=== PATIENT | female | born 1950 | race Two or more races ===

== ENCOUNTER → 2020-09-17 10:15 | Outpatient (BNVA) | payer MEDICARE, SELFPAY | PROVIDERS: PCP Internal Medicine; Referring Provider Internal Medicine; Visit Provider Advanced Practice Midwife | DX: Z76.89 Persons encountering health services in other specified circumstances (principal) ==

== ENCOUNTER → 2020-09-25 08:41 | Outpatient (BNVA) | payer MEDICARE, SELFPAY | PROVIDERS: PCP Internal Medicine; Referring Provider Internal Medicine; Visit Provider Physician Assistant | DX: R19.5 Other fecal abnormalities (principal); R63.4 Abnormal weight loss; R10.13 Epigastric pain; Z79.899 Other long term (current) drug therapy; Z79.82 Long term (current) use of aspirin | CPT/HCPCS: Q3014 ==

== ENCOUNTER 2020-10-30 11:09 | Day surgery (SDC) | payer MEDICARE, SELFPAY ==
[2020-10-22 14:26] VITALS: BMI 23.3
--- NOTE | 2020-10-29 09:41 | HO.ANESPROP2 ---
Documented by User: Sarah Preciado 10/29/20 09:47 HPI - Anesthesia Eval Consult details Narrative: 69yo F for Upper Endoscopy and Colonoscopy PMFSH Past Medical History Medical History Epigastric pain Gastritis History of high cholesterol History of Meniere's disease Family History Family History Father Pancreatic cancer Mother Heart disease Surgical History Surgical History History of esophagogastroduodenoscopy (EGD) Hx of colonoscopy Hx of tubal ligation Social History Social History Household Members: Children Alcohol intake: current Alcohol intake frequency: holidays/special occasions only Smoking Status: Never smoker Advance Directives: No Advance Directives Information Provided: No Advance Directives on File: No Meds Allergies Allergy/AdvReac Type Severity Reaction Status Date / Time No Known Allergies Allergy Verified 09/17/20 10:23 Home Medications Medication Instructions Recorded Confirmed Type multivitamin,jx-azjn-vtndokfs 1 tab PO DAILY 09/17/20 10/22/20 History rosuvastatin 10 mg tablet 10 mg PO DAILY 09/17/20 10/22/20 History scopolamine base 1 mg over 3 days 1 patch TRANSDERMAL Q3D PRN 09/17/20 10/22/20 History transdermal patch ascorbic acid (vitamin C) [Vitamin 1,000 mg PO DAILY 10/22/20 10/22/20 History C] cholecalciferol (vitamin D3) 25 mcg PO DAILY 10/22/20 10/22/20 History [Vitamin D3] lisinopril 10 mg PO DAILY 10/22/20 10/22/20 History Exam Exam Date and Time: October 29, 2020 0941 Height,Weight and Vital Signs: Height 5 ft 4 in Weight 61.689 kg Assessment and Plan Assessment Anesthesia Assessment: Chart Reviewed Documented by User: Roseanne Salas 10/30/20 11:18 [facility] Past Medical History Medical History Epigastric pain Gastritis History of high cholesterol History of Meniere's disease Family History Family History Father Pancreatic cancer Mother Heart disease Surgical History Surgical History History of esophagogastroduodenoscopy (EGD) Hx of colonoscopy Hx of tubal ligation Social History Social History Household Members: Children Alcohol intake: current Alcohol intake frequency: holidays/special occasions only Smoking Status: Never smoker Advance Directives: No Advance Directives Information Provided: No Advance Directives on File: No Meds Allergies Allergy/AdvReac Type Severity Reaction Status Date / Time No Known Allergies Allergy Verified 09/17/20 10:23 Home Medications Medication Instructions Recorded Confirmed Type multivitamin,yz-blsf-zobmcmsf 1 tab PO DAILY 09/17/20 10/22/20 History rosuvastatin 10 mg tablet 10 mg PO DAILY 09/17/20 10/22/20 History scopolamine base 1 mg over 3 days 1 patch TRANSDERMAL Q3D PRN 09/17/20 10/22/20 History transdermal patch ascorbic acid (vitamin C) [Vitamin 1,000 mg PO DAILY 10/22/20 10/22/20 History C] cholecalciferol (vitamin D3) 25 mcg PO DAILY 10/22/20 10/22/20 History [Vitamin D3] lisinopril 10 mg PO DAILY 10/22/20 10/22/20 History Exam Airway Mallampati Class: II TM Dist: >3cm Heart: RRR Lungs: CTA
[2020-10-30 11:16] VITALS: BP 139/70; PULSE 90; RESP 18; TEMP 36.6; O2SAT 98
[2020-10-30] MEDS: Sodium Phosphate,Mono-Dibasic 133 ML ENEMA PR ×2 (11:20→11:45)
[2020-10-30] MEDS: Lactated Ringers 1,000 ML 100 ML IVCONT (11:29)
--- NOTE | 2020-10-30 11:47 | PC.NURSE ---
brown liquid with form brown
--- NOTE | 2020-10-30 11:50 | MHC.SHP ---
Pre-Procedural Eval Section B Chief Complaint: epigastric pain,screening Relevant Social History: None Present Medications: see Short Stay Collaborative assessment Medical History: Significant History (Epigastric pain Gastritis History of high cholesterol History of Meniere's disease) History of Previous Operations: Relevant previous surgery/procedure and date(s) (tubal ligation) Allergies: Allergies Allergy/AdvReac Type Severity Reaction Status Date / Time No Known Allergies Allergy Verified 09/17/20 10:23 Review of Systems Sugical H&P ROS: Negative: Constitution, Cardiovascular, Respiratory, Neurological, Psychiatric, Hem-Onc, Allergic/Immunologic, Gastrointestinal, Genitourinary, Musculoskeletal, Integumentary, Endocrine and Eyes/Ears/Nose/Throat Exam Surgical H&P Exam: Normal: HEENT, Normal: Heart, Normal: Lungs, Normal: Extremities, Normal: Abdomen, Normal: Skin and Normal: Neurological Plan I have reviewed the history and physical and performed a pertinent physical examination on my patient. No changes have occurred unless specified. colonoscopy postponed due to not being clear, will proceed with EGD and reschedule colonoscopy
--- NOTE | 2020-10-30 12:07 | PM.OP ---
Brief Operative Note Date of Service: 10/30/20 Pre-op diagnosis: epigastric pain Post-op diagnosis: same Procedure: Procedure Description: EGD FLEXIBLE TRANSORAL UPPER GASTROINTESTINAL ENDOSCOPY UPPER ENDOSCOPY Consent: Indications for the procedure and potential complications of bleeding, perforation, reaction to medications and missed diagnosis were discussed with the patient and informed consent was obtained. Instrument: Olympus GIF H 190 J mid size upper endoscope Monitoring: Vital signs and clinical assessment, continuous EKG monitoring, Pulse oximetry, Carbon Dioxide monitoring and blood pressure monitoring were done throughout the procedure. Procedure: The patient was placed in the left lateral decubitis position and pre-procedure medications were administered and a bite block was placed. The endoscope was inserted into the mouth and advanced under direct vision to the third part of duodenum. A careful inspection was made as the upper endoscope was withdrawn including a retroflexed examination of the proximal stomach; Findings and interventions are described below. Findings: Larynx:normal Esophagus: GE junction at 37 cm, diaphragm hiatus at 37 cm, mild esophagitis at GEJ, bx taken, more on cardia side Stomach: Patchy gastric erythema with scarring and atrophy consistent with atrophic gastritis. Biopsies were obtained. Grade 2 flap valve on retroflexed examination of the cardia. Duodenum: Normal bulb and descending duodenum, bx taken Intervention: Biopsies as noted above Impression/Findings: atrophic gastritis PLAN: await bx if pos for h pylori then treat reschedule colonoscopy, didn't mix whole jar of 238 g of miralax with 64 oz of gatorade as supposed to Surgeon: Chayo Parnell MD Anesthesia: MAC Estimated blood loss (mL): 0 Condition: stable Disposition: PACU
[2020-10-30 12:20] VITALS: BP 113/57; PULSE 67; RESP 16; TEMP 36; O2SAT 99
[2020-10-30 12:35] VITALS: BP 138/61; PULSE 59; RESP 13; TEMP 36; O2SAT 100
--- NOTE | 2020-10-30 13:31 | HO.POSTANES ---
Post Anesthesia Evaluation Post Anesthesia Evaluation Vital Signs: Vital Signs Temp Pulse Resp BP Pulse Ox 10/30/20 12:35 96.8 F 59 13 138/61 100 10/30/20 12:20 96.8 F 67 16 113/57 L 99 10/30/20 11:16 97.8 F 90 18 139/70 98 Anesthesia: General (tiva) Mental Status: Awake Pain Control: Satisfactory Nausea/Vomiting: None Hydration: Adequate Anesthesia-Related Issues: No Anes. Related Issues
--- NOTE | 2020-10-30 13:58 | PC.NURSE ---
RN MATERNAL CHILD USED FOR DISCHARGE INSTRUCTIONS
--- NOTE | 2020-11-14 11:14 | W.PM.OPN ---
Operative Note Operative Note Date of Service: 11/14/20 Narrative: Date of Service: 10/30/20 Pre-op diagnosis: epigastric pain Post-op diagnosis: same Procedure: Procedure Description: EGD FLEXIBLE TRANSORAL UPPER GASTROINTESTINAL ENDOSCOPY UPPER ENDOSCOPY Consent: Indications for the procedure and potential complications of bleeding, perforation, reaction to medications and missed diagnosis were discussed with the patient and informed consent was obtained. Instrument: Olympus GIF H 190 J mid size upper endoscope Monitoring: Vital signs and clinical assessment, continuous EKG monitoring, Pulse oximetry, Carbon Dioxide monitoring and blood pressure monitoring were done throughout the procedure. Procedure: The patient was placed in the left lateral decubitis position and pre-procedure medications were administered and a bite block was placed. The endoscope was inserted into the mouth and advanced under direct vision to the third part of duodenum. A careful inspection was made as the upper endoscope was withdrawn including a retroflexed examination of the proximal stomach; Findings and interventions are described below. Findings: Larynx:normal Esophagus: GE junction at 37 cm, diaphragm hiatus at 37 cm, mild esophagitis at GEJ, bx taken, more on cardia side Stomach: Patchy gastric erythema with scarring and atrophy consistent with atrophic gastritis. Biopsies were obtained. Grade 2 flap valve on retroflexed examination of the cardia. Duodenum: Normal bulb and descending duodenum, bx taken Intervention: Biopsies as noted above Impression/Findings: atrophic gastritis PLAN: await bx if pos for h pylori then treat reschedule colonoscopy, didn't mix whole jar of 238 g of miralax with 64 oz of gatorade as supposed to
== END 2020-10-30 13:45 | disposition home or self-care (01) ==
PROVIDERS: Visit Provider Internal Medicine Gastroenterology
PROC: (CPT 43239; principal; 2020-10-30 12:50)
DX: K29.40 Chronic atrophic gastritis without bleeding (principal); K20.90 Esophagitis, unspecified without bleeding; R63.4 Abnormal weight loss; K44.9 Diaphragmatic hernia without obstruction or gangrene; Z80.0 Family history of malignant neoplasm of digestive organs; Z79.899 Other long term (current) drug therapy; Z79.82 Long term (current) use of aspirin
CPT/HCPCS: 43239; 88305; 88342

== ENCOUNTER → 2020-11-06 12:03 | Outpatient (BNVA) | payer MEDICARE, SELFPAY | PROVIDERS: PCP Internal Medicine; Visit Provider Physician Assistant | DX: K59.09 Other constipation (principal); Z12.11 Encounter for screening for malignant neoplasm of colon | CPT/HCPCS: Q3014 ==

== ENCOUNTER 2020-12-12 07:31 | Day surgery (SDC) | payer MEDICARE, SELFPAY ==
[2020-12-09 12:06] VITALS: BMI 23.3
--- NOTE | 2020-12-11 09:32 | HO.ANESPROP2 ---
Documented by User: Sarah Preciado 12/11/20 09:33 HPI - Anesthesia Eval Consult details Narrative: 70yo F for Colonoscopy PMFSH Active Problems Active Problems: All Active Problems (Updated 11/06/20 @ 12:50 by Mendy Groves PA-C) Well woman exam with routine gynecological exam (Acute) Change in stool (Acute) Poor historian (Acute) Encounter for screening colonoscopy (Acute) Chronic constipation (Acute) Epigastric pain (Acute) Past Medical History Medical History Chronic constipation Epigastric pain Gastritis History of high cholesterol History of Meniere's disease HTN (hypertension) Family History Family History Father Pancreatic cancer Mother Heart disease Surgical History Surgical History History of esophagogastroduodenoscopy (EGD) Hx of colonoscopy Hx of tubal ligation Social History Social History Household Members: Children Alcohol intake: current Alcohol intake frequency: holidays/special occasions only Smoking Status: Never smoker Use of substances other than those prescribed or required for medical reasons: No Advance Directives: No Advance Directives Information Provided: No Recently lost weight without trying: No Meds Allergies Allergy/AdvReac Type Severity Reaction Status Date / Time No Known Allergies Allergy Verified 09/17/20 10:23 Home Medications Medication Instructions Recorded Confirmed Last Taken Type multivitamin,rw-talj-idxdguai 1 tab PO DAILY 09/17/20 12/09/20 Unknown History rosuvastatin 10 mg tablet 10 mg PO DAILY 09/17/20 12/09/20 Unknown History scopolamine base 1 mg over 3 days 1 patch TRANSDERMAL Q3D PRN 09/17/20 12/09/20 Unknown History transdermal patch ascorbic acid (vitamin C) [Vitamin 1,000 mg PO DAILY 10/22/20 12/09/20 Unknown History C] cholecalciferol (vitamin D3) 25 mcg PO DAILY 10/22/20 12/09/20 Unknown History [Vitamin D3] lisinopril 10 mg PO DAILY 10/22/20 12/09/20 Unknown History Exam Exam Date and Time: December 11, 2020 0932 Height,Weight and Vital Signs: Height 5 ft 4 in Weight 61.689 kg Assessment and Plan Assessment Anesthesia Assessment: Chart Reviewed Documented by User: Brunilda Pinto 12/12/20 08:52 [facility] Past Medical History Medical History Chronic constipation Epigastric pain Gastritis History of high cholesterol History of Meniere's disease HTN (hypertension) Family History Family History Father Pancreatic cancer Mother Heart disease Surgical History Surgical History History of esophagogastroduodenoscopy (EGD) Hx of colonoscopy Hx of tubal ligation Social History Social History Household Members: Children Alcohol intake: current Alcohol intake frequency: holidays/special occasions only Smoking Status: Never smoker Use of substances other than those prescribed or required for medical reasons: No Advance Directives: No Advance Directives Information Provided: No Recently lost weight without trying: No Meds Allergies Allergy/AdvReac Type Severity Reaction Status Date / Time No Known Allergies Allergy Verified 09/17/20 10:23 Home Medications Medication Instructions Recorded Confirmed Last Taken Type multivitamin,ob-izef-rneqstuy 1 tab PO DAILY 09/17/20 12/09/20 Unknown History rosuvastatin 10 mg tablet 10 mg PO DAILY 09/17/20 12/09/20 Unknown History scopolamine base 1 mg over 3 days 1 patch TRANSDERMAL Q3D PRN 09/17/20 12/09/20 Unknown History transdermal patch ascorbic acid (vitamin C) [Vitamin 1,000 mg PO DAILY 10/22/20 12/09/20 Unknown History C] cholecalciferol (vitamin D3) 25 mcg PO DAILY 10/22/20 12/09/20 Unknown History [Vitamin D3] lisinopril 10 mg PO DAILY 10/22/20 12/09/20 Unknown History Exam Airway Mallampati Class: II TM Dist: >3cm Neck ROM: Full Loose/Missing/Broken Teeth: No Heart: RRR Lungs: CTA Assessment and Plan Assessment Anesthesia Assessment: Anesthesia Plan Discussed and Chart Reviewed Final Anesthetic Review NPO: Yes ASA Class: II Final Preanesthetic Review: Meds/Allgs Chart Reviewed, Consent Obtained/Reviewed and Anes Risks/Benef Reviewed Patient Risk: Low Procedure Risk: Low Anesthetic Plan Anesthetic Plan: MAC: Disposition: Standard PACU
--- NOTE | 2020-12-11 16:41 | W.PM.OPN ---
Operative Note Operative Note Date of Service: 12/12/20 Narrative: Attending Dr: Neeta Flynn MD cc: ~ OPERATIVE Note: Date of Service: 12/12/20 Pre-op diagnosis: Colon cancer screening Post-op diagnosis: other (Negative exam) Procedure: Colonoscopy Implants: none Surgeon: Neeta Flynn MD(Completion Supervisor) Anesthesia: MAC (MD Millie) Estimated blood loss (mL): 0 Pathology: none sent Condition: stable Disposition: PACU FINDINGS: DK-Normal tone Scope introduced without difficulty. Easy advancement through sigmoid to descending colon--in region of the Splenic flexure there were some non specific changes seen in mucosa--? prep induced. Scope continued to be advanced into the cecum: Appendicial orifice seen, ileo cecal valve seen. PREP: Good. No polyps were identified. ARV was clear. PLAN: Repeat Asymptomatic screening in a non high risk patient is 10yr. Dictated By:Neeta Flynnigned By:<Electronically signed by Neeta Flynn MD>12/15/20 1527 DD/ [id number]
[2020-12-12 08:09] VITALS: BP 137/77; PULSE 72; RESP 16; TEMP 36.2; O2SAT 100
--- NOTE | 2020-12-12 08:23 | MHC.SHP ---
Pre-Procedural Eval Section B Chief Complaint: constipation Details of Present Illness: Colon cancer screeening Relevant Family History (Specify if Yes): No Relevant Social History: None Present Medications: see Short Stay Collaborative assessment Medical History: Significant History (Meniere's, Constipation) History of Previous Operations: No relevant previous surgery Allergies: Allergies Allergy/AdvReac Type Severity Reaction Status Date / Time No Known Allergies Allergy Verified 09/17/20 10:23 Review of Systems Sugical H&P ROS: Negative: Constitution, Cardiovascular, Respiratory, Neurological, Gastrointestinal and Musculoskeletal Exam Surgical H&P Exam: Normal: HEENT, Normal: Heart, Normal: Lungs, Normal: Extremities, Normal: Abdomen and Normal: Skin Plan Diagnosis/Plan: Unchanged I have reviewed the history and physical and performed a pertinent physical examination on my patient. No changes have occurred unless specified.yes
--- NOTE | 2020-12-12 08:37 | PC.NURSE ---
patient wnet to the bathroom prior to an enem,a and her output was clear in the toilet. no enema needed. sitting back in bed. denies eating food yesterday.
[2020-12-12] MEDS: Lactated Ringers 1,000 ML 100 ML IVCONT (08:50)
[2020-12-12 09:45] VITALS: BP 108/57; PULSE 57; RESP 18; TEMP 36.1; O2SAT 100
--- NOTE | 2020-12-12 09:48 | PM.OP ---
Brief Operative Note Date of Service: 12/12/20 Pre-op diagnosis: Colon cancer screening Post-op diagnosis: other (Negative exam) Procedure: Colonoscopy Implants: none Surgeon: Neeta Flynn MD Anesthesia: MAC (MD Millie) Estimated blood loss (mL): 0 Pathology: none sent Condition: stable Disposition: PACU
[2020-12-12 10:00] VITALS: BP 115/64; PULSE 55; RESP 18; O2SAT 100
[2020-12-12 10:15] VITALS: BP 109/64; PULSE 61; RESP 18; TEMP 36.6; O2SAT 100
--- NOTE | 2020-12-12 11:05 | HO.POSTANES ---
Post Anesthesia Evaluation Post Anesthesia Evaluation Vital Signs: Vital Signs Temp Pulse Resp BP Pulse Ox 12/12/20 10:15 97.8 F 61 18 109/64 100 12/12/20 10:00 55 18 115/64 100 12/12/20 09:45 96.9 F 57 18 108/57 L 100 12/12/20 08:09 97.1 F 72 16 137/77 100 Anesthesia: Monitored Mental Status: Awake Pain Control: Satisfactory Nausea/Vomiting: None Hydration: Adequate Anesthesia-Related Issues: No Anes. Related Issues
--- NOTE | 2020-12-15 15:28 | W.PM.OPN ---
Operative Note Operative Note Date of Service: 12/12/20
== END 2020-12-12 11:48 | disposition home or self-care (01) ==
PROVIDERS: Visit Provider Internal Medicine Gastroenterology
PROC: 0DJD8ZZ Inspection of Lower Intestinal Tract, Via Natural or Artificial Opening Endoscopic (ICD-10-PCS; CPT 45378; principal; 2020-12-12 08:40)
DX: Z12.11 Encounter for screening for malignant neoplasm of colon (principal); K59.09 Other constipation
CPT/HCPCS: G0121

== ENCOUNTER 2021-06-19 11:12 | Outpatient (REF) | payer MEDICARE, OTHER, SELFPAY ==
--- NOTE | ~2021-06-19 | XR_ITS ---
EXAMINATION: XR HAND, LEFT CLINICAL INFORMATION: Pain COMPARISON: None TECHNIQUE: PA, lateral, and oblique views of the left hand. FINDINGS: There are severe erosive changes about the fifth distal phalangeal joint. Gullwing deformity favors erosive osteoarthritis. Remainder of the joints appear relatively spared within the hand but the carpal bones appear to be diffusely abnormal. Element of chronic scapholunate advanced collapse is present. XR/XR hand LT min 3V IMPRESSION: Erosive osteoarthritis fifth distal frontal joint suspected as above. Chronic changes left carpus as above.
== END 2021-06-19 11:13 | disposition home or self-care (01) ==
LOC: HO.LAB 11:12
PROVIDERS: Absent Provider Registered Nurse; PCP Registered Nurse; Visit Provider Physician Assistant
DX: M79.642 Pain in left hand (principal)
CPT/HCPCS: 73130

== ENCOUNTER → 2022-02-12 13:50 | Outpatient (BNVA) | payer MEDICARE, MEDICAID, SELFPAY | PROVIDERS: PCP Registered Nurse; Referring Provider Registered Nurse; Visit Provider Physician Assistant | DX: K59.09 Other constipation (principal); Z78.9 Other specified health status | CPT/HCPCS: Q3014 ==

== ENCOUNTER → 2022-04-15 12:58 | Outpatient (BNVA) | payer MEDICARE, MEDICAID, SELFPAY | PROVIDERS: PCP Family Medicine; Visit Provider Physician Assistant | DX: R13.10 Dysphagia, unspecified (principal); K21.9 Gastro-esophageal reflux disease without esophagitis; F40.298 Other specified phobia; Z79.899 Other long term (current) drug therapy | CPT/HCPCS: 99212 ==

== ENCOUNTER 2022-05-28 09:16 | Outpatient (REF) | payer MEDICARE, MEDICAID, SELFPAY ==
--- NOTE | ~2022-05-28 | FL_ITS ---
EXAMINATION: FL BARIUM SWALLOW CLINICAL INFORMATION: Dysphagia. COMPARISON: None TECHNIQUE: Barium swallow examination is performed using fluoroscopic evaluation in addition to multiple fluoroscopic spot views. The patient is imaged both upright and prone and using both thick and thin sulfate along with effervescent granules. FLUOROSCOPY TIME: 1.8 minutes. DAP: 6.554 Gy-cm2 FLUOROSCOPIC IMAGES: 70 FINDINGS: Following oral administration of thick barium coated turkey as solid food there is normal propagation of bolus from the oral cavity into the esophagus with slow transit of barium in the mid and the distal esophagus into the stomach. No obstructive, constrictive lesion seen. The GE junction is widely patent. On placing patient prone lying and oral administration of thin barium there is good distention of esophagus without intraluminal filling defect or narrowing. FL/FL barium swallow IMPRESSION: Delayed transit of liquids and solid food through the mid and the distal esophagus likely secondary to diminished peristalsis. Early changes of presbyesophagus. No intraluminal filling defect or constrictive narrowing. The GE junction is widely patent. No laryngeal penetration or aspiration.
--- NOTE | ~2022-05-28 | US_ITS ---
EXAMINATION: US ABDOMEN COMPLETE CLINICAL INFORMATION: Other specified phobia, cancer phobia. Family history of pancreatic cancer. COMPARISON: None TECHNIQUE: Real-time imaging of the abdominal viscera. FINDINGS: PANCREAS: Normal. ABDOMINAL AORTA: The proximal, mid, and distal segments are normal in caliber. INFERIOR VENA CAVA: Visualized portions are normal. LIVER: Normal. The liver is normal in size. The liver contour is normal. Parenchymal echogenicity is normal. No focal hepatic lesion. There is no intrahepatic biliary duct dilatation seen. GALLBLADDER: Normal. The gallbladder is physiologically distended without evidence of stones, sludge, polyps, wall thickening or pericholecystic fluid. COMMON BILE DUCT: Normal in caliber measuring 0.2 cm in diameter. RIGHT KIDNEY: Normal. No hydronephrosis. No renal calculi or focal parenchymal lesions. The kidney measures 9.4 cm in maximum dimension. LEFT KIDNEY: Normal. No hydronephrosis. No renal calculi or focal parenchymal lesions. The kidney measures 9.2 cm in maximum dimension. SPLEEN: Normal. The spleen measures 8.9 cm in maximum dimension. FREE FLUID: None. US/US abdomen complete IMPRESSION: Normal abdominal ultrasound.
== END 2022-05-28 09:17 | disposition home or self-care (01) ==
LOC: HO.US 09:16
PROVIDERS: Visit Provider Physician Assistant
DX: R13.10 Dysphagia, unspecified (principal); K21.9 Gastro-esophageal reflux disease without esophagitis; F40.298 Other specified phobia; Z80.0 Family history of malignant neoplasm of digestive organs
CPT/HCPCS: 74220; 76700

== ENCOUNTER → 2022-06-11 11:55 | Outpatient (BNVA) | payer MEDICARE, MEDICAID, SELFPAY | PROVIDERS: PCP Family Medicine; Referring Provider Family Medicine; Visit Provider Physician Assistant | DX: K21.9 Gastro-esophageal reflux disease without esophagitis (principal); K59.09 Other constipation; I10 Essential (primary) hypertension | CPT/HCPCS: 99212 ==

== ENCOUNTER 2022-11-09 07:48 | Day surgery (SDC) | payer MEDICARE, OTHER, SELFPAY ==
[2022-11-05 11:47] VITALS: BMI 24.9
--- NOTE | 2022-11-06 08:11 | MHC.SHP ---
Pre-Procedural Eval Section A Date of Service: 11/06/22 The patient is an INPATIENT: No Changes since office visit: No Cold of Flu in the past 2 weeks, No New Medical Problems, No Changes in Medication and No Patient answered all questions The History & Physical has been completed within 30 days and I have reviewed it.: Yes Section B Chief Complaint: Age-related nuclear cataract, right eye Allergies: Allergies Allergy/AdvReac Type Severity Reaction Status Date / Time No Known Allergies Allergy Verified 11/05/22 11:47 Plan Diagnosis/Plan: Unchanged I have reviewed the history and physical and performed a pertinent physical examination on my patient. No changes have occurred unless specified. Time Spent With Patient Time: Total time managing care of this patient today ____ minutes.
[2022-11-09 08:03] VITALS: BP 132/67; PULSE 62; RESP 20; TEMP 36.1; O2SAT 98
[2022-11-09] MEDS: Tetracaine HCl/PF 0.5% Oph Sol 4 ML DROPS 1 DROP EYE-RIGHT (08:19)
[2022-11-09] MEDS: Tropicamide 1 % Ophth Sol 3 ML BTL 1 DROP EYE-RIGHT ×3 (08:19→08:22)
[2022-11-09] MEDS: Cyclopentolate 1 % Ophth Sol 2 ML DRPBTL 1 DROP EYE-RIGHT ×3 (08:19→08:21)
[2022-11-09] MEDS: Phenylephrine HCL 2.5% Oph SoL 2 ML BOTTLE 1 DROP EYE-RIGHT ×3 (08:20→08:22)
[2022-11-09] MEDS: Ketorolac Tromethamine 0.5% Op 5 ML DROPS 1 DROP EYE-RIGHT ×3 (08:20→08:22)
--- NOTE | 2022-11-09 08:43 | HO.ANESPROP2 ---
Documented by User: Chavo Burns MD 11/09/22 08:47 HPI - Anesthesia Eval Consult details Narrative: Right eye cataract extraction + IOL PMFSH Past Medical History Medical History Chronic constipation Epigastric pain Gastritis History of high cholesterol History of Meniere's disease HTN (hypertension) Family History Family History Father Pancreatic cancer Mother Heart disease Family history of problems with anesthesia: No Surgical History Surgical History History of esophagogastroduodenoscopy (EGD) Hx of colonoscopy Hx of tubal ligation History of Problems with Anesthesia: No Social History Social History Household Members: Children Household Members Other:: daughter Are you a primary care consultant to a significant other at home: No Do you presently have visiting nurse or other home services: No Alcohol intake: current Alcohol intake frequency: does not drink Patient Tobacco Use Status: Never used Tobacco Use of substances other than those prescribed or required for medical reasons: No Have you been hit, kicked, punched, or otherwise hurt by someone within the past year? If so, by whom?: No Are you DNR?: No Advance Directives: No Advance Directives Information Provided: Yes Advance Directives on File: No Recently lost weight without trying: No Meds Allergies Allergy/AdvReac Type Severity Reaction Status Date / Time No Known Allergies Allergy Verified 11/05/22 11:47 Home Medications Medication Instructions Recorded Confirmed Last Taken Type multivitamin,mf-woov-hutaktwc 1 tab PO DAILY 09/17/20 11/05/22 Unknown History (Complete Multivitamin tablet) ascorbic acid (vitamin C) 1,000 mg 1,000 mg PO DAILY 10/22/20 11/05/22 Unknown History tablet (Vitamin C) cholecalciferol (vitamin D3) 25 25 mcg PO DAILY 02/12/22 11/05/22 Unknown History mcg (1,000 unit) tablet lorazepam 1 mg tablet 1 mg PO DAILY PRN 02/12/22 06/11/22 Unknown History melatonin ER 3 mg-pyridoxine HCl 1 tab PO BEDTIME insomnia 04/15/22 06/11/22 Unknown History 10 mg tablet,immed-extended release pravastatin 20 mg tablet 20 mg PO BEDTIME 04/15/22 11/05/22 Unknown History terbinafine HCl 250 mg tablet 250 mg PO DAILY 04/15/22 06/11/22 Unknown History lisinopril 10 mg tablet 1 tab PO DAILY 11/05/22 11/05/22 Unknown History scopolamine base 1 mg over 3 days 1 patch topical Q3D PRN Nausea 11/05/22 11/05/22 Unknown History transdermal patch (Transderm-Scop) Exam Airway Mallampati Class: II TM Dist: >3cm Neck ROM: Full Loose/Missing/Broken Teeth: No (many crowns globally) Heart: [id number] Lungs: cta b/l Assessment and Plan Assessment Anesthesia Assessment: Anesthesia Plan Discussed and Chart Reviewed Final Anesthetic Review Family History of Problems with Anesthesia: No History of Problems with Anesthesia: No NPO: Yes ASA Class: III Final Preanesthetic Review: No Changes in Pt Med Stat, Meds/Allgs Chart Reviewed, Consent Obtained/Reviewed and Anes Risks/Benef Reviewed Patient Risk: Intermediate Procedure Risk: Low Assessment/Block/Sedation in SS: Assess/Block/Sedation-SS Anesthetic Plan Anesthetic Plan: MAC: and Agree w/ Assess. and Plan Disposition: Standard PACU Documented by User: Saloni Tang MD [facility] Active Problems Active Problems: All Active Problems (Updated 06/11/22 @ 12:21 by Mendy Groves PA-C) HTN (hypertension) (Acute) Cancer phobia (Acute) Acid reflux (Acute) Dysphagia (Acute) Well woman exam with routine gynecological exam (Acute) Change in stool (Acute) Poor historian (Acute) Encounter for screening colonoscopy (Acute) Chronic constipation (Acute) Epigastric pain (Acute) Past Medical History Medical History Chronic constipation Epigastric pain Gastritis History of high cholesterol History of Meniere's disease HTN (hypertension) Family History Family History Father Pancreatic cancer Mother Heart disease Surgical History Surgical History History of esophagogastroduodenoscopy (EGD) Hx of colonoscopy Hx of tubal ligation Social History Social History Household Members: Children Household Members Other:: daughter Are you a primary care consultant to a significant other at home: No Do you presently have visiting nurse or other home services: No Alcohol intake: current Alcohol intake frequency: does not drink Patient Tobacco Use Status: Never used Tobacco Use of substances other than those prescribed or required for medical reasons: No Have you been hit, kicked, punched, or otherwise hurt by someone within the past year? If so, by whom?: No Are you DNR?: No Advance Directives: No Advance Directives Information Provided: Yes Advance Directives on File: No Recently lost weight without trying: No Meds Allergies Allergy/AdvReac Type Severity Reaction Status Date / Time No Known Allergies Allergy Verified 11/05/22 11:47 Active Medications: Current Medications Povidone Iodine (Povidone Iodine 5 % Ophth Soln 30 Ml Bottle) 1 appl EYE-RIGHT PREOP PRN PRN Reason: Pre-Op Surgical Implant Prophy Home Medications Medication Instructions Recorded Confirmed Last Taken Type multivitamin,vv-sycm-qmaleerv 1 tab PO DAILY 09/17/20 11/05/22 Unknown History (Complete Multivitamin tablet) ascorbic acid (vitamin C) 1,000 mg 1,000 mg PO DAILY 10/22/20 11/05/22 Unknown History tablet (Vitamin C) cholecalciferol (vitamin D3) 25 25 mcg PO DAILY 02/12/22 11/05/22 Unknown History mcg (1,000 unit) tablet lorazepam 1 mg tablet 1 mg PO DAILY PRN 02/12/22 06/11/22 Unknown History melatonin ER 3 mg-pyridoxine HCl 1 tab PO BEDTIME insomnia 04/15/22 06/11/22 Unknown History 10 mg tablet,immed-extended release pravastatin 20 mg tablet 20 mg PO BEDTIME 04/15/22 11/05/22 Unknown History terbinafine HCl 250 mg tablet 250 mg PO DAILY 04/15/22 06/11/22 Unknown History lisinopril 10 mg tablet 1 tab PO DAILY 11/05/22 11/05/22 Unknown History scopolamine base 1 mg over 3 days 1 patch topical Q3D PRN Nausea 11/05/22 11/05/22 Unknown History transdermal patch (Transderm-Scop) Exam Exam Date and Time: November 09, 2022 0843 Height,Weight and Vital Signs: Height 5 ft 4 in Weight 65.771 kg Last Vital Signs Temp 97 F 11/09/22 08:03 Pulse 62 11/09/22 08:03 Resp 20 11/09/22 08:03 BP 132/67 11/09/22 08:03 Pulse Ox 98 11/09/22 08:03 O2 Del Method 11/09/22 08:03
[2022-11-09] MEDS: Lactated Ringers 500 ML 50 ML IVCONT (09:00)
--- NOTE | 2022-11-09 09:10 | HO.PNOPHT ---
Ophthalmology Procedure Procedure Date of Service: 11/09/22 Ophthalmology Viscoelastic: Healraza Duet Dual Pack Pro Ophthalmology Lenses: TECNIS [id number] (21.5) Procedure Notes: PREOPERATIVE DIAGNOSIS: Decreased visual acuity right eye secondary to cataract POSTOPERATIVE DIAGNOSIS: Same PROCEDURE: Right cataract extraction with intraocular lens insertion SURGEON: Lobito Jonas M.D. ANESTHESIA: Topical/MAC ESTIMATED BLOOD LOSS: None COMPLICATIONS: None After obtaining informed consent, the patient was brought to the operating room suite and placed in the supine position. After adequate sedation per anesthesia, topical drops of Tetracaine were given to the right eye. The eye was then prepped and draped in the usual sterile fashion. The operating room microscope was then positioned over the operative eye and a lid speculum placed. A paracentesis was created. Viscoelastic was then instilled into the anterior chamber. A three plane incision was then created temporally, utilizing a 2.85 mm keratome. Capsulotomy forceps were then utilized to create a circular tear capsulotomy. Hydrodissection and hydrodelineation were carried out until adequate mobilization of the nucleus occurred. Phacoemulsification was then utilized to remove the dense central nucleus followed by removal of the cortical material utilizing the automated aspiration irrigation unit. Viscoelastic was instilled into the posterior capsular bag followed by placement of a posterior chamber intraocular lens without difficulty. The residual Viscoelastic was then removed utilizing the automated IA machine. The wound was checked and found to be watertight. The patient tolerated the procedure well and the lid speculum was removed. Intracameral injection of Vigamox 0.1 mL followed by a subtenon injection of Kenalog-40 0.2 mL were administered. The patient will be seen in the a.m.
[2022-11-09 09:32] VITALS: BP 190/78; PULSE 75; RESP 14; TEMP 36.8; O2SAT 100
[2022-11-09 09:37] VITALS: BP 184/85; PULSE 59; RESP 16; TEMP 36.8; O2SAT 100
== END 2022-11-09 09:48 | disposition home or self-care (01) ==
PROVIDERS: PCP Family Medicine; Visit Provider Ophthalmology
PROC: (CPT 66985; principal; 2022-11-09 09:30)
DX: H25.11 Age-related nuclear cataract, right eye (principal); H52.4 Presbyopia; I10 Essential (primary) hypertension; E78.00 Pure hypercholesterolemia, unspecified; H81.09 Meniere's disease, unspecified ear; Z79.899 Other long term (current) drug therapy
CPT/HCPCS: 66984; J3301; V2632

== ENCOUNTER 2022-11-24 12:53 | Emergency (ER) | payer MEDICARE, OTHER, SELFPAY ==
--- NOTE | ~2022-11-24 | US_ITS ---
EXAMINATION: US VENOUS ULTRASOUND WITH DOPPLER LOWER EXTREMITY, LEFT CLINICAL INFORMATION: Left lower extremity pain COMPARISON: None TECHNIQUE: Ultrasound of the deep veins is performed from the hip to the calf with compression sonography and color and pulse Doppler assessment. Spectral analysis with color-flow imaging is performed. FINDINGS: There is normal venous compression and respiratory variation and augmented flow. The visualized common femoral vein, superficial femoral vein, profunda femoral vein, popliteal vein, and the trifurcation region shows no evidence of deep venous thrombosis. There is no significant popliteal fossa cyst. If the patient's symptoms persist, followup ultrasound in 5 days 7 days might be of value to exclude proximal propagation from a non-visualized calf vein. US/US venous duplex LE LT IMPRESSION: No DVT demonstrated in the left lower extremity.
--- NOTE | ~2022-11-24 | CT_ITS ---
EXAMINATION: CT HEAD WITHOUT CONTRAST CLINICAL INFORMATION: Difficulty walking. Weakness. COMPARISON: None. TECHNIQUE: Contiguous axial imaging was performed from the skull base to vertex without intravenous contrast. This CT examination was performed using dose optimization techniques as appropriate, variously including the following: * Automated exposure control * Adjustment of mA and/or kV according to patient size (this includes techniques or standardized protocols for targeted exams where dose is matched to indication/reason for exam; i.e. extremities or head) Use of iterative reconstruction technique DLP: 612 mGy-cm. FINDINGS: There is no evidence of acute intracranial hemorrhage or territorial infarction. No abnormal mass effect or midline shift is seen. Diallo to white matter differentiation is well preserved. No extra-axial fluid collections are identified. No hydrocephalus. No significant volume loss. Patchy periventricular and deep white matter hypoattenuation is consistent with mild small vessel ischemic changes. The osseous structures and soft tissues are normal. The mastoid air cells and visualized portions of the paranasal sinuses are well aerated. CT/CT head/brain wo IV con IMPRESSION: No acute intracranial pathology.
--- NOTE | ~2022-11-24 | XR_ITS ---
EXAMINATION: XR CHEST CLINICAL INFORMATION: Cough. COMPARISON: 01/01/2016 chest radiograph. TECHNIQUE: 2 views of the chest were obtained. FINDINGS: No significant abnormality is noted involving the heart, lungs, mediastinum, bony thorax or soft tissues. XR/XR chest 2V IMPRESSION: No acute cardiopulmonary process.
[2022-11-24 12:55] VITALS: BP 116/62; PULSE 106; RESP 20; TEMP 36.4; O2SAT 96; BMI 24.7
--- NOTE | 2022-11-24 12:58 | ED_ITS ---
HPI - General Adult General Chief complaint: General Medical <GIOVANNI Brothers - Last Filed: 11/24/22 13:07> Stated complaint: Cough <GIOVANNI Brothers - Last Filed: 11/24/22 13:07> Time Seen by Provider: 11/24/22 14:00 <GIOVANNI Brothers - Last Filed: 11/24/22 13:07> Source: patient <Vasu Garcia MD - Last Filed: 11/24/22 17:27> Mode of arrival: ambulatory <Vasu Garcia MD - Last Filed: 11/24/22 17:27> Limitations: language barrier (Tajik speaking only, interpreter translator used) <Vasu Garcia MD - Last Filed: 11/24/22 17:27> History of Present Illness HPI narrative: 71-year-old female presents emergency department for evaluation of 3 days of left lower extremity pain. She states the pain is been intermittent. She describes the pain as a grinding pain which is been ?horrible? patient blair greater than 10/10 when it is present. The pain is not worse with walking more with movement of her leg or back. She states that the pain goes from her foot all the way to her buttocks. She states that when she gets the pain she does feel weak. At the time evaluate of evaluation she has no pain. She denied lower back pain when I question her but she did tell provider in triage that she has acute on chronic back pain that radiates down her leg. She also told the triage provider that she feels unbalanced and unsafe. She states that over the past 3 days she has had at site sore throat and a cough. She has had a decreased appetite is not been eating and drinking. She denied shortness of breath or dyspnea on exertion. She denied nausea vomiting diarrhea . She has not had any pain or swelling in her lower extremities. She has not gone on any long trips. <Vasu Garcia MD - Last Filed: 11/24/22 17:27> Related Data Home medications: Home Medications Medication Instructions Recorded Confirmed multivitamin,[id number] 1 tab PO DAILY 09/17/20 11/05/22 (Complete Multivitamin tablet) ascorbic acid (vitamin C) 1,000 mg 1,000 mg PO DAILY 10/22/20 11/05/22 tablet (Vitamin C) cholecalciferol (vitamin D3) 25 25 mcg PO DAILY 02/12/22 11/05/22 mcg (1,000 unit) tablet lorazepam 1 mg tablet 1 mg PO DAILY PRN 02/12/22 06/11/22 melatonin ER 3 mg-pyridoxine HCl 1 tab PO BEDTIME insomnia 04/15/22 06/11/22 10 mg tablet,immed-extended release pravastatin 20 mg tablet 20 mg PO BEDTIME 04/15/22 11/05/22 terbinafine HCl 250 mg tablet 250 mg PO DAILY 04/15/22 06/11/22 lisinopril 10 mg tablet 1 tab PO DAILY 11/05/22 11/05/22 scopolamine base 1 mg over 3 days 1 patch topical Q3D PRN Nausea 11/05/22 11/05/22 transdermal patch (Transderm-Scop) Previous Rx's Medication Instructions Recorded docusate sodium 100 mg capsule 200 mg PO BEDTIME #60 caps 04/15/22 (Colace) methylcellulose (laxative) 500 mg 500 mg PO TID #90 tabs 04/15/22 tablet (Citrucel) polyethylene glycol 3350 17 17 g PO DAILY #510 grams 04/15/22 gram/dose oral powder (Miralax) simethicone 125 mg chewable tablet 125 mg PO TID-QID PRN abdominal 04/15/22 (Gas Relief (simethicone)) distention #90 tabs nirmatrelvir 300 mg (150 mg See Rx Instructions PO .COMPLEX 11/24/22 x2)-ritonavir 100 mg tablet,dose #30 ea pack(EUA) (Paxlovid) <GIOVANNI Brothers - Last Filed: 11/24/22 13:07> Allergies/adverse reactions: Allergies Allergy/AdvReac Type Severity Reaction Status Date / Time No Known Allergies Allergy Verified 11/05/22 11:47 <GIOVANNI Brothers - Last Filed: 11/24/22 13:07> Review of Systems Review of Systems: Yes all other systems are reviewed and are negative <Vasu Garcia MD - Last Filed: 11/24/22 17:27> [facility] Past Medical History [facility] Narrative: Social history: She denies tobacco, alcohol and drug use. <Vasu Garcia MD - Last Filed: 11/24/22 17:27> Medical History: Medical History Chronic constipation Epigastric pain Gastritis History of high cholesterol History of Meniere's disease HTN (hypertension) <GIOVANNI Brothers - Last Filed: 11/24/22 13:07> Surgical History: Surgical History History of esophagogastroduodenoscopy (EGD) Hx of colonoscopy Hx of tubal ligation <GIOVANNI Brothers - Last Filed: 11/24/22 13:07> Family History Family History: Family History Father Pancreatic cancer Mother Heart disease <GIVOANNI Brothers - Last Filed: 11/24/22 13:07> Social History Social History: Social History Household Members: Children Household Members Other:: daughter Are you a primary lead care manager to a significant other at home: No Do you presently have visiting nurse or other home services: No Alcohol intake: current Alcohol intake frequency: does not drink Patient Tobacco Use Status: Never used Tobacco Advance Directives: No Advance Directives Information Provided: Yes <GIOVANNI Brothers - Last Filed: 11/24/22 13:07> Physical Exam ED Vital Signs: Vital Signs - 24 hr 11/24/22 12:55 Temperature 97.5 F Pulse Rate 106 H Respiratory Rate 20 Blood Pressure 116/62 Pulse Oximetry 96 Oxygen Delivery Method Room Air BMI result Body Mass Index 24.7 <GIOVANNI Brothers - Last Filed: 11/24/22 13:07> Vital Signs - 24 hr 11/24/22 12:55 Temperature 97.5 F Pulse Rate 106 H Respiratory Rate 20 Blood Pressure 116/62 Pulse Oximetry 96 Oxygen Delivery Method Room Air BMI result Body Mass Index 24.7 <Vasu Garcia MD - Last Filed: 11/24/22 17:27> Const General: cooperative and no acute distress <MD Kiana Norton Last Filed: 11/24/22 17:27> Orientation/consciousness: oriented to person and oriented to place <MD Kiana Norton Last Filed: 11/24/22 17:27> Limitations: no limitations <MD Kiana Norton Last Filed: 11/24/22 17:27> HENMT Head: Yes normal to inspection, Yes normocephalic and Yes atraumatic <MD Kiana Norton Last Filed: 11/24/22 17:27> Ears: external ears normal <MD Kiana Norton Last Filed: 11/24/22 17:27> General nose exam: Normal external nose present <MD Kiana Norton Last Filed: 11/24/22 17:27> Face and sinus: Yes normal facial exam <MD Kiana Norton Last Filed: 11/24/22 17:27> Mouth: Normal oral and palatal mucosa present <MD Kiana Norton Last Filed: 11/24/22 17:27> Throat: Yes posterior oropharynx normal <MD Kiana Norton Last Filed: 11/24/22 17:27> Eyes General: appearance normal, both eyes and all related structures <MD Kiana Norton Last Filed: 11/24/22 17:27> Pupils: Equal, round and reactive pupils present <MD Kiana Norton Last Filed: 11/24/22 17:27> Neck Neck: Yes normal visual inspection, Yes no lymphadenopathy, Yes trachea midline and Yes supple <MD Kiana Norton Last Filed: 11/24/22 17:27> Chest Chest palpation & inspection: normal inspection of the chest and normal palpation of entire chest wall <MD Kiana Norton Last Filed: 11/24/22 17:27> Resp Effort & Inspection: normal respiratory effort and able to speak in complete sentences <MD Kiana Norton Last Filed: 11/24/22 17:27> Auscultation: clear to auscultation bilaterally <MD Kiana Norton Last Filed: 11/24/22 17:27> Cardio Rate: regular rate <Vasu Garcia MD - Last Filed: 11/24/22 17:27> Rhythm: regular rhythm <Vasu Garcia MD - Last Filed: 11/24/22 17:27> Heart sounds: S1 normal heart sound present, S2 normal heart sound present and no murmurs <Vasu Garcia MD - Last Filed: 11/24/22 17:27> GI Inspection: Yes normal to inspection <Vasu Garcia MD - Last Filed: 11/24/22 17:27> Palpation (GI): Soft to palpation, nontender and no guarding <Vasu Garcia MD - Last Filed: 11/24/22 17:27> Auscultation: normal bowel sounds <Vasu Garcia MD - Last Filed: 11/24/22 17:27> General: Yes no CVA tenderness <Vasu Garcia MD - Last Filed: 11/24/22 17:27> Back/Spine/Pelvis Other: Negative straight leg raises bilaterally, no tenderness palpation over her lumbar sacral paraspinal muscles or vertebrae <Vasu Garcia MD - Last Filed: 11/24/22 17:27> Back: no CVA tenderness <Vasu Garcia MD - Last Filed: 11/24/22 17:27> Skin General skin exam: no rashes or lesions noted <Vasu Garcia MD - Last Filed: 11/24/22 17:27> Neuro General: oriented to person and oriented to place <Vasu Garcia MD - Last Filed: 11/24/22 17:27> Cranial nerves: Yes CN's II-XII intact bilaterally and Yes Equal, round and reactive pupils present <Vasu Garcia MD - Last Filed: 11/24/22 17:27> Cognition (Neuro): normal cognition <Vasu Garcia MD - Last Filed: 11/24/22 17:27> Motor exam (neuro): 5/5 motor strength present throughout <Vasu Garcia MD - Last Filed: 11/24/22 17:27> Extrem Other: The skin of the patient's lower extremity appear to be normal with no erythema or lesions, there is no asymmetry between the patient's left and right legs, she has no tenderness palpation of her muscles of the thighs or calves she has negative Homans sign bilaterally <Vasu Garcia MD - Last Filed: 11/24/22 17:27> Psych Appearance: grossly normal <Vasu Garcia MD - Last Filed: 11/24/22 17:27> Speech and movement: Normal speech and movement present <Vasu Garcia MD - Last Filed: 11/24/22 17:27> Affect: normal affect <Vasu Garcia MD - Last Filed: 11/24/22 17:27> Attitude: cooperative <Vasu Garcia MD - Last Filed: 11/24/22 17:27> Course Course Course Narrative: E - 71 yo Tajik speaking female with history of Meniere's disease, HTN, GERD, HLD, cataracts, constipation who presents to the ER for evaluation of multiple complaints She states she has acute on chronic left low back pain that radiates down the leg for the last 3 days along with feeling unbalanced and unsafe when she walks that started earlier this morning. Endorses generalized weakness. Denies dizziness, CP and SOB. Walking with a very slight limp but has a steady gait. Reports fever for the last 3 days and cough, has been in bed the last few days with decreased PO intake. Neurologically intact in triage. Steady gait. VSS. Will get labs, EKG, CXR, viral swabs, and CT head. Stable to go back to waiting room until treatment room available. <GIOVANNI Brothers - Last Filed: 11/24/22 13:07> Medical Decision Making Medical Decision Making MDM Narrative: 71-year-old female who presents emergency department for evaluation of intermittent pain in her left leg, the pain travels from her buttocks down to her foot, she states that she has occasional weakness of the leg when she has the pain. At the time of evaluation she is having no pain. She has had sore throat cough over the past 3 days with a decreased appetite. The following tests were ordered at [facility] at triage: CT scan of the brain without IV contrast, chest x-ray two view, CBC, BMP, liver panel, troponin, PT/INR, TSH with reflex T4, urinalysis. I added ultrasound venous duplex of the left lower extremity to rule out DVT. 1525: Patient's laboratory, chest x-ray interpretation by me as follows: CBC normal, BMP normal, LFTs normal. High sensitive troponin I detectable at 9.9 but not elevated-she is having no chest pain so I do not think that she has a 3 hour troponin. Patient's influenza, RSV were negative. The patient's COVID-19 was positive. TSH was normal. Chest x-ray on my interpretation is no acute disease. 1718: CT scan of the brain was unremarkable. The patient is Doppler ultrasound was negative. Patient's COVID-19 test did come back positive in this most likely explains her symptoms. The patient would be a good candidate for Paxlovid. She will need to stop her pravastatin a can continue her lisinopril. I did discuss these findings with the patient the patient was discharged home <Vasu Garcia MD - Last Filed: 11/24/22 17:27> Differential Diagnosis Differential diagnosis includes but is not limited to sciatica, disc disease with nerve impingement, DVT, viral syndrome, influenza, RSV, COVID-19 <Vasu Garcia MD - Last Filed: 11/24/22 17:27> Lab Data [facility] Lab Attestation statement: I reviewed the patient's lab results. <Vasu Garcia MD - Last Filed: 11/24/22 17:27> Please see the [facility] for my discussion <Vasu Garcia MD - Last Filed: 11/24/22 17:27> Result Diagrams: 11/24/22 14:09 11/24/22 14:09 <GIOVANNI Brothers - Last Filed: 11/24/22 13:07> Labs: Lab Results 11/24/22 11/24/22 11/24/22 Range/Units 14:09 14:09 14:09 WBC 6.9 (4.8-10.8) X10*3/uL RBC 4.45 (4.20-5.50) X10*6/uL Hgb 12.4 (12.0-16.0) g/dl Hct 38.7 (37.0-47.0) % MCV 87.0 (80.0-98.0) fL MCH 27.9 (27.0-33.0) pg MCHC 32.0 (31.0-35.0) g/dl RDW 12.2 (11.0-16.0) % Plt Count 226 (160-400) X10*3/uL MPV 10.4 (9.4-12.3) fL Immature Gran % (Auto) 0.3 (0.0-0.4) % Neut % (Auto) 75.6 H (45-73) % Lymph % (Auto) 12.7 L (20-40) % Pope % (Auto) 10.7 (2-11) % Eos % (Auto) 0.1 (0-4) % Baso % (Auto) 0.6 (0-2) % Lymph # (Auto) 0.9 L (1.2-4.9) X10*3/uL Pope # (Auto) 0.7 (0.1-1.2) X10*3/uL Eos # (Auto) 0.0 (0.0-0.4) X10*3/uL Baso # (Auto) 0.0 (0.0-0.2) X10*3/uL Abs Immat Gran (auto) 0.02 (0.00-0.03) X10*3/uL Absolute Neuts (auto) 5.2 (2.0-8.3) x10*3/uL Absolute Nucleated RBC 0.000 (0.0-0.012) X10*3/uL Nucleated RBC % (auto) 0.0 (0.0-0.2) /100WBC PT 12.8 (10.0-13.1) SEC INR 1.1 (0.9-1.1) Sodium 142 (135-145) mmol/L Potassium 4.5 (3.3-5.1) mmol/L Chloride 105 (96-108) mmol/L Carbon Dioxide 28 (22-29) mmol/L Anion Gap 14 (12-20) BUN 10 (9-16) mg/dL Creatinine 0.88 (0.5-1.4) mg/dL Estim Creat Clear Calc 49.1 Estimated GFR > 60 Random Glucose 100 (60-115) mg/dL Calcium 9.3 (8.4-10.2) mg/dL Magnesium 2.1 (1.6-2.6) mg/dL Total Bilirubin 0.3 (0.0-1.0) mg/dL Direct Bilirubin < 0.2 (0.0-0.5) mg/dL AST 16 (5-31) U/L ALT 8 (0-31) U/L Alkaline Phosphatase 71 (39-117) U/L Troponin I High Sens (<3.5-17.0) ng/L Total Protein 6.8 (6.5-8.0) g/dL Albumin 4.3 (3.5-5.0) g/dL TSH 0.83 (0.32-4.0) uIU/mL Urine Color Urine Appearance Urine pH (5.0-9.0) Ur Specific Parrish (1.005-1.025) Urine Protein (Neg-Trace) mg/dL Urine Glucose (UA) (Negative) mg/dL Urine Ketones (Negative) mg/dL Urine Blood (Negative) Urine Nitrite (Negative) Ur Leukocyte Esterase (Negative) Influenza Type A (PCR) (Negative) Influenza Type B (PCR) (Negative) RSV RNA Qual (PCR) (Negative) SARS-CoV-2 RNA (RT-PCR) (Negative) 11/24/22 11/24/22 11/24/22 Range/Units 14:09 14:09 14:44 WBC (4.8-10.8) X10*3/uL RBC (4.20-5.50) X10*6/uL Hgb (12.0-16.0) g/dl Hct (37.0-47.0) % MCV (80.0-98.0) fL MCH (27.0-33.0) pg MCHC (31.0-35.0) g/dl RDW (11.0-16.0) % Plt Count (160-400) X10*3/uL MPV (9.4-12.3) fL Immature Gran % (Auto) (0.0-0.4) % Neut % (Auto) (45-73) % Lymph % (Auto) (20-40) % Pope % (Auto) (2-11) % Eos % (Auto) (0-4) % Baso % (Auto) (0-2) % Lymph # (Auto) (1.2-4.9) X10*3/uL Pope # (Auto) (0.1-1.2) X10*3/uL Eos # (Auto) (0.0-0.4) X10*3/uL Baso # (Auto) (0.0-0.2) X10*3/uL Abs Immat Gran (auto) (0.00-0.03) X10*3/uL Absolute Neuts (auto) (2.0-8.3) x10*3/uL Absolute Nucleated RBC (0.0-0.012) X10*3/uL Nucleated RBC % (auto) (0.0-0.2) /100WBC PT (10.0-13.1) SEC INR (0.9-1.1) Sodium (135-145) mmol/L Potassium (3.3-5.1) mmol/L Chloride (96-108) mmol/L Carbon Dioxide (22-29) mmol/L Anion Gap (12-20) BUN (9-16) mg/dL Creatinine (0.5-1.4) mg/dL Estim Creat Clear Calc Estimated GFR Random Glucose (60-115) mg/dL Calcium (8.4-10.2) mg/dL Magnesium (1.6-2.6) mg/dL Total Bilirubin (0.0-1.0) mg/dL Direct Bilirubin (0.0-0.5) mg/dL AST (5-31) U/L ALT (0-31) U/L Alkaline Phosphatase (39-117) U/L Troponin I High Sens 9.9 (<3.5-17.0) ng/L Total Protein (6.5-8.0) g/dL Albumin (3.5-5.0) g/dL TSH (0.32-4.0) uIU/mL Urine Color Yellow Urine Appearance Clear Urine pH 6.5 (5.0-9.0) Ur Specific Parrish 1.015 (1.005-1.025) Urine Protein Trace (Neg-Trace) mg/dL Urine Glucose (UA) Negative (Negative) mg/dL Urine Ketones Negative (Negative) mg/dL Urine Blood Negative (Negative) Urine Nitrite Negative (Negative) Ur Leukocyte Esterase Negative (Negative) Influenza Type A (PCR) NEGATIVE (Negative) Influenza Type B (PCR) NEGATIVE (Negative) RSV RNA Qual (PCR) NEGATIVE (Negative) SARS-CoV-2 RNA (RT-PCR) POSITIVE A (Negative) <GIOVANNI Brothers - Last Filed: 11/24/22 13:07> Lab Results 11/24/22 11/24/22 11/24/22 Range/Units 14:09 14:09 14:09 WBC 6.9 (4.8-10.8) X10*3/uL RBC 4.45 (4.20-5.50) X10*6/uL Hgb 12.4 (12.0-16.0) g/dl Hct 38.7 (37.0-47.0) % MCV 87.0 (80.0-98.0) fL MCH 27.9 (27.0-33.0) pg MCHC 32.0 (31.0-35.0) g/dl RDW 12.2 (11.0-16.0) % Plt Count 226 (160-400) X10*3/uL MPV 10.4 (9.4-12.3) fL Immature Gran % (Auto) 0.3 (0.0-0.4) % Neut % (Auto) 75.6 H (45-73) % Lymph % (Auto) 12.7 L (20-40) % Pope % (Auto) 10.7 (2-11) % Eos % (Auto) 0.1 (0-4) % Baso % (Auto) 0.6 (0-2) % Lymph # (Auto) 0.9 L (1.2-4.9) X10*3/uL Pope # (Auto) 0.7 (0.1-1.2) X10*3/uL Eos # (Auto) 0.0 (0.0-0.4) X10*3/uL Baso # (Auto) 0.0 (0.0-0.2) X10*3/uL Abs Immat Gran (auto) 0.02 (0.00-0.03) X10*3/uL Absolute Neuts (auto) 5.2 (2.0-8.3) x10*3/uL Absolute Nucleated RBC 0.000 (0.0-0.012) X10*3/uL Nucleated RBC % (auto) 0.0 (0.0-0.2) /100WBC PT 12.8 (10.0-13.1) SEC INR 1.1 (0.9-1.1) Sodium 142 (135-145) mmol/L Potassium 4.5 (3.3-5.1) mmol/L Chloride 105 (96-108) mmol/L Carbon Dioxide 28 (22-29) mmol/L Anion Gap 14 (12-20) BUN 10 (9-16) mg/dL Creatinine 0.88 (0.5-1.4) mg/dL Estim Creat Clear Calc 49.1 Estimated GFR > 60 Random Glucose 100 (60-115) mg/dL Calcium 9.3 (8.4-10.2) mg/dL Magnesium 2.1 (1.6-2.6) mg/dL Total Bilirubin 0.3 (0.0-1.0) mg/dL Direct Bilirubin < 0.2 (0.0-0.5) mg/dL AST 16 (5-31) U/L ALT 8 (0-31) U/L Alkaline Phosphatase 71 (39-117) U/L Troponin I High Sens (<3.5-17.0) ng/L Total Protein 6.8 (6.5-8.0) g/dL Albumin 4.3 (3.5-5.0) g/dL TSH 0.83 (0.32-4.0) uIU/mL Urine Color Urine Appearance Urine pH (5.0-9.0) Ur Specific Parrish (1.005-1.025) Urine Protein (Neg-Trace) mg/dL Urine Glucose (UA) (Negative) mg/dL Urine Ketones (Negative) mg/dL Urine Blood (Negative) Urine Nitrite (Negative) Ur Leukocyte Esterase (Negative) Influenza Type A (PCR) (Negative) Influenza Type B (PCR) (Negative) RSV RNA Qual (PCR) (Negative) SARS-CoV-2 RNA (RT-PCR) (Negative) 11/24/22 11/24/22 11/24/22 Range/Units 14:09 14:09 14:44 WBC (4.8-10.8) X10*3/uL RBC (4.20-5.50) X10*6/uL Hgb (12.0-16.0) g/dl Hct (37.0-47.0) % MCV (80.0-98.0) fL MCH (27.0-33.0) pg MCHC (31.0-35.0) g/dl RDW (11.0-16.0) % Plt Count (160-400) X10*3/uL MPV (9.4-12.3) fL Immature Gran % (Auto) (0.0-0.4) % Neut % (Auto) (45-73) % Lymph % (Auto) (20-40) % Pope % (Auto) (2-11) % Eos % (Auto) (0-4) % Baso % (Auto) (0-2) % Lymph # (Auto) (1.2-4.9) X10*3/uL Pope # (Auto) (0.1-1.2) X10*3/uL Eos # (Auto) (0.0-0.4) X10*3/uL Baso # (Auto) (0.0-0.2) X10*3/uL Abs Immat Gran (auto) (0.00-0.03) X10*3/uL Absolute Neuts (auto) (2.0-8.3) x10*3/uL Absolute Nucleated RBC (0.0-0.012) X10*3/uL Nucleated RBC % (auto) (0.0-0.2) /100WBC PT (10.0-13.1) SEC INR (0.9-1.1) Sodium (135-145) mmol/L Potassium (3.3-5.1) mmol/L Chloride (96-108) mmol/L Carbon Dioxide (22-29) mmol/L Anion Gap (12-20) BUN (9-16) mg/dL Creatinine (0.5-1.4) mg/dL Estim Creat Clear Calc Estimated GFR Random Glucose (60-115) mg/dL Calcium (8.4-10.2) mg/dL Magnesium (1.6-2.6) mg/dL Total Bilirubin (0.0-1.0) mg/dL Direct Bilirubin (0.0-0.5) mg/dL AST (5-31) U/L ALT (0-31) U/L Alkaline Phosphatase (39-117) U/L Troponin I High Sens 9.9 (<3.5-17.0) ng/L Total Protein (6.5-8.0) g/dL Albumin (3.5-5.0) g/dL TSH (0.32-4.0) uIU/mL Urine Color Yellow Urine Appearance Clear Urine pH 6.5 (5.0-9.0) Ur Specific Parrish 1.015 (1.005-1.025) Urine Protein Trace (Neg-Trace) mg/dL Urine Glucose (UA) Negative (Negative) mg/dL Urine Ketones Negative (Negative) mg/dL Urine Blood Negative (Negative) Urine Nitrite Negative (Negative) Ur Leukocyte Esterase Negative (Negative) Influenza Type A (PCR) NEGATIVE (Negative) Influenza Type B (PCR) NEGATIVE (Negative) RSV RNA Qual (PCR) NEGATIVE (Negative) SARS-CoV-2 RNA (RT-PCR) POSITIVE A (Negative) <Vasu Garcia MD - Last Filed: 11/24/22 17:27> Independent Interpretation I performed an independent interpretation of an: Plain X-Ray <Vasu Garcia MD - Last Filed: 11/24/22 17:27> Interpretation: Chest x-ray two view was interpreted by me as follows, no pneumonia, no pneumothorax, no acute disease <Vasu Garcia MD - Last Filed: 11/24/22 17:27> Radiology Impression Discussion of test interpretation with radiology: I have reviewed the radiologist's reading. <Vasu Garcia MD - Last Filed: 11/24/22 17:27> Radiologist Impression: XR chest 2V IMPRESSION: No acute cardiopulmonary process. Dictated By: Neville Bernal MD Signed By: US venous duplex LE LT IMPRESSION: No DVT demonstrated in the left lower extremity. Dictated By:Ruiz Abel MDSigned By:<Electronically signed by Ruiz Abel MD in [place]>11/24/[address] head/brain wo IV con IMPRESSION: No acute intracranial pathology. Dictated By:Ruiz Abel MDSigned By:<Electronically signed by Ruiz Abel MD in [place]>11/24/22 1549 <Vasu Garcia MD - Last Filed: 11/24/22 17:27> Discharge Plan Discharge Clinical Impression: Acute pain of left lower extremity, COVID-19 virus infection <GIOVANNI Brothers - Last Filed: 11/24/22 13:07> Patient Disposition: Home, Self-Care <GIOVANNI Brothers - Last Filed: 11/24/22 13:07> Instructions: COVID-19 (Coronavirus Disease 2019) (ED) <GIOVANNI Brothers - Last Filed: 11/24/22 13:07> Additional Instructions: The CT scan of your brain was normal. Your chest x-ray was unremarkable, there was no evidence for pneumonia which is reassuring. The duplex ultrasound of your left leg revealed no blood clots, this is reassuring as well. Your blood work was unremarkable. Your influenza and RSV tests were negative. Your COVID-19 test was positive. Your symptoms are most likely caused by the COVID-19 virus. I am starting you on Paxlovid. This is a medication that helps fight off the COVID virus. You need to stop your high cholesterol medication pravastatin while your taking Paxlovid. You can continue your lisinopril. Take ibuprofen 200 mg pills, 2 pills every 6 hours as needed for pain or fever. Take Tylenol (acetaminophen) 500 mg pills, 2 pills every 6 hours as needed for pain. You will need to isolate for at least 5-7 days and you need to be symptomatic for 24 hours before you can be around other people. Follow-up with your doctor in 2 days. Please return to the emergency department if your symptoms get worse or if you develop any symptoms that are concerning to you. <GIOVANNI Brothers - Last Filed: 11/24/22 13:07> Prescriptions: New Paxlovid (EUA) 300 mg (150 mg x 2)-100 mg tablets,dose pack See Rx Instructions .ROUTE .COMPLEX Qty: 30 0RF Rx Instructions: take TWO 150 mg tablets of nirmatrelvir with ONE 100 mg tablet of ritonavir twice daily for 5 days No Action ascorbic acid (vitamin C) [Vitamin C] 1,000 mg Tablet 1,000 mg PO DAILY lisinopril 10 mg tablet 1 tab PO DAILY scopolamine base [Transderm-Scop] 1 mg over 3 days patch 3 day 1 patch topical Q3D PRN (Reason: Nausea) Complete Multivitamin Tablet 1 tab PO DAILY cholecalciferol (vitamin D3) 25 mcg (1,000 unit) tablet 25 mcg PO DAILY lorazepam 1 mg tablet 1 mg PO DAILY PRN pravastatin 20 mg tablet 20 mg PO BEDTIME melatonin-pyridoxine HCl (B6) 3-10 mg tablet, IR and ER, biphasic 1 tab PO BEDTIME terbinafine HCl 250 mg tablet 250 mg PO DAILY simethicone [Gas Relief (simethicone)] 125 mg tablet,chewable 125 mg PO TID-QID PRN (Reason: abdominal distention) Qty: 90 2RF polyethylene glycol 3350 [Miralax] 17 gram/dose powder 17 g PO DAILY Qty: 510 2RF Citrucel 500 mg tablet 500 mg PO TID Qty: 90 5RF docusate sodium [Colace] 100 mg capsule 200 mg PO BEDTIME Qty: 60 5RF <GIOVANNI Brothers - Last Filed: 11/24/22 13:07> Print Language: Tajik <GIOVANNI Brothers - Last Filed: 11/24/22 13:07>
--- NOTE | 2022-11-24 13:04 | ECG_ITS ---
Test Reason : COSMEE Blood Pressure : / mmHG Vent. Rate : 086 BPM Atrial Rate : 086 BPM P-R Int : 190 ms QRS Dur : 080 ms QT Int : 338 ms P-R-T Axes : 063 011 042 degrees QTc Int : 404 ms Normal sinus rhythm Normal EKG When compared with ECG of 31-MAR-2013 08:29, No significant change was found Referred By: Jodie Richardson Electronically Signed By:DAVID HINKLE
[2022-11-24 14:21] LABS: MANUAL DIFF FLAG NO
[2022-11-24 14:24] LABS: Basophils Percent Auto 0.6 % (0-2); Eosinophils Percent Auto 0.1 % (0-4); Hematocrit 38.7 % (37.0-47.0); Hemoglobin 12.4 g/dl (12.0-16.0); Imm Gran Abs Auto 0.02 X10*3/uL (0.00-0.03); Imm Gran Pct Auto 0.3 % (0.0-0.4); Lymphocytes Absolute Auto 0.9 X10*3/uL (1.2-4.9); Lymphocytes Percent Auto 12.7 % (20-40); Mean Corpuscular Hemoglobin 27.9 pg (27.0-33.0); Mean Platelet Volume 10.4 fL (9.4-12.3); Monocytes Absolute Auto 0.7 X10*3/uL (0.1-1.2); Monocytes Percent Auto 10.7 % (2-11); Neutrophils Absolute Auto 5.2 x10*3/uL (2.0-8.3); Neutrophils Percent Auto 75.6 % (45-73); Platelet Count 226 X10*3/uL (160-400); Red Blood Count 4.45 X10*6/uL (4.20-5.50); Red Cell Distribution Width 12.2 % (11.0-16.0); White Blood Count 6.9 X10*3/uL (4.8-10.8)
[2022-11-24 14:47] LABS: Alanine Aminotransferase 8 U/L (0-31); Albumin Level 4.3 g/dL (3.5-5.0); Alkaline Phosphatase 71 U/L (39-117); Anion Gap 14 (12-20); Aspartate Amino Transferase 16 U/L (5-31); Bilirubin Direct < 0.2 mg/dL (0.0-0.5); Bilirubin Total 0.3 mg/dL (0.0-1.0); Blood Urea Nitrogen 10 mg/dL (9-16); Calcium 9.3 mg/dL (8.4-10.2); Carbon Dioxide 28 mmol/L (22-29); Chloride 105 mmol/L (96-108); Creatinine Clr Calc Pharmacy 49.1; Estimated Glomerular Filt Rate > 60; Glucose Random 100 mg/dL (60-115); Magnesium 2.1 mg/dL (1.6-2.6); Potassium 4.5 mmol/L (3.3-5.1); Sodium 142 mmol/L (135-145); Total Protein 6.8 g/dL (6.5-8.0); Troponin-I High Sensitivity 9.9 ng/L (<3.5-17.0)
[2022-11-24 14:57] LABS: INTERNATIONAL NORM RATIO 1.1 (0.9-1.1); Prothrombin Time 12.8 SEC (10.0-13.1)
[2022-11-24 15:00] LABS: Appearance Urine Clear; Color Urine Yellow; Glucose Urine UA Negative (Negative); Leukocyte Esterase Urine Negative (Negative); Nitrite Urine Negative (Negative); PH 6.5 (5.0-9.0); Specific Gravity - Urine 1.015 (1.005-1.025); Urine Blood Negative (Negative); Urine Ketones Negative (Negative); Urine Protein Trace mg/dL (Neg-Trace)
[2022-11-24 15:01] LABS: TSH reflex Free T4 0.83 uIU/mL (0.32-4.0)
[2022-11-24 15:06] LABS: Influenza A PCR NEGATIVE (Negative); Influenza B PCR NEGATIVE (Negative); Resp Syncy Virus RNA Qual PCR NEGATIVE (Negative); SARS COV2 PCR INHOUSE POSITIVE (Negative)
--- NOTE | 2022-11-24 16:18 | PC.NURSE ---
Ultrasound at bedside . patient aware of plan of care .
--- NOTE | 2022-11-24 17:52 | PC.NURSE ---
Patient was discharged by provider with use of educational psychology professor . patient left without discharge instructions .
== END 2022-11-24 17:54 | disposition home or self-care (01) ==
PROVIDERS: Physician Assistant; Emergency Provider Emergency Medicine Emergency Medical Services; PCP Family Medicine
DX: U07.1 COVID-19 (principal); R60.0 Localized edema; R05.9 Cough, unspecified; M79.662 Pain in left lower leg; R51.9 Headache, unspecified; Z79.899 Other long term (current) drug therapy
CPT/HCPCS: 0241U; 70450; 71046; 80048; 80076; 81003; 83735; 84443; 84484; 85025; 85610; 93005; 93971; 99284

== ENCOUNTER 2023-01-18 06:40 | Day surgery (SDC) | payer MEDICARE, MEDICAID, SELFPAY ==
[2022-11-05 11:50] VITALS: BMI 24.9
--- NOTE | 2022-11-20 10:02 | MHC.SHP ---
Pre-Procedural Eval Section A Date of Service: 11/20/22 The patient is an INPATIENT: No Changes since office visit: No Cold of Flu in the past 2 weeks, No New Medical Problems, No Changes in Medication and No Patient answered all questions The History & Physical has been completed within 30 days and I have reviewed it.: Yes Section B Chief Complaint: Age-related nuclear cataract, left eye Allergies: Allergies Allergy/AdvReac Type Severity Reaction Status Date / Time No Known Allergies Allergy Verified 11/05/22 11:47 Plan Diagnosis/Plan: Unchanged I have reviewed the history and physical and performed a pertinent physical examination on my patient. No changes have occurred unless specified. Time Spent With Patient Time: Total time managing care of this patient today ____ minutes.
--- NOTE | 2023-01-15 08:13 | MHC.SHP ---
Pre-Procedural Eval Section A Date of Service: 01/15/23 The patient is an INPATIENT: No Changes since office visit: No Cold of Flu in the past 2 weeks, No New Medical Problems, No Changes in Medication and No Patient answered all questions The History & Physical has been completed within 30 days and I have reviewed it.: Yes Section B Chief Complaint: Age-related nuclear cataract, left eye Allergies: Allergies Allergy/AdvReac Type Severity Reaction Status Date / Time No Known Allergies Allergy Verified 11/05/22 11:47 Plan Diagnosis/Plan: Unchanged I have reviewed the history and physical and performed a pertinent physical examination on my patient. No changes have occurred unless specified. Time Spent With Patient Time: Total time managing care of this patient today ____ minutes.
--- NOTE | 2023-01-15 09:37 | HO.ANESPROP2 ---
Documented by User: Sarah Preciado NP 01/15/23 09:39 HPI - Anesthesia Eval Consult details Narrative: 72yo F for Left Cataract Extraction IOL Insertion PCP cleared Right eye 11/2022 with MAC: No meds listed on anesthesia record PMFSH Active Problems Active Problems: All Active Problems (Updated 12/11/22 @ 09:37 by Ani Hernandez, ALINA) Well woman exam with routine gynecological exam (Acute) Change in stool (Acute) Poor historian (Acute) Encounter for screening colonoscopy (Acute) Dysphagia (Acute) Acid reflux (Acute) Cancer phobia (Acute) COVID-19 virus infection (Acute) HTN (hypertension) (Acute) Chronic constipation (Acute) Epigastric pain (Acute) Past Medical History Medical History Cataract Chronic constipation Epigastric pain Gastritis History of high cholesterol History of Meniere's disease HTN (hypertension) Family History Family History Father Pancreatic cancer Mother Heart disease Family history of problems with anesthesia: No Surgical History Surgical History History of esophagogastroduodenoscopy (EGD) Hx of colonoscopy Hx of right cataract extraction Hx of tubal ligation History of Problems with Anesthesia: No Social History Social History Household Members: Children Household Members Other:: daughter Are you a primary manager medicare marketing to a significant other at home: No Do you presently have visiting nurse or other home services: No Alcohol intake: current Alcohol intake frequency: does not drink Patient Tobacco Use Status: Never used Tobacco Have you been hit, kicked, punched, or otherwise hurt by someone within the past year? If so, by whom?: No Che[employer] Healthcare Practices: Buddhism Are you DNR?: No Advance Directives: No Advance Directives Information Provided: Yes Advance Directives on File: No Recently lost weight without trying: No Nutrition Risks: No Nutritional Risk Meds Allergies Allergy/AdvReac Type Severity Reaction Status Date / Time No Known Allergies Allergy Verified 01/18/23 06:58 Active Medications: Current Medications Lactated Ringer's (Lr) 500 mls @ 20 mls/hr IVCONT .Q24H FREDDIE Home Medications Medication Instructions Recorded Confirmed Last Taken Type multivitamin,cd-oxks-rlpsngvv 1 tab PO DAILY 09/17/20 11/05/22 Unknown History (Complete Multivitamin tablet) ascorbic acid (vitamin C) 1,000 mg 1,000 mg PO DAILY 10/22/20 11/05/22 Unknown History tablet (Vitamin C) cholecalciferol (vitamin D3) 25 25 mcg PO DAILY 02/12/22 11/05/22 Unknown History mcg (1,000 unit) tablet lorazepam 1 mg tablet 1 mg PO DAILY PRN 02/12/22 06/11/22 Unknown History pravastatin 20 mg tablet 20 mg PO BEDTIME 04/15/22 11/05/22 Unknown History lisinopril 10 mg tablet 1 tab PO DAILY 11/05/22 11/05/22 Unknown History scopolamine base 1 mg over 3 days 1 patch topical Q3D PRN Nausea 11/05/22 11/05/22 Unknown History transdermal patch (Transderm-Scop) Exam Exam Date and Time: January 15, 2023 0937 Height,Weight and Vital Signs: Height 5 ft 4 in Weight 65.771 kg Assessment and Plan Assessment Anesthesia Assessment: Chart Reviewed Final Anesthetic Review Family History of Problems with Anesthesia: No History of Problems with Anesthesia: No Documented by User: Nick Joseph MD 01/18/23 14:15 [facility] Past Medical History Medical History Cataract Chronic constipation Epigastric pain Gastritis History of high cholesterol History of Meniere's disease HTN (hypertension) Family History Family History Father Pancreatic cancer Mother Heart disease Surgical History Surgical History History of esophagogastroduodenoscopy (EGD) Hx of colonoscopy Hx of right cataract extraction Hx of tubal ligation Social History Social History Household Members: Children Household Members Other:: daughter Are you a primary manager medicare marketing to a significant other at home: No Do you presently have visiting nurse or other home services: No Alcohol intake: current Alcohol intake frequency: does not drink Patient Tobacco Use Status: Never used Tobacco Have you been hit, kicked, punched, or otherwise hurt by someone within the past year? If so, by whom?: No [employer] Healthcare Practices: Buddhism Are you DNR?: No Advance Directives: No Advance Directives Information Provided: Yes Advance Directives on File: No Recently lost weight without trying: No Nutrition Risks: No Nutritional Risk Meds Allergies Allergy/AdvReac Type Severity Reaction Status Date / Time No Known Allergies Allergy Verified 01/18/23 06:58 Home Medications Medication Instructions Recorded Confirmed Last Taken Type multivitamin,vz-nyso-zzjfzmck 1 tab PO DAILY 09/17/20 11/05/22 Unknown History (Complete Multivitamin tablet) ascorbic acid (vitamin C) 1,000 mg 1,000 mg PO DAILY 10/22/20 11/05/22 Unknown History tablet (Vitamin C) cholecalciferol (vitamin D3) 25 25 mcg PO DAILY 02/12/22 11/05/22 Unknown History mcg (1,000 unit) tablet lorazepam 1 mg tablet 1 mg PO DAILY PRN 02/12/22 06/11/22 Unknown History pravastatin 20 mg tablet 20 mg PO BEDTIME 04/15/22 11/05/22 Unknown History lisinopril 10 mg tablet 1 tab PO DAILY 11/05/22 11/05/22 Unknown History scopolamine base 1 mg over 3 days 1 patch topical Q3D PRN Nausea 11/05/22 11/05/22 Unknown History transdermal patch (Transderm-Scop) Exam Airway Mallampati Class: IV TM Dist: >3cm Neck ROM: Full Loose/Missing/Broken Teeth: Yes (Poor dentition overall ) Heart: S1,S2 Lungs: b/l breath sounds Assessment and Plan Assessment Anesthesia Assessment: Anesthesia Plan Discussed Final Anesthetic Review NPO: Yes ASA Class: III Final Preanesthetic Review: Meds/Allgs Chart Reviewed, Consent Obtained/Reviewed and Anes Risks/Benef Reviewed Patient Risk: Intermediate Procedure Risk: Intermediate Anesthetic Plan Anesthetic Plan: MAC: Disposition: Standard PACU
[2023-01-18 07:00] VITALS: BP 129/62; PULSE 68; RESP 16; TEMP 36.3; O2SAT 99
[2023-01-18] MEDS: Tetracaine HCl/PF 0.5% Oph Sol 4 ML DROPS 1 DROP EYE-LEFT (07:09)
[2023-01-18] MEDS: Cyclopentolate 1 % Ophth Sol 2 ML DRPBTL 1 DROP EYE-LEFT ×3 (07:12→07:23)
[2023-01-18] MEDS: Tropicamide 1 % Ophth Sol 3 ML BTL 1 DROP EYE-LEFT ×3 (07:13→07:24)
[2023-01-18] MEDS: Ketorolac Tromethamine 0.5% Op 5 ML DROPS 1 DROP EYE-LEFT ×3 (07:15→07:25)
[2023-01-18] MEDS: Phenylephrine HCL 2.5% Oph SoL 2 ML BOTTLE 1 DROP EYE-LEFT ×3 (07:17→07:27)
[2023-01-18] MEDS: Lactated Ringers 500 ML 20 ML IVCONT (07:21)
--- NOTE | 2023-01-18 07:57 | HO.PNOPHT ---
Ophthalmology Procedure Procedure Date of Service: 01/18/23 Ophthalmology Viscoelastic: Healon Duet Dual Pack Pro Ophthalmology Lenses: TECNIS [id number] (21.5) Procedure Notes: PREOPERATIVE DIAGNOSIS: Decreased visual acuity left eye secondary to cataract POSTOPERATIVE DIAGNOSIS: Same PROCEDURE: Left cataract extraction with intraocular lens insertion SURGEON: Lobito Jonas M.D. ANESTHESIA: Topical/MAC ESTIMATED BLOOD LOSS: None COMPLICATIONS: None After obtaining informed consent, the patient was brought to the operation room suite and placed in the supine position. After adequate sedation per anesthesia, topical drops of Tetracaine were given to the left eye. The eye was then prepped and draped in the usual sterile fashion. The operating room microscope was then positioned over the operative eye and a lid speculum placed. A paracentesis was created. Viscoelastic was then instilled into the anterior chamber. A three plane incision was then created temporally, utilizing a 2.85 mm keratome. Capsulotomy forceps were then utilized to create a circular tear capsulotomy. Hydrodissection and hydrodelineation were carried out until adequate mobilization of the nucleus occurred. Phacoemulsification was then utilized to remove the dense central nucleus followed by removal of the cortical material utilizing the automated aspiration irrigation unit. Viscoat elastic was instilled into the posterior capsular bag followed by placement of a posterior chamber intraocular lens without difficulty. The residual Viscoat elastic was then removed utilizing the automated IA machine. The wound was check and found to be watertight. The patient tolerated the procedure well and the lid speculum was removed. Intracameral injection of Vigamox 0.1 mL followed by a subtenon injection of Kenalog-40 0.2 mL were administered. The patient will be seen in the a.m.
[2023-01-18 08:32] VITALS: BP 145/78; PULSE 71; RESP 18; TEMP 36.6; O2SAT 100
== END 2023-01-18 08:38 | disposition home or self-care (01) ==
PROVIDERS: PCP Family Medicine; Visit Provider Ophthalmology
PROC: (CPT 66985; principal; 2023-01-18 08:00)
DX: H25.12 Age-related nuclear cataract, left eye (principal); H52.4 Presbyopia; H35.00 Unspecified background retinopathy; H18.413 Arcus senilis, bilateral; H81.09 Meniere's disease, unspecified ear; I10 Essential (primary) hypertension; R73.03 Prediabetes; E78.00 Pure hypercholesterolemia, unspecified; Z79.899 Other long term (current) drug therapy
CPT/HCPCS: 66984; J2250; J3010; J3301; V2632

== ENCOUNTER 2023-08-17 10:10 | Outpatient (REF) | payer MEDICARE, MEDICAID, SELFPAY ==
[2023-08-17 11:56] LABS: Estimated Average Glucose 120 mg/dL; Hemoglobin A1c % 5.8 % (<6.0)
[2023-08-17 12:18] LABS: Alanine Aminotransferase 14 U/L (0-31); Albumin Level 4.5 g/dL (3.5-5.0); Alkaline Phosphatase 80 U/L (39-117); Anion Gap 12 (12-20); Aspartate Amino Transferase 21 U/L (5-31); Bilirubin Total 0.4 mg/dL (0.0-1.0); Blood Urea Nitrogen 7 mg/dL (9-16); Calcium 9.5 mg/dL (8.4-10.2); Carbon Dioxide 28 mmol/L (22-29); Chloride 110 mmol/L (96-108); Estimated Glomerular Filt Rate > 60; Glucose Random 92 mg/dL (60-115); Potassium 4.9 mmol/L (3.3-5.1); Sodium 145 mmol/L (135-145); Total Protein 7.5 g/dL (6.5-8.0)
[2023-08-17 12:22] LABS: Cholesterol 258 mg/dL (<200); HDL Cholesterol 59 mg/dL (>40); LDL Cholesterol Calculated 178 mg/dL (<100); Triglycerides 106 mg/dL (<150)
[2023-08-17 13:09] LABS: Reflex LDLD? No
== END 2023-08-17 10:11 | disposition home or self-care (01) ==
LOC: HO.HHCL 10:10
PROVIDERS: Visit Provider Family Medicine
DX: E78.00 Pure hypercholesterolemia, unspecified (principal); I10 Essential (primary) hypertension; R73.03 Prediabetes
CPT/HCPCS: 36415; 80053; 80061; 83036

== ENCOUNTER → 2023-12-09 14:00 | Outpatient (BNV) | payer MEDICARE, SELFPAY | PROVIDERS: PCP Family Medicine; Visit Provider Radiology Diagnostic Radiology | DX: Z12.31 Encounter for screening mammogram for malignant neoplasm of breast (principal) | CPT/HCPCS: 77063; 77067 ==

== ENCOUNTER 2023-12-09 14:03 | Outpatient (REF) | payer MEDICARE, SELFPAY ==
--- NOTE | ~2023-12-09 | MM_ITS ---
EXAMINATION: BONE DENSITOMETRY CLINICAL INDICATION: Postmenopausal. COMPARISON: This is the patient's baseline examination. TECHNIQUE: Using a Tagent DXA System (software version: 13.1) manufactured by [employer], dual-energy x-ray absorptiometry was performed of the lumbar spine and left hip. The images are of good technical quality. Summary results are attached. FINDINGS: AP SPINE L1-L4: BMD 1.047 g/cm2, Z-score 0.7, T-score -1.1, osteopenia. LEFT FEMUR, NECK: BMD 1.079 g/cm2, Z-score 2.2, T-score 0.3, normal. LEFT FEMUR, TOTAL: BMD 1.126 g/cm2, Z-score 2.7, T-score 0.9, normal. IDENTIFIED RISK FACTORS: Menopause. HISTORY OF FRACTURE: None listed. MEDICATIONS: Vitamin D. MM/XR DEXA axial skeleton IMPRESSION: 1. DIAGNOSIS: Osteopenia based on the lowest T-score value of -1.1 in the lumbar spine applying World Health Organization criteria. 2. 10-YEAR FRACTURE RISK PREDICTION, FRAX: Major osteoporotic fracture (clinical spine, forearm, hip or shoulder) 3.9%. Hip fracture 0.3%. 3. Treatment Recommendations: NOF guidelines recommend consideration for treatment in postmenopausal women and men age 50 and older presenting with the following: -A hip or vertebral (clinical or morphometric) fracture. -T-score less than or equal to -2.5 at the femoral neck or spine after appropriate evaluation to exclude secondary causes. -Low bone mass at the hip or spine and a 10-year fracture probability by FRAX of greater than or equal to 3% for hip fracture or greater than or equal to 20% for major osteoporotic fracture based on the [place] adapted WHO algorithm. 4. Other Recommendations: All treatment decisions require clinical judgment and consideration of individual patient factors, including patient preferences, comorbidities, previous drug use, risk factors not captured in the FRAX model (e.g. frailty, falls, vitamin D deficiency, increased bone turnover, interval significant decline in bone density) and possible under or overestimation of fracture risk by FRAX. Additional medical evaluation for secondary cause of low bone mineral density may be appropriate. FUTURE SCAN RECOMMENDATION: People with diagnosed cases of osteoporosis or at high risk for fracture should have regular bone mineral density tests. For patients eligible for Medicare, routine testing is allowed once every 2 years. The testing frequency can be increased to one year for patients who have rapidly progressing disease, those who are receiving or discontinuing medical therapy to restore bone mass, or have additional risk factors.
--- NOTE | ~2023-12-09 | MM_ITS ---
EXAMINATION: MM SCREENING DIGITAL BREAST TOMOSYNTHESIS, BILATERAL CLINICAL INFORMATION: Screening. Asymptomatic. COMPARISON: Mammography: This study is compared with prior exams dating back to 2015. TECHNIQUE: Digital breast tomosynthesis is performed in both the craniocaudal and mediolateral oblique views along with computer-aided detection (CAD). Synthesized 2D images are generated from the tomosynthesis. FINDINGS: The breasts are heterogeneously dense, which may obscure small masses (ACR BI-RADS breast composition Category c). There are no significant masses, abnormal calcifications, or other abnormalities. MM/MM tomosynthesis screening BI IMPRESSION: No mammographic evidence of malignancy. ASSESSMENT: BI-RADS BI-RADS 1 - Negative RECOMMENDATION: Routine annual mammography screening. 1 year F/U This examination should not preclude the clinical evaluation of a suspicious palpable abnormality. This patient's information was entered into a reminder system with a target due date for their next mammogram.
== END 2023-12-09 14:04 | disposition home or self-care (01) ==
LOC: HO.MAMMO 14:03
PROVIDERS: PCP Family Medicine; Visit Provider Family Medicine
DX: Z12.31 Encounter for screening mammogram for malignant neoplasm of breast (principal); Z13.820 Encounter for screening for osteoporosis; Z78.0 Asymptomatic menopausal state
CPT/HCPCS: 77063; 77067; 77080

== ENCOUNTER 2024-01-28 10:23 | Outpatient (AMB) | payer MEDICARE, SELFPAY ==
--- NOTE | 2024-01-28 10:31 | MHC.OFFVIS ---
Intake Vital Signs 01/28/24 10:33 Height 5 ft 4 in Weight 143 lb 4.807 oz BMI 24.6 BP 130/70 Blood Pressure Location Lt brachial Position Sitting Pulse 70 Intake Visit Reasons: [employer]/Dr. Welsh/Chest pain Intake Note: NPV w/ EKG Sports Photographer Required: No Accompanied by: Self / Same As Patient Allergies No Known Allergies Allergy (Verified 01/28/24 10:32) Medication List - Last Reconciled 01/28/24 by Sanju Nettles MD ascorbic acid (vitamin C) (Vitamin C) 1,000 mg PO DAILY cholecalciferol (vitamin D3) 25 mcg PO DAILY lisinopril 10 mg PO DAILY lorazepam 1 mg PO DAILY PRN multivitamin,cf-efty-rvebshvn (Complete Multivitamin tablet) 1 tab PO DAILY polyethylene glycol 3350 (Miralax) 17 grams PO DAILY pravastatin 20 mg PO BEDTIME scopolamine base (Transderm-Scop) 1 patch topical Q3D PRN HPI HPI Comments History of Present Illness Details Thank you for referring [facility] in cardiology consultation today for precordial chest discomfort. She has a 73-year-old woman with longstanding history of hypertension and mild hyperlipidemia. She says for some time she has been getting symptoms of precordial chest discomfort which she describes a burning chest discomfort when she does exertional activity such as walking and or dancing. This then stops her from doing her activity and the symptoms resolved within few minutes and then she can go on doing her activity. However she says that the symptoms are not always consistent. They come for 2-3 weeks and then this subsided and then they can come back again after few months. This makes it somewhat atypical. Patient does not clearly understand why that is a pattern which is inconsistent. She also had inconsistent with taking her lisinopril. She says she takes it sometimes and does not take it sometimes. Not sure if these symptoms are associated with her with elevated blood pressures. She is notice that more recently a blood pressure been more elevated. She is referred here for further evaluation. She denies any other complains of shortness of breath, orthopnea, PND, leg edema, palpitations. She is very functional and remains active and currently still works. [facility] Medical History Cataract HTN (hypertension) Chronic constipation Gastritis Epigastric pain History of high cholesterol History of Meniere's disease Surgical History Hx of right cataract extraction History of esophagogastroduodenoscopy (EGD) Hx of colonoscopy Hx of tubal ligation Family History Father Pancreatic cancer Mother Heart disease Social History Household Members: Children Household Members Other:: daughter Are you a primary body care manager to a significant other at home: No Do you presently have visiting nurse or other home services: No Alcohol intake: current Alcohol intake frequency: does not drink Patient Tobacco Use Status: Never used Tobacco Review of Systems Const Denies chills, Denies daytime sleepiness, Denies fatigue, Denies fever(s), Denies frequent falls, Denies night sweats, Denies snoring, Denies weakness, Denies weight gain and Denies weight loss Eyes Denies loss of vision ENT Denies dizziness and Denies hearing loss Card Denies chest pain, Denies chest pain with activity, Denies syncope, Denies rapid heart rate, Denies edema, Denies claudication, Denies leg edema, Denies lightheadedness, Denies palpitations, Denies dyspnea, Denies dyspnea on exertion and Denies orthopnea Resp Denies cough, Denies excessive phlegm production, Denies dyspnea, Denies dyspnea on exertion, Denies snoring and Denies wheezing GI Denies abdominal pain, Denies hematochezia, Denies change in bowel habits, Denies change in stool character, Denies heartburn, Denies nausea and Denies vomiting Denies hematuria, Denies urinary frequency and Denies dysuria Musc Denies arthralgias, Denies muscle weakness, Denies numbness and Denies tingling Skin/Breast Denies nail changes and Denies rash Neuro Denies Abnormal speech present, Denies dizziness, Denies syncope, Denies frequent falls, Denies loss of vision, Denies memory loss, Denies numbness, Denies tingling and Denies weakness Psych Denies depression and Denies memory loss Endo Denies fatigue and Denies palpitations Aller/Immun Denies wheezing Physical Exam Vital Signs: Last Vital Signs Pulse 70 01/28/24 10:33 BP 130/70 01/28/24 10:33 BMI result Body Mass Index 24.6 Const General: cooperative, comfortable, no acute distress, well developed, alert, awake and well groomed Nutritional Appearance: average body habitus and well nourished Orientation/consciousness: patient oriented x3 Limitations: no limitations HEENT Head: Yes normocephalic and Yes atraumatic Neck Neck: Yes trachea midline, Yes supple and Yes no JVD Resp Effort & Inspection: normal respiratory effort Auscultation: clear to auscultation bilaterally Cardio Jugular venous distension: no JVD Palpation: normal PMI Rate: regular rate Rhythm: regular rhythm Heart sounds: S1 normal heart sound present, S2 normal heart sound present, no click, no gallops, no murmurs and no rubs GI Auscultation: normal bowel sounds Skin General skin exam: no rashes or lesions noted Neuro General: patient oriented x3 and no focal motor deficits Speech: No Abnormal speech present Extrem General: Yes no clubbing, cyanosis or edema Assessment & Plan Assessment & Plan (1) Exertional chest pain: Code(s): R07.9 - Chest pain, unspecified Plan: Exertional chest pain in this elderly woman with history of hypertension hyperlipidemia. This is concerning for myocardial ischemia although she has atypical features as this pain is not consistently present at all times. It happens in his sporadic pattern, happening for few weeks and then subsided and then can not happen for many months. This is somewhat perplexing. However given her multiple risk factors I have suggested to undergo treadmill stress test to evaluate for myocardial ischemia. This will be scheduled in near future. Will also suggest an echocardiogram to evaluate for LV systolic and diastolic function and evaluate for hypertensive heart disease that may explain some exertional chest pain. I have advised her to consistently take her lisinopril therapy for management of blood pressure and not take it erratically as this could lead to confusion in her management of blood pressure. She understands and agrees. Further treatment based on the finding of the test results. Follow up in the clinic after above-mentioned test. Thank you for allowing me to partake in the care Orders: Orders CA echo transthoracic complete Today R07.9 - Chest pain, unspecified CA stress test Today R07.9 - Chest pain, unspecified Coding Level of Care Code New Pt Level 4 (94365) Diagnoses Exertional chest pain R07.9
[2024-01-28 10:33] VITALS: BP 130/70; PULSE 70; BMI 24.6
== END 2024-01-28 10:54 | disposition home or self-care (01) ==
PROVIDERS: PCP Family Medicine; Visit Provider Internal Medicine Cardiovascular Disease
DX: R07.9 Chest pain, unspecified (principal)
CPT/HCPCS: 99204

== ENCOUNTER → 2024-01-28 10:23 | Outpatient (BNVA) | payer MEDICARE, SELFPAY | PROVIDERS: PCP Family Medicine; Visit Provider Internal Medicine Cardiovascular Disease | DX: R07.9 Chest pain, unspecified (principal); I10 Essential (primary) hypertension; E78.5 Hyperlipidemia, unspecified | CPT/HCPCS: 99202 ==

== ENCOUNTER 2024-02-24 10:00 | Outpatient (REF) | payer MEDICARE, SELFPAY ==
[2024-02-24 11:57] LABS: Alanine Aminotransferase 14 U/L (0-31); Albumin Level 4.3 g/dL (3.5-5.0); Alkaline Phosphatase 70 U/L (39-117); Anion Gap 10 (12-20); Aspartate Amino Transferase 18 U/L (5-31); Bilirubin Total 0.4 mg/dL (0.0-1.0); Blood Urea Nitrogen 11 mg/dL (9-16); Calcium 9.8 mg/dL (8.4-10.2); Carbon Dioxide 31 mmol/L (22-29); Chloride 109 mmol/L (96-108); Cholesterol 184 mg/dL (<200); Estimated Glomerular Filt Rate > 60; Glucose Random 135 mg/dL (60-115); HDL Cholesterol 57 mg/dL (>40); LDL Cholesterol Calculated 111 mg/dL (<100); Potassium 4.7 mmol/L (3.3-5.1); Sodium 145 mmol/L (135-145); Total Protein 7.3 g/dL (6.5-8.0); Triglycerides 84 mg/dL (<150)
[2024-02-24 12:54] LABS: Reflex LDLD? No
[2024-02-27 08:44] LABS: TS Negative Control Passed; TS Panel A 0; TS Panel B 0; TS Positive Control Passed; TSpotTB Negative (Negative)
== END 2024-02-24 10:01 | disposition home or self-care (01) ==
LOC: HO.HHCL 10:00
PROVIDERS: Visit Provider Family Medicine
DX: E78.00 Pure hypercholesterolemia, unspecified (principal); Z11.1 Encounter for screening for respiratory tuberculosis
CPT/HCPCS: 36415; 80053; 80061; 86481

== ENCOUNTER → 2024-04-04 08:59 | Outpatient (REF) | payer MEDICARE, SELFPAY ==
--- NOTE | 2024-04-04 09:02 | CA_ITS ---
Transthoracic Echocardiogram Patient (Last, First, Middle): Apple Recio, Gender: Female Date of : 1950 Age: 73 Procedure Date: 04/04/2024 Procedure Type: Transthoracic Echocardiogram Location: OP Height: 162.56 cm Weight: 63.5 kg BSA: 1.68 m2 Heart Rate: 59 bpm BP: 128 / 70 mmHg Want Ad Supervisor: TO Referring MD: Sanju Nettles MD Enterprise Application Administrator: Sanju Nettles MD Symptoms: R07.9 - Chest pain, unspecified Study Quality: Adequate ECG Rhythm: Bradycardia Conclusions: - 1. Normal LV systolic function with LVEF of 60-65% with normal filling pattern with moderate asymmetric septal hypertrophy without obstructive physiology 2. Normal cardiac valvular Doppler 3. Normal RV systolic pressure 4. Upper limits of normal ascending aortic size 5. No pericardial effusion Findings Left Ventricle Normal left ventricular size, thickness, and systolic function. The visually estimated ejection fraction is between 60-65%. There is no evidence of regional wall motion abnormalities. There is no dynamic left ventricular outflow tract obstruction. Spectral Doppler is indicative of a normal filling pattern. There is moderate septal asymmetric hypertrophy. Peak GLS is -17.9%, borderline normal. Right Ventricle Normal right ventricular cavity size and systolic function. Atria Both atria are normal in size. There is lipomatous hypertrophy of the interatrial septum. There is no evidence of interatrial shunt. Aortic Valve The aortic valve structure and function is likely normal. There is no aortic valve stenosis. There is no aortic valve regurgitation. Mitral Valve Normal mitral valve structure and function. There is trace mitral valve regurgitation. There is no mitral valve stenosis. Pulmonic Valve The pulmonic valve is likely normal. There is trace pulmonic valve regurgitation. Tricuspid Valve Normal tricuspid valve structure. There is trace tricuspid valve regurgitation. The right ventricular systolic pressure is normal. The right ventricular systolic pressure is 20 mmHg. Normal right atrial pressure. There is no evidence of pulmonary hypertension. Great Vessels All visible segments of the aorta are normal in size. The pulmonary artery was not well visualized. There is no dilatation of the ascending aorta measuring 3.50 cm. Venous The inferior vena cava is normal in size and collapses greater than 50% with inspiration. Pericardium/Pleural There is no evidence of pericardial effusion. Prior Study Comparison No prior study available for comparison. Measurements 2D Linear Measurements RVIDd: 3.69 IVSd: 1.72 0.6-0.9/0.6-1.0 cm LVIDd: 3.63 3.9-5.3/4.2-5.9 cm LVIDd Index: 2.16 2.4-3.2/2.2-3.1 cm/m2 LVIDs: 2.25 2.0-3.6 cm LVPWd: 1.09 0.7-1.1 cm LA Diam: 3.30 2.7-3.8/3.0-4.0 cm LAIDs Index: 1.96 1.5-2.3 cm/m2 LV Mass: 228.03 67-162/88-224 g LV Mass Index: 135.73 43-95/49-115 g/m2 LVOT Diam: 2.10 3.0+(-)1.3 cm 2D Volumes LV EDV: 67.40 56-104/67-155 ml LV ESV: 25.30 19-49/22-58 ml LA ESV A/L: 28.30 22-52/18-58 ML/M2 RA ESV A/L: 19.20 19-21 ML/M2 2D Systolic Function EF Teich: 69.00 >55% EF 4C: 65.40 >55% EF 2C: 61.90 >55% EF BiP: 62.50 >55% Mitral Valve MV Pk E: 0.58 MV PK A: 0.42 MV Decel Time: 227.00 E/A: 1.40 E'Lateral: 5.44 E'Medial: 3.92 E/E' Med: 14.70 E/E' Lat: 10.60 PHT: 66.00 MVA PHT: 3.33 Decel [place]: 2.55 Aortic Valve AoV Pk [place]: 1.09 AoV Mn [place]: 0.71 AoV VTI: 0.26 AoV Pk Grad: 5.00 Aov Mn Grad: 2.00 JODY Cont.VTI: 2.85 LVOT LVOT Pk [place]: 0.84 LVOT Mn [place]: 0.53 LVOT VTI: 0.21 LVOT Pk Grad: 3.00 LVOT Mn Grad: 1.00 LVOT Diam: 2.10 LVOT Area: 3.46 Diastolic Function MV Pk E: 0.58 MV Pk A: 0.42 E/A: 1.40 E'Medial: 3.92 E/E' Med: 14.70 E' Laterial: 5.44 E/E' Lat: 10.60 Right Ventricle TAPSE (mm): 23.50 TVS' [place]: 9.90 Tricuspid Valve TR Pk [place]: 1.90 TR Pk Grad: 14.00 RA Press: 3.00 RVSP: 20.00 Great Vessels Aorta Sinus of Valsalva: 3.68 2.0-3.5 cm Ao Asc: 3.50 2.1-3.4 cm Ao Arch: 2.90 Updated in Other Vendor System with Status of Final Sanju Nettles MD electronically signed on 04/05/2024 3:25:34 PM with status of Final
--- NOTE | 2024-04-04 09:02 | CA_ITS ---
Acquisition Time: 2024-04-04 10:10:12 Total Exercise Time: 00:06:22 Test Indications: CP Medications: SEE H Protocol: ART Max HR: 126 BPM 86% of Pred: 145 BPM Max BP: 140/078 mmHG Max Work Load: 6.6 METS Exercise stress test exercise 6 min 22 sec of Art protocol ( increased manually due to safety) achieving 86%, with mild SOB, 9/10 left arm to left chest tingling, with normotensive response to exercise, without arrhythmias, with downsloping in leads 2, 3, aVF, V5-V6 - suggestive of ischemia. Chest and arm discomfort resolved with rest.Test reviewed with Dr. Nettles Referred By: Sanju Nettles Overread By: Paula Leiva
== END ==
LOC: HO.CARD 08:59
PROVIDERS: PCP Family Medicine; Visit Provider Internal Medicine Cardiovascular Disease
DX: R07.9 Chest pain, unspecified (principal)
CPT/HCPCS: 93017; 93306; 93356

== ENCOUNTER → 2024-04-04 09:02 | Outpatient (BNV) | payer MEDICARE, SELFPAY | PROVIDERS: PCP Family Medicine; Visit Provider Nurse Practitioner | DX: I42.2 Other hypertrophic cardiomyopathy (principal); R07.9 Chest pain, unspecified | CPT/HCPCS: 93016; 93018; 93320; 93325; 93350; 93356 ==

== ENCOUNTER 2024-04-11 11:15 | Outpatient (AMB) | payer MEDICARE, SELFPAY ==
[2024-04-11 13:09] VITALS: BP 120/74; PULSE 70; BMI 24.6
--- NOTE | 2024-04-11 13:09 | A.OFFVIS_ITS ---
Vital Signs 04/11/24 13:09 Height 5 ft 4 in Weight 143 lb 4.807 oz BMI 24.6 BP 120/74 Blood Pressure Location Lt brachial Position Sitting Pulse 70 Intake Visit Reasons: f/up Intake Note: Follow-up after stress and echo feeling good has chest pain on and off did have some on the day of stress test Import Export Manager Required: Yes Import Export Manager Name: Serina birmingham Allergies No Known Allergies Allergy (Verified 01/28/24 10:32) Medication List - Last Reconciled 04/11/24 by Sanju Nettles MD ascorbic acid (vitamin C) (Vitamin C) 1,000 mg PO DAILY cholecalciferol (vitamin D3) 25 mcg PO DAILY lisinopril 10 mg PO DAILY lorazepam 1 mg PO DAILY PRN multivitamin,[id number] (Complete Multivitamin tablet) 1 tab PO DAILY polyethylene glycol 3350 (Miralax) 17 grams PO DAILY pravastatin 20 mg PO BEDTIME scopolamine base (Transderm-Scop) 1 patch topical Q3D PRN HPI Comments Details: Apple Comes for follow-up. She underwent a regular treadmill stress test recently which was abnormal suggestive of ischemia at moderate workload with the associated symptoms. Should echocardiogram shows normal LV systolic function with moderate asymmetric septal hypertrophy without obstructive physiology. She comes for follow-up. He is taking all her medications. History was obtained in in the presence of staff interpreter. She continues to have intermittent episodes of exertional chest pressure especially when she is rushing or doing over exertional activity. She has had with day-to-day life and her work she does not get any significant chest pain syndrome. She is taking all her medications. [facility] Medical History Cataract HTN (hypertension) Chronic constipation Gastritis Epigastric pain History of high cholesterol History of Meniere's disease Surgical History Hx of right cataract extraction History of esophagogastroduodenoscopy (EGD) Hx of colonoscopy Hx of tubal ligation Family History Father Pancreatic cancer Mother Heart disease Social History Household Members: Children Household Members Other:: daughter Are you a primary medicare sales executive to a significant other at home: No Do you presently have visiting nurse or other home services: No Alcohol intake: current Alcohol intake frequency: does not drink Patient Tobacco Use Status: Never used Tobacco Review of Systems Const Denies chills, Denies fatigue, Denies fever(s), Denies frequent falls, Denies weakness, Denies weight gain and Denies weight loss ENT Denies dizziness Card Denies chest pain, Denies leg edema, Denies lightheadedness, Denies palpitations, Denies dyspnea, Denies dyspnea on exertion, Denies orthopnea and Denies other (loss of consciousness) Resp Denies cough, Denies dyspnea and Denies dyspnea on exertion GI Denies hematochezia and Denies change in stool character Musc Denies abnormal gait, Denies muscle weakness, Denies numbness, Denies radiating pain into limb and Denies tingling Neuro Denies Abnormal speech present, Denies abnormal gait, Denies dizziness, Denies frequent falls, Denies numbness, Denies tingling and Denies weakness Endo Denies fatigue and Denies palpitations Physical Exam Vital Signs: Last Vital Signs Pulse 70 04/11/24 13:09 BP 120/74 04/11/24 13:09 BMI result Body Mass Index 24.6 Const General: cooperative, comfortable, no acute distress, well developed, alert, awake and well groomed Nutritional Appearance: average body habitus and well nourished Orientation/consciousness: patient oriented x3 Limitations: no limitations Neck Neck: Yes trachea midline, Yes supple and Yes no JVD Resp Effort & Inspection: normal respiratory effort Auscultation: clear to auscultation bilaterally Cardio Jugular venous distension: no JVD Palpation: normal PMI Rate: regular rate Rhythm: regular rhythm Heart sounds: S1 normal heart sound present, S2 normal heart sound present, no click, no gallops, no murmurs and no rubs GI Auscultation: normal bowel sounds Skin General skin exam: no rashes or lesions noted Neuro General: patient oriented x3 and no focal motor deficits Speech: No Abnormal speech present Extrem General: Yes no clubbing, cyanosis or edema Assessment & Plan Assessment & Plan (1) Exertional chest pain: Code(s): R07.9 - Chest pain, unspecified Category: Medical Plan: Exertional chest pressure this elderly woman suggestive of angina especially in heavy stressful situation reproduced on the treadmill along with a positive EKG highly suggestive of underlying obstructive CAD. Recommend cardiac catheterization to evaluate for coronary anatomy. We discussed the procedure in details including risk, benefits, alternatives 2nd opinion. She understands and agrees. Possible outcomes were discussed with her. She also understands them. Meanwhile will start on low-dose aspirin therapy along with Toprol to reduce myocardial ischemic demand. Will schedule for cardiac catheterization near future. Further treatment based on the findings. Follow up in the clinic after cardiac catheterization. Thank you for allowing me to partake in the care Medications: New aspirin (Ecotrin Low Strength) 81 mg PO DAILY 30 tabs 5RF metoprolol succinate ER (Toprol XL) 25 mg PO DAILY 30 tabs 1RF Coding Level of Care Code Est Pt Level 4 (30915) Diagnoses Exertional chest pain R07.9
== END 2024-04-11 14:02 | disposition home or self-care (01) ==
PROVIDERS: PCP Family Medicine; Visit Provider Internal Medicine Cardiovascular Disease
DX: R07.9 Chest pain, unspecified (principal)
CPT/HCPCS: 99214

== ENCOUNTER 2024-04-11 11:15 | Outpatient (REF) | payer MEDICARE, SELFPAY | END 2024-04-11 11:16 | disposition home or self-care (01) | LOC: HO.LAB 11:15 | PROVIDERS: PCP Family Medicine; Visit Provider Internal Medicine Cardiovascular Disease | DX: R07.9 Chest pain, unspecified (principal) | CPT/HCPCS: 99212 ==

== ENCOUNTER 2024-04-26 15:06 | Outpatient (REF) | payer MEDICARE, SELFPAY ==
[2024-04-26 15:51] LABS: Anion Gap 12 (12-20); Blood Urea Nitrogen 12 mg/dL (9-16); Calcium 9.8 mg/dL (8.4-10.2); Carbon Dioxide 28 mmol/L (22-29); Chloride 112 mmol/L (96-108); Estimated Glomerular Filt Rate > 60; Glucose Random 97 mg/dL (60-115); Potassium 4.5 mmol/L (3.3-5.1); Sodium 147 mmol/L (135-145)
== END 2024-04-26 15:07 | disposition home or self-care (01) ==
LOC: HO.LAB 15:06
PROVIDERS: PCP Family Medicine; Visit Provider Internal Medicine Cardiovascular Disease
DX: I10 Essential (primary) hypertension (principal); R07.9 Chest pain, unspecified
CPT/HCPCS: 36415; 80048

== ENCOUNTER 2024-05-15 14:42 | Outpatient (REF) | payer MEDICARE, SELFPAY ==
[2024-05-15 16:15] LABS: MANUAL DIFF FLAG NO
[2024-05-15 16:32] LABS: Basophils Absolute Auto 0.1 X10*3/uL (0.0-0.2); Basophils Percent Auto 1.2 % (0-2); Eosinophils Absolute Auto 0.2 X10*3/uL (0.0-0.4); Eosinophils Percent Auto 3.5 % (0-4); Hematocrit 39.8 % (37.0-47.0); Hemoglobin 12.6 g/dl (12.0-16.0); Imm Gran Abs Auto 0.01 X10*3/uL (0.00-0.03); Imm Gran Pct Auto 0.2 % (0.0-0.4); Lymphocytes Absolute Auto 1.5 X10*3/uL (1.2-4.9); Lymphocytes Percent Auto 30.8 % (20-40); Mean Corpuscular HGB Conc 31.7 g/dl (31.0-35.0); Mean Corpuscular Hemoglobin 28.1 pg (27.0-33.0); Mean Corpuscular Volume 88.8 fL (80.0-98.0); Mean Platelet Volume 10.7 fL (9.4-12.3); Monocytes Absolute Auto 0.4 X10*3/uL (0.1-1.2); Monocytes Percent Auto 8.3 % (2-11); Neutrophils Absolute Auto 2.7 x10*3/uL (2.0-8.3); Platelet Count 235 X10*3/uL (160-400); Red Blood Count 4.48 X10*6/uL (4.20-5.50); Red Cell Distribution Width 12.4 % (11.0-16.0); White Blood Count 4.8 X10*3/uL (4.8-10.8)
[2024-05-15 16:36] LABS: INTERNATIONAL NORM RATIO 0.9 (0.9-1.1); Prothrombin Time 11.5 SEC (11.1-13.3)
[2024-05-15 17:20] LABS: Anion Gap 12 (12-20); Blood Urea Nitrogen 14 mg/dL (9-16); Calcium 10.4 mg/dL (8.4-10.2); Carbon Dioxide 30 mmol/L (22-29); Chloride 108 mmol/L (96-108); Estimated Glomerular Filt Rate > 60; Glucose Random 106 mg/dL (60-115); Potassium 4.8 mmol/L (3.3-5.1); Sodium 145 mmol/L (135-145)
== END 2024-05-15 14:43 | disposition home or self-care (01) ==
LOC: HO.LAB 14:42
PROVIDERS: PCP Family Medicine; Visit Provider Nurse Practitioner Family
DX: R07.9 Chest pain, unspecified (principal); I10 Essential (primary) hypertension; E78.5 Hyperlipidemia, unspecified; R94.39 Abnormal result of other cardiovascular function study
CPT/HCPCS: 36415; 80048; 85025; 85610; 99212

== ENCOUNTER 2024-05-15 14:42 | Outpatient (AMB) | payer MEDICARE, SELFPAY ==
--- NOTE | 2024-05-15 15:01 | A.OFFVIS_ITS ---
Vital Signs 05/15/24 15:02 Height 5 ft 4 in Weight 146 lb 6.191 oz BMI 25.1 BP 100/52 L Blood Pressure Location Lt brachial Position Sitting Pulse 66 Pulse Source Pulse Oximeter Intake Visit Reasons: Discuss cardiac cath Electric Motor Analyst Required: Yes Electric Motor Analyst Language: Latvian Allergies No Known Allergies Allergy (Verified 05/15/24 15:05) Medication List - Last Reconciled 05/15/24 by Nayeli Chatterjee NP-C ascorbic acid (vitamin C) (Vitamin C) 1,000 mg PO DAILY aspirin (Ecotrin Low Strength) 81 mg PO DAILY cholecalciferol (vitamin D3) 25 mcg PO DAILY lisinopril 10 mg PO DAILY lorazepam 1 mg PO DAILY PRN metoprolol succinate ER (Toprol XL) 25 mg PO DAILY multivitamin,[id number] (Complete Multivitamin tablet) 1 tab PO DAILY polyethylene glycol 3350 (Miralax) 17 grams PO DAILY pravastatin 20 mg PO BEDTIME scopolamine base (Transderm-Scop) 1 patch topical Q3D PRN HPI HPI Discuss cardiac cath: Details: Los is a 73-year-old female past medical history of hypertension, hyperlipidemia who was recently evaluated for exertional chest pressure. She underwent an exercise stress test which was abnormal. She was scheduled for cardiac catheterization but wants to discuss the procedure further before having it performed. Today she reports that she had some discomfort in her mid chest which goes up to her left shoulder and down her left upper arm. She tells me this symptom can happen randomly and is not new for her . She did have some chest pressure in the recent past but states she has not had any in the last few weeks. No shortness of breath, lightheadedness, presyncope, syncope, falls, PND, orthopnea or edema. Taking meds as directed. Certified turkey roll maker used.. PFSH Medical History Cataract HTN (hypertension) Chronic constipation Gastritis Epigastric pain History of high cholesterol History of Meniere's disease Surgical History Hx of right cataract extraction History of esophagogastroduodenoscopy (EGD) Hx of colonoscopy Hx of tubal ligation Family History Father Pancreatic cancer Mother Heart disease Social History Household Members: Children Household Members Other:: daughter Are you a primary primary health care nurse to a significant other at home: No Do you presently have visiting nurse or other home services: No Alcohol intake: current Alcohol intake frequency: does not drink Patient Tobacco Use Status: Never used Tobacco Review of Systems Const All systems reviewed & are unremarkable except as noted in HPI and below ENT Denies dizziness Card Reports chest pain (she states random occurrence), Denies chest pain at rest, Denies chest pain with activity, Denies rapid heart rate, Denies pedal edema, Denies edema, Denies leg edema, Denies lightheadedness, Denies palpitations, Denies dyspnea, Denies dyspnea on exertion and Denies orthopnea Resp Denies cough, Denies dyspnea and Denies dyspnea on exertion GI Denies hematochezia and Denies change in stool character Musc Denies abnormal gait, Denies limited range of motion, Denies muscle cramps, Denies muscle weakness, Denies numbness, Denies radiating pain into limb, Denies stiffness and Denies tingling Neuro Denies abnormal gait, Denies dizziness, Denies numbness and Denies tingling Endo Denies palpitations Physical Exam Vital Signs: Last Vital Signs Pulse 66 05/15/24 15:02 BP 100/52 L 05/15/24 15:02 BMI result Body Mass Index 25.1 Const General: cooperative, healthy appearing, comfortable and no acute distress Orientation/consciousness: patient oriented x3 Neck Neck: Yes normal visual inspection and Yes no JVD Resp Effort & Inspection: normal respiratory effort Auscultation: clear to auscultation bilaterally, no crackles, no rales, no rhonchi and no wheezes Cardio Jugular venous distension: no JVD Rate: regular rate Rhythm: regular rhythm Heart sounds: S1 normal heart sound present, S2 normal heart sound present, no murmurs and no rubs Neuro General: patient oriented x3 Extrem General: Yes normal to inspection, No no pedal edema and No calf tenderness Psych Appearance: grossly normal Mental Status: mental status grossly normal Speech and movement: Normal speech and movement present Assessment & Plan Assessment & Plan (1) Exertional chest pain: Code(s): R07.9 - Chest pain, unspecified Category: Medical Plan: On last visit reported exertional chest discomfort. Cardiac risk factors of age, hypertension. exercise stress test done on 04/04/2024 with exercise 6 minutes 22 seconds with report of 9/10 left arm and left chest 'tingling', with EKG changes suggestive of ischemia. Symptoms and EKG changes resolved in recovery. An echocardiogram was done 04/04/2024 showing EF 60-65%, moderate asymmetric septal hypertrophy, normal valves, normal RV systolic pressure. On last visit she was set up for cardiac catheterization. Today she wants to discuss the procedure further. Spent time with the turkey roll maker going over the steps of cardiac catheterization in detail. Risks of the procedure including bleeding, infection, JAMI, MD, stroke discussed. Informed that if a stent is placed she will stay overnight. All questions answered. At this time she is agreeable to proceed. Will enter preprocedure lab orders into the system and yesika ray has been informed to obtain. She is scheduled for her cardiac catheterization later this month. Will have her continue aspirin, metoprolol, pravastatin. Signs and symptoms of angina reviewed. Light physical activity as tolerated. Emergency care if needed for symptoms. Cardiology follow-up will be 2 weeks post procedure. (2) Abnormal stress ECG with treadmill: Code(s): R94.39 - Abnormal result of other cardiovascular function study Category: Medical Plan: As above. Patient states that she has not had exertional chest pressure in a few weeks. She will get periodic discomfort from her mid chest and into her left upper arm. (3) HTN (hypertension): Code(s): I10 - Essential (primary) hypertension Category: Medical Plan: Well controlled at present. No med changes made. Plan Time spent on chart review, documentation, interview and assessment Orders: Orders Basic Metabolic Panel Today R07.9 - Chest pain, unspecified Prothrombin Time INR Today R07.9 - Chest pain, unspecified Complete Blood Count Auto Diff Today R07.9 - Chest pain, unspecified Coding Level of Care Code Est Pt Level 3 (90060) Diagnoses Exertional chest pain R07.9 Abnormal stress ECG with treadmill R94.39 HTN (hypertension) I10 Time Spent (min) 24
[2024-05-15 15:02] VITALS: BP 100/52; PULSE 66; BMI 25.1
== END 2024-05-15 15:51 | disposition home or self-care (01) ==
PROVIDERS: PCP Family Medicine; Visit Provider Nurse Practitioner Family
DX: R07.9 Chest pain, unspecified (principal); R94.39 Abnormal result of other cardiovascular function study; I10 Essential (primary) hypertension
CPT/HCPCS: 99213

== ENCOUNTER → 2024-05-25 23:59 | Outpatient (BNV) | payer MEDICARE, SELFPAY | PROVIDERS: PCP Family Medicine; Visit Provider Internal Medicine Cardiovascular Disease | DX: I20.89 Other forms of angina pectoris (principal) | CPT/HCPCS: 93458; 93571; 99152 ==

== ENCOUNTER 2024-06-01 11:28 | Outpatient (REF) | payer MEDICARE, SELFPAY ==
[2024-06-01 13:33] LABS: Anion Gap 10 (12-20); Blood Urea Nitrogen 9 mg/dL (9-16); Calcium 9.4 mg/dL (8.4-10.2); Carbon Dioxide 29 mmol/L (22-29); Chloride 110 mmol/L (96-108); Estimated Glomerular Filt Rate > 60; Glucose Random 123 mg/dL (60-115); Potassium 4.5 mmol/L (3.3-5.1); Sodium 144 mmol/L (135-145)
[2024-06-01 13:44] LABS: Parathyroid Hormone Intact 58.7 pg/mL (8.7-77.1)
[2024-06-01 13:51] LABS: Vitamin D 25-OH Total 60.6 ng/mL (>30)
== END 2024-06-01 11:29 | disposition home or self-care (01) ==
LOC: HO.HHCL 11:28
PROVIDERS: Visit Provider Family Medicine
DX: E83.52 Hypercalcemia (principal)
CPT/HCPCS: 36415; 80048; 82306; 83970

== ENCOUNTER 2024-06-08 12:57 | Outpatient (AMB) | payer MEDICARE, SELFPAY ==
--- NOTE | 2024-06-08 12:59 | A.OFFVIS_ITS ---
Vital Signs 06/08/24 13:00 Height 5 ft 4 in Weight 145 lb 8.081 oz BMI 25.0 BP 120/62 Blood Pressure Location Lt brachial Position Sitting Pulse 68 Pulse Source Pulse Oximeter Intake Visit Reasons: s/p cath 05/25/24 DC pt Customer Operations Specialist Required: Yes Customer Operations Specialist Name: [id number] Allergies No Known Allergies Allergy (Verified 05/15/24 15:05) HPI Comments Details: 73-year-old female presents today for a follow-up after cardiac catherization. She reports she is doing very well. She reports she has no chest pains or shortness of breath. She denies any pain at the access site, fever, chills, or tenderness. States her blood pressures at home have been in the 120s. She reports she has been compliant with her medications. [facility] Medical History (Updated 06/08/24 @ 13:19 by Paula Leiva NP) Nonobstructive atherosclerosis of coronary artery Cataract HTN (hypertension) Chronic constipation Gastritis Epigastric pain History of high cholesterol History of Meniere's disease Surgical History (Updated 06/08/24 @ 13:02 by Paula Leiva NP) S/P cardiac catheterization Hx of right cataract extraction History of esophagogastroduodenoscopy (EGD) Hx of colonoscopy Hx of tubal ligation Family History Father Pancreatic cancer Mother Heart disease Social History Household Members: Children Household Members Other:: daughter Are you a primary care assistant to a significant other at home: No Do you presently have visiting nurse or other home services: No Alcohol intake: current Alcohol intake frequency: does not drink Patient Tobacco Use Status: Never used Tobacco Review of Systems Const Denies weakness ENT Denies dizziness Card Denies chest pain, Denies chest pain with activity, Denies syncope, Denies rapid heart rate, Denies pedal edema, Denies edema, Denies leg edema, Denies lightheadedness, Denies palpitations, Denies dyspnea, Denies dyspnea on exertion and Denies orthopnea Resp Denies cough, Denies dyspnea and Denies dyspnea on exertion GI Denies hematochezia and Denies change in stool character Musc Denies abnormal gait, Denies muscle cramps, Denies muscle weakness, Denies numbness, Denies radiating pain into limb and Denies tingling Neuro Denies abnormal gait, Denies dizziness, Denies syncope, Denies numbness, Denies tingling and Denies weakness Endo Denies palpitations Physical Exam Vital Signs: Last Vital Signs Pulse 68 06/08/24 13:00 BP 120/62 06/08/24 13:00 BMI result Body Mass Index 25.0 Assessment & Plan Assessment & Plan (1) S/P cardiac catheterization: Comment: with Dr. Irwin 05/25/2024 Cardiac Arteries and Lesion Findings LMCA: Lesion in LMCA: Distal subsection.30% stenosis . LAD: Lesion in Mid LAD: Proximal subsection.50% stenosis . iFR +---+ + !iFR!Stage ! +---+ + !0.9!Diagnostic! +---+ + LCx: Normal. RCA: Ostial RPL branch 80% stenosis-small territory. Lesion in Mid RCA: Mid subsection.65% stenosis 16 mm length. Interventional Recommendations Aggressive secondary risk factor modification according to ATP III guidelines. Titration of antihypertensive therapy. Elevated blood pressure is the likely cause for chest discomfort. [facility] Diagnostic Recommendations: Medical therapy and/or counseling. Code(s): Z98.890 - Other specified postprocedural states Category: Surgical (2) Nonobstructive atherosclerosis of coronary artery: Code(s): I25.10 - Atherosclerotic heart disease of [place] coronary artery without angina pectoris Category: Medical (3) HTN (hypertension): Code(s): I10 - Essential (primary) hypertension Category: Medical Plan Nonobstructive CAD per cardiac catherizations. On 02/24/24 LDL was 111. Will resend for lipid panel. Currently on rosuvastatin, metoprolol, lisinopril, and aspirin. Stressed the importance of compliance medication and heart healthy diet. Monitor blood pressures at home. Bring log to next visit. Orders: Orders Lipid Panel 06/08/24 I25.10 - Atherosclerotic heart disease of [place] coronary artery without angina pectoris Basic Metabolic Panel 06/08/24 I25.10 - Atherosclerotic heart disease of [place] coronary artery without angina pectoris Coding Level of Care Code Est Pt Level 4 (91176) Diagnoses S/P cardiac catheterization Z98.890 Nonobstructive atherosclerosis of coronary artery I25.10 HTN (hypertension) I10
[2024-06-08 13:00] VITALS: BP 120/62; PULSE 68; BMI 25.0
== END 2024-06-08 13:34 | disposition home or self-care (01) ==
PROVIDERS: PCP Family Medicine; Referring Provider Family Medicine; Visit Provider Nurse Practitioner
DX: Z98.890 Other specified postprocedural states (principal); I25.10 Atherosclerotic heart disease of native coronary artery without angina pectoris; I10 Essential (primary) hypertension
CPT/HCPCS: 99214

== ENCOUNTER → 2024-06-08 12:57 | Outpatient (BNVA) | payer MEDICARE, SELFPAY | PROVIDERS: PCP Family Medicine; Visit Provider Nurse Practitioner | DX: I25.10 Atherosclerotic heart disease of native coronary artery without angina pectoris (principal); I10 Essential (primary) hypertension; Z98.890 Other specified postprocedural states | CPT/HCPCS: 99212 ==

== ENCOUNTER 2024-07-27 11:57 | Outpatient (REF) | payer MEDICARE, SELFPAY ==
[2024-07-27 14:53] LABS: Anion Gap 10 (12-20); Blood Urea Nitrogen 11 mg/dL (9-16); Calcium 9.9 mg/dL (8.4-10.2); Carbon Dioxide 31 mmol/L (22-29); Chloride 110 mmol/L (96-108); Cholesterol 189 mg/dL (<200); Estimated Glomerular Filt Rate > 60; Glucose Random 88 mg/dL (60-115); HDL Cholesterol 57 mg/dL (>40); LDL Cholesterol Calculated 113 mg/dL (<100); Potassium 4.6 mmol/L (3.3-5.1); Sodium 146 mmol/L (135-145); Triglycerides 96 mg/dL (<150)
== END 2024-07-27 11:58 | disposition home or self-care (01) ==
LOC: HO.LAB 11:57
PROVIDERS: PCP Family Medicine; Visit Provider Nurse Practitioner
DX: I25.10 Atherosclerotic heart disease of native coronary artery without angina pectoris (principal)
CPT/HCPCS: 36415; 80048; 80061

== ENCOUNTER 2024-08-24 14:06 | Outpatient (REF) | payer MEDICARE, SELFPAY ==
--- NOTE | ~2024-08-24 | US_ITS ---
EXAMINATION: Noninvasive assessment of the bilateral lower extremities with ARTERIAL DUPLEX CLINICAL INFORMATION: Peripheral vascular disease TECHNIQUE: Duplex Doppler techniques with waveform analysis and measurement of velocities in the bilateral common femoral, profunda femoris, superficial femoral, popliteal and tibial arteries were performed. The study was performed only at rest. COMPARISON: None FINDINGS: DIRECT DUPLEX DOPPLER FINDINGS: RIGHT LEG: Common femoral artery: 153 cm/s, phasicity: Triphasic Profunda femoris artery: 82 cm/s, phasicity: Biphasic Superficial femoral artery (proximal): 85 cm/s, phasicity: Triphasic Superficial femoral artery (mid): 141 cm/s, phasicity: Triphasic Superficial femoral artery (distal): 196 cm/s, phasicity: Biphasic Popliteal artery: 134 cm/s, phasicity: Biphasic Posterior tibial artery: 89 cm/s, phasicity: Biphasic Peroneal artery: 64 cm/s, phasicity: Biphasic Anterior tibial artery: 54 cm/s, phasicity: Monophasic Dorsalis pedis artery: 35 cm/s, phasicity:Biphasic LEFT LEG: Common femoral artery: 144 cm/s, phasicity: Triphasic Profunda femoris artery: 87 cm/s, phasicity: Biphasic Superficial femoral artery (proximal): 127 cm/s, phasicity: Triphasic Superficial femoral artery (mid): 89 cm/s, phasicity: Triphasic Superficial femoral artery (distal): 166 cm/s, phasicity: Triphasic Popliteal artery: 107 cm/s, phasicity: Triphasic Posterior tibial artery: 126 cm/s, phasicity: Triphasic Peroneal artery: 36 cm/s, phasicity: Biphasic Anterior tibial artery: 140 cm/s, phasicity: Triphasic Dorsalis pedis artery: 80 cm/s, phasicity: Biphasic US/US arterial duplex LE BI IMPRESSION: Right le: Mild stenosis of the right common femoral artery, mid and distal superficial femoral artery, and popliteal artery per velocity criteria. Dampened velocities and waveforms of the below the knee arteries of the right lower extremity. Left leg: Mild stenosis of the left common femoral artery, distal superficial femoral artery, and anterior tibial artery per velocity criteria. Electronically signed by: Aidee Overton MD 09/01/2024 02:46 PM EDT
== END 2024-08-24 14:07 | disposition home or self-care (01) ==
LOC: HO.US 14:06
PROVIDERS: PCP Family Medicine; Visit Provider Family Medicine
DX: I73.9 Peripheral vascular disease, unspecified (principal)
CPT/HCPCS: 93925

== ENCOUNTER 2024-10-05 13:57 | Outpatient (AMB) | payer MEDICARE, SELFPAY ==
[2024-10-05 14:00] VITALS: BP 132/52; PULSE 63; BMI 25.8
--- NOTE | 2024-10-05 14:00 | A.OFFVIS_ITS ---
Vital Signs 10/05/24 14:00 Height 5 ft 4 in Weight 150 lb 5.684 oz BMI 25.8 BP 132/52 L Blood Pressure Location Lt brachial Position Sitting Pulse 63 Pulse Source Pulse Oximeter Intake Visit Reasons: 4m follow up Bioinformatics Associate Required: Yes Bioinformatics Associate Services: Bioinformatics Associate Present Allergies No Known Allergies Allergy (Verified 10/05/24 14:03) Medication List - Last Reconciled 10/05/24 by Nayeli Chatterjee NP-[facility] ascorbic acid (vitamin C) (Vitamin C) 1,000 mg PO DAILY cholecalciferol (vitamin D3) 25 mcg PO DAILY lisinopril 10 mg PO DAILY lorazepam 1 mg PO DAILY PRN metoprolol succinate ER (Toprol XL) 25 mg PO DAILY polyethylene glycol 3350 (Miralax) 17 grams PO DAILY rosuvastatin 20 mg PO BEDTIME 90 days scopolamine base (Transderm-Scop) 1 patch topical Q3D PRN HPI HPI 4m follow up: Details: Apple is a 73 yo female with PMH of HTN, HLD, moderate CAD who presents for follow up. Today she reports that she has been doing well overall. Her prior chest discomfort has improved and is only mild compared to what she felt in the past. She previously described discomfort in her mid chest which goes up to her left shoulder and down her left upper arm. She tells me this symptom can happen randomly and has been a long-term symptom for her. No shortness of breath, lightheadedness, presyncope, syncope, falls, PND, orthopnea or edema. Taking meds as directed. 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 [facility] Medical History Nonobstructive atherosclerosis of coronary artery Cataract HTN (hypertension) Chronic constipation Gastritis Epigastric pain History of high cholesterol History of Meniere's disease Surgical History S/P cardiac catheterization Hx of right cataract extraction History of esophagogastroduodenoscopy (EGD) Hx of colonoscopy Hx of tubal ligation Family History Father Pancreatic cancer Mother Heart disease Social History Household Members: Children Household Members Other:: daughter Are you a primary urgent care technician to a significant other at home: No Do you presently have visiting nurse or other home services: No Alcohol intake: current Alcohol intake frequency: does not drink Patient Tobacco Use Status: Never used Tobacco Review of Systems Const All systems reviewed & are unremarkable except as noted in HPI and below ENT Denies dizziness Card Details: periodic mild left shoulder and left upper chest discomfort without pattern Denies chest pain at rest, Denies chest pain with activity, Denies rapid heart rate, Denies pedal edema, Denies edema, Denies leg edema, Denies lightheadedness, Denies palpitations, Denies dyspnea, Denies dyspnea on exertion and Denies orthopnea Resp Denies cough, Denies dyspnea and Denies dyspnea on exertion GI Denies hematochezia and Denies change in stool character Musc Denies abnormal gait, Denies limited range of motion, Denies muscle cramps, Denies muscle weakness, Denies numbness, Denies radiating pain into limb, Denies stiffness and Denies tingling Neuro Denies abnormal gait, Denies dizziness, Denies numbness and Denies tingling Endo Denies palpitations Physical Exam Vital Signs: Last Vital Signs Pulse 63 10/05/24 14:00 BP 132/52 L 10/05/24 14:00 BMI result Body Mass Index 25.8 Const General: cooperative, healthy appearing, comfortable and no acute distress Orientation/consciousness: patient oriented x3 Neck Neck: Yes normal visual inspection Resp Effort & Inspection: normal respiratory effort Auscultation: clear to auscultation bilaterally, no crackles, no rales, no rhon chi and no wheezes Cardio Jugular venous distension: no JVD Rate: regular rate Rhythm: regular rhythm Heart sounds: S1 normal heart sound present, S2 normal heart sound present, no murmurs and no rubs Neuro General: patient oriented x3 Extrem General: Yes normal to inspection Psych Appearance: grossly normal Mental Status: mental status grossly normal Speech and movement: Normal speech and movement present Assessment & Plan Assessment & Plan (1) Nonobstructive atherosclerosis of coronary artery: Code(s): I25.10 - Atherosclerotic heart disease of [place] coronary artery without angina pectoris Category: Medical Plan: Reports of chest discomfort with some typical and atypical features. She did undergo cardiac evaluation and ultimately had cardiac catheterization showing moderate coronary artery disease, including mid LAD 50% stenosis, mid RCA 65% stenosis and left main 30% stenosis. There was an ostial RPL at 80% stenosis, small-vessel. At the time of the catheterization it was thought that hypertension may be the cause of her discomfort. At this point she says her symptoms are much improved overall. She only has mild random discomfort in the chest and left upper arm. She has no symptoms that are clearly brought on by physical activity. She walks frequently and says she tolerates it well. Reviewed the diagnosis of coronary artery disease and signs and symptoms of angina with her. Instructed to notify this office if she has any increasing symptoms. Will have her continue metoprolol XL at 25 mg daily. Resting heart rate 63 today. Will add low-dose amlodipine as a 2nd antianginal. Will continue aspirin indefinitely. Continue rosuvastatin 20 mg daily. Fasting lipid profile is due, patient reminded of this. Emergency care if needed for symptoms. Cardiology follow-up 6 months, sooner if needed. (2) S/P cardiac catheterization: Comment: with Dr. Irwin 05/25/2024 Cardiac Arteries and Lesion Findings LMCA: Lesion in LMCA: Distal subsection.30% stenosis . LAD: Lesion in Mid LAD: Proximal subsection.50% stenosis . iFR +---+ + !iFR!Stage ! +---+ + !0.9!Diagnostic! +---+ + LCx: Normal. RCA: Ostial RPL branch 80% stenosis-small territory. Lesion in Mid RCA: Mid subsection.65% stenosis 16 mm length. Interventional Recommendations Aggressive secondary risk factor modification according to ATP III guidelines. Titration of antihypertensive therapy. Elevated blood pressure is the likely cause for chest discomfort. ACC Diagnostic Recommendations: Medical therapy and/or counseling. Code(s): Z98.890 - Other specified postprocedural states Category: Surgical Plan: As above (3) HTN (hypertension): Code(s): I10 - Essential (primary) hypertension Category: Medical Plan: Blood pressure today 132/52. Continue metoprolol and lisinopril. Will be adding low-dose amlodipine as 2nd antianginal. (4) HLD (hyperlipidemia): Code(s): E78.5 - Hyperlipidemia, unspecified Category: Medical Plan: [place] LDL goal less than 70. Labs done 07/27/2024 showed LDL 113. Her rosuvastatin was increased to 20 mg at that time. Repeat labs are pending Plan Time spent on chart review, documentation, interview and assessment Medications: New amlodipine new:To help with BP control and chest discomfort 2.5 mg PO DAILY 30 tabs 5RF Coding Level of Care Code Est Pt Level 4 (59938) Complex EM visit Add On G2211 Diagnoses Nonobstructive atherosclerosis of coronary artery I25.10 S/P cardiac catheterization Z98.890 HTN (hypertension) I10 HLD (hyperlipidemia) E78.5 Time Spent (min) 32
--- OUTSIDE RECORDS SUMMARY | 2024-10-11 02:59 | XMS_ITS ---
Author Name [facility] Organization Unknown History of Medication Use Medication Directions Dispensed Refills Start Date End Date Stat FOLIC ACID ORAL Take 400 mcg by mouth daily. 06/23/2022 active multivitamin capsule Take 1 capsule by mouth daily. 06/23/2022 active polyethylene glycol (GLYCOLAX) 17 gram packet Take 17 g by mouth daily. 06/23/2022 active ascorbic acid, vitamin C, (VITAMIN C) 500 mg tablet Take 500 mg by mouth daily. 06/23/2022 active cholecalciferol, vitamin D3, 25 mcg (1,000 unit) tablet TAKE 1 TABLET BY MOUTH DAILY 06/23/2022 aborted LORazepam (ATIVAN) 0.5 mg tablet Take 0.5 mg by mouth every 6 (six) hours as needed for anxiety. 06/23/2022 active pravastatin (PRAVACHOL) 10 mg tablet TAKE 1 TABLET BY MOUTH EVERY DAY 06/23/2022 active Transderm-Scop 1 mg over 3 days patch 3 day APPLY 1 PATCH TOPICALLY EVERY (THIRD) DAY 06/23/2022 active Problems Problem Status Onset Date Problem Type Date of Resoluti on Source Plantar fasciitis active 2019-04-18 ProblemAct [facility] Melena active 2020-08-08 ProblemAct [facility] GERD (gastroesophageal reflux disease) active 2018-11-22 ProblemAct [facility] Meniere's disease active 2018-11-22 ProblemAct [facility] Pain, ankle active 2019-01-31 ProblemAct [facility] Pulmonary nodule active 2020-08-08 ProblemAct [facility] Weight loss, non-intentional active 2020-08-08 ProblemAct [facility] Globus sensation active 2020-08-08 ProblemAct [facility] Chronic midline back pain active 2019-11-22 ProblemAct [facility] 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
== END 2024-10-05 14:37 | disposition home or self-care (01) ==
PROVIDERS: PCP Family Medicine; Visit Provider Nurse Practitioner Family
DX: I25.10 Atherosclerotic heart disease of native coronary artery without angina pectoris (principal); Z98.890 Other specified postprocedural states; I10 Essential (primary) hypertension; E78.5 Hyperlipidemia, unspecified
CPT/HCPCS: 99214; G2211

== ENCOUNTER → 2024-10-05 13:57 | Outpatient (BNVA) | payer MEDICARE, SELFPAY | PROVIDERS: PCP Family Medicine; Visit Provider Nurse Practitioner Family | DX: I25.10 Atherosclerotic heart disease of native coronary artery without angina pectoris (principal); I10 Essential (primary) hypertension; E78.5 Hyperlipidemia, unspecified; Z98.890 Other specified postprocedural states | CPT/HCPCS: 99212 ==

== ENCOUNTER 2025-01-15 12:07 | Outpatient (REF) | payer MEDICARE, SELFPAY ==
[2025-01-15 13:42] LABS: Estimated Average Glucose 123 mg/dL; Hemoglobin A1c % 5.9 % (<6.0); Total Hemoglobin (HGBA1C) 3199.1147 umol/L
[2025-01-15 13:54] LABS: Cholesterol 166 mg/dL (<200); HDL Cholesterol 58 mg/dL (>40); LDL Cholesterol Calculated 95 mg/dL (<100); Triglycerides 66 mg/dL (<150)
[2025-01-15 14:11] LABS: Alanine Aminotransferase 23 U/L (0-31); Albumin Level 4.1 g/dL (3.5-5.0); Alkaline Phosphatase 72 U/L (39-117); Anion Gap 9 (12-20); Aspartate Amino Transferase 23 U/L (5-31); Bilirubin Total 0.4 mg/dL (0.0-1.0); Blood Urea Nitrogen 13 mg/dL (9-16); Calcium 9.1 mg/dL (8.4-10.2); Carbon Dioxide 28 mmol/L (22-29); Chloride 112 mmol/L (96-108); Cholesterol 168 mg/dL (<200); Estimated Glomerular Filt Rate > 60; Glucose Random 90 mg/dL (60-115); HDL Cholesterol 59 mg/dL (>40); LDL Cholesterol Calculated 96 mg/dL (<100); Potassium 4.5 mmol/L (3.3-5.1); Sodium 144 mmol/L (135-145); Total Protein 7.1 g/dL (6.5-8.0); Triglycerides 68 mg/dL (<150)
--- OUTSIDE RECORDS SUMMARY | 2025-01-15 14:19 | XMS_ITS | Encounter Summary ---
Author Organization [employer] Address [address] [place] [address] [address] [place] [address] Care Team Providers Care Zipper Slide Attacher Name Role Phone Mayela Welsh MD Primary Care Provider [phone] Encounter Details Date Type Department Care Team (Late Contact Info) Description 07/14/2023 Orders Only [facility] MEDICINE [address] [place] [phone] Mayela Welsh MD [address] [place] [address] [phone] Essential hypertension (Primary Dx); Prediabetes; Hypercholesterolemia Social History Tobacco Use Types Packs/Day Years Used Date Smoking Tobacco: Never Passive Smoke Exposure: Never Smokeless Tobacco: Never Comments Unknown Sex and Gender Information Value Date Recorded Sex Assigned at Female 08/31/2022 10:15 AM EDT Legal Sex Female 10:15 AM EDT Gender Identity Female 08/31/2022 10:15 AM EDT Sexual Orientation Choose not to disclose 2021 10:15 AM EDT documented as of this encounter Plan of Treatment Upcoming Encounters Date Type Department Care Team (Late st Contact Info) Description 02/26/2025 3:45 PM EDT Office Visit [facility]INE [address] [place] [address] [phone] Mayela Welsh MD [address] [place] [address] [phone] documented as of this encounter Procedures Procedure Name Priority Date/Time Associated Diagnosis Comments LIPID PANEL WITH REFLEX TO DIRECT LDL Routine 08/17/2023 10:12 AM EDT Hypercholesterolemia HEMOGLOBIN A1C Routine 08/17/2023 10:12 AM EDT Prediabetes COMPREHENSIVE METABOLIC PANEL Routine 08/17/2023 10:12 AM EDT Essential hypertension documented in this encounter Results * Hemoglobin A1c (08/17/2023 10:12 AM EDT) Hemoglobin A1c 5.8 <6.0 % [facility] Comment:Hemoglobin A1C Refer ence Range Adults: 4.8 - 6.0 % Non diabetic: < 6.0 % Goal: < 7.0 %Additional Action Suggested: > 8.0 %Note: Hemoglobin A1c results are invalid for patients with abnormal amounts of HbF. Blood transfusions may impact the HbA1c concentration in the patient sample. Estimated Average Glucose 120 mg/dL [facility] Comment:eAG = Estimated ave rage glucose which is %A1C expressed asaverage glucose, using the formula of the M8O-[id number] Glucose study (ADAG), Diabetes Care, Vol.31,#8,Jun. 2007 Blood Venous blood specimen / Unknown 08/17/2023 10:12 AM EDT 08/17/2023 11:22 AM EDT us Mayela Welsh MD LAB BLOOD ORDERABLES Final Resul t [facility] [address] [place] [phone] * (ABNORMAL) Lipid Panel with Reflex to Direct LDL (08/17/2023 10:12 AM EDT) Triglycerides 106 <150 mg/dL [facility] Comment:Desirable Triglyceri de: less than 150 mg/dLBorderline High Triglyceride 150-199 mg/dLHigh Triglyceride: 200-499 mg/dLVery High Triglyceride: greater than or equal to 5OO mg/dL Cholesterol 258(H) <200 mg/dL [facility] Comment:Desirable Cholestero l: less than 200 mg/dLBorderline High Cholesterol: 200-239 mg/dLHigh Cholesterol: greater than 239 mg/dL LDL Cholesterol Calculated 178(H) <100 mg/dL [facility] Comment:Desirable LDL: less than 100 mg/dLNear Optimal/Above Optimal LDL: 110- 129 mg/dLBorderline High LDL: 130-159 mg/dLHigh LDL: 160-189 mg/dLVery High LDL: greater than or equal to 190 mg/dL HDL Cholesterol 59 >40 mg/dL [facility] Comment:Desirable HDL: great er than 40 mg/dL Note: This HDL assay may give artificially low results in patients with liver disease. Blood 08/17/2023 10:1 2 AM EDT 08/17/2023 11:22 AM EDT us Mayela Welsh MD LAB BLOOD ORDERABLES Final Resul t [facility] [address] [place] [phone] * (ABNORMAL) Comprehensive Metabolic Panel (08/17/2023 10:12 AM EDT) Sodium 145 135 - 145 mmol/L [facility] Potassium 4.9 3.3 - 5.1 mmol/L [facility] Chloride 110(H) 96 - 108 mmol/L [facility] Carbon Dioxide 28 22 - 29 mmol/L [facility] Anion Gap 12 12 - 20 [facility] Urea Nitrogen (BUN) 7(L) 9 - 16 mg/dL [facility] Creatinine, Serum 0.75 0.5 - 1.4 mg/dL [facility] Estimated Glomerular Filt Rate >60 [facility] Comment:NOTE: For -Am erican individuals, multiply the result by 1.210.Chronic Kidney Disease: Estimated GFR < 60 mL/min/1.19m9Zkkrpu Kidney Disease: Estimated GFR < 15 mL/min/1.73m2 Glucose 92 60 - 115 mg/dL [facility] Calcium 9.5 8.4 - 10.2 mg/dL [facility] Bilirubin, Total 0.4 0.0 - 1.0 mg/dL [facility] Aspartate Amino Transferase 21 5 - 31 U/L [facility] Alanine Aminotransferase 14 0 - 31 U/L [facility] Total Protein 7.5 6.5 - 8.0 g/dL [facility] Albumin Level 4.5 3.5 - 5.0 g/dL [facility] Alkaline Phosphatase 80 39 - 117 U/L [facility] Blood Venous blood specimen / Unknown 08/17/2023 10:12 AM EDT 08/17/2023 11:22 AM EDT us Mayela Welsh MD LAB BLOOD ORDERABLES Final Resul t [facility] [address] [place] [phone] [phone] documented in this encounter Visit Diagnoses Diagnosis Essential hypertension- Primary Unspecified essential hypertension Prediabetes Other abnormal glucose Hypercholesterolemia Pure hypercholesterolemia documented in this encounter Additional Health Concerns Assessment Noted Time PHQ-9 Depression Total Score: 2 12/29/19 23 1:08 PM EST documented as of this encounter Care Teams Zipper Slide Attacher Relationship Specialty Start Date End Date Mayela Welsh MD [address] [place] [address] PCP - General Family Medicine 06/26/21 documented as of this encounter
--- OUTSIDE RECORDS SUMMARY | 2025-01-15 14:20 | XMS_ITS | Encounter Summary ---
Author Organization [employer] Address [address] [facility] [address] [place] [address] Care Team Providers Care Cage Cashier Name Role Phone Mayela Welsh MD Primary Care Provider [phone] Reason for Visit * Reason Onset Date Comments medication clarification 03/31/2024 Encounter Details Date Type Department Care Team ([facility] st Contact Info) Description 03/31/2024 Telephone [facility] [address] [place], [place] [phone] Dk Andre DDS [address] [place], [place] [phone] medication clarification Social History Tobacco Use Types Packs/Day Years Used Date Smoking Tobacco: Never Passive Smoke Exposure: Never Smokeless Tobacco: Never Depression Answer Date Recorded Patient Health Questionnaire-9 Score 3 07/29/2023 Housing Stability Answer Date Recorded What is your housing situation today? I have randi lim 08/16/[address] you li ve. Do you have problems with any of the following? None of the above 08/16/2023 Food Insecurity Answer Date Recorded Within the past 12 months, y ou worried that your food would run out before you got money to buy more: Never True 08/16/2023 Within the past 12 months,th e food you bought just didn't last and you didn't have enough money to get more: Never True Transportation Answer Date Recorded In the past 12 months, has l ack of transportation kept you from medical appts, meetings, work or from getting things needed for daily living? No 08/16/2023 Utilities Answer Date Recorded In the past 12 months, has t he electric, gas, oil or water company threatened to shut off services in your home? No 08/16/2023 Depression Answer Date Recorded Patient Health Questionnaire-2 Score 3 07/29/2023 Comments Unknown Sex and Gender Information Value Date Recorded Sex Assigned at Female 08/31/2022 10:15 AM EDT Legal Sex Female 10:15 AM EDT Gender Identity Female 08/31/2022 10:15 AM EDT Sexual Orientation Choose not to disclose 2021 10:15 AM EDT documented as of this encounter Miscellaneous Notes * Telephone Encounter - Theresa Ma - 03/31/2024 10:19 AM EDT Maame from [facility] in [place] called to clarify medication use. How many times a day the patientshould be using. They stated that they called 2 days ago and waiting for response. No message sent on PAR end. Unsure who they spoke to DR documented in this encounter Plan of Treatment Upcoming Encounters Date Type Department Care Team (Late st Contact Info) Description 02/26/2025 3:45 PM EDT Office Visit [facility] [address] [place] [address] Mayela Welsh MD [address] [place] [address] documented as of this encounter Visit Diagnoses Not on filedocumented in this encounter Additional Health Concerns Assessment Noted Time PHQ-9 Depression Total Score: 3 07/29/20 23 12:33 PM EDT documented as of this encounter Care Teams Cage Cashier Relationship Specialty Start Date End Date Mayela Welsh MD [address] [place] [address] PCP - General Family Medicine 06/26/21 documented as of this encounter
--- OUTSIDE RECORDS SUMMARY | 2025-01-15 14:20 | XMS_ITS | Encounter Summary ---
Author Organization [employer] Address [address] [facility] [address] [place] [address] Care Team Providers Care Facilities Engineer Name Role Phone Mayela Welsh MD Primary Care Provider [phone] Reason for Visit * Reason Onset Date Comments chartprep 01/09/2025 Encounter Details Date Type Department Care Team (Late st Contact Info) Description 01/09/[address] [facility] [address] [place] [address] Heri Salgado MA chartprep Social History Tobacco Use Types Packs/Day Years Used Date Smoking Tobacco: Never Passive Smoke Exposure: Never Smokeless Tobacco: Never Depression Answer Date Recorded Patient Health Questionnaire-9 Score 8 11/14/2024 Patient Health Questionnaire-9 Score 8 11/14/2024 Last PHQ-9: Questionnaire Data Not on file 0 11/14/2024 Housing Stability Answer Date Recorded What is your housing situation today? I have randi lim 11/14/[address] you li ve. Do you have problems with any of the following? None of the above 11/14/2024 Food Insecurity Answer Date Recorded Within the past 12 months, y ou worried that your food would run out before you got money to buy more: Never True 11/14/2024 Within the past 12 months,th e food you bought just didn't last and you didn't have enough money to get more: Never True Transportation Answer Date Recorded In the past 12 months, has l ack of transportation kept you from medical appts, meetings, work or from getting things needed for daily living? No 11/14/2024 Utilities Answer Date Recorded In the past 12 months, has t he electric, gas, oil or water company threatened to shut off services in your home? No 11/14/2024 Depression Answer Date Recorded Patient Health Questionnaire-2 Score 2 11/14/2024 Internet Access Answer Date Recorded Internet Access Q1 Yes 11/14/2024 Internet Access Q2 Not on file 11/14/2024 Comments Unknown Sex and Gender Information Value Date Recorded Sex Assigned at Female 08/31/2022 10:15 AM EDT Legal Sex Female 10:15 AM EDT Gender Identity Female 08/31/2022 10:15 AM EDT Sexual Orientation Choose not to disclose 2021 10:15 AM EDT documented as of this encounter Miscellaneous Notes * Telephone Encounter - Heri Salgado MA - 01/09/2025 4:00 PM EDT Chart Prep Labs: not done Images: not done XR knee Vaccines due: yes RSV Referrals: complete cardiology appt was 08/24/24 @ [facility] [place] Screenings: NA Overdue care gaps: Oral Health, [id number] documented in this encounter Plan of Treatment Upcoming Encounters Date Type Department Care Team (Late st Contact Info) Description 02/26/2025 3:45 PM EDT Office Visit [facility] [address] [place] [address] Mayela Welsh MD [address] [place] [address] documented as of this encounter Visit Diagnoses Not on filedocumented in this encounter Additional Health Concerns Assessment Noted Time PHQ-9 Depression Total Score: 8 11/14/19 25 4:22 PM EST documented as of this encounter Care Teams Facilities Engineer Relationship Specialty Start Date End Date Mayela Welsh MD [address] [place] [address] PCP - General Family Medicine 06/26/21 documented as of this encounter
--- OUTSIDE RECORDS SUMMARY | 2025-01-15 14:20 | XMS_ITS | Clinical Summary ---
Author Organization [employer] Address [address] [facility] [address] [place] [address] Care Team Providers Care Admissions Dean Name Role Phone Mayela Welsh MD Primary Care Provider [phone] Allergies No known active allergies Medications * This document contains information received from the source organization and may not represent a complete record from that organization. docusate sodium (Colace) 100 MG capsule TAKE 2 CAPSULES BY MOUTH DAILY AT BEDTIME 2 Active simethicone (Mylicon) 125 MG chewable tablet CHEW 1 TABLET BY MOUTH THREE TO FOUR TIMES DAILY NEEDED 2 Active fluticasone (Flonase Allergy Relief) 50 MCG/ACT nasal sprayIndications :Runny nose Administer 1 spray into each nostril in the morning. Shake gently. Before first use, prime pump. After use, clean tip and replace cap. 16 g 12 3 Active Transderm-Scop 1 MG/3DAYS patch 72 hour APPLY 1 PATCH DETRAS CORBIN OIDO 4 HOURS BEFORE DE NECESARIO. CHANGE EVERY 3 DAYS NEEDED 10 patch 11 4 Active cholecalciferol (Vitamin D3) 25 MCG (1000 UT) tablet TAKE 1 TABLET BY MOUTH EVERY MORNING 90 tablet 1 4 Active LORazepam (Ativan) 1 MG tabletIndication s:Meniere's disease, unspecified laterality Take 1 tablet (1 mg) by mouth if needed each day for anxiety. 20 tablet 1 4 Active Blood Pressure Monitoring (Blood Pressure Kit) kitIndications:E ssential hypertension Check blood pressure every morning and as needed. Dx hypertension 1 kit 4 Active rosuvastatin (Crestor) 20 MG tabletIndication s:Hypercholester olemia Take 1 tablet (20 mg) by mouth Once per day. 90 tablet 3 4 025 Active metoprolol succinate XL (Toprol-XL) 25 MG 24 hr tablet Take 25 mg by mouth Once per day. 4 Active Aspirin Low Dose 81 MG EC tablet Take 81 mg by mouth Once per day. 4 Active nitroglycerin (Nitrostat) 0.4 MG SL tablet DISSOLVE 1 TABLET UNDER THE TONGUE EVERY 5 MINUTES IF NEEDED FOR CHEST PAIN, MAY ADMINISTER UP TO 3 TABLETS IN A 15 MINUTE PERIOD 25 tablet 1 4 Active lisinopril 10 MG tablet TAKE 1 TABLET(10 MG) BY MOUTH IN THE MORNING 90 tablet 1 5 Active Active Problems Problem Noted Date Diagnosed Date CAD (coronary artery disease) 11/20/2024 Assessment & Plan (11/20/2024 6:33 PM EST): - 05/25/24 cardiac catheterization showing moderate coronary artery disease: mid LAD 50% stenosis; mid RCA 65% stenosis; left main 30% stenosis; ostial RPL at 80% stenosis, small-vessel. - continue metoprolol XL at 25 mg daily. - prescribed amlodipine 2.5 mg daily for anti-anginal effect; but patient has not started it yet - continue aspirin indefinitely. - continue rosuvastatin 20 mg daily. - continue working on life style modifications - continue following with [facility] PAD (peripheral artery disease) 08/20/2024 Assessment & Plan (11/15/2024 1:23 PM EST): - in Jun 2020 when she was in CT, patient had abdominal CT for weight loss and abdominal pain - The aorta demonstrates mixed calcified atherosclerotic disease throughout. No areas of aneurysmal dilation. There is atherosclerotic narrowing at the origin of the celiac axis which is approaching 50% luminal narrowing. The SMA demonstrates some eccentric thrombus resulting in 25-50% narrowing. Mild atherosclerotic narrowing at the origin of both renal arteries. Noncalcified plaque is seen at the origin of the inferior mesenteric artery, probably resulting in a high-grade stenosis. The [place] distal to this does demonstrate enhancement however. No significant luminal narrowing of the iliac vessels. Assessment & Plan (08/20/2024 12:45 PM EDT): - in Jun 2020 when she was in CT, patient had abdominal CT for weight loss and abdominal pain - The aorta demonstrates mixed calcified atherosclerotic disease throughout. No areas of aneurysmal dilation. There is atherosclerotic narrowing at the origin of the celiac axis which is approaching 50% luminal narrowing. The SMA demonstrates some eccentric thrombus resulting in 25-50% narrowing. Mild atherosclerotic narrowing at the origin of both renal arteries. Noncalcified plaque is seen at the origin of the inferior mesenteric artery, probably resulting in a high-grade stenosis. The [place] distal to this does demonstrate enhancement however. No significant luminal narrowing of the iliac vessels. Chest pain 05/16/2024 Abnormal cardiovascular stress test 05/16/2024 Assessment & Plan (11/15/2024 1:23 PM EST): - patient had stress test in April 2024 which was suggestive of ischemi - cardiac cath on 05/25/24 showed non-obstructive coronary atherosclerosis. Recommended secondary risk factor modification. - continue aspirin, metoprolol, lisinopril, and rosuvastatin Assessment & Plan (08/20/2024 12:40 PM EDT): - patient had stress test in April 2024 which was suggestive of ischemi - cardiac cath on 05/25/24 showed non-obstructive coronary atherosclerosis. Recommended secondary risk factor modification. - continue aspirin, metoprolol, lisinopril, and rosuvastatin Assessment & Plan (05/16/2024 5:06 PM EDT): - patient had stress test in April 2024 which was suggestive of ischemia. She is scheduled for cardiac catheterization on 05/18/24. - continue aspirin, metoprolol, lisinopril, and Crestor Excessive attrition of teeth, limited to enamel 04/20/2024 Periodontal disease 04/20/2024 Cardiovascular event risk 02/26/2024 Assessment & Plan (11/20/2024 6:25 PM EST): - continue working on lifestyle modification - continue statin and antihypertensive to optimize Tx risk factor Assessment & Plan (05/16/2024 5:06 PM EDT): - 10 year ASCVD risk is 25% - she is seeing [facility] for chest pain and is scheduled for stress test and echo - continue working on lifestyle modification - continue statin and antihypertensive to optimize Tx risk factor Assessment & Plan (02/26/2024 6:47 AM EDT): - 10 year ASCVD risk is 25% - she is seeing [facility] for chest pain and is scheduled for stress test and echo - continue working on lifestyle modification - continue statin and antihypertensive to optimize Tx risk factor History of COVID-19 08/02/2023 Assessment & Plan (08/02/2023 5:27 AM EDT): - Nov 2022, treated with Paxlovid - no sign of long-COVID Anxiety 07/27/2023 Assessment & Plan (11/20/2024 6:36 PM EST): - Seen by [facility] Clinician in Jul 2023 - Continue counseling Assessment & Plan (12/29/2023 9:25 AM EST): During [facility] Consult Apple presenting with excessive worry/anxiety, difficulty controlling worry, restless/keyed up/On edge, difficulty concentrating/Mind going blank , and irritability; for a period of 18+ mo, for all symptoms in the context of family issues. Apple was stressed and overwhelmed due to toxic relationship with her daughter (57 y/o) who moved to another state without giving her notice. This event is leading to increase of anxiety symptoms. PLAN: (check all that apply) Further services needed, but declined . Patient declined referral for OP individual therapy and will ask for clinician during next physical if needed. Assessment & Plan (11/19/2023 6:31 PM EST): - Seen by [facility] Clinician in Jul 2023 - Continue counseling Assessment & Plan (07/29/2023 1:28 PM EDT): Patient with symptoms of nervousness, over-worrying, trouble relaxing, irritability and fearfulness. Symptoms occur nearly everyday and have been present on and off for the last year indicating a moderate impact on social and occupational functioning. Symptoms presented in the context of living situation and family problems with her daughter. Provided psychoeducation around anxiety, stressful life events and ways to cope with difficult times. Refused OP individual therapy referral and agreed to have follow-up BE's with clinician. At this time Apple Recio meets criteria for Visit Diagnoses: Problem List Items Addressed This Visit Other Anxiety Family problems Patient ready to address current needs Yes Strengths include self-awareness and motivation to change PLAN: 1. Follow up with [facility] [place]: Recommended for follow-up: Refused referral outside the health center. Agreed to receive follow-up BE 2. Patient goal is to set-up boundaries and learn to keep healthy relationships 3. Behavioral Recommendations a. Follow-up BE b. Follow-up appt with PCP c. Incorporate coping skills into daily routine Assessment & Plan (08/02/2023 5:24 AM EDT): - Seen by [facility] Clinician today - Pt was initially hesitant to meet [facility] clinician; after the session, pt was very grateful to Misty for listening and talking. - pt will receive counseling short-term Family problems 07/27/2023 Assessment & Plan (02/15/2024 4:52 PM EDT): Pt was recommended to discuss with daughter's addiction social worker problems to be addressed. Assessment & Plan (12/29/2023 9:25 AM EST): During [facility] Consult Apple presenting with excessive worry/anxiety, difficulty controlling worry, restless/keyed up/On edge, difficulty concentrating/Mind going blank , and irritability; for a period of 18+ mo, for all symptoms in the context of family issues. Apple was stressed and overwhelmed due to toxic relationship with her daughter (57 y/o) who moved to another state without giving her notice. This event is leading to increase of anxiety symptoms. PLAN: (check all that apply) Further services needed, but declined . Patient declined referral for OP individual therapy and will ask for clinician during next physical if needed. Assessment & Plan (08/02/2023 5:24 AM EDT): - with her daughter - met with Misty ortiz Assessment & Plan (07/29/2023 1:28 PM EDT): Patient with symptoms of nervousness, over-worrying, trouble relaxing, irritability and fearfulness. Symptoms occur nearly everyday and have been present on and off for the last year indicating a moderate impact on social and occupational functioning. Symptoms presented in the context of living situation and family problems with her daughter. Provided psychoeducation around anxiety, stressful life events and ways to cope with difficult times. Refused OP individual therapy referral and agreed to have follow-up BE's with clinician. At this time Apple Recio meets criteria for Visit Diagnoses: Problem List Items Addressed This Visit Other Anxiety Family problems Patient ready to address current needs Yes Strengths include self-awareness and motivation to change PLAN: 1. Follow up with [facility] [place]: Recommended for follow-up: Refused referral outside the health center. Agreed to receive follow-up BE 2. Patient goal is to set-up boundaries and learn to keep healthy relationships 3. Behavioral Recommendations a. Follow-up BE b. Follow-up appt with PCP c. Incorporate coping skills into daily routine Cataract of left eye 12/29/2022 Hypercholesterolemia 11/03/2022 Assessment & Plan (11/20/2024 6:35 PM EST): - continue rosuvastatin from 20 mg at bedtime - continue working on lifestyle modifications Assessment & Plan (08/20/2024 12:40 PM EDT): - increase rosuvastatin from 10 to 20 mg at bedtime - continue working on lifestyle modifications Assessment & Plan (02/15/2024 4:50 PM EDT): Last Lipid Profile: 08/17/23, LDL > 178 - Change to lovastatin 5 mg at bedtime - continue working on lifestyle modifications -will check lipid profile prior to next visit Assessment & Plan (11/19/2023 6:30 PM EST): Last Lipid Profile: 12/29/22 TC 246; TG 164; HDL 162; LDL 154 - continue pravastatin 20 mg at bedtime - continue working on lifestyle modifications -will check lipid profile prior to next visit Assessment & Plan (07/27/2023 5:11 PM EDT): Last Lipid Profile: 12/29/22 TC 246; TG 164; HDL 162; LDL 154 - continue pravastatin 20 mg at bedtime - continue working on lifestyle modifications -will check lipid profile prior to next visit Prediabetes 11/03/2022 Assessment & Plan (11/20/2024 6:35 PM EST): - A1c 5.8% on 08/17/23 - continue lifestyle modifications Assessment & Plan (08/20/2024 12:39 PM EDT): - A1c 5.8% on 08/17/23 - continue lifestyle modifications Assessment & Plan (02/26/2024 6:42 AM EDT): - A1c 5.8% on 08/17/23 - continue lifestyle modifications Assessment & Plan (11/19/2023 6:30 PM EST): - A1c 5.8% on 08/17/23 - continue lifestyle modifications Assessment & Plan (05/11/2023 4:19 PM EDT): - A1c 5.8% on 12/29/22 - continue Pravastatin 20 mg at bedtime - continue lifestyle modifications Globus sensation 08/08/2020 Pulmonary nodule 08/08/2020 Stenosis of inferior mesenteric artery 0 Weight loss, non-intentional 08/08/2020 Assessment & Plan (11/19/2023 6:29 PM EST): - increased life stressor - monitor at this time Chronic midline back pain 11/22/2019 Overview (11/03/2022): Last Assessment & Plan: Patient states she has occasional knee and back pain with certain movements. Denies swelling, warmth, radiation of pain down legs, weakness, numbness or tingling. States she does not want medications for pain management -may use extra strength tylenol for pain control -if worsening back or knee pain, or other concerning signs/symptoms, consider Xrays/other imaging Essential hypertension 11/22/2019 Overview (11/03/2022): Last Assessment & Plan: Elevated BP readings during previous visits. No strict diet, she states she dances in house but not frequently enough. Chronic life stressors including taking care of sister and daughter. -DASH diet in faroese added to pt instructions -exercise 30 mins x5 days a week -Lisinopril 10mg sent to pharmacy -continue Pravastatin at current dose Assessment & Plan (11/20/2024 6:33 PM EST): - Goal BP < 150/90 per JNC-8 and < 130/80 per ACC/AHA guideline (Treatment threshold >=130/80 ) - BP is slightly elevated today, home BP is normal according to the patient - Continue working on lifestyle modifications - Recommended self-monitoring BP. - Continue current medication: lisinopril 10 mg daily; metoprolol succinate 25 mg daily; prescribed amlodipine 2.5 mg daily by senior dentist. She has not started amlodipine yet. - Follow up in 3-6 mo, sooner if any problem arises Assessment & Plan (08/20/2024 12:35 PM EDT): - Goal BP < 150/90 per JNC-8 and < 130/80 per ACC/AHA guideline (Treatment threshold >=130/80 ) - BP is slightly elevated today, home BP is normal according to the patient - Continue working on lifestyle modifications - Recommended self-monitoring BP. - Continue current medication: lisinopril 10 mg daily; metoprolol succinate 25 mg daily - Follow up in 3-6 mo, sooner if any problem arises Assessment & Plan (05/16/2024 5:05 PM EDT): - Goal BP < 150/90 per JNC-8 and < 130/80 per ACC/AHA guideline (Treatment threshold >=130/80 ) - BP is elevated today - Continue working on lifestyle modifications - Recommended self-monitoring BP. - Continue current medication: lisinopril 10 mg daily; metoprolol succinate 25 mg daily - Follow up in 3-6 mo, sooner if any problem arises Assessment & Plan (02/26/2024 6:42 AM EDT): - Goal BP < 150/90 per JNC-8 and < 130/80 per ACC/AHA guideline (Treatment threshold >=130/80 ) - BP is elevated today - Continue working on lifestyle modifications - Recommended self-monitoring BP. - Continue current medication: lisinopril 10 mg daily - Follow up in 3-6 mo, sooner if any problem arises Assessment & Plan (11/19/2023 6:27 PM EST): - Goal BP < 150/90 per JNC-8 and < 130/80 per ACC/AHA guideline (Treatment threshold >=130/80 ) - BP is elevated today - Continue working on lifestyle modifications - Recommended self-monitoring BP. - Continue current medication: lisinopril 10 mg daily - Follow up in 3-6 mo, sooner if any problem arises Assessment & Plan (08/02/2023 5:22 AM EDT): Goal BP < 150/90 per JNC-8 and < 130 per ACC/AHA guideline (Treatment threshold >=130/80 ) - BP within acceptable range today -Continue working on lifestyle modifications -Recommended self-monitoring BP. -Continue current medication: lisinopril 10 mg daily -Follow up in 3-6 mo, sooner if any problem arises Assessment & Plan (05/11/2023 4:17 PM EDT): -Goal BP < 150/90 per JNC-8 and < 130 per ACC/AHA guideline (Treatment threshold >=130/80 ) - BP within acceptable range today -Continue working on lifestyle modifications -Recommended self-monitoring BP. -Continue current medication: lisinopril 10 mg daily -Follow up in 3-6 mo, sooner if any problem arises-Goal BP < per JNC-8 and < per ACC/AHA guideline (Treatment threshold >= ) -Continue working on lifestyle modifications -Recommended self-monitoring BP. -Continue current medications: -Treatment Hx: -Follow up in 3-6 mo, sooner if any problem arises Assessment & Plan (12/31/2022 12:20 AM EST): -Goal BP < 150/90 per JNC-8 and < 130 per ACC/AHA guideline (Treatment threshold >=130/80 ) - BP within acceptable range today -Continue working on lifestyle modifications -Recommended self-monitoring BP. -Continue current medication: lisinopril 10 mg daily -Follow up in 3-6 mo, sooner if any problem arises-Goal BP < per JNC-8 and < per ACC/AHA guideline (Treatment threshold >= ) -Continue working on lifestyle modifications -Recommended self-monitoring BP. -Continue current medications: -Treatment Hx: -Follow up in 3-6 mo, sooner if any problem arises Plantar fasciitis 04/18/2019 Acquired short Achilles tendon of right lower ex tremity 01/04/2019 GERD (gastroesophageal reflux disease) 9 Overview (11/03/2022): Last Assessment & Plan: Occasionally has sensation of food in throat when eating heavy foods like plantain. Denies pain, burning sensation. barium swallow was ordered- Minor, transient tertiary contractions in the distal esophagus. Otherwise, no significant pathology in barium swallow. -eat smaller bites, chew more Assessment & Plan (08/20/2024 12:39 PM EDT): - continue pantoprazole Meniere's disease 11/22/2018 Overview (05/11/2023): Last Assessment & Plan: Patient encouraged to use scopolamine patches. We will not be prescribing Ativan. Assessment & Plan (11/15/2024 1:24 PM EST): - Patient encouraged to use scopolamine patches. - patient requests brand name scopolamine patch, will check if we can submit prior authorization Assessment & Plan (08/20/2024 12:39 PM EDT): - Patient encouraged to use scopolamine patches. - patient requests brand name scopolamine patch, will check if we can submit prior authorization Assessment & Plan (05/16/2024 5:07 PM EDT): - Patient encouraged to use scopolamine patches. - patient requests brand name scopolamine patch, will check if we can submit prior authorization Assessment & Plan (11/19/2023 6:29 PM EST): - Patient encouraged to use scopolamine patches. Assessment & Plan (08/02/2023 5:26 AM EDT): - Patient encouraged to use scopolamine patches. Assessment & Plan (05/11/2023 4:18 PM EDT): Patient encouraged to use scopolamine patches. We will not be prescribing Ativan. Resolved Problems Problem Noted Date Diagnosed Date Resolved Date Preop examination 12/29/2022 11/19/2023 Assessment & Plan (12/29/2022 1:29 PM EST): -Her functional capacity is > 4 METs. She is considered a low risk patient. -The procedure is considered a low-risk procedure. -She will proceed to cataract surgery without further risk stratification or management. -Pt was advised to stop taking aspirin (at least 7 days before surgery). Continue precautionary measure - We appreciate Dr. Jonas for collaborative care. - Pt was recommended to follow Dr. Jonas's instruction for recovery period. Encounters Date Type Department Care Team Description 01/15/2025 Orders Only [address] [id number] Mayela Welsh MD 01/15/2025 Orders Only GENERIC EXTERNAL DATA DEPARTMENT Provider, Generic External Data 01/12/2025 3:30 PM EDT Office Visit [facility] [place] [address] Aline Mo NP Acute pain of left shoulder (Primary Dx) 01/12/2025 Travel 01/09/[address] [address] Heri Salgado MA chartprep 12/28/[address] [place] [address] Mayela Welsh MD Referral 12/10/2024 Refill [facility] [address] [place] [address] [place] [phone] Mayela Welsh MD 11/23/2024 Telephone [facility] [address] [place] [address] [phone] Barbie Kincaid rs no show appt 11/14/2024 3:15 PM EST Office Visit [facility] [address] [place] [address] [phone] Mayela Welsh MD Meniere's disease of left ear (Primary Dx); Essential hypertension; PAD (peripheral artery disease) ([facility]/HCC); Stenosis of inferior mesenteric artery ([facility]/HCC); Cardiovascular event risk; Anxiety; Hypercholesterolemia ; Coronary artery disease involving [place] coronary artery of [place]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 pectoris ([facility]/HCC); Prediabetes; Dietary counseling; Exercise counseling; Overweight 11/14/2024 Travel 11/07/2024 Telephone [facility] [address] [place] [phone] Mayela Welsh MD Nurse Triage 11/02/[address] [phone] Mayela Welsh MD Referral from Last 3 Months Immunizations Name Administration Dates Next Due Influenza High-dose Quadriva lent Preservative Free 08/08/2020,11/02/2019,10/26/2018 Influenza injectable quadriv alent preservative free 07/27/2023,09/10/2022,09/17/2021 Influenza, High Dose Seasona l, Preservative Free 08/15/2024 Pfizer Covid-19 Vaccine 12+ 08/15/2024, Pneumococcal Conjugate PCV 20 06/30/2023 Pneumococcal Polysaccharide PPSV23 09/10/2015, Tdap 06/30/2023 Zoster, Recombinant 06/19/2021,12/27/2020 Family History Medical History Relation Name Comments Mental illness Daughter Relation Name Status Comments Daughter Social History Tobacco Use Types Packs/Day Years Used Date Smoking Tobacco: Never Passive Smoke Exposure: Never Smokeless Tobacco: Never Tobacco Cessation:Counseling Given: Not Answered Depression Answer Date Recorded Patient Health Questionnaire-9 [...] not to disclose 2021 10:15 AM EDT Last Filed Vital Signs Vital Sign Reading Time Taken Comments Blood Pressure 149/61 01/12/2025 4:03 PM EDT Pulse 72 01/12/2025 4:03 PM EDT Temperature 37.1 ??C (98.7 ??F) 01/12/2025 4:03 PM ED T Respiratory Rate 18 01/12/2025 4:03 PM EDT Oxygen Saturation 97% 01/12/2025 4:03 PM EDT Inhaled Oxygen Concentration - - Weight 68 kg (150 lb) 01/12/2025 4:03 PM EDT Height 162.6 cm (5' 4 ) 01/12/2025 4:03 PM EDT Body Mass Index 25.75 01/12/2025 4:03 PM EDT Plan of Treatment Upcoming Encounters Date Type Department Care Team (Late st Contact Info) Description 02/26/2025 3:45 PM EDT Office Visit [facility] [address] [place] [address] Mayela Welsh MD [address], [place] [phone] Health Maintenance Due Date Last Done Comments Dental Prophylaxis 1948 RSV Patients and Patients Aged 60 years or older (1 - 1-dose 75+ series) 2023 Dental Oral Exam 11/25/2024 05/24/2024 Dental X-Ray: Bitewings 05/25/2025 05/24/2024, 03/29 Alcohol/Substance Use Screening 08/15/2025 08/15/2024 Depression Screening 11/14/2025 11/14/2024, 11/14/19 SDOH Screening 11/14/2025 11/14/2024 Tobacco Screening 11/20/2025 11/20/2024 Diabetes: Hemoglobin A1C 01/15/2026 025, 08/17/2023, 12/29/2022, Additional history exists Dental X-Ray: Full Mouth 05/25/2027 05/24/2024 Lipid Panel 01/15/2030 01/15/2025, 12/30, 07/27/2024, Additional history exists DTaP/Tdap/Td Vaccines (2 - Td or Tdap) 06/30/2033 06/30/2023 Colonoscopy Discontinued 12/19/2020 Colorectal Cancer Screening Discontinued Hepatitis C Screening Completed 02/24/2021 Zoster Vaccines Completed 06/19/2021, 12/27/2020 Pneumococcal Vaccine: 50+ Years Completed 06/30/2023, 09/10/2015, 07/16/2014 COVID-19 Vaccine Completed 08/15/2024, 08/2023, 09/10/2022, Additional history exists Influenza Vaccine Completed 08/15/2024, , 09/10/2022, Additional history exists CT Colonography Discontinued FIT DNA/Cologuard Discontinued FIT Discontinued FOBT Discontinued HIB Vaccines Aged Out No longer eligi ble based on patient's age to complete this topic HPV Vaccines Aged Out No longer eligi ble based on patient's age to complete this topic Hepatitis A Vaccines Aged Out No long er eligible based on patient's age to complete this topic Hepatitis B Vaccines Aged Out No long er eligible based on patient's age to complete this topic IPV Vaccines Aged Out No longer eligi ble based on patient's age to complete this topic Meningococcal Vaccine Aged Out No jakob toshia eligible based on patient's age to complete this topic RSV under 20 months Aged Out No longe r eligible based on patient's age to complete this topic Rotavirus Vaccines Aged Out No longer eligible based on patient's age to complete this topic Sigmoidoscopy Discontinued Procedures Procedure Name Priority Date/Time Associated Diagnosis Comments LIPID PANEL, STANDARD Routine 01/15/2025 12:09 PM EDT LIPID PANEL WITH REFLEX TO DIRECT LDL Routine 01/15/2025 12:09 PM EDT Hypercholesterolemia Coronary artery disease involving [place] coronary artery of [place]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 pectoris ([facility]CC) COMPREHENSIVE METABOLIC PANEL Routine 01/15/2025 12:09 PM EDT Essential hypertension HEMOGLOBIN A1C Routine 01/15/2025 12:09 PM EDT Prediabetes INTRAORAL - COMPLETE SERIES OF RADIOGRAPHIC IMAGES Routine 05/24/2024 1:30 PM EDT Encounter for dental examination Periodontal disease Bone loss Dental calculus Dental plaque COMPREHENSIVE ORAL EVALUATION - NEW OR ESTABLISHED PATIENT Routine 05/24/2024 1:30 PM EDT Encounter for dental examination Periodontal disease Bone loss Dental calculus Dental plaque ZZZ HISTORICAL HEPATITIS C AB W/REFL TO HCV RNA, QN, PCR Routine 02/24/2021 1:04 PM EDT HM COLONOSCOPY Routine 12/19/2020 from Last 3 Months or Most Recently Relevant to Health Maintenance Results * Hemoglobin A1c (01/15/2025 12:09 PM EDT) Hemoglobin A1c 5.9 <6.0 % [facility] Comment:Hemoglobin A1C Refer ence Range Adults: 4.8 - 6.0 % Non diabetic: < 6.0 % Goal: < 7.0 %Additional Action Suggested: > 8.0 %Note: Hemoglobin A1c results are invalid for patients with abnormal amounts of HbF. Blood transfusions may impact the HbA1c concentration in the patient sample. Estimated Average Glucose 123 mg/dL [facility] Comment:eAG = Estimated ave rage glucose which is %A1C expressed asaverage glucose, using the formula of the O6C-NusmafgNsmvqev Glucose study (ADAG), Diabetes Care, Vol.31,#8,Jun. 2007 Blood Venous blood specimen / Unknown 01/15/2025 12:09 PM EDT 01/15/2025 1:07 PM EDT us Mayela Welsh MD LAB BLOOD ORDERABLES Final Resul t [facility] [address] [place] [phone] * Lipid Panel, Standard (01/15/2025 12:09 PM EDT) Triglycerides 68 <150 mg/dL [facility] Comment:Desirable Triglyceri de: less than 150 mg/dLBorderline High Triglyceride 150-199 mg/dLHigh Triglyceride: 200-499 mg/dLVery High Triglyceride: greater than or equal to 5OO mg/dL Cholesterol 168 <200 mg/dL [facility] Comment:Desirable Cholestero l: less than 200 mg/dLBorderline High Cholesterol: 200-239 mg/dLHigh Cholesterol: greater than 239 mg/dL LDL Cholesterol Calculated 96 <100 mg/dL [facility] Comment:Desirable LDL: less than 100 mg/dLNear Optimal/Above Optimal LDL: 110- 129 mg/dLBorderline High LDL: 130-159 mg/dLHigh LDL: 160-189 mg/dLVery High LDL: greater than or equal to 190 mg/dL HDL Cholesterol 59 >40 mg/dL [facility] Comment:Desirable HDL: great er than 40 mg/dL Note: This HDL assay may give artificially low results in patients with liver disease. 01/15/2025 12:0 9 PM EDT 01/15/2025 1:07 PM EDT us Generic External Data Provider LAB BLOOD ORDERAB LES Final Result [facility] [address] [place] [phone] * (ABNORMAL) Comprehensive Metabolic Panel (01/15/2025 12:09 PM EDT) Sodium 144 135 - 145 mmol/L [facility] Potassium 4.5 3.3 - 5.1 mmol/L [facility] Chloride 112(H) 96 - 108 mmol/L [facility] Carbon Dioxide 28 22 - 29 mmol/L [facility] Anion Gap 9(L) 12 - 20 [facility] Urea Nitrogen (BUN) 13 9 - 16 mg/dL [facility] Creatinine, Serum 0.75 0.5 - 1.4 mg/dL [facility] Estimated Glomerular Filt Rate >60 [facility] Comment:Chronic Kidney Disea se: Estimated GFR < 60 mL/min/1.49p1Sofget Kidney Disease: Estimated GFR < 15 mL/min/1.73m2 Glucose 90 60 - 115 mg/dL [facility] Calcium 9.1 8.4 - 10.2 mg/dL [facility] Bilirubin, Total 0.4 0.0 - 1.0 mg/dL [facility] Aspartate Amino Transferase 23 5 - 31 U/L [facility] Alanine Aminotransferase 23 0 - 31 U/L [facility] Total Protein 7.1 6.5 - 8.0 g/dL [facility] Albumin Level 4.1 3.5 - 5.0 g/dL [facility] Alkaline Phosphatase 72 39 - 117 U/L [facility] Blood Venous blood specimen / Unknown 01/15/2025 12:09 PM EDT 01/15/2025 1:07 PM EDT Mayela Welsh MD LAB BLOOD ORDERABLES Final Resul t [facility] [address] [place] [phone] * HEPATITIS C AB W/REFL TO HCV RNA, QN, PCR (02/24/2021 1:04 PM EDT) HEPATITIS C ANTIBODY NON-REACT [place] NON-REACT [place] [facility] INDEX 0.01 <1.00 [facility] Comment: ?? HCV antibody was non-reactive. There is no laboratory ?? evidence of HCV infection. ?? In most cases, no further action is required. However, if recent HCV exposure is suspected, a test for HCV RNA (test code 06949) is suggested. ?? For additional information please refer to [email or web address]/faq/MHG27y5 (This link is being provided for informational/ educational purposes only.) ?? 02/24/2021 1:04 PM EDT Historical Provider HISTORICAL/NON ORDERABLE LABS Final Result Performing Organization Address City/[facility]/ZIP Co de Phone Number [facility] [address] [place] [address], * Colonoscopy (12/19/2020) Colonoscopy Normal Normal Historical Provider HEALTH MAINTENANCE Final Result from Last 3 Months or Most Recently Relevant to Health Maintenance Insurance [facility] MEDICARE ADVANTAGE HMO [facility] PPO [facility] PPO Care Teams Admissions Dean Relationship Specialty Start Date End Date Mayela Welsh MD [address] [place] [phone] PCP - General Family Medicine 06/26/21
--- OUTSIDE RECORDS SUMMARY | 2025-01-15 14:20 | XMS_ITS | Clinical Summary ---
Author Organization [facility] it Address [address] [place] [address] Care Team Providers Care Upkeep Worker Name Role Phone Unavailable Primary Care Provider Unavailabl e Surgical History Surgery Date Site/Laterality Comments TYMPANOSTOMY TUBE PLACEMENT PROCEDURE: HISTORICAL PE TUBES Medical History Medical History Date Comments Anxiety state DX:Anxiety state Esophageal reflux DX:Esophageal reflux Essential hypertension DX:Essent ial hypertension Social History Tobacco Use Types Packs/Day Years Used Date Smoking Tobacco: Never Smokeless Tobacco: Never Alcohol Use Standard Drinks/Week Comments Never 0 (1 standard drink = 0.6 oz pur e alcohol) Comments Unknown Sex and Gender Information Value Date Recorded Sex Assigned at Not on file Legal Sex Female 6:16 PM EST Gender Identity Not on file Sexual Orientation Not on file Obstetrics History Last Filed Vital Signs Vital Sign Reading Time Taken Comments Blood Pressure - - Pulse - - Temperature - - Respiratory Rate - - Oxygen Saturation - - Inhaled Oxygen Concentration - - Weight 63.5 kg (140 lb) 08/31/2023 2:07 PM EDT Height 162.6 cm (5' 4 ) 08/31/2023 2:07 PM EDT Body Mass Index 24.03 08/31/2023 2:07 PM EDT Plan of Treatment Health Maintenance Due Date Last Done Comments DTaP,Tdap,and Td Vaccines (1 - Tdap) 1967 Pneumococcal Vaccine: 50+ Years (1 of 1 - PCV) 1998 Zoster Vaccines (1 of 2) 1998 Depression Screening 10/11/2022 Falls Risk Assessment 10/11/2022 Hepatitis C Screening 10/11/2022 Osteoporosis Screening (Bone Density Screening) 10/11/2022 Social Influencers of Health Screening 10/11/2022 RSV Immunization Patients 60 + Years Old (1 - 1-dose 75+ series) 2023 COVID-19 Vaccine (2023-2 5 season) 2024 Influenza Vaccine (#1) 2024 Breast Cancer Screening Discontinued 02/10/20 22, 08/15/2020 HIB Vaccines Aged Out No longer eligi [...] on patient's age to complete this topic MMR Vaccines Aged Out No longer eligi ble based on patient's age to complete this topic Meningococcal ACWY Vaccine Aged Out N o longer eligible based on patient's age to complete this topic Meningococcal B Vacine Aged Out No lo nger eligible based on patient's age to complete this topic RSV Immunization Patients Under 20 months Aged Out No longer eligible based on patient's age to complete this topic Varicella Vaccines Aged Out No longer eligible based on patient's age to complete this topic Procedures Procedure Name Priority Date/Time Associated Diagnosis Comments [facility] SCREENING DIGITAL Routine 02/09/2022 6:56 PM EDT Encounter for screening mammogram for malignant neoplasm of breast from Last 3 Months or Most Recently Relevant to Health Maintenance Results * [facility] SCREENING DIGITAL (02/09/2022 6:56 PM EDT) Anatomical Region Laterality Modality Mammography 02/09/2022 2:19 PM EDT Narrative 02/09/2022 6:56 PM EDT [facility] Diagnostic Imaging Department [address] [place], [place] [id number] Patient: ??APPLE VALENTIN ?/Age/Sex: 1950 - 71 - F Unit#: ??[id number] ? Location/Status: ??SPDIMAM/REG CLI ? Mnemonic/Ordering Site: ??DIGSC/SPMAM Ordering Physician: ??JEWELL WELSH MD Fady Screening Digital - 02/09/22 - 1440 History: Bilateral breast cancer screening. Technique: Digital mammography. Conventional CC and MLO projections with tomosynthesis MLO views and computer aided detection. Comparison made with previous mammograms from [facility] 08/15/2020, dating back to 09/18/2010. Findings: Breast tissue consists of a heterogenous combination of ??fatty and fibroglandular tissue, potentially obscuring small lesions, category c density (as calculated by Net[employer] software). There are benign calcifications bilaterally. No suspicious group of microcalcification, suspicious mass, concerning focal asymmetry, architectural distortion or concerning change in breast density affecting either breast. Impression: ??No evidence of malignancy. BIRADS category 2; benign findings, 3342F 34820, 01462 A negative mammogram in the face of a clinically suspicious abnormality does not exclude the possibility of malignancy nor alter the indications for biopsy. Note: Patient information entered ??into a reminder system with a target due date for the next mammogram; PQRI II [id number] Dictating Physician: ??NEVILLE DC MD Electronically Signed by: ??NEVILLE DC MD Dic Date/Time: ??02/09/221852 Sign date/Time: ??02/09/221855 Procedure Note Neville Dc MD - 10/21/2022 [facility] Diagnostic Imaging Department [address] [place], [place] [address] Patient: APPLE VALENTIN /Age/Sex: 1950 71 - F Unit#: [id number] Location/Status: SPDIMAM/REG CLI Mnemonic/Ordering Site: [facility] Ordering Physician: JEWELL WELSH MD Fady Screening Digital - 02/09/22 - 1440 History: Bilateral breast cancer screening. Technique: Digital mammography. Conventional CC and MLO projections with tomosynthesis MLO views and computer aided detection. Comparison made with previous mammograms from [facility]/15/2020, dating back to 09/18/2010. Findings: Breast tissue consists of a heterogenous combination of fattyand fibroglandular tissue, potentially obscuring small lesions, category cdensity (as calculated by [employer] software). There are benign calcifications bilaterally. No suspicious group of microcalcification, suspicious mass, concerning focal asymmetry,architectural distortion or concerning change in breast density affecting eitherbreast. Impression: No evidence of malignancy. BIRADS category 2; benign findings, 3342F 82574, 85264 A negative mammogram in the face of a clinically suspicious abnormalitydoes not exclude the possibility of malignancy nor alter the indications forbiopsy. Note: Patient information entered into a reminder system with a targetdue date for the next mammogram; PQRI II 7025F Dictating Physician: NEVILLE DC MD Electronically Signed by: NEVILLE DC MD Dic Date/Time: 02/09/221852 Sign date/Time: 02/09/221855 Jewell Welsh MD IMG BI PROCEDURES Final Result from Last 3 Months or Most Recently Relevant to Health Maintenance
--- OUTSIDE RECORDS SUMMARY | 2025-01-15 14:20 | XMS_ITS | Encounter Summary ---
Author Organization [employer] Address [address] [facility] [address] [place] [address] Care Team Providers Care Psychiatric Tech Name Role Phone Mayela Welsh MD Primary Care Provider [phone] Reason for Visit * Reason Onset Date Comments rs no show appt 11/23/2024 Encounter Details Date Type Department Care Team ([facility] st Contact Info) Description 11/23/2024 Telephone [facility] ADULT DENTAL [address] [place] [address] [place], [address] [place] [address] rs no show appt Social History Tobacco Use Types Packs/Day Years Used Date Smoking Tobacco: Never Passive Smoke Exposure: Never Smokeless Tobacco: Never Depression Answer Date Recorded Patient Health Questionnaire-9 Score 8 11/14/2024 Patient Health Questionnaire-9 Score 8 11/14/2024 Last PHQ-9: Questionnaire Data Not on file 0 11/14/2024 Housing Stability Answer Date Recorded What is your housing situation today? I have randi carina 11/14/[address] you li [...] * Telephone Encounter - Theresa Ma - 11/23/2024 3:05 PM EST Patient called in looking to rs a no show appt. Called in at 33:07. Explained to patient there is awaiting period after a no show and office will reach out to patient to rs when waiting period is over. Patient understood DR documented in this encounter Plan of Treatment Upcoming Encounters Date Type Department Care Team (Late st Contact Info) Description 02/26/2025 3:45 PM EDT Office Visit [facility] MEDICINE [address] [place] [address] Mayela Welsh MD [address] [place] [address] documented as of this encounter Visit Diagnoses Not on filedocumented in this encounter Additional Health Concerns Assessment Noted Time PHQ-9 Depression Total Score: 8 11/14/19 25 4:22 PM EST documented as of this encounter Care Teams Psychiatric Tech Relationship Specialty Start Date End Date Mayela Welsh MD [address] [place] [address] PCP - General Family Medicine 06/26/21 documented as of this encounter
--- OUTSIDE RECORDS SUMMARY | 2025-01-15 14:20 | XMS_ITS | Encounter Summary ---
Author Organization [employer] Address [address] [facility] [address] [place] [address] Care Team Providers Care I&C Technician Name Role Phone Mayela Welsh MD Primary Care Provider [phone] Encounter Details Date Type Department Care Team (Late st Contact Info) Description 10/09/2022 Orders Only [facility] MED[facility] [address] [place] [address] [phone] Mayela Welsh MD [address] [place] [address] [phone] Anxiety and depression (Primary Dx) Social History Tobacco Use Types Packs/Day Years Used Date Smoking Tobacco: Never Assessed Comments Unknown Sex and Gender Information Value [...] Description 02/26/2025 3:45 PM EDT Office Visit [facility] [address] [place] [address] [phone] Mayela Welsh MD [address] [place] [phone] documented as of this encounter Procedures Procedure Name Priority Date/Time Associated Diagnosis Comments URINALYSIS WITH REFLEX MICROSCOPIC Routine 11/24/2022 2:44 PM EST Anxiety and depression HIGH SENSITIVITY TROPONIN I Routine 11/24/2022 2:09 PM EST Anxiety and depression TSH W/REFLEX TO FT4 Routine 11/24/2022 2 :09 PM EST Anxiety and depression SARS COV2/INFLUENZA A/B AND RSV RNA QL NAAT Routine 11/24/2022 2:09 PM EST Anxiety and depression CBC WITH AUTO DIFFERENTIAL Routine 11/24/2022 2:09 PM EST Anxiety and depression PROTHROMBIN TIME-INR Routine 11/24/2022 2:09 PM EST Anxiety and depression MAGNESIUM Routine 11/24/2022 2:09 PM EST Anxiety and depression HEPATIC FUNCTION PANEL Routine 11/24/2022 2:09 PM EST Anxiety and depression BASIC METABOLIC PANEL Routine 11/24/2022 2:09 PM EST Anxiety and depression documented in this encounter Results * Urinalysis with reflex microscopic (11/24/2022 2:44 PM EST) Color Urine Yellow [facility] Appearance Urine Clear [facility] PH 6.5 5.0 - 9.0 [facility] Glucose Urine UA Negative Negative mg/dL [facility] Urine Blood Negative Negative [facility] Specific [place] - Urine 1.015 1.005 - 1.025 [facility] Urine Protein Trace Neg-Trace mg/dL [facility] Urine Ketones Negative Negative mg/dL [facility] Nitrite Urine Negative Negative [facility] Leukocyte Esterase Urine Negative Negative [facility] 11/24/2022 2:44 PM EST 11/24/2022 2:50 PM EST Narrative [facility] - 11/24/2022 3:06 PM EST [id number], Catheterized us [facility] External Provider LAB URI NE ORDERABLES Final Result [facility] [address] [place] [address] [phone] * (ABNORMAL) SARS-CoV-2 RNA, Influenza A/B, and RSV RNA, Ql NAAT (11/24/2022 2:09 PM EST) Influenza A PCR NEGATIVE Negative [facility] Influenza B PCR NEGATIVE Negative [facility] Resp Syncy Virus RNA Qual PCR NEGATIVE Negative [facility] SARS COV2 PCR POSITIVE(A) Negative [facility] SARS/Flu/RSV Note See Note [facility] Comment:All test results mus t be correlated with clinical findings.Negative results do not preclude SARS-CoV2, influenza Avirus, influenza B virus and/or RSV infectionand should not be used as the sole basis for treatment orother patient management decisions. Negative results must becombined with clinical observations, patient history, andepidemiological information.This test has not been evaluated for monitoring treatment ofinfection.This test has been authorized by the FDA under an EmergencyUse Authorization (EUA) for use by authorized laboratories.Testing performed on the [employer] GeneXpert utilizingreal-time RT-PCR.All SARS CoV2 and positive influenza A/B results arereported to [facility]. 11/24/2022 2:09 PM EST 11/24/2022 2:18 PM EST [facility] Provider LAB MICROBIOLOGY - GENERAL ORDERABLES Final Result [facility] [address] [place] [phone] * TSH W/Reflex to FT4 (11/24/2022 2:09 PM EST) TSH reflex Free T4 0.83 0.32 - 4.0 uIU/mL [facility] 11/24/2022 2:09 PM EST 11/24/2022 2:18 PM EST [facility] External Provider LAB BLO OD ORDERABLES Final Result Performing Organization Address [facility] Co de Phone Number [facility] [address] [place] [phone] * Prothrombin Time-INR (11/24/2022 2:09 PM EST) [facility] Prothrombin Time 12.8 10.0 - 13.1 SEC [facility] INTERNATIONAL NORM RATIO 1.1 0.9 - 1.1 [facility] Comment:INTERNATIONAL NORMAL IZED RATIO (INR) REFERENCE RANGES Reference RangeFor patients not on anticoagulant therapy: 0.9 - 1.1INR ranges for oral anticoagulanttherapy:For prevention and treatment of venous thrombosis and pulmonary embolism: 2.0 - 3.0For acute myocardial infarction with aspirin therapy: 2.0 - 3.0For acute myocardial infarction without aspirin therapy: 3.0 - 4.0For patients with mechanical prosthetic heart valves: 2.5 - 3.5 11/24/2022 2:09 PM EST 11/24/2022 2:18 PM EST [facility] External Provider LAB BLO OD ORDERABLES Final Result Performing Organization Address [facility] Co de Phone Number [facility] [address] [place] [phone] * Magnesium (11/24/2022 2:09 PM EST) [facility] Magnesium 2.1 1.6 - 2.6 mg/dL [facility] 11/24/2022 2:09 PM EST 11/24/2022 2:18 PM EST [facility] External Provider LAB BLO OD ORDERABLES Final Result Performing Organization Address [facility] de Phone Number [facility] [address] [place] [address] [phone] * Basic Metabolic Panel (11/24/2022 2:09 PM EST) Sodium 142 135 - 145 mmol/L [facility] Potassium 4.5 3.3 - 5.1 mmol/L [facility] Chloride 105 96 - 108 mmol/L [facility] Carbon Dioxide 28 22 - 29 mmol/L [facility] Anion Gap 14 12 - 20 [facility] Urea Nitrogen (BUN) 10 9 - 16 mg/dL [facility] Creatinine, Serum 0.88 0.5 - 1.4 mg/dL [facility] Creatinine Clr Calc Pharmacy 49.1 [facility] Comment:Provided height and weight: 162.56 cm,65.317 kg.eGFR (calculated from the MDRD study equation) and eCrCl(calculated from the Cockcroft-Gault equation) are based ondifferent parameters and may not yield comparable results.If eCrCl result is absurd, please check patient'sheight/weight. Estimated Glomerular Filt Rate >60 [facility] Comment:NOTE: For -Am erican individuals, multiply the result by 1.210.Chronic Kidney Disease: Estimated GFR < 60 mL/min/1.31m4Dxseci Kidney Disease: Estimated GFR < 15 mL/min/1.73m2 Glucose 100 60 - 115 mg/dL [facility] Calcium 9.3 8.4 - 10.2 mg/dL [facility] 11/24/2022 2:09 PM EST 11/24/2022 2:18 PM EST us [facility] External Provider LAB BLO OD ORDERABLES Final Result [facility] [address] [place] [phone] * Hepatic Function Panel (11/24/2022 2:09 PM EST) Bilirubin, Total 0.3 0.0 - 1.0 mg/dL [facility] Bilirubin, Direct <0.2 0.0 - 0.5 mg/dL [facility] Aspartate Amino Transferase 16 5 - 31 U/L [facility] Alanine Aminotransferase 8 0 - 31 U/L [facility] Total Protein 6.8 6.5 - 8.0 g/dL [facility] Albumin Level 4.3 3.5 - 5.0 g/dL [facility] Alkaline Phosphatase 71 39 - 117 U/L [facility] 11/24/2022 2:09 PM EST 11/24/2022 2:18 PM EST [facility] External Provider LAB BLO OD ORDERABLES Final Result Performing Organization Address [facility] Co de Phone Number [facility] [address] [place] [phone] * HIGH SENSITIVITY TROPONIN I (11/24/2022 2:09 PM EST) [facility] TROPONIN I HIGH SENSITIVITY 9.9 <3.5 - 17.0 ng/L [facility] Comment:The [place] high sens itivity Troponin-I results should beused in conjunction with other diagnostic information suchas ECG, clinical observations and information, and patientsymptoms to aid in the diagnosis of IA. 11/24/2022 2:09 PM EST 11/24/2022 2:18 PM EST [facility] External Provider LAB BLO OD ORDERABLES Final Result Performing Organization Address [facility] Phone Number [facility] [address] [place] [phone] * (ABNORMAL) CBC auto differential (11/24/2022 2:09 PM EST) White Blood Count 6.9 4.8 - 10.8 X10*3/uL [facility] Red Blood Count 4.45 4.20 - 5.50 X10*6/uL [facility] Hemoglobin 12.4 12.0 - 16.0 g/dl [facility] Hematocrit 38.7 37.0 - 47.0 % [facility] Mean Corpuscular Volume 87.0 80.0 - 98.0 fL [facility] Mean Corpuscular Hemoglobin 27.9 27.0 - 33.0 pg [facility] Mean Corpuscular HGB Conc 32.0 31.0 - 35.0 g/dl [facility] Red Cell Distribution Width 12.2 11.0 - 16.0 % [facility] Platelet Count 226 160 - 400 X10*3/uL [facility] Mean Platelet Volume 10.4 9.4 - 12.3 fL [facility] Neutrophils Percent Auto 75.6(H) 45 - 73 % [facility] Imm Gran Pct Auto 0.3 0.0 - 0.4 % [facility] Lymphocytes Percent Auto 12.7(L) 20 - 40 % [facility] Monocytes Percent Auto 10.7 2 - 11 % [facility] Eosinophils Percent Auto 0.1 0 - 4 % [facility] Basophils Percent Auto 0.6 0 - 2 % [facility] NRBC Pct Auto 0.0 0.0 - 0.2 /100WBC [facility] Neutrophils Absolute Auto 5.2 2.0 - 8.3 x10*3/uL [facility] Imm Gran Abs Auto 0.02 0.00 - 0.03 X10*3/uL [facility] Lymphocytes Absolute Auto 0.9(L) 1.2 - 4.9 X10*3/uL [facility] Monocytes Absolute Auto 0.7 0.1 - 1.2 X10*3/uL [facility] Eosinophils Absolute Auto 0.0 0.0 - 0.4 X10*3/uL [facility] Basophils Absolute Auto 0.0 0.0 - 0.2 X10*3/uL [facility] NRBC Abs Auto 0.000 0.0 - 0.012 X10*3/uL [facility] 11/24/2022 2:09 PM EST 11/24/2022 2:18 PM EST us [facility] External Provider LAB BLO OD ORDERABLES Final Result [facility] [address] [place] [phone] documented in this encounter Visit Diagnoses Diagnosis Anxiety and depression- Primary documented in this encounter Care Teams I&C Technician Relationship Specialty Start Date End Date Mayela Welsh MD [address] [place] [phone] PCP - General Family Medicine 06/26/21 documented as of this encounter
--- OUTSIDE RECORDS SUMMARY | 2025-01-15 14:20 | XMS_ITS | Encounter Summary ---
Author Organization [employer] Address [address] [place] [address] [address] [place] [address] Care Team Providers Care Machine Shorthand Teacher Name Role Phone Mayela Welsh MD Primary Care Provider [phone] Encounter Details Date Type Department Care Team (Late Contact Info) Description 11/03/2022 Abstract [facility] MEDICINE [address] [place] [phone] Mayela Welsh MD [address] [place] [address] [phone] Social History Tobacco Use Types Packs/Day Years Used Date Smoking Tobacco: Never Passive Smoke Exposure: Never Smokeless Tobacco: Never Comments Unknown Sex and Gender Information Value Date Recorded Sex Assigned at Female 08/31/2022 10:15 AM EDT Legal Sex Female 10:15 AM EDT Gender Identity Female 08/31/2022 10:15 AM EDT Sexual Orientation Choose not to disclose 2021 10:15 AM EDT COVID-19 Exposure Response Date Recorded In the last 10 days, have yo u been in contact with someone who was confirmed or suspected to have Coronavirus/COVID-19? No / Unsure 11/03/2022 2:48 PM EST documented as of this encounter Plan of Treatment Upcoming Encounters Date Type Department Care Team (Late st Contact Info) Description 02/26/2025 3:45 PM EDT Office Visit [facility]INE [address] [place] [address] [phone] Mayela Welsh MD [address] [place] [address] [phone] documented as of this encounter Visit Diagnoses Not on filedocumented in this encounter Care Teams Machine Shorthand Teacher Relationship Specialty Start Date End Date Mayela Welsh MD [address] [place] [phone] PCP - General Family Medicine 06/26/21 documented as of this encounter
--- OUTSIDE RECORDS SUMMARY | 2025-01-15 14:20 | XMS_ITS | Encounter Summary ---
Author Organization [employer] Address [address] [facility] [address] [place] [address] Care Team Providers Care Cashier And Waiter/Waitress Name Role Phone Mayela Welsh MD Primary Care Provider [phone] Reason for Visit * Reason Comments Med Refill Encounter Details Date Type Department Care Team ([facility] st Contact Info) Description 08/27/2024 Refill [facility]INE [address] [place], [place] [phone] Mayela Welsh MD [address] [place], [place] [phone] Social History Tobacco Use Types Packs/Day Years [...] Description 02/26/2025 3:45 PM EDT Office Visit [facility] [address] [place] [address] Mayela Welsh MD [address] [place] [phone] documented as of this encounter Visit Diagnoses Not on filedocumented in this encounter Additional Health Concerns Assessment Noted Time PHQ-9 Depression Total Score: 3 07/29/20 23 12:33 PM EDT documented as of this encounter Care Teams Cashier And Waiter/Waitress Relationship Specialty Start Date End Date Mayela Welsh MD [address] [place] [phone] PCP - General Family Medicine 06/26/21 documented as of this encounter
--- OUTSIDE RECORDS SUMMARY | 2025-01-15 14:20 | XMS_ITS | Encounter Summary ---
Author Organization [employer] Address [address] [facility] [address] [place] [address] Care Team Providers Care Back Tender Fourdrinier Name Role Phone Mayela Welsh MD Primary Care Provider [phone] Encounter Details Date Type Department Care Team (Late st Contact Info) Description 04/11/2024 Orders Only [facility] [address] [place] [address] Eden Noonan, ROMES [address] [place] [address] Social History Tobacco Use Types Packs/Day Years [...] Description 02/26/2025 3:45 PM EDT Office Visit [facility] MED[facility]INE [address] [place] [address] Mayela Welsh MD [address] [place] [address] documented as of this encounter Visit Diagnoses Not on filedocumented in this encounter Additional Health Concerns Assessment Noted Time PHQ-9 Depression Total Score: 3 07/29/20 23 12:33 PM EDT documented as of this encounter Care Teams Back Tender Fourdrinier Relationship Specialty Start Date End Date Mayela Welsh MD [address] [place] [phone] PCP - General Family Medicine 06/26/21 documented as of this encounter
--- OUTSIDE RECORDS SUMMARY | 2025-01-15 14:20 | XMS_ITS | Encounter Summary ---
Author Organization [employer] Address [address] [facility] [address] [place] [address] Care Team Providers Care Mainstreaming Facilitator Name Role Phone Mayela Welsh MD Primary Care Provider [phone] Reason for Visit * Reason Comments Med Refill Encounter Details Date Type Department Care Team ([facility] st Contact Info) Description 04/30/2024 Refill [facility] [address] [place], [place] [phone] Mayela Welsh MD [address] [place], [place] [phone] Meniere's disease, unspecified laterality Social History Tobacco Use Types Packs/Day Years [...] Description 02/26/2025 3:45 PM EDT Office Visit [facility] [address] [place] [address] Mayela Welsh MD [address] [place] [address] documented as of this encounter Visit Diagnoses Diagnosis Meniere's disease, unspecified laterality documented in this encounter Additional Health Concerns Assessment Noted Time PHQ-9 Depression Total Score: 3 07/29/20 23 12:33 PM EDT documented as of this encounter Care Teams Mainstreaming Facilitator Relationship Specialty Start Date End Date Mayela Welsh MD [address] [place] [address] PCP - General Family Medicine 06/26/21 documented as of this encounter
--- OUTSIDE RECORDS SUMMARY | 2025-01-15 14:20 | XMS_ITS | Encounter Summary ---
Author Organization [employer] Address [address] [facility] [address] [place] [address] Care Team Providers Care Ross Lift Operator Name Role Phone Mayela Welsh MD Primary Care Provider [phone] Reason for Referral * Consultation (Routine) - Pending Review Specialty Diagnoses / Procedures Referred By Berlin gorman Referred To Contact Physical Therapy Diagnoses Acute pain of left shoulder Aline Mo NP [address] [place] [address] Phone: tel: fax: Referral ID Status Reason Start Date Expiration Date Visits Requested Visits Authorized [id number] Pending Review Specialty Services Required 01/12/2025 01/12/2026 1 1 Reason for Visit * Reason Comments Follow-up Encounter Details Date Type Department Care Team (Late st Contact Info) Description 01/12/2025 3:30 PM EDT Office Visit [facility] [address] [place] [address] Aline Mo NP [address] [place] [address] Acute pain of left shoulder (Primary Dx) Social History Tobacco Use Types [...] AM EDT documented as of this encounter Last Filed Vital Signs Vital Sign Reading [...] Mass Index 25.75 01/12/2025 4:03 PM EDT documented in this encounter Miscellaneous Notes * Patient Education Note - Aline Mo NP - 01/12/2025 8:15 PM EDT Images from the original note were not included. Patient Education Table of Contents Ejercicios para los hombros (Shoulder Exercises) Shoulder Range of Motion Exercises To view videos and all your education online visit, [email or web address] or scan this QR code with your smartphone. Access to this content will in one year. Ejercicios para los hombros Shoulder Exercises Pregunte al m?dico qu?? ejercicios son seguros para usted. Afshin los ejercicios exactamente belle se lo haya indicado el m?dico y grad?elos belle se lo hayan indicado. Es normal sentir un leve estiramiento, tironeo, opresi?n o malestar al hacer estos ejercicios. Det?ngase de inmediato si siente un dolor repentino o el dolor empeora. No comience a hacer estos ejercicios hasta que se lo indique el m?dico. Ejercicios de estiramiento Rotaci?n externa y abducci?n Kiki ejercicio a veces se denomina estiramiento en stephane esquina. El ejercicio rota el brazo hacia afuera (rotaci?n externa) y vivek el brazo del cuerpo (abducci?n). 1. P?rese en stephane entrada de stephane jordyn con un pie adelante del otro, a stephane corta distancia tesha del otro. [place] se denomina escalonamiento. Si no llega a apoyar los antebrazos en el fito de la jordyn,p?rese frente a stephane esquina de la habitaci?n. Elija stephane de estas posiciones, belle se lo haya indicado el m?dico: Coloque las neto y los antebrazos sobre el fito de la jordyn, por encima de la kellen. Coloque las neto y los antebrazos sobre el fito de la jordyn, a la altura de la kellen. Coloque las neto y los antebrazos sobre el fito de la jordyn, a la altura de los codos. Lentamente, lleve el peso al pie de adelante hasta sentir un estiramiento en el pecho y en la partede adelante de los hombros. Mantenga la kellen y el pecho erguidos, y los m?sculos abdominales tensionados. Mantenga esta posici?n jacqui segundos. Para aflojar el estiramiento, lleve el peso al pie de atr?s. Repita veces. Realice kiki ejercicio veces al d?a. Extensi?n, de pie 1. P?rese y sostenga un kannan de escoba, un albert?n o un objeto similar detr?s de la espalda. Las neto deben estar separadas a stephane distancia un poco mayor que el ancho de eduardo hombros. Las osmany deben estar en direcci?n contraria a la espalda. Manteniendo los codos extendidos y los m?sculos de los hombros relajados, aleje el kannan del cuerpo hasta sentir un estiramiento en el hombro (extensi?n). No encoja los hombros al furniture mover el kannan. Mantenga los om?platos juntos, ll?velos hacia el centro de la espalda. Mantenga esta posici?n jacqui segundos. Vuelva lentamente a la posici?n inicial. Repita veces. Realice kiki ejercicio veces al d?a. Ejercicios de amplitud de movimientos P?ndulo 1. P?rese cerca de stephane pared o de stephane superficie de la que pueda sostenerse para mantener el equilibrio. Flexione la cintura y deje que el brazo shantal/derecho cuelgue extendido. Use el otro brazo paraapoyarse. Mantenga la espalda derecha y no trabe las rodillas. Relaje los m?sculos del brazo y el hombro shantal/derecho, y mueva la cadera y el tronco de modo que el brazo shantal/derecho se balancee libremente. El brazo debe balancearse por el movimiento del cuerpo, no por la fuerza de los m?sculos del brazo o el hombro. Contin?e moviendo las caderas y el tronco de modo que el brazo se balancee en las siguientes direcciones, belle se lo haya indicado el m?dico: De lado a lado. Hacia adelante y hacia atr?s. En c?rculos, en el sentido de las agujas del reloj y en sentido contrario. Contin?e cada movimiento jacqui segundos o jacqui el tiempo que le haya indicado el m?dico. Vuelva lentamente a la posici?n inicial. Repita veces. Realice kiki ejercicio veces al d?a. Flexi?n del hombro, de pie 1. P?rese y sostenga un kannan de escoba, un albert?n o un objeto similar. Coloque las neto separadas a stephane distancia un poco mayor que el ancho de eduardo hombros. La mano izquierda/derecha debe estar con la meade hacia arriba, y la otra mano debe estar con la meade hacia abajo. Mantenga el codo extendido y los m?sculos del hombro relajados. Eleve el kannan con el brazo nav para levantar el brazo shantal/derecho frente al cuerpo y luego sobre la kellen hasta sentir un estiramiento en el hombro (flexi?n). Evite encoger el hombro mientras levanta el brazo. Mantenga los om?platos juntos, ll?velos hacia elcentro de la espalda. Mantenga esta posici?n jacqui segundos. Vuelva lentamente a la posici?n inicial. Repita veces. Realice kkii ejercicio veces al d?a. Abducci?n del hombro, de pie 1. P?rese y sostenga un kannan de escoba, un albert?n o un objeto similar. Coloque las neto separadas a stephane distancia un poco mayor que el ancho de eduardo hombros. La mano izquierda/derecha debe estar con la meade hacia arriba, y la otra mano debe estar con la meade hacia abajo. Mantenga el codo extendido y los m?sculos del hombro relajados. Empuje el objeto cruzando el cuerpohacia el lado shantal/derecho. Levante el brazo shantal/derecho al costado del cuerpo (abducci?n) y luego sobre la kellen hasta sentir un estiramiento en el hombro. No levante el brazo por encima de la altura del hombro, a menos que el m?dico se lo indique. Si se lo indican, eleve el brazo sobre la kellen. Evite encoger el hombro mientras levanta el brazo. Mantenga los om?platos juntos, ll?velos hacia elcentro de la espalda. Mantenga esta posici?n jacqui segundos. Vuelva lentamente a la posici?n inicial. Repita veces. Realice kiki ejercicio veces al d?a. Rotaci?n interna 1. Coloque la mano izquierda/derecha detr?s de la espalda, con la meade hacia arriba. Use la otra mano para tener colgando stephane paul para ejercicios, un kannan de escoba o un objeto similar sobre el hombro. Agarre la paul con la mano izquierda/derecha, de modo de tener agarrados ambos extremos. Suavemente, tire de la paul hacia arriba hasta sentir un estiramiento en la parte de adelante del hombro shantal/derecho. El movimiento del brazo hacia el centro del cuerpo se llama rotaci?n interna. Evite encoger el hombro mientras levanta el brazo. Mantenga los om?platos juntos, ll?velos hacia elcentro de la espalda. Mantenga esta posici?n jacqui segundos. Afloje el estiramiento, suelte la paul y baje las neto. Repita veces. Realice kiki ejercicio veces al d?a. Ejercicios de fortalecimiento Rotaci?n externa 1. Si?ntese en stephane silla estable que no tenga apoyabrazos. Ate stephane paul para ejercicios a un objeto estable a la altura del codo del lado shantal/derecho. Coloque un objeto blando, belle stephane toalla doblada o stephane almohada dionne?a entre la parte superior del brazo shantal/derecho y el cuerpo, de forma que el codo est?? separado del costado del cuerpo a stephane distancia de unas 4 pulgadas (10?cm). Sostenga el extremo de la paul para ejercicios de modo que quede tensa y no se afloje. Con el codo presionado sobre el objeto blando, aleje lentamente el antebrazo del abdomen (rotaci?n externa). No mueva el cuerpo; solo debe furniture mover el antebrazo. Mantenga esta posici?n jacqui segundos. Vuelva lentamente a la posici?n inicial. Repita veces. Realice kiki ejercicio veces al d?a. Abducci?n del hombro 1. Si?ntese en stephane silla estable que no tenga apoyabrazos o p?ngase de pie. Sostenga stephane pesa de libras/kg con la mano izquierda/derecha, o stephane paul para ejercicios con ambas neto. Comience con los brazos extendidos hacia abajo y con la meade izquierda/derecha hacia adentro, en direcci?n a garcia cuerpo. Lentamente, levante la mano izquierda/derecha hacia el costado (abducci?n). No levante la mano por encima de la altura del hombro, a menos que el m?dico le diga que no hay riesgos. Mantenga los brazos extendidos. No encoja los hombros al realizar kiki movimiento. Mantenga los om?platos juntos, ll?velos hacia elcentro de la espalda. Mantenga esta posici?n jacqui segundos. Baje lentamente el brazo y vuelva a la posici?n inicial. Repita veces. Realice kiki ejercicio veces al d?a. Extensi?n del hombro 1. Si?ntese en stephane silla estable que no tenga apoyabrazos o p?ngase de pie. Ate stephane paul para ejercicios a un objeto estable que est?? frente a usted, de modo que la paul est?? a la altura del hombro. Sostenga un extremo de la paul para ejercicios en cada mano. Extienda los codos y levante las neto a la altura de los hombros. Junte los om?platos a medida que baja las neto hacia los costados de los muslos (extensi?n). Det?ngase cuando las neto est?n en la misma posici?n en ambos costados. No deje que las neto vayan hacia atr?s del cuerpo. Mantenga esta posici?n jacqui segundos. Vuelva lentamente a la posici?n inicial. Repita veces. Realice kiki ejercicio veces al d?a. Ryan con los hombros 1. Si?ntese en stephane silla estable que no tenga apoyabrazos o p?ngase de pie. Ate stephane paul para ejercicios a un objeto estable que est?? terri de usted, de modo que la paul quede a la altura del pecho. Sostenga un extremo de la paul para ejercicios en cada mano. Coloque las osmany de modo que los pulgares queden hacia el techo (posici?n neutra). Flexione ambos codos en ?ngulo de 90 grados (?ngulo recto) y mantenga la parte superior de los brazos a los costados. Camine hacia atr?s o mueva la silla hacia atr?s hasta que la paul quede tensa y no se afloje. Lentamente, lleve los codos hacia atr?s de garcia cuerpo. Mantenga esta posici?n jacqui segundos. Vuelva lentamente a la posici?n inicial. Repita veces. Realice kiki ejercicio veces al d?a. Flexiones de hombros 1. Si?ntese en stephane silla estable que tenga apoyabrazos. Si?ntese erguido, con los pies apoyados en el suelo. Coloque las neto sobre los apoyabrazos, con los codos flexionados y los dedos apuntando hacia adelante. Las neto deben estar parejas a los lados de garcia cuerpo. Presione con las neto sobre los apoyabrazos y use los brazos para levantarse de la silla. Extiendalos codos y lev?ntese todo lo que pueda, sin estar inc?modo. Lleve los om?platos hacia abajo y no levante los hombros hacia las orejas. Mantenga los pies en el suelo. A medida que adquiere m?s fuerza, los pies deben sostener menos pesodel cuerpo mientras se levanta. Mantenga esta posici?n jacqui segundos. Lentamente, vuelva a sentarse en la silla. Repita veces. Realice kiki ejercicio veces al d?a. Flexiones de brazos sobre la pared 1. P?rese frente a stephane pared estable. Coloque los pies separados de la pared a stephane distancia aproximada de un brazo. Incl?nese hacia adelante y coloque las osmany sobre la pared a la altura de los hombros. Sin levantar los pies del suelo, flexione los codos e incl?nese hacia la pared. Mantenga esta posici?n jacqui segundos. Extienda los codos para regresar a la posici?n inicial. Repita veces. Realice kiki ejercicio veces al d?a. Esta informaci?n no tiene belle fin reemplazar el consejo del m?dico. Aseg?rese de hacerle al m?dicocualquier pregunta que tenga. Document Released: 2007-04-11 Document Updated: 2022-12-28 Document Reviewed: 2022-12-28 [employer] Patient Education ? 2024 [employer] Shoulder Range of Motion Exercises Shoulder range of motion (ROM) exercises are done to keep the shoulder moving freely or to increasemovement. They are recommended for people who have shoulder pain or stiffness or who are recoveringfrom a shoulder surgery. Ask your health care provider which exercises are safe for you. Do exercises exactly as told by your health care provider and adjust them as directed. It is normal to feel mild stretching, pulling, tightness, or discomfort as you do these exercises. Stop right away if you feel sudden pain or your pain gets worse. Do not begin these exercises until told by your health care provider. Phase 1 exercise When you are able, do this exercise 1?2 times a day for 30?60 seconds in each direction, or as directed by your health care provider. Pendulum exercise To do this exercise while sittin. Sit in a chair or at the edge of your bed with your feet flat on the floor. Let your affected arm hang down in front of you over the edge of the bed or chair. Relax your shoulder, arm, and hand. Rock your body so your arm gently swings in small circles. You can also use your unaffected arm to start the motion. Repeat, changing the direction of the circles, swinging your arm left and right, and swinging your arm forward and back. To do this exercise while standin. Stand next to a sturdy chair or table, and hold on to it with your hand on your unaffected side. Bend forward at the waist. Bend your knees slightly. Relax your shoulder, arm, and hand. While keeping your shoulder relaxed, use body motion to swing your arm in small circles. Repeat, changing the direction of the circles, swinging your arm left and right, and swinging your arm forward and back. Between exercises, stand up tall and take a short break to relax your lower back. Phase 2 exercises Do these exercises 1?2 times a day or as told by your health care provider. Hold each stretch for 30 seconds, and repeat 3 times. Do the exercises with one or both arms as instructed by your health care provider. For these exercises, sit at a table with your hand and arm supported by the table. A chair that slides easily or has wheels can be helpful. External rotation 1. Turn your chair so that your affected side is nearest to the table. Place your forearm on the table to your side. Bend your arm to about a 90-degree angle (right angle) at the elbow, and place your hand palm-down on the table. Your elbow should be about 6 inches (15 cm) away from your side. Keeping your arm on the table, lean your body forward. Abduction 1. Turn your chair so that your affected side is nearest to the table. Place your forearm and hand on the table so that your thumb points toward the ceiling and your arm is straight out to your side. Slide your hand out to the side and away from you. To increase the stretch, you can slide your chair away from the table. Flexion: forward stretch 1. Sit facing the table. Place your hand and elbow on the table in front of you. Slide your hand forward and away from you, using your unaffected arm to do the work. To increase the stretch, you can slide your chair backward. Phase 3 exercises Do these exercises 1?2 times a day or as told by your health care provider. Hold each stretch for 30 seconds, and repeat 3 times. Do the exercises with one or both arms as instructed by your health care provider. You will need a cane, a piece of PVC pipe, or a sturdy wooden dowel for the wand exercises. Cross-body stretch: posterior capsule stretch 1. Lift your arm straight out in front of you. Bend your arm in a 90-degree angle (right angle) at the elbow so your forearm moves across your body. Use your other arm to gently pull the elbow across your body, toward your other shoulder. Wall climbs 1. Stand with your affected arm extended out to the side with your hand resting on a door frame. Slide your hand slowly up the door frame. To increase the stretch, step through the door frame. Keep your body upright and do not lean. Flexion To do this exercise while standin. Hold the wand with both of your hands, palms-down. Lift the wand up and over your head, if able. Lift mostly with your affected arm, and use the otherarm to help. Push upward with your other arm to gently increase the stretch. To do this exercise while lying down: 1. Lie on your back with your elbows resting on the floor and the wand in both your hands. Your hands will be palm-down, or pointing toward your feet. Lift your hands toward the ceiling, using your unaffected arm to help if needed. Bring your arms overhead as able, using your unaffected arm to help if needed. Internal rotation 1. Stand while holding the wand behind you with both hands. Your unaffected arm should be extended above your head with the arm of the affected side extended behind you at the level of your waist. The wand should be pointing straight up and down as you hold it. Slowly pull the wand up behind your back by straightening the elbow of your unaffected arm and bending the elbow of your affected arm. External rotation 1. Lie on your back with your affected upper arm supported on a small pillow or rolled towel. When you first do this exercise, keep your upper arm close to your body. Over time, bring your arm up to a 90-degree angle (right angle) out to the side. Hold the wand across your stomach and with both hands palm-up. Your elbow on your affected side should be bent at a 90-degree angle. Use your unaffected side to help push your forearm away from you and toward the floor. Keep your elbow on your affected side bent at a 90-degree angle. This information is not intended to replace advice given to you by your health care provider. Make sure you discuss any questions you have with your health care provider. Document Released: 2004-07-16 Document Updated: 2022-12-08 Document Reviewed: 2022-12-08 Else[employer] Patient Education ? 2024 [employer] documented in this encounter Plan of Treatment Upcoming Encounters Date Type Department Care Team (Late st Contact Info) Description 02/26/2025 3:45 PM EDT Office Visit [facility] [address] [place] [address] Mayela Welsh MD [address] [place] [address] Scheduled Orders Name Type Priority Associated Diagnoses Orde r Schedule XR Shoulder 2+ Views Right Imaging Routine Acute pain of left shoulder Expected: 01/12/2025, Expires: 01/12/2026 Scheduled Referrals Name Type Priority Associated Diagnoses Orde r Schedule Referral to Physical Therapy Outpatient Referral Routine Acute pain of left shoulder Expected: 01/12/2025 (Approximate), Expires: 01/12/2026 documented as of this encounter Visit Diagnoses Diagnosis Acute pain of left shoulder- Primary documented in this encounter Additional Health Concerns Assessment Noted Time PHQ-9 Depression Total Score: 8 11/14/19 25 4:22 PM EST documented as of this encounter Care Teams Ross Lift Operator Relationship Specialty Start Date End Date Mayela Welsh MD [address] [place] [address] PCP - General Family Medicine 06/26/21 documented as of this encounter
--- OUTSIDE RECORDS SUMMARY | 2025-01-15 14:20 | XMS_ITS | Encounter Summary ---
Author Organization [facility] Address [address] [place] [address] Care Team Providers Care Senior Java Engineer Name Role Phone Teresa Onofre DO Primary Care Provider [phone] Encounter Details Date Type Department Care Team (Late st Contact Info) Description 09/19/2020 Orders Only [facility] Department of Internal Medicine [address] [place] [address] Teresa Onofre DO [address] [place] [address] Social History Tobacco Use Types Packs/Day Years Used Date Smoking Tobacco: Never Smokeless Tobacco: Never Alcohol Use Standard Drinks/Week Comments No 0 (1 standard drink = 0.6 oz pur e alcohol) Comments No Sex and Gender Information Value Date Recorded Sex Assigned at Not on file Legal Sex Female 1:26 AM EST Gender Identity Not on file Sexual Orientation Not on file 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
--- OUTSIDE RECORDS SUMMARY | 2025-01-15 14:20 | XMS_ITS | Encounter Summary ---
Author Organization [employer] Address [address] [facility] [address] [place] [address] Care Team Providers Care Hris Analyst Name Role Phone Mayela Welsh MD Primary Care Provider [phone] Reason for Visit * Reason Comments Med Refill Encounter Details Date Type Department Care Team ([facility] st Contact Info) Description 09/04/2024 Refill [facility] [address] [place], [place] [id number] Mayela Welsh MD [address] [place], [place] [phone] Social History Tobacco Use Types Packs/Day Years [...] Description 02/26/2025 3:45 PM EDT Office Visit [facility] [address] [place] [address] Mayela Welsh MD [address] [place] [address] documented as of this encounter Visit Diagnoses Not on filedocumented in this encounter Additional Health Concerns Assessment Noted Time PHQ-9 Depression Total Score: 3 07/29/20 23 12:33 PM EDT documented as of this encounter Care Teams Hris Analyst Relationship Specialty Start Date End Date Mayela Welsh MD [address] [place] [address] PCP - General Family Medicine 06/26/21 documented as of this encounter
--- OUTSIDE RECORDS SUMMARY | 2025-01-15 14:20 | XMS_ITS | Encounter Summary ---
Author Organization [id number] Address [address] [facility] [address] [place] [address] Care Team Providers Care Asset Protection Manager Name Role Phone Mayela Welsh MD Primary Care Provider [phone] Reason for Visit * Reason Onset Date Comments no show error 08/25/2024 Encounter Details Date Type Department Care Team (Late st Contact Info) Description 08/25/2024 Telephone [facility] [address] [place] [address] Kinsey Moffett no show error Social History Tobacco Use Types Packs/Day Years [...] * Telephone Encounter - Theresa Ma - 08/25/2024 3:21 PM EDT Patient mistaked appts dates and thought [facility] was yesterday and showed up to the office and forgot that she had to come back in today. Explained that office will get in touch with her when it is her time to come back in again DR documented in this encounter Plan of Treatment Upcoming Encounters Date Type Department Care Team (Late st Contact Info) Description 02/26/2025 3:45 PM EDT Office Visit [facility] [address] [place] [address] Mayela Welsh MD [address] [place] [address] documented as of this encounter Visit Diagnoses Not on filedocumented in this encounter Additional Health Concerns Assessment Noted Time PHQ-9 Depression Total Score: 3 07/29/20 23 12:33 PM EDT documented as of this encounter Care Teams Asset Protection Manager Relationship Specialty Start Date End Date Mayela Welsh MD [address] [place] [address] PCP - General Family Medicine 06/26/21 documented as of this encounter
--- OUTSIDE RECORDS SUMMARY | 2025-01-15 14:20 | XMS_ITS | Encounter Summary ---
Author Organization [employer] Address [address] [facility] 7t [place] [address] Care Team Providers Care Medical Practice Manager Name Role Phone Mayela Welsh MD Primary Care Provider [phone] Encounter Details Date Type Department Care Team (Latest Contact Info) Description 01/12/2025 Travel Social History Tobacco Use Types Packs/Day Years Used Date Smoking Tobacco: Never Passive Smoke Exposure: Never Smokeless Tobacco: Never Depression Answer Date Recorded Patient Health Questionnaire-9 Score 8 11/14/2024 Patient Health Questionnaire-9 Score 8 11/14/2024 Last PHQ-9: Questionnaire Data Not on file 0 11/14/2024 Housing Stability Answer Date Recorded What is your housing situation today? I have randiricardo lim 11/14/[address] you [...] Description 02/26/2025 3:45 PM EDT Office Visit [facility] MEDICINE [address] [place] [address] Mayela Welsh MD [address] [place] [address] documented as of this encounter Visit Diagnoses Not on filedocumented in this encounter Additional Health Concerns Assessment Noted Time PHQ-9 Depression Total Score: 8 11/14/19 25 4:22 PM EST documented as of this encounter Care Teams Medical Practice Manager Relationship Specialty Start Date End Date Mayela Welsh MD [address] [place] [phone] PCP - General Family Medicine 06/26/21 documented as of this encounter
--- OUTSIDE RECORDS SUMMARY | 2025-01-15 14:20 | XMS_ITS | Encounter Summary ---
Author Organization [employer] Address [address] [facility] 7t [place] [address] Care Team Providers Care Science Manager Name Role Phone Mayela Welsh MD Primary Care Provider Reason for Visit * Reason Onset Date Comments Referral 12/28/2024 Encounter Details Date Type Department Care Team ([facility] st Contact Info) Description 12/28/2024 Telephone [facility] MEDICINE [address] [place], [place] [phone] Mayela Welsh MD [address] [place], [place] [phone] Referral Social History Tobacco Use Types Packs/Day Years [...] encounter Miscellaneous Notes * Telephone Encounter - Marci Kwan RN - 01/05/2025 2:25 PM EST Pt walked into [employer] lobby regarding below messages. Inquired about her arm pain. Reports it is her bilateral shoulder but that the left shoulder is worse. Has been happening for months but is worsening. Informed that we can't place referral without documentation or imaging. Pt refused walk inbut agreed to see another provider other than PCP as long as it is in the afternoon. Booked for 01/12 with [facility]. * Telephone Encounter - Nneka Calderon RN - 12/28/2024 4:51 PM EST Call returned to [employer] for triage below. No answer LVM to return call to [facility] triage line [phone]. * Telephone Encounter - Kaela Walters RN - 12/28/2024 4:05 PM EST Called pt. Via S gear [employer] [address]. No answer. Executive Officer Special Warfare Team left message for pt. To call back [facility] nurses at [phone]. Called back x2. No answer. RE: Arm pain and wanting a referral. *Pt. Would need appt. First. * Telephone Encounter - Cande Brooksgo - 12/28/2024 2:20 PM EST Pt walked in requesting a referral to a arm specialist due to having pain in her arm pt didn't state which arm . documented in this encounter Plan of Treatment Upcoming Encounters Date Type Department Care Team (Late st Contact Info) Description 02/26/2025 3:45 PM EDT Office Visit [facility] MEDICINE [address] [place], [place] [phone] Mayela Welsh MD [address] [place] [address] documented as of this encounter Visit Diagnoses Not on filedocumented in this encounter Additional Health Concerns Assessment Noted Time PHQ-9 Depression Total Score: 8 11/14/19 25 4:22 PM EST documented as of this encounter Care Teams Science Manager Relationship Specialty Start Date End Date Mayela Welsh MD [address] [place], [place] [phone] PCP - General Family Medicine 06/26/21 documented as of this encounter
--- OUTSIDE RECORDS SUMMARY | 2025-01-15 14:20 | XMS_ITS | Clinical Summary ---
Author Organization [facility] Address [address] [place] [address] Care Team Providers Care Tape Cutting Machine Operator Name Role Phone Unavailable Primary Care Provider Unavailabl e Allergies No known active allergies Medications LORazepam (ATIVAN) 0.5 mg tablet Take 0.5 mg by mouth every 6 (six) hours as needed for anxiety. Active FOLIC ACID ORAL Take 400 mcg by mouth daily. Active multivitamin capsule Take 1 capsule by mouth daily. Active pravastatin (PRAVACHOL) 10 mg tablet TAKE 1 TABLET BY MOUTH EVERY DAY 90 tablet 3 0 Active ascorbic acid, vitamin C, (VITAMIN C) 500 mg tablet Take 500 mg by mouth daily. Active Transderm-Scop 1 mg over 3 days patch 3 day APPLY 1 PATCH TOPICALLY EVERY (THIRD) DAY 30 patch 0 Active polyethylene glycol (GLYCOLAX) 17 gram packetIndications :Constipation, unspecified constipation type Take 17 g by mouth daily. 100 packet 1 0 Active cholecalciferol, vitamin D3, 25 mcg (1,000 unit) tablet TAKE 1 TABLET BY MOUTH DAILY 90 tablet 1 2 Active Active Problems Problem Noted Date Diagnosed Date Stenosis of inferior mesenteric artery 0 Melena 08/08/2020 Globus sensation 08/08/2020 Weight loss, non-intentional 08/08/2020 Pulmonary nodule 08/08/2020 Essential hypertension 11/22/2019 Assessment & Plan (11/22/2019 12:28 PM EST): Elevated BP readings during previous visits. No strict diet, she states she dances in house but not frequently enough. Chronic life stressors including taking care of sister and daughter. -DASH diet in colombian added to pt instructions -exercise 30 mins x5 days a week -Lisinopril 10mg sent to pharmacy -continue Pravastatin at current dose Chronic midline back pain 11/22/2019 Assessment & Plan (11/22/2019 12:31 PM EST): Patient states she has occasional knee and back pain with certain movements. Denies swelling, warmth, radiation of pain down legs, weakness, numbness or tingling. 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 Denies pain, burning sensation. barium swallow was ordered- Minor, transient tertiary contractions in the distal esophagus. Otherwise, no significant pathology in barium swallow. -eat smaller bites, chew more Assessment & Plan (11/22/2018 4:02 PM EST): Patient's abdominal pain most consistent with GERD. -Omeprazole 20 mg Daily for 2 months -Patient instructions given in after visit summary Meniere's disease 11/22/2018 Assessment & Plan (11/22/2018 4:01 PM EST): Patient encouraged to use scopolamine patches. We will not be prescribing Ativan. Immunizations Name Administration Dates Next Due Influenza Vaccine 65y and older 08/08/2020,11/02,10/26/2018 Family History Medical History Relation Comments Heart attack Brother 1 Glaucoma Brother 2 Lung cancer Brother 2 Cancer Father pancreas Heart disease Mother Kidney disease Sister 1 Cancer Sister 2 breast Relation Status Comments Brother 1 Brother 2 Father Mother Sister 1 Sister 2 Social History Tobacco Use Types Packs/Day Years [...] file Not on file Not on file Last Filed Vital Signs Vital Sign Reading Time Taken Comments Blood Pressure 187/80 08/12/2020 8:08 AM EDT Pulse 73 08/12/2020 8:08 AM EDT Temperature 35.7 ??C (96.2 ??F) 08/08/2020 2:28 PM ED T Respiratory Rate 20 11/22/2019 11:43 AM EST Oxygen Saturation 99% 08/08/2020 2:28 PM EDT Inhaled Oxygen Concentration - - Weight 61.2 kg (135 lb) 08/12/2020 8:08 AM EDT Height 162.6 cm (5' 4 ) 05/16/2020 9:54 AM EDT Body Mass Index 23.17 05/16/2020 9:54 AM EDT Plan of Treatment Health Maintenance Due Date Last Done Comments Bone Density Screening 1950 HIV Screening 1950 DTaP,Tdap,and Td Vaccines (1 - Tdap) 1966 Zoster Vaccines (1 of 2) 1998 Pneumococcal Vaccine, 65+ Years (1 of 1 - PCV) 2013 COVID-19 Vaccine (1 - 2023-2 5 season) 2024 Influenza Vaccine (#1) 2024 0, 11/02/2019, 10/26/2018 HPV Vaccines Aged Out No longer eligi ble based on patient's age to complete this topic Hepatitis A Vaccines Aged Out No long er eligible based on patient's age to complete this topic Meningococcal Vaccine Aged Out No jakob toshia eligible based on patient's age to complete this topic Insurance [facility] MEDICARE
--- OUTSIDE RECORDS SUMMARY | 2025-01-15 14:20 | XMS_ITS | Encounter Summary ---
Author Organization [employer] Address [address] [facility] 7[address] [place] [address] Care Team Providers Care Frankfurter Inspector Name Role Phone Mayela Welsh MD Primary Care Provider [phone] Reason for Visit * Reason Onset Date Comments triage 11/12/2022 Encounter Details Date Type Department Care Team (Late st Contact Info) Description 11/12/2022 Telephone [facility] MEDICINE [address] [place], [place] [phone] Mayela Welsh MD [address] [place] [address] triage Social History Tobacco Use Types Packs/Day Years [...] PM EST documented as of this encounter Miscellaneous Notes * Telephone Encounter - Barbara Lopez RN - 11/12/2022 3:32 PM EST Call to Pt x2 with [facility] Principal System Software Engineer [place] [id number]. Pt didn't answer left message. * Telephone Encounter - Jeff Sierra - 11/12/2022 2:10 PM EST Symptoms: Body Aches, Foot or Ankle Pain - Not From Injury Outcome: Schedule an urgent appointment (within 1 hour) or talk to a nurse or provider soon Reason: Severe pain now The caller accepted this outcome speaks [place] citizen documented in this encounter Plan of Treatment Upcoming Encounters Date Type Department Care Team (Late st Contact Info) Description 02/26/2025 3:45 PM EDT Office Visit [facility] MEDICINE [address] [place] [address] Mayela Welsh MD [address] [place] [address] documented as of this encounter Visit Diagnoses Not on filedocumented in this encounter Care Teams Frankfurter Inspector Relationship Specialty Start Date End Date Mayela Welsh MD [address] [place] [address] PCP - General Family Medicine 06/26/21 documented as of this encounter
--- OUTSIDE RECORDS SUMMARY | 2025-01-15 14:20 | XMS_ITS | Encounter Summary ---
Author Organization [employer] Address [address] [facility] 7t [place] [address] Care Team Providers Care Brass Instrument Repair Technician Name Role Phone Mayela Welsh MD Primary Care Provider [phone] Reason for Visit * Reason Onset Date Comments Med Refill 08/07/2024 Encounter Details Date Type Department Care Team ([facility] st Contact Info) Description 08/07/2024 Telephone [facility] MEDICINE [address] [place], [place] [phone] Mayela Welsh MD [address] [place], [place] [phone] Med Refill Social History Tobacco Use Types Packs/Day Years [...] encounter Miscellaneous Notes * Telephone Encounter - Keke Chawla - 08/07/2024 10:14 AM EDT TC from pt requesting medication refill. Medications needing refill : LORazepam (Ativan) 1 MG tablet To be sent to: [id number] - [place], [place] - [address] [facility] documented in this encounter Plan of Treatment Upcoming Encounters Date Type Department Care Team (Late st Contact Info) Description 02/26/2025 3:45 PM EDT Office Visit [facility] MEDICINE [address] [place] [address] Mayela Welsh MD [address] [place] [address] documented as of this encounter Visit Diagnoses Not on filedocumented in this encounter Additional Health Concerns Assessment Noted Time PHQ-9 Depression Total Score: 3 07/29/20 23 12:33 PM EDT documented as of this encounter Care Teams Brass Instrument Repair Technician Relationship Specialty Start Date End Date Mayela Welsh MD [address] [place], [place] [phone] PCP - General Family Medicine 06/26/21 documented as of this encounter
--- OUTSIDE RECORDS SUMMARY | 2025-01-15 14:20 | XMS_ITS | Encounter Summary ---
Author Organization [employer] Address 75 [facility] 7t [place] [address] Care Team Providers Care Geothermal Sheet Metal Worker Name Role Phone Mayela Welsh MD Primary Care Provider [phone] Encounter Details Date Type Department Care Team (Late st Contact Info) Description 01/15/2025 Orders Only [facility] MEDICINE [address] [place], [place] [phone] Mayela Welsh MD [address] [place], [place] [phone] Social History Tobacco Use Types Packs/Day Years [...] the past 12 months, has t he [employer], gas, oil or water company threatened to [...] Description 02/26/2025 3:45 PM EDT Office Visit [facility] MEDICINE [address] [place] [address] Mayela Welsh MD [address] [place] [address] documented as of this encounter Visit Diagnoses Not on filedocumented in this encounter Additional Health Concerns Assessment Noted Time PHQ-9 Depression Total Score: 8 11/14/19 25 4:22 PM EST documented as of this encounter Care Teams Geothermal Sheet Metal Worker Relationship Specialty Start Date End Date Mayela Welsh MD [address] [place] [address] PCP - General Family Medicine 06/26/21 documented as of this encounter
--- OUTSIDE RECORDS SUMMARY | 2025-01-15 14:20 | XMS_ITS | Encounter Summary ---
Author Organization [employer] Address [address] [facility] 7t [place] [address] Care Team Providers Care Transcriber Name Role Phone Mayela Welsh MD Primary Care Provider [phone] Encounter Details Date Type Department Care Team ([facility] st Contact Info) Description 01/15/2025 Orders Only GENERIC EXTERNAL DATA DEPARTMENT Provider, Generic External Data Social History Tobacco Use Types Packs/Day Years [...] 3:45 PM EDT Office Visit [facility] MEDICINE [address] [place] [address] Maylea Welsh MD [address] [place] [address] documented as of this encounter Procedures Procedure Name Priority Date/Time Associated Diagnosis Comments LIPID PANEL, STANDARD Routine 01/15/2025 12:09 PM EDT documented in this encounter Results * Lipid Panel, Standard (01/15/2025 12:09 PM EDT) Triglycerides 68 <150 mg/dL [facility] Comment:Desirable Triglyceri de: less than 150 mg/dLBorderline High Triglyceride 150-199 mg/dLHigh Triglyceride: 200-499 mg/dLVery High Triglyceride: greater than or equal to 5OO mg/dL Cholesterol 168 <200 mg/dL [facility] Comment:Desirable Cholestero l: less than 200 mg/dLBorderline High Cholesterol: 200-239 mg/dLHigh Cholesterol: greater than 239 mg/dL LDL Cholesterol Calculated 96 <100 mg/dL [facility] Comment:Desirable LDL: less than 100 mg/dLNear Optimal/Above Optimal LDL: 110- 129 mg/dLBorderline High LDL: 130-159 mg/dLHigh LDL: 160-189 mg/dLVery High LDL: greater than or equal to 190 mg/dL HDL Cholesterol 59 >40 mg/dL [facility] Comment:Desirable HDL: great er than 40 mg/dL Note: This HDL assay may give artificially low results in patients with liver disease. 01/15/2025 12:0 9 PM EDT 01/15/2025 1:07 PM EDT us Generic External Data Provider LAB BLOOD ORDERAB LES Final Result [facility] [address] [place] [address] [phone] documented in this encounter Visit Diagnoses Not on filedocumented in this encounter Additional Health Concerns Assessment Noted Time PHQ-9 Depression Total Score: 8 11/14/19 25 4:22 PM EST documented as of this encounter Care Teams Transcriber Relationship Specialty Start Date End Date Mayela Welsh MD [address] [place] [address] PCP - General Family Medicine 06/26/21 documented as of this encounter
[2025-01-15 14:30] LABS: Reflex LDLD? No
== END 2025-01-15 12:08 | disposition home or self-care (01) ==
LOC: HO.HHCL 12:07
PROVIDERS: Nurse Practitioner; Visit Provider Family Medicine
DX: R73.03 Prediabetes (principal); I10 Essential (primary) hypertension; I25.119 Atherosclerotic heart disease of native coronary artery with unspecified angina pectoris; E78.00 Pure hypercholesterolemia, unspecified
CPT/HCPCS: 36415; 80053; 80061; 83036

== ENCOUNTER 2025-02-02 13:55 | Outpatient (REF) | payer MEDICARE, SELFPAY ==
--- OUTSIDE RECORDS SUMMARY | 2025-02-02 15:42 | XMS_ITS | Clinical Summary ---
Author Organization [facility] Address [address] [place] [address] Care Team Providers Care Moving Consultant Name Role Phone Unavailable Primary Care Provider [...] Influencers of Health Screening 10/11/2022 RSV Immunization Adult Patients (1 - 1-dose 75+ series) 2023 COVID-19 Vaccine ( - 2023-2 5 season) 2024 Influenza Vaccine [...] Procedure Name Priority Date/Time Associated Diagnosis Comments [facility] SCREENING DIGITAL Routine 02/09/2022 6:56 PM EDT Encounter for screening mammogram for malignant neoplasm of breast from Last 3 Months or Most Recently Relevant to Health Maintenance Results * [facility] SCREENING DIGITAL (02/09/2022 6:56 PM EDT) Anatomical Region Laterality Modality Mammography 02/09/2022 2:19 PM EDT Narrative 02/09/2022 6:56 PM EDT [facility] Diagnostic Imaging Department [address] [place], [place] [phone] Patient: ??APPLE VALENTIN ?/Age/Sex: 1950 - 71 - F Unit#: ??[id number] ? Location/Status: ??SPDIMAM/REG CLI ? Mnemonic/Ordering Site: ??DIGSC/SPMAM Ordering Physician: ??JEWELL WELSH MD Fady Screening Digital - 02/09/22 - 1440 History: Bilateral breast cancer screening. Technique: Digital mammography. Conventional CC and MLO projections with tomosynthesis MLO views and computer aided detection. Comparison made with previous mammograms from [facility] 08/15/2020, dating back to 09/18/2010. Findings: Breast tissue consists of a heterogenous combination of ??fatty and fibroglandular tissue, potentially obscuring small lesions, category c density (as calculated by [employer] software). There are benign calcifications bilaterally. No suspicious group of microcalcification, suspicious mass, concerning focal asymmetry, architectural distortion or concerning change in breast density affecting either breast. Impression: ??No evidence of malignancy. BIRADS category 2; benign findings, 3342F 10211, [address] A negative mammogram in the face of a clinically suspicious abnormality does not exclude the possibility of malignancy nor alter the indications for biopsy. Note: Patient information entered ??into a reminder system with a target due date for the next mammogram; PQRI II 7007F Dictating Physician: ??NEVILLE DC MD Electronically Signed by: ??NEVILLE DC MD Dic Date/Time: ??02/09/221852 Sign date/Time: ??02/09/221855 Procedure Note Neville Dc MD - 10/21/2022 [facility] Diagnostic Imaging Department [address] [place] [address] Patient: APPLE VALENTIN /Age/Sex: 1950 71 - F Unit#: [id number] Location/Status: SPDIMAM/REG CLI Mnemonic/Ordering Site: [facility] Ordering Physician: JEWELL WELSH MD Fady Screening Digital - 02/09/22 - 1440 History: Bilateral breast cancer screening. Technique: Digital mammography. Conventional CC and MLO projections with tomosynthesis MLO views and computer aided detection. Comparison made with previous mammograms from [facility], dating back to 09/18/2010. Findings: Breast tissue consists of a heterogenous combination of fattyand fibroglandular tissue, potentially obscuring small lesions, category cdensity (as calculated by [employer] software). There are benign calcifications bilaterally. No suspicious group of microcalcification, suspicious mass, concerning focal asymmetry,architectural distortion or concerning change in breast density affecting eitherbreast. Impression: No evidence of malignancy. BIRADS category 2; benign findings, 3342F 23319, [address] A negative mammogram in the face of [...]
--- OUTSIDE RECORDS SUMMARY | 2025-02-02 15:42 | XMS_ITS | Clinical Summary ---
Author Organization [facility] Address [address] [place] [address] Care Team Providers Care Banking Supervisor Name Role Phone Unavailable Primary Care Provider [...] of sister and daughter. -DASH diet in mold[place] added to pt instructions -exercise 30 mins [...] We will not be prescribing Ativan. Immunizations Immunization Administration Dates Next Due Influenza Vaccine 65y [...] DTaP,Tdap,and Td Vaccines (1 - Tdap) 1966 Pneumococcal Vaccine, 50+ Years (1 of 1 - PCV) 1998 Zoster Vaccines (1 of 2) 1998 COVID-19 Vaccine ( - 2023-2 5 season) 2024 Influenza Vaccine (Season Ended) 2025 08/08/2020, 11/02/2019, 10/26/2018 HPV Vaccines Aged Out No longer eligi ble based on patient's age to complete this topic Hepatitis A Vaccines Aged Out No long er eligible based on patient's age to complete this topic Meningococcal Vaccine Aged Out No jakob toshia eligible based on patient's age to complete this topic Insurance [facility] MEDICARE
--- OUTSIDE RECORDS SUMMARY | 2025-02-02 15:42 | XMS_ITS | Encounter Summary ---
Author Organization Counts include 234 beds at the [facility] Address [address] [place] [address] Care Team Providers Care Tea Bag Machine Tender Name Role Phone Teresa Onofre DO Primary Care Provider Encounter Details Date Type Department Care Team (Late st Contact Info) Description 09/19/2020 Orders Only Counts include 234 beds at the [facility] Department of Internal Medicine [address] [place] [address] Teresa Onofre DO [address] [place] [address] Social History Tobacco Use Types Packs/Day Years [...] on filedocumented in this encounter Care Teams Tea Bag Machine Tender Relationship Specialty Start Date End Date Teresa Onofre DO [address] [place] [address] PCP - General Internal Medicine 10/26/18 02/26/21 documented as of this encounter
== END 2025-02-02 13:56 | disposition home or self-care (01) ==
LOC: HO.MAMMO 13:55
PROVIDERS: PCP Family Medicine; Visit Provider Family Medicine
DX: Z12.31 Encounter for screening mammogram for malignant neoplasm of breast (principal)
CPT/HCPCS: 77063; 77067

== ENCOUNTER → 2025-02-02 14:00 | Outpatient (BNV) | payer MEDICARE, SELFPAY | PROVIDERS: PCP Family Medicine; Visit Provider Internal Medicine | DX: Z12.31 Encounter for screening mammogram for malignant neoplasm of breast (principal) | CPT/HCPCS: 77063; 77067 ==

== ENCOUNTER 2025-02-05 11:18 | Outpatient (REF) | payer MEDICARE, SELFPAY ==
--- NOTE | ~2025-02-05 | XR_ITS ---
EXAMINATION: XR SHOULDER 2 OR MORE VIEWS RIGHT HISTORY: pain COMPARISON: Comparison is made with the prior examination dated 10/17/2013. FINDINGS: Four views of the right shoulder are submitted. Osseous mineralization is normal. There is no fracture or dislocation. The glenohumeral joint is maintained. There is mild to moderate degenerative change of the AC joint with joint space narrowing. The soft tissues are unremarkable. XR/XR shoulder RT min 2V IMPRESSION: Mild to moderate degenerative change of the AC joint. Electronically signed by: Yaya Kennedy MD 02/06/2025 07:14 AM EDT
--- NOTE | ~2025-02-05 | XR_ITS ---
EXAMINATION: XR SHOULDER, LEFT CLINICAL INFORMATION: pain COMPARISON: None available. TECHNIQUE: AP external rotation, Grashey, scapular Y, and axillary views of the left shoulder. FINDINGS: Normal bone mineralization. No fracture, dislocation, or suspicious bone lesion. Normal alignment. The glenohumeral joint demonstrates minimal osteoarthritis. The AC joint demonstrates mild spurring, predominantly superior surface. There is a type III acromion. No undersurface spurring. The subacromial space is preserved. Remainder of the soft tissue and bony structures appear normal. XR/XR shoulder LT min 2V IMPRESSION: 1. No acute bony abnormalities. 2. Minimal osteoarthritis of the glenohumeral joint and mild spurring of the AC joint. Electronically signed by: Joel Leiva MD 02/06/2025 11:57 AM EDT
--- OUTSIDE RECORDS SUMMARY | 2025-02-05 13:38 | XMS_ITS | Encounter Summary ---
Author Organization [employer] Address [address] [facility] 7t [place] [address] Care Team Providers Care Bioinformatics Research Technician Name Role Phone Mayela Welsh MD Primary Care Provider [phone] Encounter Details Date Type Department Care Team (Late st Contact Info) Description 01/24/2025 Orders Only [facility] MEDICINE [address] [place], [place] [phone] Mayela Welsh MD [address] [place], [place] [phone] Social History Tobacco Use Types Packs/Day Years [...] the past 12 months, has t he [employer], gas, oil or water company threatened to [...] Description 02/26/2025 3:45 PM EDT Office Visit [facility] MEDICINE [address] [place] [address] Mayela Welsh MD [address] [place] [address] documented as of this encounter Visit Diagnoses Not on filedocumented in this encounter Additional Health Concerns Assessment Noted Time PHQ-9 Depression Total Score: 8 11/14/19 25 4:22 PM EST documented as of this encounter Care Teams Bioinformatics Research Technician Relationship Specialty Start Date End Date Mayela Welsh MD [address] [place] [address] PCP - General Family Medicine 06/26/21 documented as of this encounter
--- OUTSIDE RECORDS SUMMARY | 2025-02-05 13:38 | XMS_ITS | Encounter Summary ---
Author Organization [employer] Address 75 [facility] 7t [place] [address] Care Team Providers Care Yeast Pumper Name Role Phone Mayela Welsh MD Primary Care Provider [phone] Reason for Visit * Reason Onset Date Comments medication clarification 03/31/2024 Encounter Details Date Type Department Care Team ([facility] st Contact Info) Description 03/31/2024 Telephone [facility] [address] [place], [place] [phone] Dk Andre DDS [address] [place], [place] [phone] medication clarification Social History Tobacco Use Types [...] - 03/31/2024 10:19 AM EDT Maame from [facility] [place] called to clarify medication use. How many times a day the patientshould be using. They stated that they called 2 days ago and waiting for response. No message sent on PAR end. Unsure who they spoke to DR documented in this encounter Plan of Treatment Upcoming Encounters Date Type Department Care Team (Late st Contact Info) Description 02/26/2025 3:45 PM EDT Office Visit [facility] [address] [place] [address] Mayela Welsh MD [address] [place] [address] documented as of this encounter Visit Diagnoses Not on filedocumented in this encounter Additional Health Concerns Assessment Noted Time PHQ-9 Depression Total Score: 3 07/29/20 23 12:33 PM EDT documented as of this encounter Care Teams Yeast Pumper Relationship Specialty Start Date End Date Mayela Welsh MD [address] [place] [address] PCP - General Family Medicine 06/26/21 documented as of this encounter
--- OUTSIDE RECORDS SUMMARY | 2025-02-05 13:38 | XMS_ITS | Encounter Summary ---
Author Organization [employer] Address 75 [facility] 7t [place] [address] Care Team Providers Care Pressing Machine Operator Name Role Phone Mayela Welsh MD Primary Care Provider [phone] Encounter Details Date Type Department Care Team (Late st Contact Info) Description 01/15/2025 Orders Only [facility] 230 [place], [place] [phone] Mayela Welsh MD [address] [place], [place] [phone] Social History Tobacco Use Types Packs/Day Years [...] the past 12 months, has t he appening, gas, oil or water company threatened to [...] Description 02/26/2025 3:45 PM EDT Office Visit [facility] [address] [place] [address] Mayela Welsh MD [address] [place] [address] documented as of this encounter Visit Diagnoses Not on filedocumented in this encounter Additional Health Concerns Assessment Noted Time PHQ-9 Depression Total Score: 8 11/14/19 25 4:22 PM EST documented as of this encounter Care Teams Pressing Machine Operator Relationship Specialty Start Date End Date Mayela Welsh MD [address] [place] [address] PCP - General Family Medicine 06/26/21 documented as of this encounter
--- OUTSIDE RECORDS SUMMARY | 2025-02-05 13:38 | XMS_ITS | Encounter Summary ---
Author Organization [employer] Address 75 [facility] 7t [place] [address] Care Team Providers Care Assistant Director Of Financial Aid Name Role Phone Mayela Welsh MD Primary Care Provider [phone] Encounter Details Date Type Department Care Team (Late st Contact Info) Description 04/11/2024 Orders Only [facility] ADULT DENTAL [address] [place] [address] Eden Noonan, ROMES [address] [place] [address] Social History Tobacco Use Types Packs/Day Years [...] Description 02/26/2025 3:45 PM EDT Office Visit [facility] [address] [place] [address] Mayela Welsh MD 230 [place] [address] documented as of this encounter Visit Diagnoses Not on filedocumented in this encounter Additional Health Concerns Assessment Noted Time PHQ-9 Depression Total Score: 3 07/29/20 23 12:33 PM EDT documented as of this encounter Care Teams Assistant Director Of Financial Aid Relationship Specialty Start Date End Date Mayela Welsh MD [address] [place] [phone] PCP - General Family Medicine 06/26/21 documented as of this encounter
--- OUTSIDE RECORDS SUMMARY | 2025-02-05 13:38 | XMS_ITS | Encounter Summary ---
Author Organization [employer] Address [address] [facility] 7[address] [place] [address] Care Team Providers Care Tipple Supervisor Name Role Phone Mayela Welsh MD Primary Care Provider [phone] Reason for Visit * Reason Onset Date Comments triage 11/12/2022 Encounter Details Date Type Department Care Team (Late st Contact Info) Description 11/12/2022 Telephone [facility] [address] [place], [place] [phone] Mayela Welsh MD 230 [place] [address] triage Social History Tobacco Use Types Packs/Day [...] PM EST Call to Pt x2 with [facility] [place] [id number]. Pt didn't answer left message. * Telephone Encounter - Jeff Sierra - 11/12/2022 2:10 PM EST Symptoms: Body Aches, Foot or Ankle Pain - Not From Injury Outcome: Schedule an urgent appointment (within 1 hour) or talk to a nurse or provider soon Reason: Severe pain now The caller accepted this outcome speaks turkmen documented in this encounter Plan of Treatment Upcoming Encounters Date Type Department Care Team (Late st Contact Info) Description 02/26/2025 3:45 PM EDT Office Visit [facility] [address] [place] [address] Mayela Welsh MD [address] [place] [phone] documented as of this encounter Visit Diagnoses Not on filedocumented in this encounter Care Teams Tipple Supervisor Relationship Specialty Start Date End Date Mayela Welsh MD [address] [place] [address] PCP - General Family Medicine 06/26/21 documented as of this encounter
--- OUTSIDE RECORDS SUMMARY | 2025-02-05 13:38 | XMS_ITS | Clinical Summary ---
Author Organization [employer] Address 75 [facility] 7t [place] [address] Care Team Providers Care Credit Risk Management Director Name Role Phone Mayela Welsh MD Primary Care Provider [phone] Allergies No known active allergies Medications * This document contains information received from the source organization and may not represent a complete record from that organization. docusate sodium (Colace) 100 MG capsule TAKE 2 CAPSULES BY MOUTH DAILY AT BEDTIME Active simethicone (Mylicon) 125 MG chewable tablet CHEW 1 TABLET BY MOUTH THREE TO FOUR TIMES DAILY NEEDED 022 Active fluticasone (Flonase Allergy Relief) 50 MCG/ACT nasal sprayIndication s:Runny nose Administer 1 spray into each nostril in the morning. Shake gently. Before first use, prime pump. After use, clean tip and replace cap. 16 g 12 023 Active cholecalciferol (Vitamin D3) 25 MCG (1000 UT) tablet TAKE 1 TABLET BY MOUTH EVERY MORNING 90 tablet 1 024 Active LORazepam (Ativan) 1 MG tabletIndicatio ns:Meniere's disease, unspecified laterality Take 1 tablet (1 mg) by mouth if needed each day for anxiety. 20 tablet 1 024 Active Blood Pressure Monitoring (Blood Pressure Kit) kitIndications: Essential hypertension Check blood pressure every morning and as needed. Dx hypertension 1 kit Active rosuvastatin (Crestor) 20 MG tabletIndicatio ns:Hypercholest erolemia Take 1 tablet (20 mg) by mouth Once per day. 90 tablet 3 024 2024 Active metoprolol succinate XL (Toprol-XL) 25 MG 24 hr tablet Take 25 mg by mouth Once per day. Active Aspirin Low Dose 81 MG EC tablet Take 81 mg by mouth Once per day. Active nitroglycerin (Nitrostat) 0.4 MG SL tablet DISSOLVE 1 TABLET UNDER THE TONGUE EVERY 5 MINUTES IF NEEDED FOR CHEST PAIN, MAY ADMINISTER UP TO 3 TABLETS IN A 15 MINUTE PERIOD 25 tablet 1 Active lisinopril 10 MG tablet TAKE 1 TABLET(10 MG) BY MOUTH IN THE MORNING 90 tablet 1 Active scopolamine (Transderm-Scop ) 1 MG/3DAYS patch 72 hour APPLY 1 PATCH DETRAS CORBIN OIDO 4 HOURS BEFORE DE NECESARIO. CHANGE EVERY 3 DAYS NEEDED 10 patch 3 Active Transderm-Scop 1 MG/3DAYS patch 72 hour APPLY 1 PATCH DETRAS CORBIN OIDO 4 HOURS BEFORE DE NECESARIO. CHANGE EVERY 3 DAYS NEEDED 10 patch 11 024 2024 Discontinued(R eorder (will not trigger notification to Pharmacy)) Transderm-Scop 1 MG/3DAYS patch 72 hour APPLY 1 PATCH DETRAS CORBIN OIDO 4 HOURS BEFORE DE NECESARIO. CHANGE EVERY 3 DAYS NEEDED 10 patch 3 025 2024 Discontinued(R eorder (will not trigger notification to Pharmacy)) scopolamine (Transderm-Scop ) 1 MG/3DAYS patch 72 hour APPLY 1 PATCH DETRAS CORBIN OIDO 4 HOURS BEFORE DE NECESARIO. CHANGE EVERY 3 DAYS NEEDED 10 patch 3 025 2024 Discontinued(R eorder (will not trigger notification to Pharmacy)) Active Problems Problem Noted Date Diagnosed Date [...] life style modifications - continue following with [facility] Cardiology PAD (peripheral artery disease) 08/20/2024 Assessment [...] risk is 25% - she is seeing [facility] Cardiology for chest pain and is scheduled for stress test and echo - continue working on lifestyle modification - continue statin and antihypertensive to optimize Tx risk factor Assessment & Plan (02/26/2024 6:47 AM EDT): - 10 year ASCVD risk is 25% - she is seeing [facility] Cardiology for chest pain and is scheduled for stress test and echo - continue working on lifestyle modification - continue statin and antihypertensive to optimize Tx risk factor History of COVID-19 08/02/2023 Assessment & Plan (08/02/2023 5:27 AM EDT): - Nov 2022, treated with Paxlovid - no sign of long-COVID Anxiety 07/27/2023 Assessment & Plan (11/20/2024 6:36 PM EST): - Seen by [facility] Clinician in Jul 2023 - Continue counseling [...] (11/19/2023 6:31 PM EST): - Seen by [facility] Clinician in Jul 2023 - Continue counseling [...] to change PLAN: 1. Follow up with [facility]: Recommended for follow-up: Refused referral outside the health center. Agreed to receive follow-up BE 2. Patient goal is to set-up boundaries and learn to keep healthy relationships 3. Behavioral Recommendations a. Follow-up BE b. Follow-up appt with PCP c. Incorporate coping skills into daily routine Assessment & Plan (08/02/2023 5:24 AM EDT): - Seen by [facility] Clinician today - Pt was initially hesitant to meet [facility] clinician; after the session, pt was very grateful to Misty for listening and talking. - pt will receive counseling short-term Family problems 07/27/2023 Assessment & Plan (02/15/2024 4:52 PM EDT): Pt was recommended to discuss with daughter's transition social worker problems to be addressed. Assessment [...] to change PLAN: 1. Follow up with [facility]: Recommended for follow-up: Refused referral outside the [...] of sister and daughter. -DASH diet in romansh added to pt instructions -exercise 30 mins [...] daily; prescribed amlodipine 2.5 mg daily by tread booker. She has not started amlodipine yet. - [...] Encounters Date Type Department Care Team Description 02/05/2025 Orders Only [facility] [place], [place] [address] Aline Mo, JASSI Acute pain of left shoulder (Primary Dx) 01/24/2025 Orders Only [facility] [address], [place] [address] Mayela Welsh MD 01/24/2025 Orders Only [facility] [address], [place] [address] Mayela Welsh MD 01/24/2025 Refill [facility] [place], [place] [address] Mayela Welsh MD Meniere's disease of left ear 01/23/2025 Refill [facility] [place], [place] [address] Mayela Welsh MD 01/15/2025 Orders Only [facility] [place], [place] [address] Mayela Welsh MD 01/15/2025 Orders Only GENERIC EXTERNAL DATA DEPARTMENT Provider, Generic External Data 01/12/2025 3:30 PM EDT Office Visit [facility] [place] [address] Aline Mo, JASSI Acute pain of left shoulder (Primary Dx); Elevated blood pressure reading in office with diagnosis of hypertension 01/12/2025 Travel 01/09/2025 Telephone [facility] [place], [place] [address] Heri Salgado [place] chartprep 12/28/2024 Telephone [facility] [place], [place] [address] Mayela Welsh MD Referral 12/10/2024 Refill [facility] [place], [place] [address] Mayela Welsh MD 11/23/2024 Telephone [facility] [address] [place], [place] [address] Barbie Kincaid rs no show appt 11/14/2024 3:15 PM EST Office Visit [facility] [address] [place] [address] Mayela Welsh MD Meniere's disease of left ear (Primary Dx); Essential hypertension; PAD (peripheral artery disease) (CMS/HCC); Stenosis of inferior mesenteric artery (CMS/HCC); Cardiovascular event risk; Anxiety; Hypercholesterolemia; 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 I have randi lmi 11/14/[address] you li [...] the past 12 months, has t he [employer], gas, oil or water company threatened to [...] Description 02/26/2025 3:45 PM EDT Office Visit [facility] [address] [place] [address] Mayela Welsh MD [address] [place] [address] Health Maintenance Due Date Last Done Comments [...] PM EDT Hypercholesterolemia Coronary artery disease involving [place] coronary artery of [place]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 pectoris ([facility]) COMPREHENSIVE METABOLIC PANEL Routine 01/15/2025 12:09 PM [...] Recently Relevant to Health Maintenance Results * Lipid Panel with Reflex to Direct LDL (01/15/2025 12:09 PM EDT) Triglycerides 66 <150 mg/dL [facility] Comment:Desirable Triglyceri de: less than 150 mg/dLBorderline High Triglyceride 150-199 mg/dLHigh Triglyceride: 200-499 mg/dLVery High Triglyceride: greater than or equal to 5OO mg/dL Cholesterol 166 <200 mg/dL [facility] Comment:Desirable Cholestero l: less than 200 mg/dLBorderline High Cholesterol: 200-239 mg/dLHigh Cholesterol: greater than 239 mg/dL LDL Cholesterol Calculated 95 <100 mg/dL [facility] Comment:Desirable LDL: less than 100 mg/dLNear Optimal/Above Optimal LDL: 110- 129 mg/dLBorderline High LDL: 130-159 mg/dLHigh LDL: 160-189 mg/dLVery High LDL: greater than or equal to 190 mg/dL HDL Cholesterol 58 >40 mg/dL [facility] Comment:Desirable HDL: great er than 40 mg/dL Note: This HDL assay may give artificially low results in patients with liver disease. Blood 01/15/2025 12:0 9 PM EDT 01/15/2025 1:07 PM EDT Mayela Welsh MD LAB BLOOD ORDERABLES Final Resul t Performing Organization Address [facility] Co de Phone Number [facility] [address] [place] [phone] * Hemoglobin A1c (01/15/2025 12:09 PM EDT) Hemoglobin A1c 5.9 <6.0 % [facility] Comment:Hemoglobin A1C Refer ence Range Adults: 4.8 - 6.0 % Non diabetic: < 6.0 % Goal: < 7.0 %Additional Action Suggested: > 8.0 %Note: Hemoglobin A1c results are invalid for patients with abnormal amounts of HbF. Blood transfusions may impact the HbA1c concentration in the patient sample. Estimated Average Glucose 123 mg/dL [facility] Comment:eAG = Estimated ave rage glucose which is %A1C expressed asaverage glucose, using the formula of the [id number] Glucose study (ADAG), Diabetes Care, Vol.31,#8,2007 Blood Venous blood specimen / Unknown 01/15/2025 12:09 PM EDT 01/15/2025 1:07 PM EDT us Mayela Welsh MD LAB BLOOD ORDERABLES Final Resul t Performing Organization Address [facility]/ZIP Co de Phone Number [facility] [address] [place] [phone] * Lipid Panel, Standard (01/15/2025 12:09 PM EDT) Triglycerides 68 <150 mg/dL [facility] Comment:Desirable Triglyceri de: less than 150 mg/dLBorderline High Triglyceride 150-199 mg/dLHigh Triglyceride: 200-499 mg/dLVery High Triglyceride: greater than or equal to 5OO mg/dL Cholesterol 168 <200 mg/dL [facility] Comment:Desirable Cholestero l: less than 200 mg/dLBorderline High Cholesterol: 200-239 mg/dLHigh Cholesterol: greater than 239 mg/dL LDL Cholesterol Calculated 96 <100 mg/dL [facility] Comment:Desirable LDL: less than 100 mg/dLNear Optimal/Above Optimal LDL: 110- 129 mg/dLBorderline High LDL: 130-159 mg/dLHigh LDL: 160-189 mg/dLVery High LDL: greater than or equal to 190 mg/dL HDL Cholesterol 59 >40 mg/dL [facility] Comment:Desirable HDL: great er than 40 mg/dL Note: This HDL assay may give artificially low results in patients with liver disease. 01/15/2025 12:0 9 PM EDT 01/15/2025 1:07 PM EDT us Generic External Data Provider LAB BLOOD ORDERAB LES Final Result [facility] [address] [place] [phone] * (ABNORMAL) Comprehensive Metabolic Panel (01/15/2025 12:09 PM EDT) Sodium 144 135 - 145 mmol/L [facility] Potassium 4.5 3.3 - 5.1 mmol/L [facility] Chloride 112(H) 96 - 108 mmol/L [facility] Carbon Dioxide 28 22 - 29 mmol/L [facility] Anion Gap 9(L) 12 - 20 [facility] Urea Nitrogen (BUN) 13 9 - 16 mg/dL [facility] Creatinine, Serum 0.75 0.5 - 1.4 mg/dL [facility] Estimated Glomerular Filt Rate >60 [facility] Comment:Chronic Kidney Disea se: Estimated GFR < 60 mL/min/1.09b8Yymolv Kidney Disease: Estimated GFR < 15 mL/min/1.73m2 Glucose 90 60 - 115 mg/dL [facility] Calcium 9.1 8.4 - 10.2 mg/dL [facility] Bilirubin, Total 0.4 0.0 - 1.0 mg/dL [facility] Aspartate Amino Transferase 23 5 - 31 U/L [facility] Alanine Aminotransferase 23 0 - 31 U/L [facility] Total Protein 7.1 6.5 - 8.0 g/dL [facility] Albumin Level 4.1 3.5 - 5.0 g/dL [facility] Alkaline Phosphatase 72 39 - 117 U/L [facility] Blood Venous blood specimen / Unknown 01/15/2025 12:09 PM EDT 01/15/2025 1:07 PM EDT us Mayela Welsh MD LAB BLOOD ORDERABLES Final Resul t [facility] [address] [place] [phone] * HEPATITIS C AB W/REFL TO HCV RNA, QN, PCR (02/24/2021 1:04 PM EDT) HEPATITIS C ANTIBODY NON-REACT [place] NON-REACT [facility] INDEX 0.01 <1.00 [facility] Comment: ?? HCV antibody was non-reactive. There is no laboratory ?? evidence of HCV infection. ?? In most cases, no further action is required. However, if recent HCV exposure is suspected, a test for HCV RNA (test code 99670) is suggested. ?? For additional information please refer to http://education.[employer]/faq/BMV60u6 (This link is being provided for informational/ educational purposes only.) ?? 02/24/2021 1:04 PM EDT us Historical Provider HISTORICAL/NON ORDERABLE LABS Final Result [facility] [address] * Colonoscopy (12/19/2020) [facility] Signature Colonoscopy Normal Normal us Historical Provider HEALTH MAINTENANCE Final Result from Last 3 Months or Most Recently Relevant to Health Maintenance Insurance [facility] MEDICARE ADVANTAGE HMO [facility] D[facility] - [facility] PPO Care Teams Credit Risk Management Director Relationship Specialty Start Date End Date Mayela Welsh MD [address] [place] [phone] PCP - General Family Medicine 06/26/21
--- OUTSIDE RECORDS SUMMARY | 2025-02-05 13:38 | XMS_ITS | Encounter Summary ---
Author Organization [facility] Address [address] [place] [address] Care Team Providers Care Sr. Consultant Name Role Phone Teresa Onofre DO Primary Care Provider Encounter Details Date Type Department Care Team (Late st Contact Info) Description 09/19/2020 Orders Only [facility] Department of Internal Medicine [address] [place] [address] Teresa Onofre DO [address] [place] [address] Social History Tobacco Use Types Packs/Day Years [...] on filedocumented in this encounter Care Teams Sr. Consultant Relationship Specialty Start Date End Date Teresa Onofre DO [address] [place] [address] PCP - General Internal Medicine 10/26/18 02/26/21 documented as of this encounter
--- OUTSIDE RECORDS SUMMARY | 2025-02-05 13:38 | XMS_ITS | Encounter Summary ---
Author Organization [employer] Address [address] [facility] 7t [place] [address] Care Team Providers Care Hide Grader Name Role Phone Mayela Welsh MD Primary Care Provider [phone] Reason for Visit * Reason Comments Med Refill Encounter Details Date Type Department Care Team ([facility] st Contact Info) Description 09/04/2024 Refill [facility] [address] [place], [place] [phone] Mayela Welsh MD [address] [place], [place] [phone] Social History Tobacco Use Types Packs/Day Years [...] 3:45 PM EDT Office Visit [facility] [address] [place] [address] Mayela Welsh MD [address] [place] [address] documented as of this encounter Visit Diagnoses Not on filedocumented in this encounter Additional Health Concerns Assessment Noted Time PHQ-9 Depression Total Score: 3 07/29/20 23 12:33 PM EDT documented as of this encounter Care Teams Hide Grader Relationship Specialty Start Date End Date Mayela Welsh MD [address] [place] [address] PCP - General Family Medicine 06/26/21 documented as of this encounter
--- OUTSIDE RECORDS SUMMARY | 2025-02-05 13:38 | XMS_ITS | Encounter Summary ---
Author Organization [employer] Address 75 [facility] 7t [place] [address] Care Team Providers Care Allergist/Immunologist Physician Name Role Phone Mayela Welsh MD Primary Care Provider [phone] Reason for Visit * Reason Comments Med Refill Encounter Details Date Type Department Care Team ([facility] st Contact Info) Description 04/30/2024 Refill [facility] [address] [place], [place] [phone] Mayela Welsh MD [address] [place], [place] [phone] Meniere's disease, unspecified laterality Social History Tobacco [...] Description 02/26/2025 3:45 PM EDT Office Visit [facility] [address] [place] [address] Mayela Welsh MD [address] [place] [address] documented as of this encounter Visit Diagnoses Diagnosis Meniere's disease, unspecified laterality documented in this encounter Additional Health Concerns Assessment Noted Time PHQ-9 Depression Total Score: 3 07/29/20 23 12:33 PM EDT documented as of this encounter Care Teams Allergist/Immunologist Physician Relationship Specialty Start Date End Date Mayela Welsh MD [address] [place] [address] PCP - General Family Medicine 06/26/21 documented as of this encounter
--- OUTSIDE RECORDS SUMMARY | 2025-02-05 13:38 | XMS_ITS | Encounter Summary ---
Author Organization [id number] Address 75 [facility] 7t [place] [address] Care Team Providers Care Administrative Support Clerk Name Role Phone Mayela Welsh MD Primary Care Provider Reason for Visit * Reason Onset Date Comments rs no show appt 11/23/2024 Encounter Details Date Type Department Care Team ([facility] st Contact Info) Description 11/23/2024 Telephone [facility] [address] [place] [address] Codi, Barbie [address] [place] [address] rs no show appt Social History Tobacco [...] 02/26/2025 3:45 PM EDT Office Visit [facility] [address] [place] [address] Mayela Welsh MD [address] [place] [address] documented as of this encounter Visit Diagnoses Not on filedocumented in this encounter Additional Health Concerns Assessment Noted Time PHQ-9 Depression Total Score: 8 11/14/19 25 4:22 PM EST documented as of this encounter Care Teams Administrative Support Clerk Relationship Specialty Start Date End Date Mayela Welsh MD [address] [place] [address] PCP - General Family Medicine 06/26/21 documented as of this encounter
--- OUTSIDE RECORDS SUMMARY | 2025-02-05 13:38 | XMS_ITS | Encounter Summary ---
Author Organization [employer] Address [address] [facility] 7t [place] [address] Care Team Providers Care Mechanical Drafter Name Role Phone Mayela Welsh MD Primary Care Provider [phone] Encounter Details Date Type Department Care Team (Late st Contact Info) Description 01/24/2025 Orders Only [facility] [address] [place], [place] [phone] Mayela Welsh MD [address] [place], [place] [phone] Social History Tobacco Use Types Packs/Day Years [...] the past 12 months, has t he [employer] gas, oil or water company threatened to [...] Description 02/26/2025 3:45 PM EDT Office Visit [facility] [address] [place] [phone] Mayela Welsh MD [address] [place] [address] documented as of this encounter Visit Diagnoses Not on filedocumented in this encounter Additional Health Concerns Assessment Noted Time PHQ-9 Depression Total Score: 8 11/14/19 25 4:22 PM EST documented as of this encounter Care Teams Mechanical Drafter Relationship Specialty Start Date End Date Mayela Welsh MD [address] [place] [address] PCP - General Family Medicine 06/26/21 documented as of this encounter
--- OUTSIDE RECORDS SUMMARY | 2025-02-05 13:38 | XMS_ITS | Encounter Summary ---
Author Organization [employer] Address 75 [facility] 7t [place] [address] Care Team Providers Care Disc Pad Grinder Name Role Phone Mayela Welsh MD Primary Care Provider Reason for Visit * Reason Onset Date Comments no show error 08/25/2024 Encounter Details Date Type Department Care Team (Late st Contact Info) Description 08/25/2024 Telephone [facility] [address] [place] [address] Kinsey Moffett no show error Social History [...] Miscellaneous Notes * Telephone Encounter - Theresa aM - 08/25/2024 3:21 PM EDT Patient mistaked [...] 3:45 PM EDT Office Visit [facility] [address] [place] [address] Mayela Welsh MD [address] [place] [address] documented as of this encounter Visit Diagnoses Not on filedocumented in this encounter Additional Health Concerns Assessment Noted Time PHQ-9 Depression Total Score: 3 07/29/20 23 12:33 PM EDT documented as of this encounter Care Teams Disc Pad Grinder Relationship Specialty Start Date End Date Mayela Welsh MD [address] [place] [address] PCP - General Family Medicine 06/26/21 documented as of this encounter
--- OUTSIDE RECORDS SUMMARY | 2025-02-05 13:38 | XMS_ITS | Encounter Summary ---
Author Organization [employer] Address [address] [facility] 7t [place] [address] Care Team Providers Care Pourer Off Name Role Phone Mayela Welsh MD Primary Care Provider [phone] Encounter Details Date Type Department Care Team (Late Contact Info) Description 07/14/2023 Orders Only [facility] [address] [place] [address] Mayela Welsh MD [address] [place] [address] [phone] Essential hypertension (Primary Dx); Prediabetes; Hypercholesterolemia Social [...] Office Visit [facility] [address] [place] [address] [phone] Mayela Welsh MD [address] [place] [address] [phone] documented as of this encounter Procedures Procedure Name Priority Date/Time Associated Diagnosis Comments LIPID PANEL WITH REFLEX TO DIRECT LDL Routine 08/17/2023 10:12 AM EDT Hypercholesterolemia HEMOGLOBIN A1C Routine 08/17/2023 10:12 AM EDT Prediabetes COMPREHENSIVE METABOLIC PANEL Routine 08/17/2023 10:12 AM EDT Essential hypertension documented in this encounter Results * Hemoglobin A1c (08/17/2023 10:12 AM EDT) Hemoglobin A1c 5.8 <6.0 % [facility] Comment:Hemoglobin A1C Refer ence Range Adults: 4.8 - 6.0 % Non diabetic: < 6.0 % Goal: < 7.0 %Additional Action Suggested: > 8.0 %Note: Hemoglobin A1c results are invalid for patients with abnormal amounts of HbF. Blood transfusions may impact the HbA1c concentration in the patient sample. Estimated Average Glucose 120 mg/dL [facility] Comment:eAG = Estimated ave rage glucose which is %A1C expressed asaverage glucose, using the formula of the E8R-ZvolrarYuwmrnu Glucose study (ADAG), Diabetes Care, Vol.31,#8,Jun. 2007 Blood Venous blood specimen / Unknown 08/17/2023 10:12 AM EDT 08/17/2023 11:22 AM EDT us Mayela Welsh MD LAB BLOOD ORDERABLES Final Resul t [facility] [address] [place] [phone] * (ABNORMAL) Lipid Panel with Reflex to Direct LDL (08/17/2023 10:12 AM EDT) Triglycerides 106 <150 mg/dL [facility] Comment:Desirable Triglyceri de: less than 150 mg/dLBorderline High Triglyceride 150-199 mg/dLHigh Triglyceride: 200-499 mg/dLVery High Triglyceride: greater than or equal to 5OO mg/dL Cholesterol 258(H) <200 mg/dL [facility] Comment:Desirable Cholestero l: less than 200 mg/dLBorderline High Cholesterol: 200-239 mg/dLHigh Cholesterol: greater than 239 mg/dL LDL Cholesterol Calculated 178(H) <100 mg/dL [facility] Comment:Desirable LDL: less than 100 mg/dLNear Optimal/Above Optimal LDL: 110- 129 mg/dLBorderline High LDL: 130-159 mg/dLHigh LDL: 160-189 mg/dLVery High LDL: greater than or equal to 190 mg/dL HDL Cholesterol 59 >40 mg/dL [facility] Comment:Desirable HDL: great er than 40 mg/dL Note: This HDL assay may give artificially low results in patients with liver disease. Blood 08/17/2023 10:1 2 AM EDT 08/17/2023 11:22 AM EDT us Mayela Welsh MD LAB BLOOD ORDERABLES Final Resul t [facility] [address] [place] [phone] * (ABNORMAL) Comprehensive Metabolic Panel (08/17/2023 10:12 AM EDT) Sodium 145 135 - 145 mmol/L [facility] Potassium 4.9 3.3 - 5.1 mmol/L [facility] Chloride 110(H) 96 - 108 mmol/L [facility] Carbon Dioxide 28 22 - 29 mmol/L [facility] Anion Gap 12 12 - 20 [facility] Urea Nitrogen (BUN) 7(L) 9 - 16 mg/dL [facility] Creatinine, Serum 0.75 0.5 - 1.4 mg/dL [facility] Estimated Glomerular Filt Rate >60 [facility] Comment:NOTE: For -Am erican individuals, multiply the result by 1.210.Chronic Kidney Disease: Estimated GFR < 60 mL/min/[id number] Kidney Disease: Estimated GFR < 15 mL/min/1.73m2 Glucose 92 60 - 115 mg/dL [facility] Calcium 9.5 8.4 - 10.2 mg/dL [facility] Bilirubin, Total 0.4 0.0 - 1.0 mg/dL [facility] Aspartate Amino Transferase 21 5 - 31 U/L [facility] Alanine Aminotransferase 14 0 - 31 U/L [facility] Total Protein 7.5 6.5 - 8.0 g/dL [facility] Albumin Level 4.5 3.5 - 5.0 g/dL [facility] Alkaline Phosphatase 80 39 - 117 U/L [facility] Blood Venous blood specimen / Unknown 08/17/2023 10:12 AM EDT 08/17/2023 11:22 AM EDT us Mayela Welsh MD LAB BLOOD ORDERABLES Final Resul t [facility] [address] [place] [phone] [phone] documented in this encounter Visit Diagnoses Diagnosis Essential hypertension- Primary Unspecified essential hypertension Prediabetes Other abnormal glucose Hypercholesterolemia Pure hypercholesterolemia documented in this encounter Additional Health Concerns Assessment Noted Time PHQ-9 Depression Total Score: 2 12/29/19 23 1:08 PM EST documented as of this encounter Care Teams Pourer Off Relationship Specialty Start Date End Date Mayela Welsh MD [address] [place] [address] PCP - General Family Medicine 06/26/21 documented as of this encounter
--- OUTSIDE RECORDS SUMMARY | 2025-02-05 13:38 | XMS_ITS | Clinical Summary ---
Author Organization [facility] Address [address] [place] [address] Care Team Providers Care Packing Supervisor Name Role Phone Unavailable Primary Care [...] of sister and daughter. -DASH diet in tajik added to pt instructions -exercise 30 mins [...]
--- OUTSIDE RECORDS SUMMARY | 2025-02-05 13:38 | XMS_ITS | Encounter Summary ---
Author Organization [employer] Address [address] [facility] 7t [place] [address] Care Team Providers Care Well Puller Head Name Role Phone Mayela Welsh MD Primary Care Provider [phone] Encounter Details Date Type Department Care Team (Late st Contact Info) Description 02/05/2025 Orders Only [facility] [address] [place] [address] Aline Mo NP [address] [place] [address] Acute pain of left shoulder (Primary Dx) [...] Description 02/26/2025 3:45 PM EDT Office Visit [facility] [address] [place] [phone] Mayela Welsh MD [address] [place] [phone] Scheduled Orders Name Type Priority Associated Diagnoses Orde r Schedule XR Shoulder 2+ Views Left Imaging Routine Acute pain of left shoulder Expected: 02/05/2025, Expires: 02/05/2026 documented as of this encounter Visit Diagnoses Diagnosis Acute pain of left shoulder- Primary documented in this encounter Additional Health Concerns Assessment Noted Time PHQ-9 Depression Total Score: 8 11/14/19 25 4:22 PM EST documented as of this encounter Care Teams Well Puller Head Relationship Specialty Start Date End Date Mayela Welsh MD [address] [place] [phone] PCP - General Family Medicine 06/26/21 documented as of this encounter
--- OUTSIDE RECORDS SUMMARY | 2025-02-05 13:38 | XMS_ITS | Clinical Summary ---
Author Organization [facility] it Address [address] [place] [address] Care Team Providers Care College Professor Name Role Phone Unavailable Primary Care Provider [...] season) 2024 Influenza Vaccine (Season Ended) 2025 Breast Cancer Screening Discontinued 02/10/20 22, 08/15/2020 [...] Procedure Name Priority Date/Time Associated Diagnosis Comments [facility] SCREENING DIGITAL Routine 02/09/2022 6:56 PM EDT Encounter for screening mammogram for malignant neoplasm of breast from Last 3 Months or Most Recently Relevant to Health Maintenance Results * [facility] SCREENING DIGITAL (02/09/2022 6:56 PM EDT) Anatomical Region Laterality Modality Mammography 02/09/2022 2:19 PM EDT Narrative 02/09/2022 6:56 PM EDT [facility] Diagnostic Imaging Department [address] [place], [place] [phone] Patient: ??APPLE VALENTIN ?/Age/Sex: 1950 - 71 - F Unit#: ??[id number] ? Location/Status: ??SPDIMAM/REG CLI ? Mnemonic/Ordering Site: [...] lesions, category c density (as calculated by [employer]para software). There are benign calcifications bilaterally. No suspicious group of microcalcification, suspicious mass, concerning focal asymmetry, architectural distortion or concerning change in breast density affecting either breast. Impression: ??No evidence of malignancy. BIRADS category 2; benign findings, 3342F 92590, 59332 A negative mammogram in the face of a clinically suspicious abnormality does not exclude the possibility of malignancy nor alter the indications for biopsy. Note: Patient information entered ??into a reminder system with a target due date for the next mammogram; PQRI II 7064F Dictating Physician: ??NEVILLE DC MD Electronically Signed by: ??NEVILLE DC MD Dic Date/Time: ??02/09/221852 Sign date/Time: ??02/09/221855 Procedure Note Neville Dc MD - 10/21/2022 [facility] Diagnostic Imaging Department [address] [place] [phone] Patient: APPLE VALENTIN /Age/Sex: 1950 71 - F Unit#: [id number] Location/Status: SPDIMAM/REG CLI Mnemonic/Ordering Site: [facility] Ordering Physician: JEWELL WELSH MD [...] small lesions, category cdensity (as calculated by [employer] software). There are benign calcifications bilaterally. No suspicious group of microcalcification, suspicious mass, concerning focal asymmetry,architectural distortion or concerning change in breast density affecting eitherbreast. Impression: No evidence of malignancy. BIRADS category 2; benign findings, 3342F 30085, 35873 A negative mammogram in the face of a clinically suspicious abnormalitydoes not exclude the possibility of malignancy nor alter the indications forbiopsy. Note: Patient information entered into a reminder system with a targetdue date for the next mammogram; PQRI II 7025F Dictating Physician: NEVILLE DC MD Electronically Signed by: NEVILLE CD MD Dic Date/Time: 02/09/221852 Sign date/Time: 02/09/221855 Jewell Welsh MD IMG BI PROCEDURES Final Result from Last 3 Months or Most Recently Relevant to Health Maintenance
--- OUTSIDE RECORDS SUMMARY | 2025-02-05 13:38 | XMS_ITS | Encounter Summary ---
Author Organization [employer] Address 75 [facility] 7t [place] [address] Care Team Providers Care Hairspring I Inspector Name Role Phone Mayela Welsh MD Primary Care Provider [phone] Encounter Details Date Type Department Care Team (Late st Contact Info) Description 10/09/2022 Orders Only [facility] [address] [place] [address] [phone] Mayela Welsh MD [address] [place] [address] [phone] Anxiety and depression (Primary Dx) Social History [...] Description 02/26/2025 3:45 PM EDT Office Visit [facility] [address] [place] [address] [phone] Mayela Welsh MD [address] [place] [phone] documented as of this encounter Procedures [...] (11/24/2022 2:44 PM EST) Color Urine Yellow [facility] Appearance Urine Clear [facility] PH 6.5 5.0 - 9.0 [facility] Glucose Urine UA Negative Negative mg/dL [facility] Urine Blood Negative Negative [facility] Specific [place] - Urine 1.015 1.005 - 1.025 [facility] Urine Protein Trace Neg-Trace mg/dL [facility] Urine Ketones Negative Negative mg/dL [facility] Nitrite Urine Negative Negative [facility] Leukocyte Esterase Urine Negative Negative [facility] 11/24/2022 2:44 PM EST 11/24/2022 2:50 PM EST Narrative [facility] - 11/24/2022 3:06 PM EST [id number], Catheterized us [facility] External Provider LAB URI NE ORDERABLES Final Result [facility] [address] [place] [phone] [phone] * (ABNORMAL) SARS-CoV-2 RNA, Influenza A/B, and RSV RNA, Ql NAAT (11/24/2022 2:09 PM EST) Influenza A PCR NEGATIVE Negative [facility] Influenza B PCR NEGATIVE Negative [facility] Resp Syncy Virus RNA Qual PCR NEGATIVE Negative [facility] SARS COV2 PCR POSITIVE(A) Negative [facility] SARS/Flu/RSV Note See Note [facility] Comment:All test results mus t [...] use by authorized laboratories.Testing performed on the [facility] GeneXpert utilizingreal-time RT-PCR.All SARS CoV2 and positive influenza A/B results arereported to [facility]. 11/24/2022 2:09 PM EST 11/24/2022 2:18 PM EST [facility] Exter nal Provider LAB MICROBIOLOGY - GENERAL ORDERABLES Final Result [facility] [address] [place] [phone] * TSH W/Reflex to FT4 (11/24/2022 2:09 PM EST) TSH reflex Free T4 0.83 0.32 - 4.0 uIU/mL [facility] 11/24/2022 2:09 PM EST 11/24/2022 2:18 PM EST [facility] External Provider LAB BLO OD ORDERABLES Final Result Performing Organization Address [facility] Co de Phone Number [facility] [address] [place] [phone] * Prothrombin Time-INR (11/24/2022 2:09 PM EST) [facility] Prothrombin Time 12.8 10.0 - 13.1 SEC [facility] INTERNATIONAL NORM RATIO 1.1 0.9 - 1.1 [facility] Comment:INTERNATIONAL NORMAL IZED RATIO [...] 2:09 PM EST 11/24/2022 2:18 PM EST [facility] External Provider LAB BLO OD ORDERABLES Final Result Performing Organization Address [facility] Co de Phone Number [facility] [address] [place] [phone] * Magnesium (11/24/2022 2:09 PM EST) [facility] Magnesium 2.1 1.6 - 2.6 mg/dL [facility] 11/24/2022 2:09 PM EST 11/24/2022 2:18 PM EST [facility] External Provider LAB BLO OD ORDERABLES Final Result Performing Organization Address [facility] de Phone Number [facility] [address] [place] [phone] * Basic Metabolic Panel (11/24/2022 2:09 PM EST) Sodium 142 135 - 145 mmol/L [facility] Potassium 4.5 3.3 - 5.1 mmol/L [facility] Chloride 105 96 - 108 mmol/L [facility] Carbon Dioxide 28 22 - 29 mmol/L [facility] Anion Gap 14 12 - 20 [facility] Urea Nitrogen (BUN) 10 9 - 16 mg/dL [facility] Creatinine, Serum 0.88 0.5 - 1.4 mg/dL [facility] Creatinine Clr Calc Pharmacy 49.1 [facility] Comment:Provided height and weight: 162.56 cm,65.317 kg.eGFR (calculated from the MDRD study equation) and eCrCl(calculated from the Cockcroft-Gault equation) are based ondifferent parameters and may not yield comparable results.If eCrCl result is absurd, please check patient'sheight/weight. Estimated Glomerular Filt Rate >60 [facility] Comment:NOTE: For -Am erican individuals, multiply the result by 1.210.Chronic Kidney Disease: Estimated GFR < 60 mL/min/1.96y2Pnrmfj Kidney Disease: Estimated GFR < 15 mL/min/1.73m2 Glucose 100 60 - 115 mg/dL [facility] Calcium 9.3 8.4 - 10.2 mg/dL [facility] 11/24/2022 2:09 PM EST 11/24/2022 2:18 PM EST us [facility] External Provider LAB BLO OD ORDERABLES Final Result [facility] [address] [place] [phone] * Hepatic Function Panel (11/24/2022 2:09 PM EST) Bilirubin, Total 0.3 0.0 - 1.0 mg/dL [facility] Bilirubin, Direct <0.2 0.0 - 0.5 mg/dL [facility] Aspartate Amino Transferase 16 5 - 31 U/L [facility] Alanine Aminotransferase 8 0 - 31 U/L [facility] Total Protein 6.8 6.5 - 8.0 g/dL [facility] Albumin Level 4.3 3.5 - 5.0 g/dL [facility] Alkaline Phosphatase 71 39 - 117 U/L [facility] 11/24/2022 2:09 PM EST 11/24/2022 2:18 PM EST [facility] External Provider LAB BLO OD ORDERABLES Final Result Performing Organization Address [facility] Co de Phone Number [facility] [address] [place] [phone] * HIGH SENSITIVITY TROPONIN I (11/24/2022 2:09 PM EST) [facility] TROPONIN I HIGH SENSITIVITY 9.9 <3.5 - 17.0 ng/L [facility] Comment:The [place] high sens itivity Troponin-I results should beused in conjunction with other diagnostic information suchas ECG, clinical observations and information, and patientsymptoms to aid in the diagnosis of SC. 11/24/2022 2:09 PM EST 11/24/2022 2:18 PM EST [facility] External Provider LAB BLO OD ORDERABLES Final Result Performing Organization Address [facility] Phone Number [facility] [address] [place] [phone] * (ABNORMAL) CBC auto differential (11/24/2022 2:09 PM EST) White Blood Count 6.9 4.8 - 10.8 X10*3/uL [facility] Red Blood Count 4.45 4.20 - 5.50 X10*6/uL [facility] Hemoglobin 12.4 12.0 - 16.0 g/dl [facility] Hematocrit 38.7 37.0 - 47.0 % [facility] Mean Corpuscular Volume 87.0 80.0 - 98.0 fL [facility] Mean Corpuscular Hemoglobin 27.9 27.0 - 33.0 pg [facility] Mean Corpuscular HGB Conc 32.0 31.0 - 35.0 g/dl [facility] Red Cell Distribution Width 12.2 11.0 - 16.0 % [facility] Platelet Count 226 160 - 400 X10*3/uL [facility] Mean Platelet Volume 10.4 9.4 - 12.3 fL [facility] Neutrophils Percent Auto 75.6(H) 45 - 73 % [facility] Imm Gran Pct Auto 0.3 0.0 - 0.4 % [facility] Lymphocytes Percent Auto 12.7(L) 20 - 40 % [facility] Monocytes Percent Auto 10.7 2 - 11 % [facility] Eosinophils Percent Auto 0.1 0 - 4 % [facility] Basophils Percent Auto 0.6 0 - 2 % [facility] NRBC Pct Auto 0.0 0.0 - 0.2 /100WBC [facility] Neutrophils Absolute Auto 5.2 2.0 - 8.3 x10*3/uL [facility] Imm Gran Abs Auto 0.02 0.00 - 0.03 X10*3/uL [facility] Lymphocytes Absolute Auto 0.9(L) 1.2 - 4.9 X10*3/uL [facility] Monocytes Absolute Auto 0.7 0.1 - 1.2 X10*3/uL [facility] Eosinophils Absolute Auto 0.0 0.0 - 0.4 X10*3/uL [facility] Basophils Absolute Auto 0.0 0.0 - 0.2 X10*3/uL [facility] NRBC Abs Auto 0.000 0.0 - 0.012 X10*3/uL [facility] 11/24/2022 2:09 PM EST 11/24/2022 2:18 PM EST us [facility] External Provider LAB BLO OD ORDERABLES Final Result [facility] [address] [place] [address] [phone] documented in this encounter Visit Diagnoses Diagnosis Anxiety and depression- Primary documented in this encounter Care Teams Hairspring I Inspector Relationship Specialty Start Date End Date Mayela Welsh MD [address] [place] [phone] PCP - General Family Medicine 06/26/21 documented as of this encounter
--- OUTSIDE RECORDS SUMMARY | 2025-02-05 13:38 | XMS_ITS | Encounter Summary ---
Author Organization [employer] Address 75 [facility] [address] [place] [address] Care Team Providers Care Livestock Broker Name Role Phone Mayela Welsh MD Primary Care Provider [phone] Reason for Visit * Reason Onset Date Comments Med Refill 08/07/2024 Encounter Details Date Type Department Care Team ([facility] st Contact Info) Description 08/07/2024 Telephone [facility] [address] [place], [place] [phone] Mayela Welhs MD [address] [place], [place] [phone] Med Refill Social History Tobacco Use Types [...] 1 MG tablet To be sent to: [id number] - [place], [place] - [address] [facility] documented in this encounter Plan of Treatment Upcoming Encounters Date Type Department Care Team (Late st Contact Info) Description 02/26/2025 3:45 PM EDT Office Visit [facility] [address] [place] [address] Mayela Welsh MD [address] [place] [address] documented as of this encounter Visit Diagnoses Not on filedocumented in this encounter Additional Health Concerns Assessment Noted Time PHQ-9 Depression Total Score: 3 07/29/20 23 12:33 PM EDT documented as of this encounter Care Teams Livestock Broker Relationship Specialty Start Date End Date Mayela Welsh MD [address] [place], [place] [phone] PCP - General Family Medicine 06/26/21 documented as of this encounter
--- OUTSIDE RECORDS SUMMARY | 2025-02-05 13:38 | XMS_ITS | Encounter Summary ---
Author Organization [email or web address] Address [address] [place] [address] [address] [place] [address] Care Team Providers Care Vp Corporate Partnerships Name Role Phone Mayela Welsh MD Primary Care Provider [phone] Encounter Details Date Type Department Care Team (Late Contact Info) Description 11/03/2022 Abstract [facility] [address] [place] [phone] Mayela Welsh MD [address] [place] [address] [phone] Social History Tobacco Use Types Packs/Day Years [...] Description 02/26/2025 3:45 PM EDT Office Visit [facility] [address] [place] [address] [phone] Mayela Welsh MD [address] [place] [address] [phone] documented as of this encounter Visit Diagnoses Not on filedocumented in this encounter Care Teams Vp Corporate Partnerships Relationship Specialty Start Date End Date Mayela Welsh MD [address] [place] [address] PCP - General Family Medicine 06/26/21 documented as of this encounter
--- OUTSIDE RECORDS SUMMARY | 2025-02-05 13:38 | XMS_ITS | Encounter Summary ---
Author Organization [employer] Address [address] [facility] 7[address] [place] [address] Care Team Providers Care Social Service Director Name Role Phone Mayela Welsh MD Primary Care Provider [phone] Reason for Visit * Reason Comments Med Refill Encounter Details Date Type Department Care Team ([facility] st Contact Info) Description 08/27/2024 Refill [facility] [address] [place], [place] [phone] Mayela Welsh MD [address] [place], [place] [phone] Social History Tobacco Use Types Packs/Day Years [...] 02/26/2025 3:45 PM EDT Office Visit [facility] [address] [place] [address] Mayela Welsh MD [address] [place] [address] documented as of this encounter Visit Diagnoses Not on filedocumented in this encounter Additional Health Concerns Assessment Noted Time PHQ-9 Depression Total Score: 3 07/29/20 23 12:33 PM EDT documented as of this encounter Care Teams Social Service Director Relationship Specialty Start Date End Date Mayela Welsh MD [address] [place] [address] PCP - General Family Medicine 06/26/21 documented as of this encounter
== END 2025-02-05 11:19 | disposition home or self-care (01) ==
LOC: HO.XRAY 11:18
PROVIDERS: PCP Family Medicine; Visit Provider Family Medicine
DX: M25.512 Pain in left shoulder (principal); M25.511 Pain in right shoulder
CPT/HCPCS: 73030

== ENCOUNTER → 2025-02-05 11:22 | Outpatient (BNV) | payer MEDICARE, SELFPAY | PROVIDERS: PCP Family Medicine; Visit Provider Radiology Diagnostic Radiology | DX: M25.512 Pain in left shoulder (principal); M19.011 Primary osteoarthritis, right shoulder | CPT/HCPCS: 73030 ==

== ENCOUNTER 2025-04-19 14:59 | Outpatient (AMB) | payer MEDICARE, SELFPAY ==
--- NOTE | 2025-04-19 15:09 | MHC.OFFVIS ---
Vital Signs 04/19/25 15:10 Height 5 ft 4 in Weight 147 lb 11.355 oz BMI 25.4 BP 120/70 Blood Pressure Location Lt brachial Position Sitting Intake Visit Reasons: 6m follow up Intake Note: 6 month follow-up Joggle Press Operator Services: Joggle Press Operator Present Joggle Press Operator Name: azra Nelson Allergies No Known Allergies Allergy (Verified 10/05/24 14:03) Medication List - Last Reconciled 04/19/25 by Nayeli Chatterjee NP-C amlodipine 2.5 mg PO DAILY ascorbic acid (vitamin C) (Vitamin C) 1,000 mg PO DAILY cholecalciferol (vitamin D3) 25 mcg PO DAILY lisinopril 10 mg PO DAILY lorazepam 1 mg PO DAILY PRN metoprolol succinate ER 25 mg PO DAILY multivitamin 1 tab PO DAILY rosuvastatin 40 mg PO DAILY 30 days scopolamine base (Transderm-Scop) 1 patch topical Q3D PRN HPI HPI 6m follow up: Details: Apple is a 73 yo female with PMH of HTN, HLD, moderate CAD who presents for follow up. Today she reports that she has been doing well since her last visit in October. She has not been experiencing chest discomfort like she had in the past. She has no chest discomfort with activity. No shortness of breath, lightheadedness, presyncope, syncope, falls, PND, orthopnea. She will get some mild ankle swelling with prolonged standing. Taking meds as directed. 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 [facility]LY [facility] Medical History Nonobstructive atherosclerosis of coronary artery Cataract HTN (hypertension) Chronic constipation Gastritis Epigastric pain History of high cholesterol History of Meniere's disease Surgical History S/P cardiac catheterization Hx of right cataract extraction History of esophagogastroduodenoscopy (EGD) Hx of colonoscopy Hx of tubal ligation Family History Father Pancreatic cancer Mother Heart disease Social History Household Members: Children Household Members Other:: daughter Are you a primary hearing healthcare practitioner to a significant other at home: No Do you presently have visiting nurse or other home services: No Alcohol intake: current Alcohol intake frequency: does not drink Patient Tobacco Use Status: Never used Tobacco Review of Systems Const All systems reviewed & are unremarkable except as noted in HPI and below Denies chills, Denies fatigue, Denies fever(s), Denies frequent falls, Denies weakness, Denies weight gain and Denies weight loss ENT Denies dizziness Card Denies chest pain, Denies leg edema, Denies lightheadedness, Denies palpitations, Denies dyspnea, Denies dyspnea on exertion, Denies orthopnea and Denies other (loss of consciousness) Resp Denies cough, Denies dyspnea and Denies dyspnea on exertion GI Denies hematochezia and Denies change in stool character Musc Denies abnormal gait, Denies muscle weakness, Denies numbness, Denies radiating pain into limb and Denies tingling Neuro Denies abnormal gait, Denies dizziness, Denies frequent falls, Denies numbness, Denies tingling and Denies weakness Endo Denies fatigue and Denies palpitations Physical Exam Vital Signs: Last Vital Signs BP 120/70 04/19/25 15:10 BMI result Body Mass Index 25.4 Const General: cooperative, healthy appearing, comfortable and no acute distress Orientation/consciousness: patient oriented x3 Neck Neck: Yes normal visual inspection Resp Effort & Inspection: normal respiratory effort Auscultation: clear to auscultation bilaterally, no crackles, no rales, no rhonchi and no wheezes Cardio Jugular venous distension: no JVD Rate: regular rate Rhythm: regular rhythm Heart sounds: S1 normal heart sound present, S2 normal heart sound present, no murmurs and no rubs Neuro General: patient oriented x3 Extrem General: Yes normal to inspection Psych Appearance: grossly normal Mental Status: mental status grossly normal Speech and movement: Normal speech and movement present Office Procedures EKG Details: Today, read by me, normal sinus rhythm, can not exclude prior inferior or anterior infarct - may be related to lead placement, rate 62, QTC 397 milliseconds [id number], Complete Assessment & Plan Assessment & Plan (1) Nonobstructive atherosclerosis of coronary artery: Code(s): I25.10 - Atherosclerotic heart disease of [place] coronary artery without angina pectoris Category: Medical Plan: Prior Reports of chest discomfort with some typical and atypical features. She did undergo cardiac evaluation and ultimately had cardiac catheterization showing moderate coronary artery disease, including mid LAD 50% stenosis, mid RCA 65% stenosis and left main 30% stenosis. There was an ostial RPL at 80% stenosis, small-vessel. At the time of the catheterization it was thought that hypertension may be the cause of her discomfort. Her blood pressure is currently controlled. She has no anginal sounding symptoms. Continue risk factor modification. Continue aspirin indefinitely. Continue rosuvastatin with ideal LDL goal less than 70. Continue metoprolol and amlodipine as dual antianginal agents and for blood pressure control. Signs and symptoms of angina reviewed with her. Emergency care if needed for symptoms. Cardiology follow-up 6 months, sooner if needed. (2) S/P cardiac catheterization: Comment: with Dr. Irwin 05/25/2024 Cardiac Arteries and Lesion Findings LMCA: Lesion in LMCA: Distal subsection.30% stenosis . LAD: Lesion in Mid LAD: Proximal subsection.50% stenosis . LCx: Normal. RCA: Ostial RPL branch 80% stenosis-small territory. Lesion in Mid RCA: Mid subsection.65% stenosis 16 mm length. Interventional Recommendations Aggressive secondary risk factor modification according to ATP III guidelines. Titration of antihypertensive therapy. Elevated blood pressure is the likely cause for chest discomfort. ACC Diagnostic Recommendations: Medical therapy and/or counseling. Code(s): Z98.890 - Other specified postprocedural states Category: Surgical Plan: As above (3) HTN (hypertension): Code(s): I10 - Essential (primary) hypertension Category: Medical Plan: Blood pressure goal less than 130/80. Blood pressure controlled at 120/70. Continue metoprolol, amlodipine and and lisinopril. (4) HLD (hyperlipidemia): Code(s): E78.5 - Hyperlipidemia, unspecified Category: Medical Plan: [place] LDL goal less than 70. Labs done 01/15/2025 showed LDL 96. Her rosuvastatin was increased to 40 mg at that time. Repeat labs are pending, patient reminded of this. Plan I discussed her diagnosis of moderate coronary artery disease and the need to watch for anginal symptoms. I reviewed the importance of continuing her current medications, including the recent increase in rosuvastatin, to manage her LDL levels and overall cardiac health. We reviewed the role of amlodipine and metoprolol in controlling blood pressure and preventing chest discomfort. I advised her on the potential impact of dietary salt on her peripheral edema and the benefits of regular physical activity. We agreed on performing an EKG today and scheduled a follow-up in six months, with instructions to report any new symptoms. Patient Instructions: - Continue taking aspirin, metoprolol, amlodipine, and rosuvastatin as prescribed. - Reduce salt intake to help with swelling in the legs. - Stay active and engage in regular physical exercise. - Report any new chest pain or shortness of breath immediately. - Attend follow-up appointment with cardiology in six months. Patient was informed and verbally consented to the use of an ambient scribe for clinic note documentation during this visit. Visit time spent on chart review, interview, assessment, orders, documentation. Coding Level of Care Code Est Pt Level 4 (75714) Complex EM visit Add On G2211 Diagnoses Nonobstructive atherosclerosis of coronary artery I25.10 S/P cardiac catheterization Z98.890 HTN (hypertension) I10 HLD (hyperlipidemia) E78.5 CPT Codes EKG - CPT: 06712-[id number], Complete ([id number]) Time Spent (min) 32
[2025-04-19 15:10] VITALS: BP 120/70; BMI 25.4
--- OUTSIDE RECORDS SUMMARY | 2025-04-19 16:18 | XMS_ITS | Encounter Summary ---
Author Organization [employer] Address [address] [place] [address] 7 [place] [address] Care Team Providers Care Wire Web Worker Name Role Phone Mayela Welsh MD Primary Care Provider [phone] Encounter Details Date Type Department Care Team (Late st Contact Info) Description 07/14/2023 Orders Only [facility] [address] [place] [phone] Mayela Welsh MD [address] [place] [address] [phone] Essential hypertension (Primary Dx); Prediabetes; Hypercholesterolemia Social [...] Care Team (Late st Contact Info) Description 04/30/2025 3:45 PM EDT Office Visit [facility] [address] [place] [phone] Mayela Welsh MD [address] [place] [address] [phone] 08/10/2025 3:00 PM EDT Office Visit [facility] [address] [place], [place] [phone] Barbie Kincaid [address] [place] [address] documented as of this encounter Procedures Procedure Name Priority Date/Time Associated Diagnosis Comments LIPID PANEL WITH REFLEX TO DIRECT LDL Routine 08/17/2023 10:12 AM EDT Hypercholesterolemia HEMOGLOBIN A1C Routine 08/17/2023 10:12 AM EDT Prediabetes COMPREHENSIVE METABOLIC PANEL Routine 08/17/2023 10:12 AM EDT Essential hypertension documented in this encounter Results * Hemoglobin A1c (08/17/2023 10:12 AM EDT) Hemoglobin A1c 5.8 <6.0 % [facility] Comment:Hemoglobin A1C Refer ence Range Adults: 4.8 - 6.0 % Non diabetic: < 6.0 % Goal: < 7.0 %Additional Action Suggested: > 8.0 %Note: Hemoglobin A1c results are invalid for patients with abnormal amounts of HbF. Blood transfusions may impact the HbA1c concentration in the patient sample. Estimated Average Glucose 120 mg/dL [facility] Comment:eAG = Estimated ave rage glucose which is %A1C expressed asaverage glucose, using the formula of the [id number]-QuaqfhoRvqjtyt Glucose study (ADAG), Diabetes Care, Vol.31,#8,Aug. 2007 Blood Venous blood specimen / Unknown 08/17/2023 10:12 AM EDT 08/17/2023 11:22 AM EDT us Mayela Welsh MD LAB BLOOD ORDERABLES Final Resul t [facility] [address] [place] [address] [phone] * (ABNORMAL) Lipid Panel with Reflex to Direct LDL (08/17/2023 10:12 AM EDT) Triglycerides 106 <150 mg/dL [facility] Comment:Desirable Triglyceri de: less than 150 mg/dLBorderline High Triglyceride 150-199 mg/dLHigh Triglyceride: 200-499 mg/dLVery High Triglyceride: greater than or equal to 5OO mg/dL Cholesterol 258(H) <200 mg/dL [facility] Comment:Desirable Cholestero l: less than 200 mg/dLBorderline High Cholesterol: 200-239 mg/dLHigh Cholesterol: greater than 239 mg/dL LDL Cholesterol Calculated 178(H) <100 mg/dL [facility] Comment:Desirable LDL: less than 100 mg/dLNear Optimal/Above Optimal LDL: 110- 129 mg/dLBorderline High LDL: 130-159 mg/dLHigh LDL: 160-189 mg/dLVery High LDL: greater than or equal to 190 mg/dL HDL Cholesterol 59 >40 mg/dL [facility] Comment:Desirable HDL: great er than 40 mg/dL Note: This HDL assay may give artificially low results in patients with liver disease. Blood 08/17/2023 10:1 2 AM EDT 08/17/2023 11:22 AM EDT us Mayela Welsh MD LAB BLOOD ORDERABLES Final Resul t [facility] [address] [place] [phone] [phone] * (ABNORMAL) Comprehensive Metabolic Panel (08/17/2023 10:12 AM EDT) Sodium 145 135 - 145 mmol/L [facility] Potassium 4.9 3.3 - 5.1 mmol/L [facility] Chloride 110(H) 96 - 108 mmol/L [facility] Carbon Dioxide 28 22 - 29 mmol/L [facility] Anion Gap 12 12 - 20 [facility] Urea Nitrogen (BUN) 7(L) 9 - 16 mg/dL [facility] Creatinine, Serum 0.75 0.5 - 1.4 mg/dL [facility] Estimated Glomerular Filt Rate >60 [facility] Comment:NOTE: For -Am erican individuals, multiply the result by 1.210.Chronic Kidney Disease: Estimated GFR < 60 mL/min/1.00w8Mmuvqq Kidney Disease: Estimated GFR < 15 mL/min/1.73m2 Glucose 92 60 - 115 mg/dL [facility] Calcium 9.5 8.4 - 10.2 mg/dL [facility] Bilirubin, Total 0.4 0.0 - 1.0 mg/dL [facility] Aspartate Amino Transferase 21 5 - 31 U/L [facility] Alanine Aminotransferase 14 0 - 31 U/L [facility] Total Protein 7.5 6.5 - 8.0 g/dL [facility] Albumin Level 4.5 3.5 - 5.0 g/dL [facility] Alkaline Phosphatase 80 39 - 117 U/L [facility] Blood Venous blood specimen / Unknown 08/17/2023 10:12 AM EDT 08/17/2023 11:22 AM EDT us Mayela Welsh MD LAB BLOOD ORDERABLES Final Resul t Performing Organization Address City/State/[facility] Co de Phone Number [facility] [address] [place] [phone] documented in this encounter Visit Diagnoses Diagnosis Essential hypertension- Primary Unspecified essential hypertension Prediabetes Other abnormal glucose Hypercholesterolemia Pure hypercholesterolemia documented in this encounter Additional Health Concerns Assessment Noted Time PHQ-9 Depression Total Score: 2 12/29/19 23 1:08 PM EST documented as of this encounter Care Teams Wire Web Worker Relationship Specialty Start Date End Date Mayela Welsh MD [address] [place] [phone] PCP - General Family Medicine 06/26/21 documented as of this encounter
== END 2025-04-19 16:02 | disposition home or self-care (01) ==
PROVIDERS: PCP Family Medicine; Visit Provider Nurse Practitioner Family
DX: I25.10 Atherosclerotic heart disease of native coronary artery without angina pectoris (principal); Z98.890 Other specified postprocedural states; I10 Essential (primary) hypertension; E78.5 Hyperlipidemia, unspecified
CPT/HCPCS: 93010; 99214; G2211

== ENCOUNTER → 2025-04-19 14:59 | Outpatient (BNVA) | payer MEDICARE, SELFPAY | PROVIDERS: PCP Family Medicine; Visit Provider Nurse Practitioner Family | DX: I25.10 Atherosclerotic heart disease of native coronary artery without angina pectoris (principal); E78.5 Hyperlipidemia, unspecified; I10 Essential (primary) hypertension; Z98.890 Other specified postprocedural states; R94.31 Abnormal electrocardiogram [ECG] [EKG] | CPT/HCPCS: 93005; 99212 ==

== ENCOUNTER 2025-05-18 17:43 | Outpatient (REF) | payer MEDICARE, SELFPAY ==
--- OUTSIDE RECORDS SUMMARY | 2025-05-18 17:45 | XMS_ITS | Encounter Summary ---
Author Organization [facility] Address [address] [place] [address] Care Team Providers Care Vp Cardiovascular Name Role Phone Teresa Onofre DO Primary Care Provider Encounter Details Date Type Department Care Team (Late st Contact Info) Description 09/19/2020 Orders Only [facility] Department of Internal Medicine [address] [place] [address] Teresa Onofre DO [address] [place] [address] Social History Tobacco Use Types Packs/Day Years [...] filedocumented in this encounter Care Teams Vp Cardiovascular Relationship Specialty Start Date End Date Teresa Onofre DO [address] [place] [address] PCP - General Internal Medicine 10/26/18 02/26/21 documented as of this encounter
--- OUTSIDE RECORDS SUMMARY | 2025-05-18 17:45 | XMS_ITS | Clinical Summary ---
Author Organization [facility] Address [address] [place] [phone] Phone Care Team Providers Care Sneller Hand Name Role Phone Brielle Up Primary Care Provider [phone] Allergies No known active allergies Medications LORazepam (ATIVAN) 1 MG tabletIndicatio ns:Meniere's disease of left ear TAKE 1 TABLET UNDER THE TONGUE 4 TIMES A DAY FOR ACUTE VERTIGO 40 tablet 3 02/27/2020 Active Active Problems No known active problems Social History Tobacco Use Types Packs/Day Years Used Date Smoking Tobacco: Never Smokeless Tobacco: Never Education Answer Date Recorded Are you interested in more education? Not on wilmer e 02/26/2023 Are you concerned about learning? Not on file 02/26/2023 No 02/26/2023 No 02/26/2023 Digital Access Answer Date Recorded No 03/29/2023 No 03/29/2023 No 03/29/2023 Reliable internet access at home? Not on file 03/29/2023 Device with a working camera? Not on file Comments Unknown Sex and Gender Information Value Date Recorded Sex Assigned at Not on file Legal Sex Female 1:55 PM EST Gender Identity Not on file Sexual Orientation Not on file Plan of Treatment Health Maintenance Due Date Last Done Comments Adult Td,Tdap Booster 1948 LIPID PANEL 1948 DEPRESSION SCREENING 1960 HEPATITIS C SCREENING 1966 SMOKING STATUS SCREENING (On ce After 26 Yrs) 1974 OSTEOPOROSIS SCREENING INITI AL (ONE-TIME) 2013 PNEUMOCOCCAL VACCINES (50+ years) (2 of 2 - PCV) 09/10/2016 09/10/2015, 07/16/2014 ZOSTER VACCINES (2 of 2) 02/21/2021 12/27/2020 RSV VACCINE (1 - 1-dose 75+ series) 2023 COVID-19 VACCINE (2 - 2023-2 5 season) 2024 01/17/2021 HEPATITIS A VACCINES Aged Out No long er eligible based on patient's age to complete this topic HIB VACCINES Aged Out No longer eligi ble based on patient's age to complete this topic MENINGOCOCCAL VACCINES (ACWY) Aged Out No longer eligible based on patient's age to complete this topic MENINGOCOCCAL VACCINES (B) Aged Out N o longer eligible based on patient's age to complete this topic Medical Devices Not on file Insurance MEDICARE REPLACEMENT Member Subscriber Plan / Payer (Ef fective 2018-Present) Name:[employer] Recio Relation to Subscriber:Self Name:Apple Recio Payer ID:[id number] (NAIC) Type:Medicare Address: [place] [phone] MEDICARE REPLACEMENT MEDICARE REPLACEMENT Member Subscriber Plan / Payer (Ef fective 2018-Present) Name:Apple Recio Relation to Subscriber:Self Name:Apple Recio Payer ID:[id number] (NAIC) Type:Medicare Address: [place] [phone] MEDICARE REPLACEMENT Member Subscriber Plan / Payer (Ef fective 2018-Present) Name:Apple Recio Relation to Subscriber:Self Name:Apple Recio Payer ID:[id number] (NAIC) Type:Medicare Address: [place] [phone] MEDICARE REPLACEMENT MEDICARE REPLACEMENT MEDICARE REPLACEMENT MEDICARE REPLACEMENT [facility] MEDICARE REPLACEMENT Care Teams Sneller Hand Relationship Specialty Start Date End Date Brielle Up DO [address] [address] PCP - General Internal Medicine 02/28/19 Additional Source Comments The information contained in this document represents components of the legal health record. It is not the complete legal health record.[facility]
--- OUTSIDE RECORDS SUMMARY | 2025-05-18 17:45 | XMS_ITS | Clinical Summary ---
Author Organization [facility] it Address [address] [place] [address] Care Team Providers Care Loan Approver Name Role Phone Unavailable Primary Care Provider [...] 1998 Zoster Vaccines (1 of 2) 1998 Falls Risk Assessment 10/11/2022 Hepatitis C Screening 10/11/2022 Osteoporosis Screening (Bone Density Screening) 10/11/2022 Social Influencers of Health Screening 10/11/2022 RSV Immunization Adult Patients (1 - 1-dose 75+ series) 2023 COVID-19 Vaccine ( - 2023-2 5 season) 2024 Depression Screening 11/01/2024 Influenza Vaccine (#1) 2025 Breast Cancer Screening Discontinued 02/10/20 22, [...] age to complete this topic Meningococcal B Vaccine Aged Out No l onger eligible based on patient's age to complete this topic RSV Immunization Patients Under 20 months Aged Out No longer eligible based on patient's age to complete this topic Varicella Vaccines Aged Out No longer eligible based on patient's age to complete this topic Procedures Procedure Name Priority Date/Time Associated Diagnosis Comments [facility] SCREENING DIGITAL Routine 02/09/2022 6:56 PM EDT Encounter for screening mammogram for malignant neoplasm of breast from Last 3 Months or Most Recently Relevant to Health Maintenance Results * [facility] SCREENING [facility]IG[facility] (02/09/2022 6:56 PM EDT) Anatomical Region Laterality Modality Mammography 02/09/2022 2:19 PM EDT Narrative 02/09/2022 6:56 PM EDT [facility] Diagnostic Imaging Department [address] [place], [place] [id number] Patient: APPLE VALENTINO.B./Age/Sex: 1950 - 71 - F Unit#: [id number] Location/Status: [facility] CLI Mnemonic/Ordering Site: [facility] Ordering Physician: JEWELL WELSH MD Fady Screening Digital - 02/09/22 - 1440 History: Bilateral breast cancer screening. Technique: Digital mammography. Conventional CC and MLO projections with tomosynthesis MLO views and computer aided detection. Comparison made with previous mammograms from [facility] 08/15/2020, dating back to 09/18/2010. Findings: Breast tissue consists of a heterogenous combination of fatty and fibroglandular tissue, potentially obscuring small lesions, category c density (as calculated by Flickrpara software). There are benign calcifications bilaterally. No suspicious group of microcalcification, suspicious mass, concerning focal asymmetry, architectural distortion or concerning change in breast density affecting either breast. Impression: No evidence of malignancy. BIRADS category 2; benign findings, 3342F 19977, 44479 A negative mammogram in the face of a clinically suspicious abnormality does not exclude the possibility of malignancy nor alter the indications for biopsy. Note: Patient information entered into a reminder system with a target due date for the next mammogram; PQRI II 7027F Dictating Physician: NEVILLE DC MD Electronically Signed by: NEVILLE DC MD Dic Date/Time: 02/09/221852 Sign date/Time: 02/09/221855 Procedure Note Neville Dc MD - 10/21/2022 [facility] Diagnostic Imaging Department [address] [place] [address] [phone] Patient: APPLE VALENTIN/Age/Sex: 1950 - 71 - F Unit#: [id number] Location/Status: [facility] CLI Mnemonic/Ordering Site: [facility] Ordering Physician: JEWELL WELSH MD Fady Screening Digital - 02/09/22 - 1440 History: Bilateral breast cancer screening. Technique: Digital mammography. Conventional CC and MLO projections with tomosynthesis MLO views and computer aided detection. Comparison made with [facility] mammograms [facility], dating back to 09/18/2010. Findings: Breast tissue consists of a heterogenous combination of fattyand fibroglandular tissue, potentially obscuring small lesions, category cdensity (as calculated by Flickrpara software). There are benign calcifications bilaterally. No suspicious group of microcalcification, suspicious mass, concerning focal asymmetry,architectural distortion or concerning change in breast density affecting eitherbreast. Impression: No evidence of malignancy. BIRADS category 2; benign findings, 3342F 40778, 94031 A negative mammogram in the face of a clinically suspicious abnormalitydoes not exclude the possibility of malignancy nor alter the indications forbiopsy. Note: Patient information entered into a reminder system with a targetdue date for the next mammogram; PQRI II 7099F Dictating Physician: NEVILLE DC MD Electronically Signed by: NEVILLE DC MD Dic Date/Time: 02/09/221852 Sign date/Time: 02/09/221855 Jewell Welsh MD IMG BI PROCEDURES Final Result from Last 3 Months or Most Recently Relevant to Health Maintenance
--- OUTSIDE RECORDS SUMMARY | 2025-05-18 17:45 | XMS_ITS ---
Author Name [facility] Organization Unknown History of Medication Use Medication Directions Dispensed Refills Start Date End Date Stat ascorbic acid, vitamin C, (VITAMIN C) 500 mg tablet Take 500 mg by mouth daily. active FOLIC ACID ORAL Take 400 mcg by mouth daily. 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
== END 2025-05-18 17:44 | disposition home or self-care (01) ==
LOC: HO.HHCLNP 17:43
PROVIDERS: Visit Provider Nurse Practitioner Family
DX: R30.0 Dysuria (principal)
CPT/HCPCS: 87086

== ENCOUNTER 2025-05-21 11:40 | Outpatient (REF) | payer MEDICARE, SELFPAY ==
--- OUTSIDE RECORDS SUMMARY | 2025-05-21 12:45 | XMS_ITS | Clinical Summary ---
Author Organization [facility] Address [address] [place] [phone] Phone Care Team Providers Care Surgical Assistant Certified Name Role Phone Brielle Up Primary Care Provider [phone] Allergies No known active allergies Medications LORazepam [...] Name:Apple Recio Payer ID:[id number] (NAIC) Type:Medicare Address: [place] [phone] MEDICARE REPLACEMENT MEDICARE REPLACEMENT Member Subscriber Plan / Payer (Ef fective 2018-Present) Name:Apple Recio Relation to Subscriber:Self Name:Apple Recio Payer ID:[id number] (NAIC) Type:Medicare Address: [place] [id number] MEDICARE REPLACEMENT Member Subscriber Plan / Payer (Ef fective 2018-Present) Name:Apple Recio Relation to Subscriber:Self Name:Apple Recio Payer ID:[id number] (NAIC) Type:Medicare Address: [place] [id number] MEDICARE REPLACEMENT MEDICARE REPLACEMENT MEDICARE REPLACEMENT MEDICARE REPLACEMENT [facility] MEDICARE REPLACEMENT Care Teams Surgical Assistant Certified Relationship Specialty Start Date End Date Brielle Up DO [address] [address] PCP - General Internal Medicine 02/28/19 Additional Source Comments The information contained in this document represents components of the legal health record. It is not the complete legal health record.[facility]
--- OUTSIDE RECORDS SUMMARY | 2025-05-21 12:45 | XMS_ITS | Clinical Summary ---
Author Organization [facility] it Address [address] [place] [address] Care Team Providers Care Oil Filters Inspector Name Role Phone Unavailable Primary Care Provider [...] Procedure Name Priority Date/Time Associated Diagnosis Comments [facility] SCREENING DIGITAL Routine 02/09/2022 6:56 PM EDT Encounter for screening mammogram for malignant neoplasm of breast from Last 3 Months or Most Recently Relevant to Health Maintenance Results * [facility] SCREENING DIGITAL (02/09/2022 6:56 PM EDT) Anatomical Region Laterality Modality Mammography 02/09/2022 2:19 PM EDT Narrative 02/09/2022 6:56 PM EDT [facility] Diagnostic Imaging Department [address] [place], [place] [phone] Patient: APPLE VALENTINO.B./Age/Sex: 1950 - 71 - F Unit#: [id number] Location/Status: [facility] CLI Mnemonic/Ordering Site: [facility] Ordering Physician: JEWELL WELSH MD Fady Screening Digital - 02/09/22 - 1440 History: Bilateral breast cancer screening. Technique: Digital mammography. Conventional CC and MLO projections with tomosynthesis MLO views and computer aided detection. Comparison made with previous mammograms from [facility] 08/15/2020, dating back to 09/18/2010. Findings: Breast tissue consists of a heterogenous combination of fatty and fibroglandular tissue, potentially obscuring small lesions, category c density (as calculated by Moblicationpara software). There are benign calcifications bilaterally. No suspicious group of microcalcification, suspicious mass, concerning focal asymmetry, architectural distortion or concerning change in breast density affecting either breast. Impression: No evidence of malignancy. BIRADS category 2; benign findings, 3342F 33264, 56078 A negative mammogram in the face of a clinically suspicious abnormality does not exclude the possibility of malignancy nor alter the indications for biopsy. Note: Patient information entered into a reminder system with a target due date for the next mammogram; PQRI II 7036F Dictating Physician: NEVILLE DC MD Electronically Signed by: NEVILLE DC MD Dic Date/Time: 02/09/221852 Sign date/Time: 02/09/221855 Procedure Note Neville Dc MD - 10/21/2022 [facility] Diagnostic Imaging Department [address] [place] [phone] Patient: APPLE VALENTIN/Age/Sex: 1950 - 71 - F Unit#: [id number] Location/Status: [facility] CLI Mnemonic/Ordering Site: [facility] Ordering Physician: JEWELL WELSH MD Fady Screening Digital - 02/09/22 - 1440 History: Bilateral breast cancer screening. Technique: Digital mammography. Conventional CC and MLO projections with tomosynthesis MLO views and computer aided detection. Comparison made with previous mammograms from [facility]2020, dating back to 09/18/2010. Findings: Breast tissue consists of a heterogenous combination of fattyand fibroglandular tissue, potentially obscuring small lesions, category cdensity (as calculated by Moblicationpara software). There are benign calcifications bilaterally. No suspicious group of microcalcification, suspicious mass, concerning focal asymmetry,architectural distortion or concerning change in breast density affecting eitherbreast. Impression: No evidence of malignancy. BIRADS category 2; benign findings, 3342F 61455, 95132 A negative mammogram in the face of a clinically suspicious abnormalitydoes not exclude the possibility of malignancy nor alter the indications forbiopsy. Note: Patient information entered into a reminder system with a targetdue date for the next mammogram; PQRI II 7013F Dictating Physician: NEVILLE DC MD Electronically Signed by: NEVILLE DC MD Dic Date/Time: 02/09/221852 Sign date/Time: 02/09/221855 Jewell Welsh MD IMG BI PROCEDURES Final Result from Last 3 Months or Most Recently Relevant to Health Maintenance
--- OUTSIDE RECORDS SUMMARY | 2025-05-21 12:45 | XMS_ITS | Encounter Summary ---
Author Organization [facility] Address [address] [place] [address] [address] [place] [address] Care Team Providers Care Engraved Roller Inspector Name Role Phone Mayela Welsh MD Primary Care Provider [phone] Encounter Details Date Type Department Care Team (Late st Contact Info) Description 07/14/2023 Orders Only [facility] [address] [place] [phone] Mayela Welsh MD [address] [place] [address] [phone] Essential hypertension (Primary Dx); Prediabetes; Hypercholesterolemia Social [...] Care Team (Late st Contact Info) Description 07/16/2025 3:15 PM EDT Office Visit [facility] [address] [place] [phone] Mayela Welsh MD [address] [place] [address] [phone] 08/10/2025 3:00 PM EDT Office Visit [facility] [address] [place], [place] [phone] Barbie Kincaid [address] [place] [address] documented as of this encounter Procedures Procedure Name Priority Date/Time Associated Diagnosis Comments LIPID PANEL WITH REFLEX TO DIRECT LDL Routine 08/17/2023 10:12 AM EDT Hypercholesterolemia HEMOGLOBIN A1C Routine 08/17/2023 10:12 AM EDT Prediabetes COMPREHENSIVE METABOLIC PANEL Routine 08/17/2023 10:12 AM EDT Essential hypertension documented in this encounter Results * Hemoglobin A1c (08/17/2023 10:12 AM EDT) Hemoglobin A1c 5.8 <6.0 % [facility] Comment:Hemoglobin A1C Refer ence Range Adults: 4.8 - 6.0 % Non diabetic: < 6.0 % Goal: < 7.0 %Additional Action Suggested: > 8.0 %Note: Hemoglobin A1c results are invalid for patients with abnormal amounts of HbF. Blood transfusions may impact the HbA1c concentration in the patient sample. Estimated Average Glucose 120 mg/dL [facility] Comment:eAG = Estimated ave rage glucose which is %A1C expressed asaverage glucose, using the formula of the O5P-NyrhlzyXobliiu Glucose study (ADAG), Diabetes Care, Vol.31,#8,Aug. 2007 Blood Venous blood specimen / Unknown 08/17/2023 10:12 AM EDT 08/17/2023 11:22 AM EDT us Mayela Welsh MD LAB BLOOD ORDERABLES Final Resul t [facility] [address] [place] [address] [phone] * (ABNORMAL) Lipid Panel with Reflex to Direct LDL (08/17/2023 10:12 AM EDT) Triglycerides 106 <150 mg/dL [facility] Comment:Desirable Triglyceri de: less than 150 mg/dLBorderline High Triglyceride 150-199 mg/dLHigh Triglyceride: 200-499 mg/dLVery High Triglyceride: greater than or equal to 5OO mg/dL Cholesterol 258(H) <200 mg/dL [facility] Comment:Desirable Cholestero l: less than 200 mg/dLBorderline High Cholesterol: 200-239 mg/dLHigh Cholesterol: greater than 239 mg/dL LDL Cholesterol Calculated 178(H) <100 mg/dL [facility] Comment:Desirable LDL: less than 100 mg/dLNear Optimal/Above Optimal LDL: 110- 129 mg/dLBorderline High LDL: 130-159 mg/dLHigh LDL: 160-189 mg/dLVery High LDL: greater than or equal to 190 mg/dL HDL Cholesterol 59 >40 mg/dL [facility] Comment:Desirable HDL: great er than 40 mg/dL Note: This HDL assay may give artificially low results in patients with liver disease. Blood 08/17/2023 10:1 2 AM EDT 08/17/2023 11:22 AM EDT us Mayela Welsh MD LAB BLOOD ORDERABLES Final Resul t [facility] [address] [place] [address] [phone] * (ABNORMAL) Comprehensive Metabolic Panel (08/17/2023 10:12 AM EDT) Sodium 145 135 - 145 mmol/L [facility] Potassium 4.9 3.3 - 5.1 mmol/L [facility] Chloride 110(H) 96 - 108 mmol/L [facility] Carbon Dioxide 28 22 - 29 mmol/L [facility] Anion Gap 12 12 - 20 [facility] Urea Nitrogen (BUN) 7(L) 9 - 16 mg/dL [facility] Creatinine, Serum 0.75 0.5 - 1.4 mg/dL [facility] Estimated Glomerular Filt Rate >60 [facility] Comment:NOTE: For -Am erican individuals, multiply the result by 1.210.Chronic Kidney Disease: Estimated GFR < 60 mL/min/[id number] Kidney Disease: Estimated GFR < 15 mL/min/1.73m2 Glucose 92 60 - 115 mg/dL [facility] Calcium 9.5 8.4 - 10.2 mg/dL [facility] Bilirubin, Total 0.4 0.0 - 1.0 mg/dL [facility] Aspartate Amino Transferase 21 5 - 31 U/L [facility] Alanine Aminotransferase 14 0 - 31 U/L [facility] Total Protein 7.5 6.5 - 8.0 g/dL [facility] Albumin Level 4.5 3.5 - 5.0 g/dL [facility] Alkaline Phosphatase 80 39 - 117 U/L [facility] Blood Venous blood specimen / Unknown 08/17/2023 10:12 AM EDT 08/17/2023 11:22 AM EDT us Mayela Welsh MD LAB BLOOD ORDERABLES Final Resul t Performing Organization Address City/State/[facility] Co de Phone Number [facility] [address] [place] [phone] documented in this encounter Visit Diagnoses Diagnosis Essential hypertension- Primary Unspecified essential hypertension Prediabetes Other abnormal glucose Hypercholesterolemia Pure hypercholesterolemia documented in this encounter Additional Health Concerns Assessment Noted Time PHQ-9 Depression Total Score: 2 12/29/19 23 1:08 PM EST documented as of this encounter Care Teams Engraved Roller Inspector Relationship Specialty Start Date End Date Mayela Welsh MD [address] [place] [phone] PCP - General Family Medicine 06/26/21 documented as of this encounter
--- OUTSIDE RECORDS SUMMARY | 2025-05-21 12:45 | XMS_ITS | Encounter Summary ---
Author Organization formerly [facility] Address [address] [place] [address] Care Team Providers Care Manager Federal Name Role Phone Teresa Onofre DO Primary Care Provider Encounter Details Date Type Department Care Team (Late st Contact Info) Description 09/19/2020 Orders Only [facility] Department of Internal Medicine [address] [place] [address] Teresa Onofre DO [address] [place] [address] Social History Tobacco Use Types Packs/Day Years [...] on filedocumented in this encounter Care Teams Manager Federal Relationship Specialty Start Date End Date Teresa Onofre DO [address] [place] [address] PCP - General Internal Medicine 10/26/18 02/26/21 documented as of this encounter
[2025-05-21 13:01] LABS: MANUAL DIFF FLAG NO
[2025-05-21 13:11] LABS: Hematocrit 39.9 % (37.0-47.0); Hemoglobin 12.8 g/dl (12.0-16.0); Imm Gran Abs Auto 0.02 X10*3/uL (0.00-0.03); Imm Gran Pct Auto 0.4 % (0.0-0.4); Lymphocytes Absolute Auto 1.5 X10*3/uL (1.2-4.9); Mean Corpuscular HGB Conc 32.1 g/dl (31.0-35.0); Mean Corpuscular Hemoglobin 27.9 pg (27.0-33.0); Mean Corpuscular Volume 86.9 fL (80.0-98.0); NRBC Abs Auto 0.000 X10*3/uL (0.0-0.012); NRBC Pct Auto 0.0 /100WBC (0.0-0.2); Platelet Count 227 X10*3/uL (160-400); Red Blood Count 4.59 X10*6/uL (4.20-5.50); White Blood Count 4.5 X10*3/uL (4.8-10.8)
== END 2025-05-21 11:41 | disposition home or self-care (01) ==
LOC: HO.HHCL 11:40
PROVIDERS: PCP Family Medicine; Visit Provider Nurse Practitioner Family
DX: R53.83 Other fatigue (principal)
CPT/HCPCS: 36415; 84443; 85025

== ENCOUNTER 2025-08-14 13:15 | Outpatient (REF) | payer OTHER, SELFPAY ==
--- OUTSIDE RECORDS SUMMARY | 2025-08-10 15:00 | XMS_ITS | Encounter Summary ---
Author Organization [employer] Address [address] [place] [address] 7t [place] [address] Care Team Providers Care Small Appliance Assembly Supervisor Name Role Phone Mayela Welsh MD Primary Care Provider [phone] Reason for Visit * Reason Comments Dental Exam Encounter Details Date Type Department Care Team (Latest Contact Info) Description 08/10/2025 3:00 PM EDT Office Visit [facility] ADULT DENTAL [address] [place] [address] Codi, Barbie [address] [place] [address] Advanced periodontitis (Primary Dx); Dental caries Social History Tobacco Use Types Packs/Day Years [...] Sign Reading Time Taken Comments Blood Pressure 132/78 08/10/2025 3:26 PM EDT Pulse - - Temperature - - Respiratory Rate - - Oxygen Saturation - - Inhaled Oxygen Concentration - - Weight - - Height - - Body Mass Index - - documented in this encounter Progress Notes * Barbie Kincaid - 08/10/2025 3:00 PM EDT 3 pm appoint . 3:16 pm and PT no show. LUCAS Meneses Pt presented at 3:25 pm Took 4 BWX and [address] Andre did exam. NV: Dr. Andre to do EXOs first prior to having perio chart with gross debridement. LUCAS Meneses * Dk Andre DDS - 08/10/2025 3:00 PM EDT Dental procedures in this visit D0274 - BITEWINGS - 4 RADIOGRAPHIC IMAGES (Completed) Service provider: Barbie Kincaid Billing provider: Dk Andre DDS D0220 - INTRAORAL - PERIAPICAL FIRST RADIOGRAPHIC IMAGE (Completed) Service provider: Barbie Kincaid Billing provider: Dk Andre DDS D0230 - INTRAORAL - PERIAPICAL EACH ADDITIONAL RADIOGRAPHIC IMAGE (Completed) Service provider: Barbie Kincaid Billing provider: Dk Andre DDS D0230 - INTRAORAL - PERIAPICAL EACH ADDITIONAL RADIOGRAPHIC IMAGE (Completed) Service provider: Barbie Kincaid Billing provider: Dk Andre DDS D0120 - PERIODIC ORAL EVALUATION - ESTABLISHED PATIENT (Completed) Service provider: Dk Andre DDS Billing provider: Dk Andre DDS Patient ID: Apple Recio is a 74 y.o. female. Time Out: Timeout Date: 08/10/25, Timeout Time: 1528 (Pt came late to her 3 pm appoint late, only x-rays and exam today) Location: [facility] Tooth: Maxilla and Mandible Procedure: Exam and X-rays Verified the above with patient, tax accounting assistant, and provider. Confirmed via patient's chart, intraorally and by radiographs. Project Accountant: not applicable Chief Complaint Patient presents with Dental Exam Medical Hx: Vitals: Blood pressure 132/78. Medical History[1] Medications: Encounter Medications[2] Objective HPI Asymptomatic Head and Neck Exam: Lymph Nodes, Lips, Palate, Buccal Mucosa, Floor of Mouth, Tongue, Tonsils, Alveolar Ridges, Oropharynx, Salivary Ducts, and Vestibules normal appearance Details: Skin NSF OCS: negative Dental Exam As charted Reference tooth chart for additional findings. Oral Cancer Risk: Moderate Risk Family cancer history Oral Hygiene Instructions: Harper two times daily, modified brasher technique, Floss daily, Electric toothbrush, Soft bristle toothbrush, Harper Tongue Caries Risk Assessment: Medium- one risk factor Assessment/Plan JOHN X rays Schedule for exos Hygiene after healing Patient tolerated procedure well, all questions answered and expressed understanding. Dismissed in good condition. NV: Exo # 9 Beam Saw Operator: Barbie Kincaid RD Dentist: Dk Andre DDS [1] Past Medical History: Diagnosis Date Anxiety Cardiovascular event risk 02/26/2024 Cataract of left eye 12/29/2022 GERD (gastroesophageal reflux disease) 11/22/2018 Last Assessment & Plan: Occasionally has sensation of food in throat when eating heavy foods like plantain. Denies pain, burning sensation. barium swallow was ordered- Minor, transient tertiary contractions in the distal esophagus. Otherwise, no significant pathology in barium swallow. 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 90 tablet 1 amLODIPine (Norvasc) 2.5 MG tablet TOME 1 TABLETA POR V A ORAL TODOS LOS D Aspirin Low Dose 81 MG EC tablet Take 81 mg by mouth Once per day. Blood Pressure Monitoring (Blood Pressure Kit) kit Check blood pressure every morning and as needed. Dx hypertension 1 kit 0 cholecalciferol (Vitamin D3) 25 MCG (1000 UT) tablet Take 1 tablet (25 mcg) by mouth in the morning. 90 tablet 3 lisinopril 10 MG tablet TAKE 1 TABLET BY MOUTH IN THE MORNING 90 tablet 1 LORazepam (Ativan) 1 MG tablet Take 1 tablet (1 mg) by mouth if needed each day for anxiety. 20 tablet 1 metoprolol succinate XL (Toprol-XL) 25 MG 24 hr tablet Take 25 mg by mouth Once per day. nitroglycerin (Nitrostat) 0.4 MG SL tablet DISSOLVE 1 TABLET UNDER THE TONGUE EVERY 5 MINUTES IF NEEDED FOR CHEST PAIN, MAY ADMINISTER UP TO 3 TABLETS IN A 15 MINUTE PERIOD 25 tablet 1 rosuvastatin (Crestor) 40 MG tablet Take 1 tablet by mouth Once per day. scopolamine (Transderm-Scop) 1 MG/3DAYS patch 72 hour APPLY 1 PATCH DETRAS CORBIN OIDO 4 HOURS BEFORE DE NECESARIO. CHANGE EVERY 3 DAYS NEEDED 10 patch 3 No facility-administered encounter medications on file as of 08/10/2025. documented in this encounter Plan of Treatment Upcoming Encounters Date Type Department Care Team (Late st Contact Info) Description 09/17/2025 10:30 AM EST Office Visit [facility] ADULT DENTAL [address] [place] [address] Dk Andre DDS [address] [place] [address] Scheduled Orders Name Type Priority Associated Diagnoses Orde r Schedule 9 9 EXTRACTION, ERUPTED TOOTH REQ REMOVAL OF BONE AND/OR SECTIONING OF TOOTH Dental Routine [address] arting 08/10/2025 13 13 EXTRACTION, ERUPTED TOOTH OR EXPOSED ROOT (ELEVATION/FORCEPS REMOVAL) Dental Routine [address] arting 08/10/2025 9,12,13,14 9,12,13,14 MAXILLARY PARTIAL DENTURE - RESIN BASE (INCLUDING, RETENTIVE/CLASPING MATERIALS, RESTS, AND TEETH) Dental Routine [address] arting 08/10/2025 DENTURE IMPRESSION Dental Routine 1 Occu rrences starting 08/10/2025 BITE REGISTRATION Dental Routine 1 Occur rences starting 08/10/2025 WAX TRY IN Dental Routine 1 Occurrences starting 08/10/2025 documented as of this encounter Procedures Procedure Name Priority Date/Time Associated Diagnosis Comments PERIODIC ORAL EVALUATION - ESTABLISHED PATIENT Routine 08/10/2025 3:00 PM EDT INTRAORAL - PERIAPICAL FIRST RADIOGRAPHIC IMAGE Routine 08/10/2025 3:00 PM EDT INTRAORAL - PERIAPICAL EACH ADDITIONAL RADIOGRAPHIC IMAGE Routine 08/10/2025 3:00 PM EDT INTRAORAL - PERIAPICAL EACH ADDITIONAL RADIOGRAPHIC IMAGE Routine 08/10/2025 3:00 PM EDT BITEWINGS - 4 RADIOGRAPHIC IMAGES Routine 08/10/2025 3:00 PM EDT 20 FIXED PARTIAL DENTURE - ABUTMENT CROWN Routine 08/10/2025 12:00 AM EDT 18 FIXED PARTIAL DENTURE - ABUTMENT CROWN Routine 08/10/2025 12:00 AM EDT 19 FIXED PARTIAL DENTURE - PONTIC Routine 08/10/2025 12:00 AM EDT documented in this encounter Visit Diagnoses Diagnosis Advanced periodontitis- Primary Dental caries Unspecified dental caries documented in this encounter Additional Health Concerns Assessment Noted Time PHQ-9 Depression Total Score: 8 11/14/19 25 4:22 PM EST documented as of this encounter Care Teams Small Appliance Assembly Supervisor Relationship Specialty Start Date End Date Mayela Welsh MD [address] [place] [address] PCP - General Family Medicine 06/26/21 documented as of this encounter
--- OUTSIDE RECORDS SUMMARY | 2025-08-14 16:04 | XMS_ITS | Encounter Summary ---
Author Organization [employer] Address [address] [facility] 7t [place] [address] Care Team Providers Care Plumber Maintenance Name Role Phone Mayela Welsh MD Primary Care Provider [phone] Encounter Details Date Type Department Care Team (Late st Contact Info) Description 01/24/2025 Orders Only [facility] MEDICINE [address] [place], [place] [phone] Mayela Welsh MD [address] [place], [place] [phone] Social History Tobacco Use Types Packs/Day Years [...] t he electric, gas, oil or water [employer] threatened to shut off services in your [...] Description 09/17/2025 10:30 AM EST Office Visit [facility] ADULT DENTAL [address] [place] [address] Dk Andre DDS [address] [place] [address] documented as of this encounter Visit Diagnoses Not on filedocumented in this encounter Additional Health Concerns Assessment Noted Time PHQ-9 Depression Total Score: 8 11/14/19 25 4:22 PM EST documented as of this encounter Care Teams Plumber Maintenance Relationship Specialty Start Date End Date Mayela Welsh MD [address] [place] [address] PCP - General Family Medicine 06/26/21 documented as of this encounter
--- OUTSIDE RECORDS SUMMARY | 2025-08-14 16:04 | XMS_ITS | Encounter Summary ---
Author Organization [employer] Address [address] [facility] 7t [place] [address] Care Team Providers Care Cd Manufacturing Supervisor Name Role Phone Mayela Weslh MD Primary Care Provider [phone] Reason for Visit * Reason Comments Med Refill Encounter Details Date Type Department Care Team ([facility] st Contact Info) Description 04/30/2024 Refill [facility] MEDICINE [address] [place], [place] [phone] Mayela Welsh MD [address] [place], [place] [phone] Meniere's disease, unspecified laterality Social History Tobacco [...] Description 09/17/2025 10:30 AM EST Office Visit [facility] ADULT DENTAL [address] [place] [address] Dk Andre DDS [address] [place] [address] documented as of this encounter Visit Diagnoses Diagnosis Meniere's disease, unspecified laterality documented in this encounter Additional Health Concerns Assessment Noted Time PHQ-9 Depression Total Score: 3 07/29/20 23 12:33 PM EDT documented as of this encounter Care Teams Cd Manufacturing Supervisor Relationship Specialty Start Date End Date Mayela Welsh MD [address] [place] [address] PCP - General Family Medicine 06/26/21 documented as of this encounter
--- OUTSIDE RECORDS SUMMARY | 2025-08-14 16:04 | XMS_ITS | Encounter Summary ---
Author Organization [employer] Address [address] [facility] 7t [place] [address] Care Team Providers Care Food Service Substitute Name Role Phone Mayela Welsh MD Primary Care Provider [phone] Encounter Details Date Type Department Care Team (Late st Contact Info) Description 02/05/2025 Orders Only [facility] MEDICINE [address] [place], [place] [phone] Aline Mo NP [address] [place] [address] Acute pain of left shoulder (Primary Dx) [...] Description 09/17/2025 10:30 AM EST Office Visit [facility] ADULT DENTAL [address] [place] [address] Dk Andre DDS [address] [place] [address] documented as of this encounter Procedures Procedure Name Priority Date/Time Associated Diagnosis Comments XR SHOULDER 2+ VIEWS LEFT Routine 02/05/2025 3:08 PM EDT Acute pain of left shoulder documented in this encounter Results * XR Shoulder 2+ Views Left (02/05/2025 3:08 PM EDT) Anatomical Region Laterality Modality Upper Extremities, Shoulder Left Radi ographic Imaging 02/05/2025 3:08 PM EDT Narrative 02/06/2025 12:01 PM EDT [address] [address] XRay Report Signed Patient: Apple Recio MR#: [id number] : [id number] Acct:[id number] Age/Sex: 74 / F ADM Date: 02/05/25 Loc: [facility] Attending Dr: Mayela Welsh MD Ordering Physician: Aline Mo Date of Service: 02/05/25 Procedure(s): XR shoulder LT min 2V Accession Number(s): [id number] cc: Evelyn Mo Nao MD EXAMINATION: XR SHOULDER, LEFT CLINICAL INFORMATION: pain COMPARISON: None available. TECHNIQUE: AP external rotation, Grashey, scapular Y, and axillary views of the left shoulder. FINDINGS: Normal bone mineralization. No fracture, dislocation, or suspicious bone lesion. Normal alignment. The glenohumeral joint demonstrates minimal osteoarthritis. The AC joint demonstrates mild spurring, predominantly superior surface. There is a type III acromion. No undersurface spurring. The subacromial space is preserved. Remainder of the soft tissue and bony structures appear normal. XR/XR shoulder LT min 2V IMPRESSION: 1. No acute bony abnormalities. 2. Minimal osteoarthritis of the glenohumeral joint and mild spurring of the AC joint. Electronically signed by: Joel Leiva MD 02/06/2025 11:57 AM EDT Dictated By: Joel Leiva MD Signed By: <Electronically signed by Joel Leiva MD in OV> 02/06/25 1157 DD/ 1508 TD/TT: 02/05/25 1515 Dry Plasterer Helper: Procedure Note Donotuseinterpreter, Image - 02/06/2025 [place] [address] XRay Report Signed Patient: lForinda Recio#: [id number] : 9Acct:[id number] Age/Sex: 74 / FADM Date: 02/05/25 Loc: EDIL[facility] Attending Dr: Mayela Welsh MD Ordering Physician: Aline Mo Date of Service: 02/05/25 Procedure(s): XR shoulder LT min 2V Accession Number(s): [id number] cc: Evelyn Mo Nao MD EXAMINATION: XR SHOULDER, LEFT CLINICAL INFORMATION: pain COMPARISON: None available. TECHNIQUE: AP external rotation, Grashey, scapular Y, and axillary views of the left shoulder. FINDINGS: Normal bone mineralization. No fracture, dislocation, or suspicious bone lesion. Normal alignment. The glenohumeral joint demonstrates minimal osteoarthritis. The AC joint demonstrates mild spurring, predominantly superior surface. There is a type III acromion. No undersurface spurring. The subacromial space is preserved. Remainder of the soft tissue and bony structures appear normal. XR/XR shoulder LT min 2V IMPRESSION: 1. No acute bony abnormalities. 2. Minimal osteoarthritis of the glenohumeral joint and mild spurring of the AC joint. Electronically signed by: Joel Leiva MD 02/06/2025 11:57 AM EDT Dictated By: Joel Leiva MD Signed By: <Electronically signed by Joel Leiva MD in OV> 02/06/25 1157 DD/ 1508 TD/TT: 02/05/25 1515 Dry Plasterer Helper: Aline Mo CARD TENDER IMG XR PROCEDURES Final Result documented in this encounter Visit Diagnoses Diagnosis Acute pain of left shoulder- Primary documented in this encounter Additional Health Concerns Assessment Noted Time PHQ-9 Depression Total Score: 8 11/14/19 25 4:22 PM EST documented as of this encounter Care Teams Food Service Substitute Relationship Specialty Start Date End Date Mayela Welsh MD [address] [place] [address] PCP - General Family Medicine 06/26/21 documented as of this encounter
--- OUTSIDE RECORDS SUMMARY | 2025-08-14 16:04 | XMS_ITS | Clinical Summary ---
Author Organization [facility] Address [address] [place] [address] Phone Care Team Providers Care Ultrasound Supervisor Name Role Phone Brielle Up Primary Care Provider [phone] Allergies No known active allergies Medications LORazepam [...] VACCINE (1 - 1-dose 75+ series) 2023 INFLUENZA VACCINE (#1) 2025 10/26/2018 COVID-19 VACCINE (2 - 2024-2 6 season) 2025 01/17/2021 HEPATITIS A VACCINES Aged Out No [...] Devices Not on file Insurance MEDICARE REPLACEMENT MEDICARE REPLACEMENT MEDICARE REPLACEMENT MEDICARE REPLACEMENT MEDICARE REPLACEMENT MEDICARE REPLACEMENT MEDICARE REPLACEMENT MEDICARE REPLACEMENT [facility] MEDICARE REPLACEMENT Care Teams Ultrasound Supervisor Relationship Specialty Start Date End Date Brielle Up DO [address] [address] PCP - General Internal Medicine 02/28/19 Additional Source Comments The information contained in this document represents components of the legal health record. It is not the complete legal health record.[facility]
--- OUTSIDE RECORDS SUMMARY | 2025-08-14 16:04 | XMS_ITS | Encounter Summary ---
Author Organization [facility] Address [address] [place] [address] Care Team Providers Care Seamer Name Role Phone Teresa Onofre DO Primary Care Provider Encounter Details Date Type Department Care Team (Late st Contact Info) Description 09/19/2020 Orders Only [facility] Department of Internal Medicine [address] [place] [address] Teresa Onofre DO [address] [place] [address] Social History Tobacco Use Types Packs/Day Years [...] on filedocumented in this encounter Care Teams Seamer Relationship Specialty Start Date End Date Teresa Onofre DO [address] [place] [address] PCP - General Internal Medicine 10/26/18 02/26/21 documented as of this encounter
--- OUTSIDE RECORDS SUMMARY | 2025-08-14 16:04 | XMS_ITS | Encounter Summary ---
Author Organization [employer] Address [address] [place] [address] 7 [place] [address] Care Team Providers Care Aircraft Delivery Checker Name Role Phone Mayela Welsh MD Primary Care Provider [phone] Reason for Visit * Reason Onset Date Comments triage 11/12/2022 Encounter Details Date Type Department Care Team ([facility] st Contact Info) Description 11/12/2022 Telephone [facility] MEDICINE [address] [place] [phone] Mayela Welsh MD [address] [place], [place] [phone] triage Social History Tobacco Use Types Packs/Day [...] PM EST Call to Pt x2 with [facility] Flocculator Operator ID [id number]. Pt didn't answer left message. * Telephone Encounter - Jeff Sierra - 11/12/2022 2:10 PM EST Symptoms: Body Aches, Foot or Ankle Pain - Not From Injury Outcome: Schedule an urgent appointment (within 1 hour) or talk to a nurse or provider soon Reason: Severe pain now The caller accepted this outcome speaks macedonian documented in this encounter Plan of Treatment Upcoming Encounters Date Type Department Care Team (Late st Contact Info) Description 09/17/2025 10:30 AM EST Office Visit [facility] ADULT DENTAL [address] [place], [place] [phone] Dk Andre DDS [address] [place] [address] documented as of this encounter Visit Diagnoses Not on filedocumented in this encounter Care Teams Aircraft Delivery Checker Relationship Specialty Start Date End Date Mayela Welsh MD [address] [place] [address] PCP - General Family Medicine 06/26/21 documented as of this encounter
--- OUTSIDE RECORDS SUMMARY | 2025-08-14 16:04 | XMS_ITS | Encounter Summary ---
Author Organization [employer] Address [address] [place] [address] 7t [place] [address] Care Team Providers Care Patient Sitter Name Role Phone Mayela Welsh MD Primary Care Provider [phone] Reason for Visit * Reason Comments Med Refill Encounter Details Date Type Department Care Team ([facility] st Contact Info) Description 03/03/2025 Refill [facility] MEDICINE [address] [place], [place] [phone] Mayela Welsh MD [address] [place], [place] [phone] Social History Tobacco Use Types Packs/Day Years [...] Description 09/17/2025 10:30 AM EST Office Visit [facility] ADULT DENTAL [address] [place] [address] Dk Andre DDS [address] [place] [address] documented as of this encounter Visit Diagnoses Not on filedocumented in this encounter Additional Health Concerns Assessment Noted Time PHQ-9 Depression Total Score: 8 11/14/19 25 4:22 PM EST documented as of this encounter Care Teams Patient Sitter Relationship Specialty Start Date End Date Mayela Welsh MD [address] [place] [address] PCP - General Family Medicine 06/26/21 documented as of this encounter
--- OUTSIDE RECORDS SUMMARY | 2025-08-14 16:04 | XMS_ITS | Encounter Summary ---
Author Organization [employer] Address [address] [facility] 7t [place] [address] Care Team Providers Care Laborer Ammunition Assembly Name Role Phone Mayela Welsh MD Primary Care Provider [phone] Reason for Visit * Reason Onset Date Comments medication clarification 03/31/2024 Encounter Details Date Type Department Care Team ([facility] st Contact Info) Description 03/31/2024 Telephone [facility] ADULT DENTAL [address] [place] [address] Dk Andre DDS [address] [place], [place] [phone] medication clarification Social History Tobacco Use Types [...] Maame from [facility] [place] called to clarify medication use. How many times a day the patientshould be using. They stated that they called 2 days ago and waiting for response. No message sent on PAR end. Unsure who they spoke to DR documented in this encounter Plan of Treatment Upcoming Encounters Date Type Department Care Team (Late st Contact Info) Description 09/17/2025 10:30 AM EST Office Visit [facility] ADULT DENTAL [address] [place] [address] Dk Andre DDS [address] [place] [address] documented as of this encounter Visit Diagnoses Not on filedocumented in this encounter Additional Health Concerns Assessment Noted Time PHQ-9 Depression Total Score: 3 07/29/20 23 12:33 PM EDT documented as of this encounter Care Teams Laborer Ammunition Assembly Relationship Specialty Start Date End Date Mayela Welsh MD [address] [place] [address] PCP - General Family Medicine 06/26/21 documented as of this encounter
--- OUTSIDE RECORDS SUMMARY | 2025-08-14 16:04 | XMS_ITS | Encounter Summary ---
Author Organization [employer] Address [address] [facility] 7t [place] [address] Care Team Providers Care Production Coordinator Name Role Phone Mayela Welsh MD Primary Care Provider [phone] Encounter Details Date Type Department Care Team (Late st Contact Info) Description 01/24/2025 Orders Only [facility] MEDICINE [address] [place], [place] [phone] Mayela Welsh MD [address] [place], [place] [phone] Social History Tobacco Use Types Packs/Day Years [...] t he electric, gas, oil or water [employer] threatened to shut off services in your [...] Description 09/17/2025 10:30 AM EST Office Visit [facility] ADULT DENTAL [address] [place] [address] Dk Andre DDS [address] [place] [address] documented as of this encounter Visit Diagnoses Not on filedocumented in this encounter Additional Health Concerns Assessment Noted Time PHQ-9 Depression Total Score: 8 11/14/19 25 4:22 PM EST documented as of this encounter Care Teams Production Coordinator Relationship Specialty Start Date End Date Mayela Welsh MD [address] [place] [address] PCP - General Family Medicine 06/26/21 documented as of this encounter
--- OUTSIDE RECORDS SUMMARY | 2025-08-14 16:04 | XMS_ITS | Encounter Summary ---
Author Organization [employer] Address [address] [place] [address] [address]t [place] [address] Care Team Providers Care Oceanographer Physical Name Role Phone Mayela Welsh MD Primary Care Provider [phone] Reason for Visit * Reason Comments Med Change Request Encounter Details Date Type Department Care Team ([facility] st Contact Info) Description 04/18/2025 Refill [facility] MEDICINE [address] [place], [place] [phone] Mayela Welsh MD [address] [place], [place] [phone] Social History Tobacco Use Types Packs/Day Years [...] Description 09/17/2025 10:30 AM EST Office Visit [facility] ADULT DENTAL [address] [place] [address] Dk Andre DDS [address] [place] [address] documented as of this encounter Visit Diagnoses Not on filedocumented in this encounter Additional Health Concerns Assessment Noted Time PHQ-9 Depression Total Score: 8 11/14/19 25 4:22 PM EST documented as of this encounter Care Teams Oceanographer Physical Relationship Specialty Start Date End Date Mayela Welsh MD [address] [place] [address] PCP - General Family Medicine 06/26/21 documented as of this encounter
--- OUTSIDE RECORDS SUMMARY | 2025-08-14 16:04 | XMS_ITS | Clinical Summary ---
Author Organization [employer] Address [address] [facility] [address] [facility] [address] [place] [address] Care Team Providers Care Jointer Machine Operator Name Role Phone Mayela Welsh MD Primary Care Provider [phone] Allergies No known active allergies Medications * This document contains information received from the source organization and may not represent a complete record from that organization. Blood Pressure Monitoring (Blood Pressure Kit) kitIndications: Essential hypertension Check blood pressure every morning and as needed. Dx hypertension 1 kit 08/15/20 24 Active metoprolol succinate XL (Toprol-XL) 25 MG 24 hr tablet Take 25 mg by mouth Once per day. 07/02/20 24 Active Aspirin Low Dose 81 MG EC tablet Take 81 mg by mouth Once per day. 07/13/20 24 Active nitroglycerin (Nitrostat) 0.4 MG SL tablet DISSOLVE 1 TABLET UNDER THE TONGUE EVERY 5 MINUTES IF NEEDED FOR CHEST PAIN, MAY ADMINISTER UP TO 3 TABLETS IN A 15 MINUTE PERIOD 25 tablet 1 09/12/20 24 Active cholecalciferol (Vitamin D3) 25 MCG (1000 UT) tablet Take 1 tablet (25 mcg) by mouth in the morning. 90 tablet 3 03/04/20 25 Active acetaminophen (Tylenol Extra Strength) 500 MG tablet Take 1 or 2 tablets every 8 hours as needed for pain or fever. 90 tablet 1 03/04/20 25 Active amLODIPine (Norvasc) 2.5 MG tablet TOME 1 TABLETA POR V A ORAL TODOS LOS D 01/23/20 25 Active rosuvastatin (Crestor) 40 MG tablet Take 1 tablet by mouth Once per day. 01/17/20 25 Active LORazepam (Ativan) 1 MG tabletIndicatio ns:Meniere's disease, unspecified laterality Take 1 tablet (1 mg) by mouth if needed each day for anxiety. 20 tablet 1 05/07/20 25 Active scopolamine (Transderm-Scop ) 1 MG/3DAYS patch 72 hour APPLY 1 PATCH DETRAS CORBIN OIDO 4 HOURS BEFORE DE NECESARIO. CHANGE EVERY 3 DAYS NEEDED 10 patch 3 07/11/20 25 Active lisinopril 10 MG tablet TAKE 1 TABLET BY MOUTH IN THE MORNING 90 tablet 1 07/16/20 25 Active lisinopril 10 MG tablet TAKE 1 TABLET(10 MG) BY MOUTH IN THE MORNING 90 tablet 1 12/11/19 25 2024 Discontinued Active Problems Problem Noted Date Diagnosed Date Dental caries 08/10/2025 Dysuria 05/18/2025 Assessment & Plan (05/19/2025 2:50 PM EDT): Pt reports minimal urinary symptoms, ua in conclusive, pt would prefer to wait until culture results. Pt is due for repeat lab work and will complete on Wednesday. CAD (coronary artery disease) 11/20/2024 Assessment & Plan (07/16/2025 5:34 PM EDT): - 05/25/24 cardiac catheterization showing moderate coronary artery disease: mid LAD 50% stenosis; mid RCA 65% stenosis; left main 30% stenosis; ostial RPL at 80% stenosis, small-vessel. - continue metoprolol XL at 25 mg daily. - continue amlodipine 2.5 mg daily for anti-anginal effect; questionable medication adherence - continue aspirin indefinitely. - continue rosuvastatin 40 mg daily. - continue working on life style modifications - continue following with [facility] Cardiology Assessment & Plan (05/12/2025 7:49 AM EDT): - 05/25/24 cardiac catheterization showing moderate coronary artery disease: mid LAD 50% stenosis; mid RCA 65% stenosis; left main 30% stenosis; ostial RPL at 80% stenosis, small-vessel. - continue metoprolol XL at 25 mg daily. - continue amlodipine 2.5 mg daily for anti-anginal effect; questionable medication adherence - continue aspirin indefinitely. - continue rosuvastatin 40 mg daily. - continue working on life style modifications - continue following with [facility] Cardiology Assessment & Plan (03/04/2025 12:44 PM EDT): - 05/25/24 cardiac catheterization showing moderate coronary artery disease: mid LAD 50% stenosis; mid RCA 65% stenosis; left main 30% stenosis; ostial RPL at 80% stenosis, small-vessel. - continue metoprolol XL at 25 mg daily. - prescribed amlodipine 2.5 mg daily for anti-anginal effect; but patient has not started it yet - continue aspirin indefinitely. - continue rosuvastatin 40 mg daily. - continue working on life style modifications - continue following with [facility] Cardiology Assessment & Plan (11/20/2024 6:33 PM EST): [...] life style modifications - continue following with [facility] Cardiology PAD (peripheral artery disease) 08/20/2024 Assessment & Plan (07/26/2025 12:08 PM EDT): - in Jun 2020 when [...] significant luminal narrowing of the iliac vessels. - patient requests re-referral Assessment & Plan (02/27/2025 11:22 PM EDT): - in Jun 2020 when [...] of the iliac vessels. Assessment & Plan (11/15/2024 1:23 PM EST): [...] attrition of teeth, limited to enamel 04/20/2024 Advanced periodontitis 04/20/2024 Cardiovascular event risk 02/26/2024 Assessment & Plan (07/26/2025 12:08 PM EDT): - continue working on lifestyle modification - continue statin and antihypertensive to optimize Tx risk factor Assessment & Plan (11/20/2024 6:25 PM EST): - continue working on lifestyle modification - continue statin and antihypertensive to optimize Tx risk factor Assessment & Plan (05/16/2024 5:06 PM EDT): - 10 year ASCVD risk is 25% - she is seeing [facility] Cardiology for chest pain and is scheduled for stress test and echo - continue working on lifestyle modification - continue statin and antihypertensive to optimize Tx risk factor Assessment & Plan (02/26/2024 6:47 AM EDT): - 10 year ASCVD risk is 25% - she is seeing [facility] Cardiology for chest pain and is scheduled for stress test and echo - continue working on lifestyle modification - continue statin and antihypertensive to optimize Tx risk factor History of COVID-19 08/02/2023 Assessment & Plan (08/02/2023 5:27 AM EDT): - Nov 2022, treated with Paxlovid - no sign of long-COVID Anxiety 07/27/2023 Assessment & Plan (07/16/2025 5:36 PM EDT): - Seen by [facility] Clinician in Jul 2023 - She is being prescribed lorazepam of Meniere's disease and anxiety Assessment & Plan (05/12/2025 7:51 AM EDT): - Seen by [facility] Clinician in Jul 2023 - She is being prescribed lorazepam of Meniere's disease and anxiety Assessment & Plan (11/20/2024 6:36 PM EST): - Seen by [facility] Clinician in Jul 2023 - [...] (11/19/2023 6:31 PM EST): - Seen by [facility] Clinician in Jul 2023 - [...] to change PLAN: 1. Follow up with [facility]: Recommended for follow-up: Refused referral outside the health center. Agreed to receive follow-up BE 2. Patient goal is to set-up boundaries and learn to keep healthy relationships 3. Behavioral Recommendations a. Follow-up BE b. Follow-up appt with PCP c. Incorporate coping skills into daily routine Assessment & Plan (08/02/2023 5:24 AM EDT): - Seen by [facility] Clinician today - Pt was initially hesitant to meet [facility] clinician; after the session, pt was very grateful to Misty for listening and talking. - pt will receive counseling short-term Family problems 07/27/2023 Assessment & Plan (02/15/2024 4:52 PM EDT): Pt was recommended to discuss with daughter's web content & social media manager problems to be addressed. Assessment & Plan (12/29/2023 9:25 AM EST): During [facility] [employer] presenting with excessive worry/anxiety, difficulty [...] with her daughter - met with Misty today Assessment & Plan (07/29/2023 1:28 PM EDT): [...] to change PLAN: 1. Follow up with [facility]: Recommended for follow-up: Refused referral outside the health center. Agreed to receive follow-up BE 2. Patient goal is to set-up boundaries and learn to keep healthy relationships 3. Behavioral Recommendations a. Follow-up BE b. Follow-up appt with PCP c. Incorporate coping skills into daily routine Cataract of left eye 12/29/2022 Hypercholesterolemia 11/03/2022 Assessment & Plan (07/26/2025 12:14 PM EDT): - continue rosuvastatin from 40 mg at bedtime - last lipid profile : 01/15/25 Total cholesterol 166; Triglyceride 66; LDL 95; HDL 58 - continue working on lifestyle modifications Assessment & Plan (04/30/2025 11:20 AM EDT): - continue rosuvastatin from 40 mg at bedtime - last lipid profile : 01/15/25 Total cholesterol 166; Triglyceride 66; LDL 95; HDL 58 - continue working on lifestyle modifications Assessment & Plan (03/04/2025 12:44 PM EDT): - continue rosuvastatin from 40 mg at bedtime - last lipid profile : 01/15/25 Total cholesterol 166; Triglyceride 66; LDL 95; HDL 58 - continue working on lifestyle modifications Assessment & Plan (11/20/2024 6:35 PM EST): [...] next visit Prediabetes 11/03/2022 Assessment & Plan (05/02/2025 11:13 PM EDT): - A1c 5.9% on 01/15/25 - continue lifestyle modifications Assessment & Plan (03/04/2025 12:43 PM EDT): - A1c 5.9% on 01/15/25 - continue lifestyle modifications Assessment & Plan (11/20/2024 6:35 PM EST): [...] consider Xrays/other imaging Essential hypertension 11/22/2019 Overview (03/04/2025): - Goal BP< 130/80 - Elevated today - Continue working on lifestyle modifications - Recommended self-monitoring BP. - Continue current medications: lisinopril 10 mg daily; metoprolol succinate 25 mg daily; amlodipine -Treatment Hx: -Follow up in 3 mo, sooner if any problem arises Assessment & Plan (07/26/2025 12:07 PM EDT): - Goal BP < 130/80 per ACC/AHA guideline (Treatment threshold >=130/80 ) - BP is slightly elevated today, home BP is normal according to the patient - Continue working on lifestyle modifications - Recommended self-monitoring BP. - Continue current medication: lisinopril 10 mg daily; metoprolol succinate 25 mg daily; prescribed amlodipine 2.5 mg daily by senior center director. She has not started amlodipine yet. Assessment & Plan (04/30/2025 11:20 AM EDT): - Goal BP < 150/90 per JNC-8 and < 130/80 per ACC/AHA guideline (Treatment threshold >=130/80 ) - BP is slightly elevated today, home BP is normal according to the patient - Continue working on lifestyle modifications - Recommended self-monitoring BP. - Continue current medication: lisinopril 10 mg daily; metoprolol succinate 25 mg daily; prescribed amlodipine 2.5 mg daily by senior center director. She has not started amlodipine yet. - Follow up in 3-6 mo, sooner if any problem arises Assessment & Plan (02/27/2025 11:22 PM EDT): - Goal BP < 150/90 per JNC-8 and < 130/80 per ACC/AHA guideline (Treatment threshold >=130/80 ) - BP is slightly elevated today, home BP is normal according to the patient - Continue working on lifestyle modifications - Recommended self-monitoring BP. - Continue current medication: lisinopril 10 mg daily; metoprolol succinate 25 mg daily; prescribed amlodipine 2.5 mg daily by senior center director. She has not started amlodipine yet. - Follow up in 3-6 mo, sooner if any problem arises Assessment & Plan (11/20/2024 6:33 PM EST): [...] prescribed amlodipine 2.5 mg daily by senior center director. She has not started amlodipine yet. - [...] not be prescribing Ativan. Assessment & Plan (07/16/2025 5:35 PM EDT): - continue judicious use of lorazepam and scopolamine patch Assessment & Plan (05/12/2025 7:49 AM EDT): - continue judicious use of lorazepam and scopolamine patch Assessment & Plan (02/27/2025 11:23 PM EDT): - Patient encouraged to use scopolamine patches. - patient requests brand name scopolamine patch, will check if we can submit prior authorization Assessment & Plan (11/15/2024 1:24 PM EST): [...] Problem Noted Date Diagnosed Date Resolved Date Other fatigue 05/19/2025 07/26/2025 Assessment & Plan (05/19/2025 3:03 PM EDT): Labs as ordered below, no sig focal symptoms urine culture pending Preop examination 12/29/2022 11/19/2023 Assessment & Plan [...] Encounters Date Type Department Care Team Description 08/13/2025 Telephone [facility] [place] [address] Mayela Welsh MD Nurse Triage 08/10/2025 3:00 PM EDT Office Visit [facility] ADULT DENTAL [facility] [place] [address] Barbie Kincaid Advanced periodontitis (Primary Dx); Dental caries 07/16/2025 3:15 PM EDT Office Visit [facility] MED[facility] [place] [address] Mayela Welsh MD Essential hypertension (Primary Dx); Meniere's disease of left ear; Coronary artery disease involving [place] coronary artery of [place]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 pectoris ([facility]); Anxiety; Cardiovascular event risk; PAD (peripheral artery disease) ([facility]); Hypercholesterolemia 07/16/2025 Travel 07/15/2025 Refill [facility] [place] [address] Mayela Welsh MD 07/13/2025 Telephone [facility] MED[facility] [place] [address] Mayela Welsh MD CHART PREP 07/11/2025 Refill [facility] MEDIC[facility] [place] [phone] Mayela Welsh MD 06/12/2025 Telephone [facility] MEDIC[facility] [place] [address] Mayela Welsh MD 05/31/2025 1:40 PM EDT Office Visit [facility] WALK-IN CENTER [address] [place] [address] Mckenzie Pro MD Gingival swelling (Primary Dx); Hordeolum externum of left lower eyelid 05/31/2025 Travel 05/21/2025 Results Follow-Up [facility] MEDICINE [address] [place] [address] Makenna Coleman, ALINA POCT urinalysis dipstick manually resulted, Culture, Urine, Routine 05/18/2025 3:40 PM EDT Office Visit [facility] WALKIN [place] [address] [place] [address] Sheila Rodriguez NP Dysuria (Primary Dx); Acute cystitis without hematuria; Other fatigue 05/18/2025 Travel from Last 3 Months Immunizations Immunization Administration Dates Next Due Influenza High-dose Quadriva [...] Pressure 132/78 08/10/2025 3:26 PM EDT Pulse 65 07/16/2025 3:43 PM EDT Temperature 35.9 C (96.7 F) 07/16/2025 3:43 PM EDT Respiratory Rate 17 07/16/2025 3:43 PM EDT Oxygen Saturation 97% 07/16/2025 3:43 PM EDT Inhaled Oxygen Concentration - - Weight 68.1 kg (150 lb 3.2 oz) 07/16/2025 3:43 P M EDT Height 162.6 cm (5' 4 ) 04/30/2025 4:05 PM EDT Body Mass Index 25.78 04/30/2025 4:05 PM EDT Plan of Treatment Upcoming Encounters Date Type Department Care Team (Late st Contact Info) Description 09/17/2025 10:30 AM EST Office Visit [facility] ADULT DENTAL [address] [place] [address] Dk Andre DDS [address], [place] [id number] Health Maintenance Due Date Last Done Comments Dental Prophylaxis 1950 RSV Patients and Patients Aged 60 years or older (1 - 1-dose 75+ series) 2023 COVID-19 Vaccine (2023- season) 2025 08/15/2024, 08/10/2023, 09/10/2022, Additional history exists Influenza Vaccine (#1) 2025 , 07/27/2023, 09/10/2022, Additional history exists Alcohol/Substance Use Screening 08/15/2025 08/15/2024 Depression Screening 11/14/2025 11/14/2024, 11/14/19 SDOH Screening 11/14/2025 11/14/2024 Diabetes: Hemoglobin A1C 01/15/2026 025, 08/17/2023, 12/29/2022, Additional history exists Dental Oral Exam 02/09/2026 08/10/2025, 05/24/2024 Tobacco Screening 08/10/2026 08/10/2025 Dental X-Ray: Bitewings 08/11/2026 08/10/20, 05/24/2024, 03/29/2024 Dental X-Ray: Full Mouth 05/25/2027 05/24/2024 Lipid Panel 01/15/2030 01/15/2025, 12/30, 07/27/2024, Additional history exists DTaP/Tdap/Td Vaccines (2 - Td or Tdap) 06/30/2033 06/30/2023 Colonoscopy Discontinued 12/19/2020 Colorectal Cancer Screening Discontinued Hepatitis C Screening Completed 02/24/2021 Zoster Vaccines Completed 06/19/2021, 12/27/2020 Pneumococcal Vaccine: 50+ Years Completed 06/30/2023, 09/10/2015, 07/16/2014 CT Colonography Discontinued FIT DNA/Cologuard Discontinued FIT [...] RADIOGRAPHIC IMAGES Routine 08/10/2025 3:00 PM EDT 19 FIXED PARTIAL DENTURE - PONTIC Routine 08/10/2025 12:00 AM EDT 20 FIXED PARTIAL DENTURE - ABUTMENT CROWN Routine 08/10/2025 12:00 AM EDT 18 FIXED PARTIAL DENTURE - ABUTMENT CROWN Routine 08/10/2025 12:00 AM EDT POCT RAPID STREP A Routine 05/31/2025 1: 49 PM EDT Gingival swelling TSH W/REFLEX TO FT4 Routine 05/21/2025 1 1:44 AM EDT Other fatigue CBC WITH AUTO DIFFERENTIAL Routine 05/21/2025 11:44 AM EDT Other fatigue POCT URINALYSIS DIPSTICK Routine 05/18/2025 3:59 PM EDT Dysuria CULTURE, URINE, ROUTINE Routine 05/18/2025 3:59 PM EDT Dysuria HEMOGLOBIN A1C Routine 01/15/2025 12:09 PM EDT Prediabetes LIPID PANEL WITH REFLEX TO DIRECT LDL Routine 01/15/2025 12:09 PM EDT Hypercholesterolemi a Coronary artery disease involving [place] coronary artery of [place]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 pectoris (CMS/HCC) INTRAORAL - COMPLETE SERIES OF RADIOGRAPHIC IMAGES Routine 05/24/2024 1:30 PM EDT Encounter for dental examination Periodontal disease Bone loss Dental calculus Dental plaque ZZZ HISTORICAL HEPATITIS C AB W/REFL TO HCV RNA, QN, PCR Routine 02/24/2021 1:04 PM EDT HM COLONOSCOPY Routine 12/19/2020 from Last 3 Months or Most Recently Relevant to Health Maintenance Results * POCT rapid strep A manually resulted (05/31/2025 1:49 PM EDT) [facility] Rapid Strep A Screen Negative Negative, None Detected Swab 05/31/2025 1:49 PM EDT Mckenzie Pro MD POINT OF CARE TEST ENTER/E DIT ORDERABLES Final Result * TSH W/Reflex to FT4 (05/21/2025 11:44 AM EDT) [facility] TSH reflex Free T4 2.12 0.32 - 4.0 uIU/mL [facility] Blood Venous blood specimen / Unknown 05/21/2025 11:44 AM EDT 05/21/2025 12:57 PM EDT us Sheila Rodriguez NP LAB BLOOD ORDERABLES Final Resul t [facility] [address] [place] [phone] * (ABNORMAL) CBC auto differential (05/21/2025 11:44 AM EDT) [facility] White Blood Count 4.5(L) 4.8 - 10.8 X10*3/uL [facility] Red Blood Count 4.59 4.20 - 5.50 X10*6/uL [facility] Hemoglobin 12.8 12.0 - 16.0 g/dl [facility] Hematocrit 39.9 37.0 - 47.0 % [facility] Mean Corpuscular Volume 86.9 80.0 - 98.0 fL [facility] Mean Corpuscular Hemoglobin 27.9 27.0 - 33.0 pg [facility] Mean Corpuscular HGB Conc 32.1 31.0 - 35.0 g/dl [facility] Red Cell Distribution Width 12.3 11.0 - 16.0 % [facility] Platelet Count 227 160 - 400 X10*3/uL [facility] Mean Platelet Volume 10.7 9.4 - 12.3 fL [facility] Neutrophils Percent Auto 52.9 45 - 73 % [facility] Imm Gran Pct Auto 0.4 0.0 - 0.4 % [facility] Lymphocytes Percent Auto 33.1 20 - 40 % [facility] Monocytes Percent Auto 7.8 2 - 11 % [facility] Eosinophils Percent Auto 4.5(H) 0 - 4 % [facility] Basophils Percent Auto 1.3 0 - 2 % [facility] NRBC Pct Auto 0.0 0.0 - 0.2 /100WBC [facility] Neutrophils Absolute Auto 2.4 2.0 - 8.3 x10*3/uL [facility] Imm Gran Abs Auto 0.02 0.00 - 0.03 X10*3/uL [facility] Lymphocytes Absolute Auto 1.5 1.2 - 4.9 X10*3/uL [facility] Monocytes Absolute Auto 0.4 0.1 - 1.2 X10*3/uL [facility] Eosinophils Absolute Auto 0.2 0.0 - 0.4 X10*3/uL [facility] Basophils Absolute Auto 0.1 0.0 - 0.2 X10*3/uL [facility] NRBC Abs Auto 0.000 0.0 - 0.012 X10*3/uL [facility] Blood Venous blood specimen / Unknown 05/21/2025 11:44 AM EDT 05/21/2025 12:57 PM EDT Sheila Rodriguez NP LAB BLOOD ORDERABLES Final Resul t [facility] [address] [place] [phone] * (ABNORMAL) POCT urinalysis dipstick manually resulted (05/18/2025 3:59 PM EDT) Color, UA Yellow Clarity, UA Clear Glucose, UA Negative Bilirubin, UA Negative Ketones, UA Negative Spec Grav, UA 1.015 Blood, UA Positive(A) Negative, None Detected Comment:Trace-intact pH, UA 6.5 Protein, UA Few 15 Comment:30 mg/dL Urobilinogen, UA 1.0 Leukocytes, UA Trace Negative, Rare, Trace Nitrite, UA Negative Negative, None Detected Urine 05/18/2025 3:59 PM EDT Result [facility] Sheila Rodriguez NP POINT OF CARE TEST ENTER/EDIT OR DERABLES Final Result * Culture, Urine, Routine (05/18/2025 3:59 PM EDT) Urine Urine specimen obtained by clean catch procedure / Unknown 05/18/2025 3:59 PM EDT 05/18/2025 5:44 PM EDT Comment:UACC Narrative [facility] - 05/20/2025 10:55 AM EDT Urine Culture Report Result Urine Culture < 10,000 cfu/ml Specimen Source: Urine clean catch Sheila Rodriguez NP LAB MICROBIOLOGY - GENERAL ORDER HARJIT Final Result [facility] [address] [place] [phone] * Lipid Panel with Reflex to Direct LDL (01/15/2025 12:09 PM EDT) Triglycerides 66 <150 mg/dL [facility] Comment:Desirable Triglyceri de: less than 150 mg/dLBorderline High Triglyceride 150-199 mg/dLHigh Triglyceride: 200-499 mg/dLVery High Triglyceride: greater than or equal to 5OO mg/dL Cholesterol 166 <200 mg/dL [facility] Comment:Desirable Cholestero l: less than 200 mg/dLBorderline High Cholesterol: 200-239 mg/dLHigh Cholesterol: greater than 239 mg/dL LDL Cholesterol Calculated 95 <100 mg/dL [facility] Comment:Desirable LDL: less than 100 mg/dLNear Optimal/Above Optimal LDL: 110- 129 mg/dLBorderline High LDL: 130-159 mg/dLHigh LDL: 160-189 mg/dLVery High LDL: greater than or equal to 190 mg/dL HDL Cholesterol 58 >40 mg/dL [facility] Comment:Desirable HDL: great er than 40 mg/dL Note: This HDL assay may give artificially low results in patients with liver disease. Blood 01/15/2025 12:0 9 PM EDT 01/15/2025 1:07 PM EDT us Mayela Welsh MD LAB BLOOD ORDERABLES Final Resul t [facility] [address] [place] [phone] * Hemoglobin A1c (01/15/2025 12:09 PM EDT) Hemoglobin A1c 5.9 <6.0 % [facility] Comment:Hemoglobin A1C Refer ence Range Adults: 4.8 - 6.0 % Non diabetic: < 6.0 % Goal: < 7.0 %Additional Action Suggested: > 8.0 %Note: Hemoglobin A1c results are invalid for patients with abnormal amounts of HbF. Blood transfusions may impact the HbA1c concentration in the patient sample. Estimated Average Glucose 123 mg/dL [facility] Comment:eAG = Estimated ave rage glucose which is %A1C expressed asaverage glucose, using the formula of the [id number] Glucose study (ADAG), Diabetes Care, Vol.31,#8,Jun. 2007 Blood Venous blood specimen / Unknown 01/15/2025 12:09 PM EDT 01/15/2025 1:07 PM EDT us Mayela Welsh MD LAB BLOOD ORDERABLES Final Resul t [facility] [address] [place] [phone] * HEPATITIS C AB W/REFL TO HCV RNA, QN, PCR (02/24/2021 1:04 PM EDT) HEPATITIS C ANTIBODY NON-REACT [place] NON-REACT [facility] INDEX 0.01 <1.00 [facility] Comment: HCV antibody was non-reactive. There is no laboratory evidence of HCV infection. In most cases, no further action is required. However, if recent HCV exposure is suspected, a test for HCV RNA (test code 11219) is suggested. For additional information please refer to http://education.Zoopla/faq/KVM42f0 (This link is being provided for informational/ educational purposes only.) 02/24/2021 1:04 PM EDT Jamie Provider HISTORICAL/NON ORDERABLE LABS Final Result [facility] [address] * Colonoscopy (12/19/2020) Colonoscopy Normal Normal Jamie Provider HEALTH MAINTENANCE Final Result from Last 3 Months or Most Recently Relevant to Health Maintenance Insurance [employer] HMO DENTAL - [facility] Care Teams Jointer Machine Operator Relationship Specialty Start Date End Date Mayela Welsh MD [address] [place] [phone] PCP - General Family Medicine 06/26/21
--- OUTSIDE RECORDS SUMMARY | 2025-08-14 16:04 | XMS_ITS | Encounter Summary ---
Author Organization [employer] Address [address] [facility] 7t [place] [address] Care Team Providers Care Marble Machine Operator Name Role Phone Mayela Welsh MD Primary Care Provider [phone] Encounter Details Date Type Department Care Team (Late st Contact Info) Description 04/17/2025 Orders Only [facility] MEDICINE [address] [place], [place] [phone] Mayela Welsh MD 230 [place], [place] [phone] Meniere's disease, unspecified laterality Social History Tobacco [...] Description 09/17/2025 10:30 AM EST Office Visit [facility] ADULT DENTAL [address] [place] [address] Dk Andre DDS [address] [place] [address] documented as of this encounter Visit Diagnoses Diagnosis Meniere's disease, unspecified laterality documented in this encounter Additional Health Concerns Assessment Noted Time PHQ-9 Depression Total Score: 8 11/14/19 25 4:22 PM EST documented as of this encounter Care Teams Marble Machine Operator Relationship Specialty Start Date End Date Mayela Welsh MD [address] [place] [address] PCP - General Family Medicine 06/26/21 documented as of this encounter
--- OUTSIDE RECORDS SUMMARY | 2025-08-14 16:04 | XMS_ITS | Encounter Summary ---
Author Organization [employer] [facility] Address [address] [place] [address] 7 [place] [address] Care Team Providers Care Electric Lineman Name Role Phone Mayela Welsh MD Primary Care Provider [phone] Encounter Details Date Type Department Care Team (Late st Contact Info) Description 11/03/2022 Abstract [facility] MEDICINE [address] [place] [address] Mayela [place] MD [address] [place], [place] [phone] Social History Tobacco Use Types Packs/Day Years [...] Description 09/17/2025 10:30 AM EST Office Visit [facility] ADULT DENTAL [address] [place] [address] Dk Andre DDS [address] [place] [address] documented as of this encounter Visit Diagnoses Not on filedocumented in this encounter Care Teams Electric Lineman Relationship Specialty Start Date End Date Mayela [place] MD [address] [place] [address] PCP - General Family Medicine 06/26/21 documented as of this encounter
--- OUTSIDE RECORDS SUMMARY | 2025-08-14 16:04 | XMS_ITS | Encounter Summary ---
Author Organization [employer] Address [address] [place] [address] 7 [place] [address] Care Team Providers Care Fire Extinguisher Tester Name Role Phone Mayela Welsh MD Primary Care Provider Encounter Details Date Type Department Care Team (Late st Contact Info) Description 10/09/2022 Orders Only [facility] MEDICINE [address] [place] [phone] Mayela Welsh MD 230 [place] [address] Anxiety and depression (Primary Dx) Social History [...] Description 09/17/2025 10:30 AM EST Office Visit [facility] ADULT DENTAL [address] [place] [address] Dk Andre DDS [address] [place] [address] documented as of this encounter Procedures Procedure [...] (11/24/2022 2:44 PM EST) Color Urine Yellow [facility] Appearance Urine Clear [facility] PH 6.5 5.0 - 9.0 [facility] Glucose Urine UA Negative Negative mg/dL [facility] Urine Blood Negative Negative [facility] Specific [place] - Urine 1.015 1.005 - 1.025 [facility] Urine Protein Trace Neg-Trace mg/dL [facility] Urine Ketones Negative Negative mg/dL [facility] Nitrite Urine Negative Negative [facility] Leukocyte Esterase Urine Negative Negative [facility] 11/24/2022 2:44 PM EST 11/24/2022 2:50 PM EST Narrative [facility] - 11/24/2022 3:06 PM EST [id number], Catheterized [facility] External Provider LAB URI NE ORDERABLES Final Result [facility] [address] [place] [address] [phone] * (ABNORMAL) SARS-CoV-2 RNA, Influenza A/B, and RSV RNA, Ql NAAT (11/24/2022 2:09 PM EST) Influenza A PCR NEGATIVE Negative [facility] Influenza B PCR NEGATIVE Negative [facility] Resp Syncy Virus RNA Qual PCR NEGATIVE Negative [facility] SARS COV2 PCR POSITIVE(A) Negative [facility] SARS/Flu/RSV Note See Note [facility] Comment:All test results mus t be [...] use by authorized laboratories.Testing performed on the [employer] GeneXpert utilizingreal-time RT-PCR.All SARS CoV2 and positive influenza A/B results arereported to [facility]. 11/24/2022 2:09 PM EST 11/24/2022 2:18 PM EST [facility] Exter nal Provider LAB MICROBIOLOGY - GENERAL ORDERABLES Final Result Performing Organization Address [facility] Co de Phone Number [facility] [address] [place] [phone] * TSH W/Reflex to FT4 (11/24/2022 2:09 PM EST) TSH reflex Free T4 0.83 0.32 - 4.0 uIU/mL [facility] 11/24/2022 2:09 PM EST 11/24/2022 2:18 PM EST [facility] External Provider LAB BLO OD ORDERABLES Final Result Performing Organization Address [facility] Co de Phone Number [facility] [address] [place] [phone] * Prothrombin Time-INR (11/24/2022 2:09 PM EST) Pathologist [facility] Prothrombin Time 12.8 10.0 - 13.1 SEC [facility] INTERNATIONAL NORM RATIO 1.1 0.9 - 1.1 [facility] Comment:INTERNATIONAL NORMAL IZED RATIO (INR) REFERENCE [...] 2:09 PM EST 11/24/2022 2:18 PM EST [facility] External Provider LAB BLO OD ORDERABLES Final Result Performing Organization Address [facility] de Phone Number [facility] [address] [place] [phone] * Magnesium (11/24/2022 2:09 PM EST) Pathologist [facility] Magnesium 2.1 1.6 - 2.6 mg/dL [facility] 11/24/2022 2:09 PM EST 11/24/2022 2:18 PM EST [facility] External Provider LAB BLO OD ORDERABLES Final Result Performing Organization Address [facility] de Phone Number [facility] [address] [place] [phone] * Basic Metabolic Panel (11/24/2022 2:09 PM EST) Pathologist [facility] Sodium 142 135 - 145 mmol/L [facility] Potassium 4.5 3.3 - 5.1 mmol/L [facility] Chloride 105 96 - 108 mmol/L [facility] Carbon Dioxide 28 22 - 29 mmol/L [facility] Anion Gap 14 12 - 20 [facility] Urea Nitrogen (BUN) 10 9 - 16 mg/dL [facility] Creatinine, Serum 0.88 0.5 - 1.4 mg/dL [facility] Creatinine Clr Calc Pharmacy 49.1 [facility] Comment:Provided height and weight: 162.56 cm,65.317 kg.eGFR (calculated from the MDRD study equation) and eCrCl(calculated from the Cockcroft-Gault equation) are based ondifferent parameters and may not yield comparable results.If eCrCl result is absurd, please check patient'sheight/weight. Estimated Glomerular Filt Rate >60 [facility] Comment:NOTE: For -Am erican individuals, multiply the result by 1.210.Chronic Kidney Disease: Estimated GFR < 60 mL/min/1.78z1Wricbu Kidney Disease: Estimated GFR < 15 mL/min/1.73m2 Glucose 100 60 - 115 mg/dL [facility] Calcium 9.3 8.4 - 10.2 mg/dL [facility] 11/24/2022 2:09 PM EST 11/24/2022 2:18 PM EST [facility] External Provider LAB BLO OD ORDERABLES Final Result [facility] [address] [place] [address] [phone] * Hepatic Function Panel (11/24/2022 2:09 PM EST) Bilirubin, Total 0.3 0.0 - 1.0 mg/dL [facility] Bilirubin, Direct <0.2 0.0 - 0.5 mg/dL [facility] Aspartate Amino Transferase 16 5 - 31 U/L [facility] Alanine Aminotransferase 8 0 - 31 U/L [facility] Total Protein 6.8 6.5 - 8.0 g/dL [facility] Albumin Level 4.3 3.5 - 5.0 g/dL [facility] Alkaline Phosphatase 71 39 - 117 U/L [facility] 11/24/2022 2:09 PM EST 11/24/2022 2:18 PM EST [facility] External Provider LAB BLO OD ORDERABLES Final Result Performing Organization Address [facility] Co de Phone Number [facility] [address] [place] [phone] * HIGH SENSITIVITY TROPONIN I (11/24/2022 2:09 PM EST) [facility] TROPONIN I HIGH SENSITIVITY 9.9 <3.5 - 17.0 ng/L [facility] Comment:The [place] high sens itivity Troponin-I results should beused in conjunction with other diagnostic information suchas ECG, clinical observations and information, and patientsymptoms to aid in the diagnosis of [place]. 11/24/2022 2:09 PM EST 11/24/2022 2:18 PM EST [facility] External Provider LAB BLO OD ORDERABLES Final Result Performing Organization Address [facility] Phone Number [facility] [address] [place] [phone] * (ABNORMAL) CBC auto differential (11/24/2022 2:09 PM EST) White Blood Count 6.9 4.8 - 10.8 X10*3/uL [facility] Red Blood Count 4.45 4.20 - 5.50 X10*6/uL [facility] Hemoglobin 12.4 12.0 - 16.0 g/dl [facility] Hematocrit 38.7 37.0 - 47.0 % [facility] Mean Corpuscular Volume 87.0 80.0 - 98.0 fL [facility] Mean Corpuscular Hemoglobin 27.9 27.0 - 33.0 pg [facility] Mean Corpuscular HGB Conc 32.0 31.0 - 35.0 g/dl [facility] Red Cell Distribution Width 12.2 11.0 - 16.0 % [facility] Platelet Count 226 160 - 400 X10*3/uL [facility] Mean Platelet Volume 10.4 9.4 - 12.3 fL [facility] Neutrophils Percent Auto 75.6(H) 45 - 73 % [facility] Imm Gran Pct Auto 0.3 0.0 - 0.4 % [facility] Lymphocytes Percent Auto 12.7(L) 20 - 40 % [facility] Monocytes Percent Auto 10.7 2 - 11 % [facility] Eosinophils Percent Auto 0.1 0 - 4 % [facility] Basophils Percent Auto 0.6 0 - 2 % [facility] NRBC Pct Auto 0.0 0.0 - 0.2 /100WBC [facility] Neutrophils Absolute Auto 5.2 2.0 - 8.3 x10*3/uL [facility] Imm Gran Abs Auto 0.02 0.00 - 0.03 X10*3/uL [facility] Lymphocytes Absolute Auto 0.9(L) 1.2 - 4.9 X10*3/uL [facility] Monocytes Absolute Auto 0.7 0.1 - 1.2 X10*3/uL [facility] Eosinophils Absolute Auto 0.0 0.0 - 0.4 X10*3/uL [facility] Basophils Absolute Auto 0.0 0.0 - 0.2 X10*3/uL [facility] NRBC Abs Auto 0.000 0.0 - 0.012 X10*3/uL [facility] 11/24/2022 2:09 PM EST 11/24/2022 2:18 PM EST [facility] External Provider LAB BLO OD ORDERABLES Final Result [facility] [address] [place] [address] [phone] documented in this encounter Visit Diagnoses Diagnosis Anxiety and depression- Primary documented in this encounter Care Teams Fire Extinguisher Tester Relationship Specialty Start Date End Date Mayela Welsh MD [address] [place] [phone] PCP - General Family Medicine 06/26/21 documented as of this encounter
--- OUTSIDE RECORDS SUMMARY | 2025-08-14 16:04 | XMS_ITS | Clinical Summary ---
Author Organization [facility] Address [address] [place] [address] Care Team Providers Care Scheduling Clerk Name Role Phone Unavailable Primary Care Provider [...] of sister and daughter. -DASH diet in monegasque added to pt instructions -exercise 30 mins [...] 73 08/12/2020 8:08 AM EDT Temperature 35.7 C (96.2 F) 08/08/2020 2:28 PM EDT Respiratory Rate 20 11/22/2019 11:43 AM EST [...] Vaccines (1 of 2) 1998 COVID-19 Vaccine (1 - 2023-2 5 season) 2025 Influenza Vaccine (#1) 2025 0, 11/02/2019, 10/26/2018 HPV Vaccines Aged Out No longer eligi ble based on patient's age to complete this topic Hepatitis A Vaccines Aged Out No long er eligible based on patient's age to complete this topic Meningococcal Vaccine Aged Out No jakob toshia eligible based on patient's age to complete this topic Insurance [facility] MEDICARE
--- OUTSIDE RECORDS SUMMARY | 2025-08-14 16:04 | XMS_ITS | Encounter Summary ---
Author Organization [employer] Address [address] [place] [address] 7t [place] [address] Care Team Providers Care Manager Market Research Name Role Phone Mayela Welsh MD Primary Care Provider Encounter Details Date Type Department Care Team (Late st Contact Info) Description 07/14/2023 Orders Only [facility] MEDICINE [address] [place] [address] Mayela [place] MD [address] [place] [address] Essential hypertension (Primary Dx); Prediabetes; Hypercholesterolemia Social [...] Description 09/17/2025 10:30 AM EST Office Visit [facility] ADULT DENTAL [address] [place] [address] Dk Andre DDS [address] [place] [address] documented as of this encounter Procedures Procedure Name Priority Date/Time Associated Diagnosis Comments LIPID PANEL WITH REFLEX TO DIRECT LDL Routine 08/17/2023 10:12 AM EDT Hypercholesterolemia HEMOGLOBIN A1C Routine 08/17/2023 10:12 AM EDT Prediabetes COMPREHENSIVE METABOLIC PANEL Routine 08/17/2023 10:12 AM EDT Essential hypertension documented in this encounter Results * Hemoglobin A1c (08/17/2023 10:12 AM EDT) Hemoglobin A1c 5.8 <6.0 % [facility] Comment:Hemoglobin A1C Refer ence Range Adults: 4.8 - 6.0 % Non diabetic: < 6.0 % Goal: < 7.0 %Additional Action Suggested: > 8.0 %Note: Hemoglobin A1c results are invalid for patients with abnormal amounts of HbF. Blood transfusions may impact the HbA1c concentration in the patient sample. Estimated Average Glucose 120 mg/dL [facility] Comment:eAG = Estimated ave rage glucose which is %A1C expressed asaverage glucose, using the formula of the H3I-[id number] Glucose study (ADAG), Diabetes Care, Vol.31,#8,Jun. 2007 Blood Venous blood specimen / Unknown 08/17/2023 10:12 AM EDT 08/17/2023 11:22 AM EDT us Mayela [place] MD LAB BLOOD ORDERABLES Final Resul t [facility] [address] [place] [phone] * (ABNORMAL) Lipid Panel with Reflex to Direct LDL (08/17/2023 10:12 AM EDT) Triglycerides 106 <150 mg/dL [facility] Comment:Desirable Triglyceri de: less than 150 mg/dLBorderline High Triglyceride 150-199 mg/dLHigh Triglyceride: 200-499 mg/dLVery High Triglyceride: greater than or equal to 5OO mg/dL Cholesterol 258(H) <200 mg/dL [facility] Comment:Desirable Cholestero l: less than 200 mg/dLBorderline High Cholesterol: 200-239 mg/dLHigh Cholesterol: greater than 239 mg/dL LDL Cholesterol Calculated 178(H) <100 mg/dL [facility] Comment:Desirable LDL: less than 100 mg/dLNear Optimal/Above Optimal LDL: 110- 129 mg/dLBorderline High LDL: 130-159 mg/dLHigh LDL: 160-189 mg/dLVery High LDL: greater than or equal to 190 mg/dL HDL Cholesterol 59 >40 mg/dL [facility] Comment:Desirable HDL: great er than 40 mg/dL Note: This HDL assay may give artificially low results in patients with liver disease. Blood 08/17/2023 10:1 2 AM EDT 08/17/2023 11:22 AM EDT us Mayela [place] MD LAB BLOOD ORDERABLES Final Resul t [facility] [address] [place] [phone] * (ABNORMAL) Comprehensive Metabolic Panel (08/17/2023 10:12 AM EDT) Sodium 145 135 - 145 mmol/L [facility] Potassium 4.9 3.3 - 5.1 mmol/L [facility] Chloride 110(H) 96 - 108 mmol/L [facility] Carbon Dioxide 28 22 - 29 mmol/L [facility] Anion Gap 12 12 - 20 [facility] Urea Nitrogen (BUN) 7(L) 9 - 16 mg/dL [facility] Creatinine, Serum 0.75 0.5 - 1.4 mg/dL [facility] Estimated Glomerular Filt Rate >60 [facility] Comment:NOTE: For -Am erican individuals, multiply the result by 1.210.Chronic Kidney Disease: Estimated GFR < 60 mL/min/1.82b5Peammb Kidney Disease: Estimated GFR < 15 mL/min/1.73m2 Glucose 92 60 - 115 mg/dL [facility] Calcium 9.5 8.4 - 10.2 mg/dL [facility] Bilirubin, Total 0.4 0.0 - 1.0 mg/dL [facility] Aspartate Amino Transferase 21 5 - 31 U/L [facility] Alanine Aminotransferase 14 0 - 31 U/L [facility] Total Protein 7.5 6.5 - 8.0 g/dL [facility] Albumin Level 4.5 3.5 - 5.0 g/dL [facility] Alkaline Phosphatase 80 39 - 117 U/L [facility] Blood Venous blood specimen / Unknown 08/17/2023 10:12 AM EDT 08/17/2023 11:22 AM EDT us Mayela [place] MD LAB BLOOD ORDERABLES Final Resul t [facility] [address] [place] [address] [phone] documented in this encounter Visit Diagnoses Diagnosis Essential hypertension- Primary Unspecified essential hypertension Prediabetes Other abnormal glucose Hypercholesterolemia Pure hypercholesterolemia documented in this encounter Additional Health Concerns Assessment Noted Time PHQ-9 Depression Total Score: 2 12/29/19 23 1:08 PM EST documented as of this encounter Care Teams Manager Market Research Relationship Specialty Start Date End Date Mayela [place] MD [address] [place] [address] PCP - General Family Medicine 06/26/21 documented as of this encounter
--- OUTSIDE RECORDS SUMMARY | 2025-08-14 16:04 | XMS_ITS | Encounter Summary ---
Author Organization [employer] Address [address] [facility] 7t [place] [address] Care Team Providers Care Instructional Technologist Name Role Phone Mayela Welsh MD Primary Care Provider [phone] Encounter Details Date Type Department Care Team (Late st Contact Info) Description 01/15/2025 Orders Only [facility] MEDICINE [address] [place], [place] [phone] Mayela [place] MD [address] [place], [place] [phone] Social History Tobacco Use Types Packs/Day Years [...] t he electric, gas, oil or water [facility] threatened to shut off services in your [...] Description 09/17/2025 10:30 AM EST Office Visit [facility] ADULT DENTAL [address] [place] [address] Dk Andre DDS [address] [place] [address] documented as of this encounter Visit Diagnoses Not on filedocumented in this encounter Additional Health Concerns Assessment Noted Time PHQ-9 Depression Total Score: 8 11/14/19 25 4:22 PM EST documented as of this encounter Care Teams Instructional Technologist Relationship Specialty Start Date End Date Mayela [place] MD [address] [place] [address] PCP - General Family Medicine 06/26/21 documented as of this encounter
--- OUTSIDE RECORDS SUMMARY | 2025-08-14 16:04 | XMS_ITS | Encounter Summary ---
Author Organization [employer] Address [address] [facility] 7t [place] [address] Care Team Providers Care Prototype Engineer Manager Name Role Phone Mayela [place] MD Primary Care Provider [phone] Encounter Details Date Type Department Care Team (Late st Contact Info) Description 04/11/2024 Orders Only [facility] ADULT DENTAL [address] [place] [address] Eden Noonan DDS [address] [place], [place] [phone] Social History Tobacco Use Types Packs/Day Years [...] Description 09/17/2025 10:30 AM EST Office Visit [facility] ADULT DENTAL [address] [place] [address] Dk Andre DDS [address] [place] [address] documented as of this encounter Visit Diagnoses Not on filedocumented in this encounter Additional Health Concerns Assessment Noted Time PHQ-9 Depression Total Score: 3 07/29/20 23 12:33 PM EDT documented as of this encounter Care Teams Prototype Engineer Manager Relationship Specialty Start Date End Date Mayela [place] MD [address] [place] [address] PCP - General Family Medicine 06/26/21 documented as of this encounter
--- OUTSIDE RECORDS SUMMARY | 2025-08-14 16:05 | XMS_ITS | Encounter Summary ---
Author Organization [employer] Address [address] [facility] 7t [place] [address] Care Team Providers Care Director Of Solutions Architecture Name Role Phone Mayela [place] MD Primary Care Provider [phone] Reason for Visit * Reason Onset Date Comments rs no show appt 11/23/2024 Encounter Details Date Type Department Care Team ([facility] st Contact Info) Description 11/23/2024 Telephone [facility] ADULT DENTAL [address] [place] [address] Codi, Barbie [address] [place] [address] rs no show appt Social History Tobacco [...] Description 09/17/2025 10:30 AM EST Office Visit [facility] ADULT DENTAL [address] [place] [address] Dk Andre DDS [address] [place] [address] documented as of this encounter Visit Diagnoses Not on filedocumented in this encounter Additional Health Concerns Assessment Noted Time PHQ-9 Depression Total Score: 8 11/14/19 25 4:22 PM EST documented as of this encounter Care Teams Director Of Solutions Architecture Relationship Specialty Start Date End Date Mayela [place] MD [address] [place] [address] PCP - General Family Medicine 06/26/21 documented as of this encounter
--- OUTSIDE RECORDS SUMMARY | 2025-08-14 16:05 | XMS_ITS | Encounter Summary ---
Author Organization [employer] Address [address] [facility] 7t [place] [address] Care Team Providers Care Avp Name Role Phone Mayela [place] MD Primary Care Provider [phone] Reason for Visit * Reason Onset Date Comments no show error 08/25/2024 Encounter Details Date Type Department Care Team (Late st Contact Info) Description 08/25/2024 Telephone [facility] ADULT DENTAL [address] [place] [address] Kinsey Moffett no show error Social History [...] Description 09/17/2025 10:30 AM EST Office Visit [facility] ADULT DENTAL [address] [place] [address] Dk Andre DDS [address] [place] [address] documented as of this encounter Visit Diagnoses Not on filedocumented in this encounter Additional Health Concerns Assessment Noted Time PHQ-9 Depression Total Score: 3 07/29/20 23 12:33 PM EDT documented as of this encounter Care Teams Avp Relationship Specialty Start Date End Date Mayela [place] MD [address] [place] [address] PCP - General Family Medicine 06/26/21 documented as of this encounter
--- OUTSIDE RECORDS SUMMARY | 2025-08-14 16:05 | XMS_ITS | Encounter Summary ---
Author Organization [employer] Address [address] [facility] 7t [place] [address] Care Team Providers Care Physician Assistant Certified Name Role Phone Mayela [place] MD Primary Care Provider [phone] Reason for Visit * Reason Comments Med Refill Encounter Details Date Type Department Care Team ([facility] st Contact Info) Description 09/04/2024 Refill [facility] MEDICINE [address] [place], [place] [phone] Mayela [place] MD [address] [place], [place] [phone] Social History Tobacco Use Types Packs/Day Years [...] Description 09/17/2025 10:30 AM EST Office Visit [facility] ADULT DENTAL [address] [place] [address] Dk Andre DDS [address] [place] [address] documented as of this encounter Visit Diagnoses Not on filedocumented in this encounter Additional Health Concerns Assessment Noted Time PHQ-9 Depression Total Score: 3 07/29/20 23 12:33 PM EDT documented as of this encounter Care Teams Physician Assistant Certified Relationship Specialty Start Date End Date Mayela [place] MD [address] [place] [address] PCP - General Family Medicine 06/26/21 documented as of this encounter
--- OUTSIDE RECORDS SUMMARY | 2025-08-14 16:05 | XMS_ITS | Encounter Summary ---
Author Organization [employer] Address [address] [place] [address] 7 [place] [address] Care Team Providers Care Basket Person Name Role Phone Mayela Welsh MD Primary Care Provider [phone] Reason for Visit * Reason Onset Date Comments Nurse Triage 08/13/2025 Encounter Details Date Type Department Care Team ([facility] st Contact Info) Description 08/13/2025 Telephone [facility] MEDICINE [address] [place] [address] Mayela Welsh MD [address] [place], [place] [phone] Nurse Triage Social History Tobacco Use Types Packs/Day Years [...] Telephone Encounter - Marci Kwan RN - 08/14/2025 2:14 PM EDT Pt walked into [facility] lobby stating she had a missed call. Pt reports leg is okay. Denies needing triaged. Pt wanting to discuss lab results from July. Informed no labs in July here. Ptdenies it being imaging or a referral. States received letting in mail with lab results. That were drawn in July. Pt can't remember what labs or who ordered. Pt states will go home and will look. Advised to call ordering provider office if it does not say it was from here. Pt agrees with plan. * Telephone Encounter - Catrina Duenas RN - 08/14/2025 1:33 PM EDT Received [facility] business operations director note stating that pt denied triage, feels fine, wanted to discuss lab results. Called pt x3, no answer, left voicemail to call back [facility]. * Telephone Encounter - Mckenzie Bliss RN - 08/13/2025 4:59 PM EDT [facility] No answer. left instructing pt to return call to office. * Telephone Encounter - Catrina Duenas RN - 08/13/2025 4:44 PM EDT Telephone call to pt via S [phone] [place], no answer, left voicemail to call back. Pt was referred to Dr Bailey on 07/26/25 for PAD. * Telephone Encounter - Ezequiel Schilling - 08/13/2025 4:04 PM EDT Symptom: Leg Pain - Not From Injury Outcome: Schedule an urgent appointment (within 1 hour) or talk to a nurse or provider soon Reason: Severe pain now The caller accepted this outcome. Pt is requesting a referral for her pain Contact pt at [phone] documented in this encounter Plan of Treatment Upcoming Encounters Date Type Department Care Team (Late st Contact Info) Description 09/17/2025 10:30 AM EST Office Visit [facility] ADULT DENTAL [address] [place] [address] Dk Andre DDS [address] [place] [address] documented as of this encounter Visit Diagnoses Not on filedocumented in this encounter Additional Health Concerns Assessment Noted Time PHQ-9 Depression Total Score: 8 11/14/19 25 4:22 PM EST documented as of this encounter Care Teams Basket Person Relationship Specialty Start Date End Date Mayela Welsh MD [address] [place] [address] PCP - General Family Medicine 06/26/21 documented as of this encounter
--- OUTSIDE RECORDS SUMMARY | 2025-08-14 16:05 | XMS_ITS | Clinical Summary ---
Author Organization [facility] it Address [address] [place] [address] Care Team Providers Care Infrastructure Design Engineer Name Role Phone Unavailable Primary Care Provider [...] 08/31/2023 2:07 PM EDT Plan of Treatment Upcoming Encounters Date Type Department Care Team (Late st Contact Info) Description 10/02/2025 3:00 PM EST Office Visit Orthopedic Surgery - [place] [address] [address] Hernando Bejarano, DPAlisa [address] [address] Health Maintenance Due Date Last Done Comments DTaP,Tdap,and Td Vaccines (1 - Tdap) 1967 Pneumococcal Vaccine: 50+ Years (1 of 1 - PCV) 1998 Zoster Vaccines (1 of 2) 1998 Falls Risk Assessment 10/11/2022 Hepatitis C Screening 10/11/2022 Medicare Annual Wellness Visit 10/11/2022 Osteoporosis Screening (Bone Density Screening) 10/11/2022 Social Influencers of Health Screening 10/11/2022 RSV Immunization Adult Patients (1 - 1-dose 75+ series) 2023 Depression Screening 11/01/2024 COVID-19 Vaccine (2023-2 5 season) 2025 Influenza Vaccine (#1) 2025 Breast Cancer Screening [...] Procedure Name Priority Date/Time Associated Diagnosis Comments [facility] SCREENING DIGITAL Routine 02/09/2022 6:56 PM EDT Encounter for screening mammogram for malignant neoplasm of breast from Last 3 Months or Most Recently Relevant to Health Maintenance Results * FADY SCREENING DIGITAL (02/09/2022 6:56 PM EDT) Anatomical Region Laterality Modality Mammography 02/09/2022 2:19 PM EDT Narrative 02/09/2022 6:56 PM EDT [facility] Diagnostic Imaging Department [address] [place] [address] Patient: APPLE VALENTIN /Age/Sex: 1950 - 71 - F Unit#: [id number] Location/Status: [facility] CLI Mnemonic/Ordering Site: [facility] Ordering Physician: MAYELA WELSH MD Fady Screening Digital - 02/09/22 - 1440 History: Bilateral breast cancer screening. Technique: Digital mammography. Conventional CC and MLO projections with tomosynthesis MLO views and computer aided detection. Comparison made with previous mammograms from [facility] 08/15/2020, dating back to 09/18/2010. Findings: Breast tissue consists of a heterogenous combination of fatty and fibroglandular tissue, potentially obscuring small lesions, category c density (as calculated by uniRowpara software). There are benign calcifications bilaterally. No suspicious group of microcalcification, suspicious mass, concerning focal asymmetry, architectural distortion or concerning change in breast density affecting either breast. Impression: No evidence of malignancy. BIRADS category 2; benign findings, 3342F 49699, 35905 A negative mammogram in the face of a clinically suspicious abnormality does not exclude the possibility of malignancy nor alter the indications for biopsy. Note: Patient information entered into a reminder system with a target due date for the next mammogram; PQRI II 7054F Dictating Physician: NEVILLE DC MD Electronically Signed by: NEVILLE DC MD Dic Date/Time: 02/09/221852 Sign date/Time: 02/09/221855 Procedure Note Neville Dc MD - 10/21/2022 [facility] Diagnostic Imaging Department [address] [place] [address] Patient: BRENDEN VALENTINOISA /Age/Sex: 1950 - 71 - F Unit#: [id number] Location/Status: SPDIMAM/REG CLI Mnemonic/Ordering Site: [facility] Ordering Physician: MAYELA WELSH MD Fady Screening Digital - 02/09/22 - 1440 History: Bilateral breast cancer screening. Technique: Digital mammography. Conventional CC and MLO projections with tomosynthesis MLO views and computer aided detection. Comparison [facility], dating back to 09/18/2010. Findings: Breast tissue consists of a heterogenous combination of fattyand fibroglandular tissue, potentially obscuring small lesions, category cdensity (as calculated by iReveal Volpara software). There are benign calcifications bilaterally. No suspicious group of microcalcification, suspicious mass, concerning focal asymmetry,architectural distortion or concerning change in breast density affecting eitherbreast. Impression: No evidence of malignancy. BIRADS category 2; benign findings, 3342F 34098, 59154 A negative mammogram in the face of a clinically suspicious abnormalitydoes not exclude the possibility of malignancy nor alter the indications forbiopsy. Note: Patient information entered into a reminder system with a targetdue date for the next mammogram; PQRI II 7002X Dictating Physician: NEVILLE DC MD Electronically Signed by: NEVILLE DC MD Dic Date/Time: 02/09/221852 Sign date/Time: 04/11/22 1856 Mayela Welsh MD IMG BI PROCEDURES Final Result from Last 3 Months or Most Recently Relevant to Health Maintenance Insurance MEDICAID - [place] MEDICARE
--- OUTSIDE RECORDS SUMMARY | 2025-08-14 16:05 | XMS_ITS | Encounter Summary ---
Author Organization [employer] Address [address] [facility] 7t [place] [address] Care Team Providers Care Computerized Table Cutter Name Role Phone Mayela Welsh MD Primary Care Provider [phone] Reason for Visit * Reason Comments Med Refill Encounter Details Date Type Department Care Team ([facility] st Contact Info) Description 08/27/2024 Refill [facility] MEDICINE [address] [place], [place] [phone] Mayela Welsh MD [address] [place], [place] [phone] Social History Tobacco Use Types Packs/Day Years [...] Description 09/17/2025 10:30 AM EST Office Visit [facility] ADULT DENTAL [address] [place] [address] Dk Andre DDS [address] [place] [address] documented as of this encounter Visit Diagnoses Not on filedocumented in this encounter Additional Health Concerns Assessment Noted Time PHQ-9 Depression Total Score: 3 07/29/20 23 12:33 PM EDT documented as of this encounter Care Teams Computerized Table Cutter Relationship Specialty Start Date End Date Mayela Welsh MD [address] [place] [address] PCP - General Family Medicine 06/26/21 documented as of this encounter
--- OUTSIDE RECORDS SUMMARY | 2025-08-14 16:05 | XMS_ITS | Encounter Summary ---
Author Organization [employer] Address [address] [facility] 7t [place] [address] Care Team Providers Care Web Development Manager Name Role Phone Mayela Welsh MD Primary Care Provider [phone] Reason for Visit * Reason Onset Date Comments Med Refill 08/07/2024 Encounter Details Date Type Department Care Team (Late st Contact Info) Description 08/07/2024 Telephone [facility] MEDICINE [address] [place], [place] [phone] Mayela Welsh MD [address] [place], [place] [phone] Med Refill Social History Tobacco Use Types [...] 1 MG tablet To be sent to: [id number] - [place], [place] - [address] [facility] documented in this encounter Plan of Treatment Upcoming Encounters Date Type Department Care Team (Late st Contact Info) Description 09/17/2025 10:30 AM EST Office Visit [facility] ADULT DENTAL [address] [place] [address] Dk Andre DDS [address] [place] [address] documented as of this encounter Visit Diagnoses Not on filedocumented in this encounter Additional Health Concerns Assessment Noted Time PHQ-9 Depression Total Score: 3 07/29/20 23 12:33 PM EDT documented as of this encounter Care Teams Web Development Manager Relationship Specialty Start Date End Date Mayela Welsh MD [address] [place] [address] PCP - General Family Medicine 06/26/21 documented as of this encounter
[2025-08-14 16:57] LABS: Alanine Aminotransferase 20 U/L (0-31); Albumin Level 4.6 g/dL (3.5-5.0); Alkaline Phosphatase 76 U/L (39-117); Anion Gap 11 (12-20); Aspartate Amino Transferase 25 U/L (5-31); Blood Urea Nitrogen 12 mg/dL (9-16); Calcium 9.8 mg/dL (8.4-10.2); Carbon Dioxide 30 mmol/L (22-29); Chloride 111 mmol/L (96-108); Cholesterol 205 mg/dL (<200); Estimated Glomerular Filt Rate > 60; HDL Cholesterol 57 mg/dL (>40); Potassium 4.5 mmol/L (3.3-5.1); Sodium 147 mmol/L (135-145); Total Protein 7.4 g/dL (6.5-8.0); Triglycerides 103 mg/dL (<150)
[2025-08-14 17:09] LABS: Reflex LDLD? No
== END 2025-08-14 13:16 | disposition home or self-care (01) ==
LOC: HO.HHCL 13:15
PROVIDERS: PCP Family Medicine; Visit Provider Family Medicine
DX: I10 Essential (primary) hypertension (principal); E78.00 Pure hypercholesterolemia, unspecified; R73.03 Prediabetes
CPT/HCPCS: 36415; 80053; 80061; 83036

== ENCOUNTER 2025-10-16 14:16 | Outpatient (AMB) | payer OTHER, SELFPAY ==
--- NOTE | 2025-10-16 14:26 | A.OFFVIS_ITS ---
Vital Signs 10/16/25 14:28 Height 5 ft 4 in Weight 148 lb 2.41 oz BMI 25.4 BP 120/62 Blood Pressure Location Lt brachial Position Sitting Pulse 68 Pulse Source Pulse Oximeter Intake Visit Reasons: 6m follow up Intake Note: 6 mth f/up Aws Architect Required: Yes Aws Architect Name: voyce/ belgian/ Accompanied by: Self / Same As Patient Allergies No Known Allergies Allergy (Verified 10/05/24 14:03) Medication List - Last Reconciled 10/16/25 by Sanju Nettles MD amlodipine 2.5 mg PO DAILY ascorbic acid (vitamin C) (Vitamin C) 1,000 mg PO DAILY cholecalciferol (vitamin D3) 25 mcg PO DAILY lisinopril 10 mg PO DAILY lorazepam 1 mg PO DAILY PRN metoprolol succinate ER 25 mg PO DAILY omega 6-mht-nom-fish oil 300-1,000 mg (Fish Oil) 1 cap PO DAILY rosuvastatin 40 mg PO DAILY 90 days scopolamine base (Transderm-Scop) 1 patch topical Q3D PRN HPI Comments Details: [employer] comes for follow-up. History was obtained with help of medical interpreter on the telephone in his room. Patient underwent a cardiac catheterization in the past and comes for follow up for the same. Patient continues to have these symptoms of chest discomfort radiating down to left arm with numbness. Discussed with her that the symptoms are not related to cardiac in origin given her nonobstructive CAD. She is not always taking her medications as prescribed. She takes medication as needed. She has not been taking her rosuvastatin on a regular basis. She had also not taking amlodipine on a regular basis. She has no exertional symptoms. No heart failure symptoms. [facility] Medical History Nonobstructive atherosclerosis of coronary artery Cataract HTN (hypertension) Chronic constipation Gastritis Epigastric pain History of high cholesterol History of Meniere's disease Surgical History S/P cardiac catheterization Hx of right cataract extraction History of esophagogastroduodenoscopy (EGD) Hx of colonoscopy Hx of tubal ligation Family History Father Pancreatic cancer Mother Heart disease Social History (Reviewed 10/16/25 @ 14:33 by Michelle Gay [facility]) Household Members: Children Household Members Other:: daughter Are you a primary care director to a significant other at home: No Do you presently have visiting nurse or other home services: No Alcohol intake: current Alcohol intake frequency: does not drink Patient Tobacco Use Status: Never used Tobacco Review of Systems Const Denies chills, Denies fatigue, Denies fever(s), Denies frequent falls, Denies weakness, Denies weight gain and Denies weight loss ENT Denies dizziness Card Denies chest pain, Denies leg edema, Denies lightheadedness, Denies palpitations, Denies dyspnea and Denies dyspnea on exertion Resp Denies cough, Denies dyspnea and Denies dyspnea on exertion GI Denies hematochezia Musc Denies abnormal gait, Denies muscle weakness, Denies numbness, Denies radiating pain into limb and Denies tingling Neuro Denies abnormal gait, Denies dizziness, Denies frequent falls, Denies numbness, Denies tingling and Denies weakness Endo Denies fatigue and Denies palpitations Physical Exam Vital Signs: Last Vital Signs Pulse 68 10/16/25 14:28 BP 120/62 10/16/25 14:28 BMI result Body Mass Index 25.4 Const General: cooperative, healthy appearing, comfortable and no acute distress Orientation/consciousness: patient oriented x3 Neck Neck: Yes normal visual inspection Resp Effort & Inspection: normal respiratory effort Auscultation: clear to auscultation bilaterally, no crackles, no rales, no rhonchi and no wheezes Cardio Jugular venous distension: no JVD Rate: regular rate Rhythm: regular rhythm Heart sounds: S1 normal heart sound present, S2 normal heart sound present, no murmurs and no rubs Neuro General: patient oriented x3 Extrem General: Yes normal to inspection Psych Appearance: grossly normal Mental Status: mental status grossly normal Speech and movement: Normal speech and movement present Assessment & Plan Assessment & Plan (1) Nonobstructive atherosclerosis of coronary artery: Code(s): I25.10 - Atherosclerotic heart disease of [place] coronary artery without angina pectoris Category: Medical Plan: Coronary artery disease with nonobstructive disease with moderate stenosis in and diffuse disease multiple coronary vessels. Her symptoms are not related to her coronary disease and this was discussed in details. Although she does have underlying coronary artery disease and that was discussed with her. She had difficulty understanding the difference in the concept. We discussed that due to presence of coronary disease she needs aggressive treatment with risk factor modification. Low-dose aspirin therapy is recommended. Also continue high- intensity statin therapy and target goal LDL should be less than 70 mg/dL. Importance of compliance with medication was discussed. Discussed that she can not decide to take or not take medication by herself but discussed with her providers. Also importance of regularly taking her blood pressure medication was discussed. Blood pressure is currently well optimized. Unsure as to what she is currently taking. Advised to call or office with med reconciliation. Will follow up in the clinic otherwise in 1 year's time, sooner PRN. Thank you for allowing me to partake in her care Coding Level of Care Code Est Pt Level 4 (02365) Diagnoses Nonobstructive atherosclerosis of coronary artery I25.10
[2025-10-16 14:28] VITALS: BP 120/62; PULSE 68; BMI 25.4
--- OUTSIDE RECORDS SUMMARY | 2025-10-16 18:31 | XMS_ITS | Encounter Summary ---
Author Organization [employer] Address [address] [facility] 7t [place] [address] Care Team Providers Care Relocation Commissioner Name Role Phone Mayela Welsh MD Primary Care Provider [phone] Encounter Details Date Type Department Care Team (Late st Contact Info) Description 04/11/2024 Orders Only [facility] ADULT DENTAL [address] [place] [address] Eden Noonan DDS [address] [place], [place] [phone] Social History Tobacco Use Types Packs/Day Years [...] Care Team (Late st Contact Info) Description 11/05/2025 3:45 PM EST Office Visit [facility] MEDICINE [address] [place] [address] Mayela Welsh MD [address] [place] [address] 11/09/2025 1:30 PM EST Office Visit [facility] ADULT DENTAL [address] [place] [address] Dk Andre DDS [address] [place] [address] documented as of this encounter Visit Diagnoses Not on filedocumented in this encounter Additional Health Concerns Assessment Noted Time PHQ-9 Depression Total Score: 3 07/29/20 23 12:33 PM EDT documented as of this encounter Care Teams Relocation Commissioner Relationship Specialty Start Date End Date Mayela Welsh MD [address] [place] [phone] PCP - General Family Medicine 06/26/21 documented as of this encounter
--- OUTSIDE RECORDS SUMMARY | 2025-10-16 18:31 | XMS_ITS | Encounter Summary ---
Author Organization [employer] Address [address] [facility] 7t [place] [address] Care Team Providers Care Cook Short Order Name Role Phone Mayela Welsh MD Primary Care Provider [phone] Encounter Details Date Type Department Care Team (Late st Contact Info) Description 01/15/2025 Orders Only [facility] MEDICINE 230 [place], [place] [phone] Mayela Welsh MD [address] [place], [place] [phone] Social History Tobacco Use Types Packs/Day Years [...] t he electric, gas, oil or water [employer] threatened to shut off services in your [...] Description 11/05/2025 3:45 PM EST Office Visit [facility] MEDICINE [address] [place] [address] Mayela Welsh MD [address] [place] [phone] 11/09/2025 1:30 PM EST Office Visit [facility] ADULT DENTAL [address] [place] [address] Dk Andre DDS [address] [place], [place] [phone] documented as of this encounter Visit Diagnoses Not on filedocumented in this encounter Additional Health Concerns Assessment Noted Time PHQ-9 Depression Total Score: 8 11/14/19 25 4:22 PM EST documented as of this encounter Care Teams Cook Short Order Relationship Specialty Start Date End Date Mayela Welsh MD [address] [place] [phone] PCP - General Family Medicine 06/26/21 documented as of this encounter
--- OUTSIDE RECORDS SUMMARY | 2025-10-16 18:31 | XMS_ITS | Encounter Summary ---
Author Organization [employer] Address [address] [place] [address] 7t [place] [address] Care Team Providers Care Hide Selector Name Role Phone Mayela Welsh MD Primary Care Provider [phone] Reason for Visit * Reason Comments Med Change Request Encounter Details Date Type Department Care Team ([facility] st Contact Info) Description 04/18/2025 Refill [facility] MEDICINE [address] [place], [place] [phone] Mayela Welsh MD 230 [place], [place] [phone] Social History Tobacco Use Types Packs/Day Years [...] Description 11/05/2025 3:45 PM EST Office Visit [facility] MEDICINE [address] [place] [address] Mayela Welsh MD [address] [place] [address] 11/09/2025 1:30 PM EST Office Visit [facility] ADULT DENTAL [address] [place] [address] Dk Andre DDS [address] [place] [address] documented as of this encounter Visit Diagnoses Not on filedocumented in this encounter Additional Health Concerns Assessment Noted Time PHQ-9 Depression Total Score: 8 11/14/19 25 4:22 PM EST documented as of this encounter Care Teams Hide Selector Relationship Specialty Start Date End Date Mayela Welsh MD [address] [place] [phone] PCP - General Family Medicine 06/26/21 documented as of this encounter
--- OUTSIDE RECORDS SUMMARY | 2025-10-16 18:31 | XMS_ITS | Encounter Summary ---
Author Organization [employer] Address [address] [place] [address] 7 [place] [address] Care Team Providers Care Bsa Officer Name Role Phone Mayela Welsh MD Primary Care Provider [phone] Reason for Visit * Reason Onset Date Comments triage 11/12/2022 Encounter Details Date Type Department Care Team ([facility] st Contact Info) Description 11/12/2022 Telephone [facility] MEDICINE [address] [place] [phone] Mayela Welsh MD [address] [place], [place] [phone] triage Social History Tobacco Use Types Packs/Day [...] Call to Pt x2 with [facility] [employer] Operator ID [id number]. Pt didn't answer left message. * Telephone Encounter - Jefffermín Sierra - 11/12/2022 2:10 PM EST Symptoms: Body Aches, Foot or Ankle Pain - Not From Injury Outcome: Schedule an urgent appointment (within 1 hour) or talk to a nurse or provider soon Reason: Severe pain now The caller accepted this outcome speaks divehi documented in this encounter Plan of Treatment Upcoming Encounters Date Type Department Care Team (Late st Contact Info) Description 11/05/2025 3:45 PM EST Office Visit [facility] MEDICINE [address] [place] [address] Mayela Welsh MD [address] [place] [address] 11/09/2025 1:30 PM EST Office Visit [facility] ADULT DENTAL [address] [place] [address] Dk Andre DDS [address] [place] [address] documented as of this encounter Visit Diagnoses Not on filedocumented in this encounter Care Teams Bsa Officer Relationship Specialty Start Date End Date Mayela Welsh MD [address] [place] [address] PCP - General Family Medicine 06/26/21 documented as of this encounter
--- OUTSIDE RECORDS SUMMARY | 2025-10-16 18:31 | XMS_ITS | Encounter Summary ---
Author Organization [employer] Address [address] [place] [address] 7t [place] [address] Care Team Providers Care Drafting Clerk Name Role Phone Mayela Welsh MD Primary Care Provider [phone] Reason for Referral * Imaging (Routine) - Closed Specialty Diagnoses / Procedures Referred By [place] gorman Referred To Contact Cardiology Diagnoses Claudication (CMS/HCC) PAD (peripheral artery disease) Procedures Vascular US lower extremity arterial duplex bilateral with complete Doppler Mayela Welsh MD [address] [place] [address] Phone: tel: fax: [facility] [address] [place] [phone] Phone: tel: fax: Referral ID Status Reason Start Date Expiration Date V isits Requested Visits Authorized [id number] Closed Perform Procedure 08/15/2025 08/15/2026 1 1 Encounter Details Date Type Department Care Team (Late st Contact Info) Description 08/15/2025 Orders Only [facility] MEDICINE [address] [place], [place] [phone] Mayela Welsh MD [address] [place], [place] [phone] Claudication (CMS/HCC) (Primary Dx); PAD (peripheral artery disease) Social History Tobacco Use Types Packs/Day Years [...] Description 11/05/2025 3:45 PM EST Office Visit [facility] MEDICINE [address] [place] [phone] Mayela Welsh MD [address] [place] [address] 11/09/2025 1:30 PM EST Office Visit [facility] ADULT DENTAL [address] [place] [address] Dk Andre DDS [address] [place] [address] documented as of this encounter Visit Diagnoses Diagnosis Claudication (CMS/HCC)- Primary Unspecified peripheral vascular disease PAD (peripheral artery disease) Unspecified peripheral vascular disease documented in this encounter Additional Health Concerns Assessment Noted Time PHQ-9 Depression Total Score: 8 11/14/19 25 4:22 PM EST documented as of this encounter Care Teams Drafting Clerk Relationship Specialty Start Date End Date Mayela Welsh MD [address] [place] [address] PCP - General Family Medicine 06/26/21 documented as of this encounter
--- OUTSIDE RECORDS SUMMARY | 2025-10-16 18:31 | XMS_ITS | Encounter Summary ---
Author Organization [employer] Address [address] [facility] 7t [place] [address] Care Team Providers Care Curator Zoological Museum Name Role Phone Mayela Welsh MD Primary Care Provider [phone] Encounter Details Date Type Department Care Team (Latest Contact Info) Description 08/15/2025 Results Follow-Up [facility] MEDICINE [address] [place] [address] Mayela Welsh MD [address] [place] [address] Lipid Panel with Reflex to Direct LDL, Comprehensive Metabolic Panel, Hemoglobin A1c Social History Tobacco Use Types Packs/Day Years [...] Description 11/05/2025 3:45 PM EST Office Visit [facility] MEDICINE [address] [place] [address] Mayela Welsh MD [address] [place] [address] 11/09/2025 1:30 PM EST Office Visit [facility] ADULT DENTAL [address] [place] [address] Dk Andre DDS [address] [place] [address] documented as of this encounter Visit Diagnoses Not on filedocumented in this encounter Additional Health Concerns Assessment Noted Time PHQ-9 Depression Total Score: 8 11/14/19 25 4:22 PM EST documented as of this encounter Care Teams Curator Zoological Museum Relationship Specialty Start Date End Date Mayela Welsh MD [address] [place] [address] [phone] PCP - General Family Medicine 06/26/21 documented as of this encounter
--- OUTSIDE RECORDS SUMMARY | 2025-10-16 18:31 | XMS_ITS | Encounter Summary ---
Author Organization [employer] Address 75 [facility] 7t [place] [address] Care Team Providers Care Artillery Or Naval Gunfire Observer Name Role Phone Mayela Welsh MD Primary Care Provider [phone] Reason for Visit * Reason Onset Date Comments medication clarification 03/31/2024 Encounter Details Date Type Department Care Team ([facility] st Contact Info) Description 03/31/2024 Telephone [facility] ADULT DENTAL [address] [place] [address] Dk Andre DDS [address] [place], [place] [phone] medication clarification Social History Tobacco Use Types [...] - 03/31/2024 10:19 AM EDT Maame from [facility] [place] called to clarify medication use. How many times a day the patientshould be using. They stated that they called 2 days ago and waiting for response. No message sent on PAR end. Unsure who they spoke to DR documented in this encounter Plan of Treatment Upcoming Encounters Date Type Department Care Team (Late st Contact Info) Description 11/05/2025 3:45 PM EST Office Visit [facility] MEDICINE [address] [place] [address] Mayela Welsh MD 230 [place] [address] 11/09/2025 1:30 PM EST Office Visit [facility] ADULT DENTAL [address] [place] [address] Dk Andre DDS [address] [place] [address] documented as of this encounter Visit Diagnoses Not on filedocumented in this encounter Additional Health Concerns Assessment Noted Time PHQ-9 Depression Total Score: 3 07/29/20 23 12:33 PM EDT documented as of this encounter Care Teams Artillery Or Naval Gunfire Observer Relationship Specialty Start Date End Date Mayela Welsh MD [address] [place] [address] PCP - General Family Medicine 06/26/21 documented as of this encounter
--- OUTSIDE RECORDS SUMMARY | 2025-10-16 18:31 | XMS_ITS | Clinical Summary ---
Author Organization [facility] Address [address] [place] [address] Care Team Providers Care Tank Car Mechanic Name Role Phone Unavailable Primary Care Provider [...] of sister and daughter. -DASH diet in mozambican added to pt instructions -exercise 30 mins [...] of 2) 1998 COVID-19 Vaccine (1 - 2024-2 6 season) 2025 Influenza Vaccine (#1) 2025 0, 11/02/2019, 10/26/2018 HPV Vaccines Aged Out No longer eligi ble based on patient's age to complete this topic Hepatitis A Vaccines Aged Out No long er eligible based on patient's age to complete this topic Meningococcal Vaccine Aged Out No jakob toshia eligible based on patient's age to complete this topic Insurance [facility] [place] [address]
--- OUTSIDE RECORDS SUMMARY | 2025-10-16 18:31 | XMS_ITS | Encounter Summary ---
Author Organization [facility] [employer] Address 75 [facility] 7t [place] [address] Care Team Providers Care Home Theater Expert Name Role Phone Mayela Welsh MD Primary Care Provider [phone] Reason for Visit * Reason Comments Med Refill Encounter Details Date Type Department Care Team ([facility] st Contact Info) Description 08/27/2024 Refill [facility] MEDICINE [address] [place], [place] [phone] Mayela Welsh MD [address] [place], [place] [phone] Social History Tobacco Use Types Packs/Day Years Used Date Smoking Tobacco: Never Passive Smoke Exposure: Never Smokeless Tobacco: Never Depression Answer Date Recorded Patient Health Questionnaire-9 Score 3 07/29/2023 Housing Stability Answer Date Recorded What is your housing situation today? I have randi lmi 08/16/[address] you li [...] Description 11/05/2025 3:45 PM EST Office Visit [facility] MEDICINE [address] [place] [address] Mayela Welsh MD [address] [place] [address] 11/09/2025 1:30 PM EST Office Visit [facility] ADULT DENTAL [address] [place] [address] Dk Andre DDS [address] [place] [address] documented as of this encounter Visit Diagnoses Not on filedocumented in this encounter Additional Health Concerns Assessment Noted Time PHQ-9 Depression Total Score: 3 07/29/20 23 12:33 PM EDT documented as of this encounter Care Teams Home Theater Expert Relationship Specialty Start Date End Date Mayela Welsh MD [address] [place] [address] [phone] PCP - General Family Medicine 06/26/21 documented as of this encounter
--- OUTSIDE RECORDS SUMMARY | 2025-10-16 18:31 | XMS_ITS | Clinical Summary ---
Author Organization [facility] Address [address] [place] [address] Phone Care Team Providers Care Enrollment Advisor Name Role Phone Unavailable Primary Care Provider [...] on file Sexual Orientation Not on file Last Filed Vital Signs [...] series) 2023 Depression Screening 11/01/2024 COVID-19 Vaccine (2024-2 6 season) 2025 Influenza Vaccine (#1) 2025 Breast [...] Procedure Name Priority Date/Time Associated Diagnosis Comments [facility] SCREENING DIGITAL Routine 02/09/2022 6:56 PM EDT Encounter for screening mammogram for malignant neoplasm of breast from Last 3 Months or Most Recently Relevant to Health Maintenance Results * [facility] SCREENING DIGITAL (02/09/2022 6:56 PM EDT) Anatomical Region Laterality Modality Mammography 02/09/2022 2:19 PM EDT Narrative 02/09/2022 6:56 PM EDT [facility] Diagnostic Imaging Department [address] [place] [address] [id number] Patient: APPLE VALENTIN /Age/Sex: 1950 - 71 - F Unit#: [id number] [facility] Ordering Physician: JEWELL WELSH MD Fady Screening Digital - 02/09/22 - 1440 History: Bilateral breast cancer screening. Technique: Digital mammography. Conventional CC and MLO projections with tomosynthesis MLO views and computer aided detection. Comparison made with previous mammograms from [facility] 08/15/2020, dating back to 09/18/2010. Findings: Breast tissue consists of a heterogenous combination of fatty and fibroglandular tissue, potentially obscuring small lesions, category c density (as calculated by [employer]Works[employer] software). There are benign calcifications bilaterally. No suspicious group of microcalcification, suspicious mass, concerning focal asymmetry, architectural distortion or concerning change in breast density affecting either breast. Impression: No evidence of malignancy. BIRADS category 2; benign findings, 3342F 11749, 18566 A negative mammogram in the face of a clinically suspicious abnormality does not exclude the possibility of malignancy nor alter the indications for biopsy. Note: Patient information entered into a reminder system with a target due date for the next mammogram; PQRI II [id number] Dictating Physician: NEVILLE DC MD Electronically Signed by: NEVILLE DC MD Dic Date/Time: 02/09/221852 Sign date/Time: 02/09/221855 Procedure Note Neville Dc MD - 10/21/2022 [facility] Diagnostic Imaging Department [address] [place] [address] Patient: APPLE VALENTIN/Age/Sex: 1950 - 71 - F Unit#: [id number] Location/Status: [facility]/REG CLI Mnemonic/Ordering Site: [facility] Ordering Physician: JEWELL WELSH MD Fady Screening Digital - 02/09/22 - 1440 History: Bilateral breast cancer screening. Technique: Digital mammography. Conventional CC and MLO projections with tomosynthesis MLO views and computer aided detection. Comparison made with previous mammograms from [facility], dating back to 09/18/2010. Findings: Breast tissue consists of a heterogenous combination of fattyand fibroglandular tissue, potentially obscuring small lesions, category cdensity (as calculated by [employer] software). There are benign calcifications bilaterally. No suspicious group of microcalcification, suspicious mass, concerning focal asymmetry,architectural distortion or concerning change in breast density affecting eitherbreast. Impression: No evidence of malignancy. BIRADS category 2; benign findings, 3342F 15761, 73586 A negative mammogram in the face of [...]
--- OUTSIDE RECORDS SUMMARY | 2025-10-16 18:31 | XMS_ITS | Encounter Summary ---
Author Organization [employer] Address [address] [facility] 7t [place] [address] Care Team Providers Care Newswriter Name Role Phone Mayela Welsh MD Primary Care Provider [phone] Encounter Details Date Type Department Care Team (Late st Contact Info) Description 02/05/2025 Orders Only [facility] MEDICINE [address] [place], [place] [phone] Aline Mo NP [address] [place] [address] Acute pain of left shoulder (Primary Dx) [...] Description 11/05/2025 3:45 PM EST Office Visit [facility] MEDICINE [address] [place] [address] Mayela Welsh MD [address] [place] [address] 11/09/2025 1:30 PM EST Office Visit [facility] ADULT DENTAL [address] [place] [address] Dk Andre DDS [address] [place] [address] documented as of this encounter Procedures Procedure Name Priority Date/Time Associated Diagnosis Comments XR SHOULDER 2+ VIEWS LEFT Routine 02/05/2025 3:08 PM EDT Acute pain of left shoulder documented in this encounter Results * XR Shoulder 2+ Views Left (02/05/2025 3:08 PM EDT) Anatomical Region Laterality Modality Upper Extremities, Shoulder Left Radi ographic Imaging 02/05/2025 3:08 PM EDT Narrative 02/06/2025 12:01 PM EDT [facility] [address] [place] [address] XRay Report Signed Patient: Apple Recio MR#: [id number] 762 : 1950 Acct:[id number] Age/Sex: 74 / F ADM Date: 02/05/25 Loc: HO.XRAY Attending Dr: Mayela Welsh MD Ordering Physician: Aline Mo Date of Service: 02/05/25 Procedure(s): XR shoulder LT min 2V Accession Number(s): [id number] cc: Evelyn Mo Nao MD EXAMINATION: XR [...] 02/06/25 1157 DD/ 1508 TD/TT: 02/05/25 1515 Catalyst Unit Operator: Procedure Note Donotuseinterpreter, Image - 02/06/[address] [address] XRay Report Signed Patient: Florinda Recio#: [id number] 762 : 9Acct:[id number] Age/Sex: 74 / FADM Date: 02/05/25 Loc: HO.XRAY Attending Dr: Mayela Welsh MD Ordering Physician: lAine Mo Date of Service: 02/05/25 Procedure(s): XR shoulder LT min 2V Accession Number(s): [id number] cc: Evelyn Mo Nao MD EXAMINATION: XR [...] 02/06/25 1157 DD/ 1508 TD/TT: 02/05/25 1515 Catalyst Unit Operator: [facility] Porfirio TIRE MOUNTER IMG XR PROCEDURES Final Result documented in this encounter Visit Diagnoses Diagnosis Acute pain of left shoulder- Primary documented in this encounter Additional Health Concerns Assessment Noted Time PHQ-9 Depression Total Score: 8 11/14/19 25 4:22 PM EST documented as of this encounter Care Teams Newswriter Relationship Specialty Start Date End Date Mayela Welsh MD [address] [place] [address] PCP - General Family Medicine 06/26/21 documented as of this encounter
--- OUTSIDE RECORDS SUMMARY | 2025-10-16 18:31 | XMS_ITS | Encounter Summary ---
Author Organization [employer] Address 75 [facility] 7t [place] [address] Care Team Providers Care Retail Service Technician Name Role Phone Mayela Welsh MD Primary Care Provider [phone] Reason for Visit * Reason Onset Date Comments rs no show appt 11/23/2024 Encounter Details Date Type Department Care Team ([facility] st Contact Info) Description 11/23/2024 Telephone [facility] ADULT DENTAL [address] [place] [address] Codi, Barbie [address] [place] [address] rs no show appt Social History Tobacco [...] Visit [facility] MEDICINE [address] [place] [address] Mayela Welsh MD 230 [place] [address] 11/09/2025 1:30 PM EST Office Visit [facility] ADULT DENTAL [address] [place] [address] Dk Andre DDS [address] [place] [address] documented as of this encounter Visit Diagnoses Not on filedocumented in this encounter Additional Health Concerns Assessment Noted Time PHQ-9 Depression Total Score: 8 11/14/19 25 4:22 PM EST documented as of this encounter Care Teams Retail Service Technician Relationship Specialty Start Date End Date Mayela Welsh MD [address] [place] [address] PCP - General Family Medicine 06/26/21 documented as of this encounter
--- OUTSIDE RECORDS SUMMARY | 2025-10-16 18:31 | XMS_ITS | Encounter Summary ---
Author Organization [employer] Address [address] [place] [address] 7t [place] [address] Care Team Providers Care Test Manager Name Role Phone Mayela Welsh MD Primary Care Provider [phone] Reason for Visit * Reason Comments Med Refill Encounter Details Date Type Department Care Team ([facility] st Contact Info) Description 03/03/2025 Refill [facility] MEDICINE 230 [place], [place] [phone] Mayela Welsh MD [address] [place], [place] [phone] Social History Tobacco Use Types Packs/Day Years [...] 3:45 PM EST Office Visit [facility] MEDICINE [address] [place] [address] Mayela Welsh MD 230 [place] [address] 11/09/2025 1:30 PM EST Office Visit [facility] ADULT DENTAL [address] [place] [address] Dk Andre DDS [address] [place] [address] documented as of this encounter Visit Diagnoses Not on filedocumented in this encounter Additional Health Concerns Assessment Noted Time PHQ-9 Depression Total Score: 8 11/14/19 25 4:22 PM EST documented as of this encounter Care Teams Test Manager Relationship Specialty Start Date End Date Mayela Welsh MD [address] [place] [phone] PCP - General Family Medicine 06/26/21 documented as of this encounter
--- OUTSIDE RECORDS SUMMARY | 2025-10-16 18:31 | XMS_ITS | Encounter Summary ---
Author Organization [employer] Address 75 [facility] 7t [place] [address] Care Team Providers Care Manager Software Development Name Role Phone Mayela Welsh MD Primary Care Provider [phone] Reason for Visit * Reason Onset Date Comments Med Refill 08/07/2024 Encounter Details Date Type Department Care Team (Late st Contact Info) Description 08/07/2024 Telephone [facility] [address] [place], [place] [phone] Mayela Welsh MD [address] [place], [place] [phone] Med Refill Social History Tobacco Use Types [...] 1 MG tablet To be sent to: [id number] - [place], [place] - [address] [facility] documented in this encounter Plan of Treatment Upcoming Encounters Date Type Department Care Team (Late st Contact Info) Description 11/05/2025 3:45 PM EST Office Visit [facility] [address] [place] [address] Mayela Welsh MD [address] [place] [address] 11/09/2025 1:30 PM EST Office Visit [facility] ADULT DENTAL [address] [place] [address] Dk Andre DDS [address] [place] [address] documented as of this encounter Visit Diagnoses Not on filedocumented in this encounter Additional Health Concerns Assessment Noted Time PHQ-9 Depression Total Score: 3 07/29/20 23 12:33 PM EDT documented as of this encounter Care Teams Manager Software Development Relationship Specialty Start Date End Date Mayela Welsh MD [address] [place] [address] PCP - General Family Medicine 06/26/21 documented as of this encounter
--- OUTSIDE RECORDS SUMMARY | 2025-10-16 18:31 | XMS_ITS | Clinical Summary ---
Author Organization [facility] Address [address] [address] Phone Care Team Providers Care Crystal Slicer Name Role Phone Brielle Up Primary Care Provider [phone] Allergies No known active allergies Medications LORazepam [...] REPLACEMENT MEDICARE REPLACEMENT MEDICARE REPLACEMENT MEDICARE REPLACEMENT [facility] MEDICARE REPLACEMENT Care Teams Crystal Slicer Relationship Specialty Start Date End Date Brielle Up DO [address] [address] PCP - General Internal Medicine 02/28/19 Additional Source Comments The information contained in this document represents components of the legal health record. It is not the complete legal health record.[facility]
--- OUTSIDE RECORDS SUMMARY | 2025-10-16 18:31 | XMS_ITS | Encounter Summary ---
Author Organization [employer] Address [address] [facility] 7t [place] [address] Care Team Providers Care Glass Cutter Helper Name Role Phone Mayela Welsh MD Primary Care Provider [phone] Reason for Visit * Reason Comments Med Refill Encounter Details Date Type Department Care Team ([facility] st Contact Info) Description 04/30/2024 Refill [facility] [address] [place], [place] [phone] Mayela Welsh MD [address] [place], [place] [phone] Meniere's disease, unspecified laterality Social History Tobacco [...] EST Office Visit [facility] [address] [place] [address] Mayela Welsh MD [address] [place] [address] 11/09/2025 1:30 PM EST Office Visit [facility] ADULT DENTAL [address] [place] [address] Dk Andre DDS [address] [place] [address] documented as of this encounter Visit Diagnoses Diagnosis Meniere's disease, unspecified laterality documented in this encounter Additional Health Concerns Assessment Noted Time PHQ-9 Depression Total Score: 3 07/29/20 23 12:33 PM EDT documented as of this encounter Care Teams Glass Cutter Helper Relationship Specialty Start Date End Date Mayela Welsh MD [address] [place] [address] PCP - General Family Medicine 06/26/21 documented as of this encounter
--- OUTSIDE RECORDS SUMMARY | 2025-10-16 18:31 | XMS_ITS | Encounter Summary ---
Author Organization [employer] Address [address] [place] [address] 7 [place] [address] Care Team Providers Care Computer Lab Para Professional Name Role Phone Mayela Welsh MD Primary Care Provider [phone] Encounter Details Date Type Department Care Team (Late st Contact Info) Description 11/03/2022 Abstract [facility] MEDICINE [address] [place] [phone] Mayela Welsh MD [address] [place] [address] [phone] Social History Tobacco Use Types Packs/Day Years [...] Description 11/05/2025 3:45 PM EST Office Visit [facility] MEDICINE [address] [place] [phone] Mayela Welsh MD [address] [place] [address] [phone] 11/09/2025 1:30 PM EST Office Visit [facility] ADULT DENTAL [address] [place], [place] [phone] Dk Andre DDS [address] [place], [place] [phone] documented as of this encounter Visit Diagnoses Not on filedocumented in this encounter Care Teams Computer Lab Para Professional Relationship Specialty Start Date End Date Mayela Welsh MD [address] [place], [place] [phone] PCP - General Family Medicine 06/26/21 documented as of this encounter
--- OUTSIDE RECORDS SUMMARY | 2025-10-16 18:31 | XMS_ITS | Encounter Summary ---
Author Organization [facility] Address [address] [place] [address] Care Team Providers Care Rn Camp Name Role Phone Teresa Onofre DO Primary Care Provider [phone] Encounter Details Date Type Department Care Team (Late st Contact Info) Description 09/19/2020 Orders Only [facility] Department of Internal Medicine [address] [place] [address] Teresa Onofre DO [address] [place] [address] Social History Tobacco Use Types Packs/Day Years [...] on filedocumented in this encounter Care Teams Rn Camp Relationship Specialty Start Date End Date Teresa Onofre DO [address] [place] [address] PCP - General Internal Medicine 10/26/18 02/26/21 documented as of this encounter
--- OUTSIDE RECORDS SUMMARY | 2025-10-16 18:31 | XMS_ITS | Encounter Summary ---
Author Organization [employer] Address [address] [place] [address] 7 [place] [address] Care Team Providers Care Design Quality Engineer Name Role Phone Mayela Welsh MD Primary Care Provider [phone] Encounter Details Date Type Department Care Team (Late st Contact Info) Description 07/14/2023 Orders Only [facility] [address] [place] [phone] Mayela Welsh MD [address] [place] [address] [phone] Essential hypertension (Primary Dx); Prediabetes; Hypercholesterolemia Social [...] Description 11/05/2025 3:45 PM EST Office Visit [facility] [address] [place] [phone] Mayela Welsh MD [address] [place] [address] [phone] 11/09/2025 1:30 PM EST Office Visit [facility] ADULT DENTAL [address] [place] [address] [phone] Dk Andre DDS [address] [place], [place] [phone] documented as of this encounter Procedures Procedure Name Priority Date/Time Associated Diagnosis Comments LIPID PANEL WITH REFLEX TO DIRECT LDL Routine 08/17/2023 10:12 AM EDT Hypercholesterolemia HEMOGLOBIN A1C Routine 08/17/2023 10:12 AM EDT Prediabetes COMPREHENSIVE METABOLIC PANEL Routine 08/17/2023 10:12 AM EDT Essential hypertension documented in this encounter Results * Hemoglobin A1c (08/17/2023 10:12 AM EDT) Hemoglobin A1c 5.8 <6.0 % [facility] Comment:Hemoglobin A1C Refer ence Range Adults: 4.8 - 6.0 % Non diabetic: < 6.0 % Goal: < 7.0 %Additional Action Suggested: > 8.0 %Note: Hemoglobin A1c results are invalid for patients with abnormal amounts of HbF. Blood transfusions may impact the HbA1c concentration in the patient sample. Estimated Average Glucose 120 mg/dL [facility] Comment:eAG = Estimated ave rage glucose which is %A1C expressed asaverage glucose, using the formula of the K2V-YthwtxdOqwolnn Glucose study (ADAG), Diabetes Care, Vol.31,#8,Aug. 2007 Blood Venous blood specimen / Unknown 08/17/2023 10:12 AM EDT 08/17/2023 11:22 AM EDT us Mayela Welsh MD LAB BLOOD ORDERABLES Final Resul t [facility] [address] [place] [phone] * (ABNORMAL) Lipid Panel with Reflex to Direct LDL (08/17/2023 10:12 AM EDT) Triglycerides 106 <150 mg/dL [facility] Comment:Desirable Triglyceri de: less than 150 mg/dLBorderline High Triglyceride 150-199 mg/dLHigh Triglyceride: 200-499 mg/dLVery High Triglyceride: greater than or equal to 5OO mg/dL Cholesterol 258(H) <200 mg/dL [facility] Comment:Desirable Cholestero l: less than 200 mg/dLBorderline High Cholesterol: 200-239 mg/dLHigh Cholesterol: greater than 239 mg/dL LDL Cholesterol Calculated 178(H) <100 mg/dL [facility] Comment:Desirable LDL: less than 100 mg/dLNear Optimal/Above Optimal LDL: 110- 129 mg/dLBorderline High LDL: 130-159 mg/dLHigh LDL: 160-189 mg/dLVery High LDL: greater than or equal to 190 mg/dL HDL Cholesterol 59 >40 mg/dL [facility] Comment:Desirable HDL: great er than 40 mg/dL Note: This HDL assay may give artificially low results in patients with liver disease. Blood 08/17/2023 10:1 2 AM EDT 08/17/2023 11:22 AM EDT us Mayela Welsh MD LAB BLOOD ORDERABLES Final Resul t [facility] [address] [place] [phone] * (ABNORMAL) Comprehensive Metabolic Panel (08/17/2023 10:12 AM EDT) Sodium 145 135 - 145 mmol/L [facility] Potassium 4.9 3.3 - 5.1 mmol/L [facility] Chloride 110(H) 96 - 108 mmol/L [facility] Carbon Dioxide 28 22 - 29 mmol/L [facility] Anion Gap 12 12 - 20 [facility] Urea Nitrogen (BUN) 7(L) 9 - 16 mg/dL [facility] Creatinine, Serum 0.75 0.5 - 1.4 mg/dL [facility] Estimated Glomerular Filt Rate >60 [facility] Comment:NOTE: For -Am erican individuals, multiply the result by 1.210.Chronic Kidney Disease: Estimated GFR < 60 mL/min/1.67g8Kyhkpa Kidney Disease: Estimated GFR < 15 mL/min/1.73m2 Glucose 92 60 - 115 mg/dL [facility] Calcium 9.5 8.4 - 10.2 mg/dL [facility] Bilirubin, Total 0.4 0.0 - 1.0 mg/dL [facility] Aspartate Amino Transferase 21 5 - 31 U/L [facility] Alanine Aminotransferase 14 0 - 31 U/L [facility] Total Protein 7.5 6.5 - 8.0 g/dL [facility] Albumin Level 4.5 3.5 - 5.0 g/dL [facility] Alkaline Phosphatase 80 39 - 117 U/L [facility] Blood Venous blood specimen / Unknown 08/17/2023 10:12 AM EDT 08/17/2023 11:22 AM EDT us Mayela Welsh MD LAB BLOOD ORDERABLES Final Resul t Performing Organization Address City/State/[facility] Co de Phone Number [facility] [address] [place] [phone] documented in this encounter Visit Diagnoses Diagnosis Essential hypertension- Primary Unspecified essential hypertension Prediabetes Other abnormal glucose Hypercholesterolemia Pure hypercholesterolemia documented in this encounter Additional Health Concerns Assessment Noted Time PHQ-9 Depression Total Score: 2 12/29/19 23 1:08 PM EST documented as of this encounter Care Teams Design Quality Engineer Relationship Specialty Start Date End Date Mayela Welsh MD [address] [place] [phone] PCP - General Family Medicine 06/26/21 documented as of this encounter
--- OUTSIDE RECORDS SUMMARY | 2025-10-16 18:31 | XMS_ITS | Encounter Summary ---
Author Organization [employer] Address [address] [facility] 7t [place] [address] Care Team Providers Care Product Planner Name Role Phone Mayela Welsh MD Primary Care Provider [phone] Reason for Visit * Reason Onset Date Comments no show error 08/25/2024 Encounter Details Date Type Department Care Team (Late st Contact Info) Description 08/25/2024 Telephone [facility] ADULT DENTAL [address] [place] [address] Kinsey Moffett no show error Social History [...] Description 11/05/2025 3:45 PM EST Office Visit [facility] MED[facility]INE [address] [place] [address] Mayela Welsh MD [address] [place] [address] 11/09/2025 1:30 PM EST Office Visit [facility] ADULT DENTAL [address] [place] [address] Dk Andre DDS [address] [place] [address] documented as of this encounter Visit Diagnoses Not on filedocumented in this encounter Additional Health Concerns Assessment Noted Time PHQ-9 Depression Total Score: 3 07/29/20 23 12:33 PM EDT documented as of this encounter Care Teams Product Planner Relationship Specialty Start Date End Date Mayela Welsh MD [address] [place] [address] PCP - General Family Medicine 06/26/21 documented as of this encounter
--- OUTSIDE RECORDS SUMMARY | 2025-10-16 18:31 | XMS_ITS | Encounter Summary ---
Author Organization [employer] Address [address] [facility] 7t [place] [address] Care Team Providers Care Technical Sales Manager Name Role Phone Mayela Welsh MD Primary Care Provider Reason for Visit * Reason Comments Med Refill Encounter Details Date Type Department Care Team ([facility] st Contact Info) Description 09/04/2024 Refill [facility] [address] [place], [place] [phone] Mayela Welsh MD [address] [place], [place] [phone] Social History Tobacco Use Types Packs/Day Years [...] Description 11/05/2025 3:45 PM EST Office Visit [facility] [address] [place] [address] Mayela Welsh MD [address] [place] [address] 11/09/2025 1:30 PM EST Office Visit [facility] ADULT DENTAL [address] [place] [address] Dk Andre DDS [address] [place] [address] documented as of this encounter Visit Diagnoses Not on filedocumented in this encounter Additional Health Concerns Assessment Noted Time PHQ-9 Depression Total Score: 3 07/29/20 23 12:33 PM EDT documented as of this encounter Care Teams Technical Sales Manager Relationship Specialty Start Date End Date Mayela Welsh MD [address] [place] [address] [phone] PCP - General Family Medicine 06/26/21 documented as of this encounter
--- OUTSIDE RECORDS SUMMARY | 2025-10-16 18:31 | XMS_ITS | Encounter Summary ---
Author Organization [employer] Address [address] [facility] 7t [place] [address] Care Team Providers Care Manager Intermediate Name Role Phone Mayela Welsh MD Primary Care Provider [phone] Encounter Details Date Type Department Care Team (Late st Contact Info) Description 04/17/2025 Orders Only [facility] MED[facility]INE [address] [place], [place] [phone] Mayela Welsh MD [address] [place], [place] [phone] Meniere's disease, unspecified laterality Social History Tobacco [...] Description 11/05/2025 3:45 PM EST Office Visit [facility] [address] [place] [phone] Mayela Welsh MD [address] [place] [phone] 11/09/2025 1:30 PM EST Office Visit [facility] ADULT DENTAL [address] [place] [address] Dk Andre DDS [address] [place] [address] documented as of this encounter Visit Diagnoses Diagnosis Meniere's disease, unspecified laterality documented in this encounter Additional Health Concerns Assessment Noted Time PHQ-9 Depression Total Score: 8 11/14/19 25 4:22 PM EST documented as of this encounter Care Teams Manager Intermediate Relationship Specialty Start Date End Date Mayela Welsh MD [address] [place] [address] [phone] PCP - General Family Medicine 06/26/21 documented as of this encounter
--- OUTSIDE RECORDS SUMMARY | 2025-10-16 18:31 | XMS_ITS | Clinical Summary ---
Author Organization [employer] Address [address] [facility] 7t [place] [address] Care Team Providers Care Data Center Technician Name Role Phone Mayela Welsh MD Primary Care Provider [phone] Allergies No known active allergies Medications * This document contains information received from the source organization and may not represent a complete record from that organization. Blood Pressure Monitoring (Blood Pressure Kit) kitIndications:E ssential hypertension Check blood pressure every morning and as needed. Dx hypertension 1 kit 4 Active metoprolol succinate XL (Toprol-XL) 25 MG [...] MINUTE PERIOD 25 tablet 1 4 Active cholecalciferol (Vitamin D3) 25 MCG (1000 UT) tablet Take 1 tablet (25 mcg) by mouth in the morning. 90 tablet 3 5 Active acetaminophen (Tylenol Extra Strength) 500 MG tablet Take 1 or 2 tablets every 8 hours as needed for pain or fever. 90 tablet 1 5 Active amLODIPine (Norvasc) 2.5 MG tablet TOME 1 TABLETA POR V A ORAL TODOS LOS D 5 Active rosuvastatin (Crestor) 40 MG tablet Take 1 tablet by mouth Once per day. 5 Active LORazepam (Ativan) 1 MG tabletIndication s:Meniere's disease, unspecified laterality Take 1 tablet (1 mg) by mouth if needed each day for anxiety. 20 tablet 1 5 Active scopolamine (Transderm-Scop) 1 MG/3DAYS patch 72 hour APPLY 1 PATCH DETRAS CORBIN OIDO 4 HOURS BEFORE DE NECESARIO. CHANGE EVERY 3 DAYS NEEDED 10 patch 3 5 Active lisinopril 10 MG tablet TAKE 1 [...] life style modifications - continue following with [facility] Cardiology Assessment & Plan (05/12/2025 7:49 AM [...] life style modifications - continue following with [facility] Cardiology Assessment & Plan (03/04/2025 12:44 PM [...] life style modifications - continue following with [facility] Cardiology Assessment & Plan (11/20/2024 6:33 PM [...] life style modifications - continue following with [facility] Cardiology PAD (peripheral artery disease) 08/20/2024 Assessment [...] risk is 25% - she is seeing [facility] Cardiology for chest pain and is scheduled for stress test and echo - continue working on lifestyle modification - continue statin and antihypertensive to optimize Tx risk factor Assessment & Plan (02/26/2024 6:47 AM EDT): - 10 year ASCVD risk is 25% - she is seeing [facility] Cardiology for chest pain and is scheduled for stress test and echo - continue working on lifestyle modification - continue statin and antihypertensive to optimize Tx risk factor History of COVID-19 08/02/2023 Assessment & Plan (08/02/2023 5:27 AM EDT): - Nov 2022, treated with Paxlovid - no sign of long-COVID Anxiety 07/27/2023 Assessment & Plan (07/16/2025 5:36 PM EDT): - Seen by [facility] Clinician in Jul 2023 - She is being prescribed lorazepam of Meniere's disease and anxiety Assessment & Plan (05/12/2025 7:51 AM EDT): - Seen by [facility] Clinician in Jul 2023 - She is being prescribed lorazepam of Meniere's disease and anxiety Assessment & Plan (11/20/2024 6:36 PM EST): - Seen by [facility] Clinician in Jul 2023 [...] (11/19/2023 6:31 PM EST): - Seen by [facility] Clinician in Jul 2023 [...] to change PLAN: 1. Follow up with [facility]: Recommended for follow-up: Refused referral outside the health center. Agreed to receive follow-up BE 2. Patient goal is to set-up boundaries and learn to keep healthy relationships 3. Behavioral Recommendations a. Follow-up BE b. Follow-up appt with PCP c. Incorporate coping skills into daily routine Assessment & Plan (08/02/2023 5:24 AM EDT): - Seen by [facility] Clinician today - Pt was initially hesitant to meet [facility] clinician; after the session, pt was very grateful to Misty for listening and talking. - pt will receive counseling short-term Family problems 07/27/2023 Assessment & Plan (02/15/2024 4:52 PM EDT): Pt was recommended to discuss with daughter's socially responsible investment adviser problems to be addressed. Assessment & Plan (12/29/2023 9:25 AM EST): During [facility] Consult [employer] presenting with excessive worry/anxiety, difficulty [...] to change PLAN: 1. Follow up with [facility]: Recommended for follow-up: Refused referral outside the [...] daily; prescribed amlodipine 2.5 mg daily by auto mechanics teacher. She has not started amlodipine yet. Assessment [...] daily; prescribed amlodipine 2.5 mg daily by auto mechanics teacher. She has not started amlodipine yet. - [...] daily; prescribed amlodipine 2.5 mg daily by auto mechanics teacher. She has not started amlodipine yet. - [...] daily; prescribed amlodipine 2.5 mg daily by auto mechanics teacher. She has not started amlodipine yet. - [...] Encounters Date Type Department Care Team Description 09/12/2025 Telephone [facility] [address] [place] [phone] Mayela Welsh MD 08/15/2025 Orders Only [facility] [address] [place] [phone] Mayela Welsh MD Claudication (CMS/HCC) (Primary Dx); PAD (peripheral artery disease) 08/15/2025 Results Follow-Up [address] [phone] Mayela Welsh MD Lipid Panel with Reflex to Direct LDL, Comprehensive Metabolic Panel, Hemoglobin A1c 08/13/2025 Telephone [facility] [address] [place] [address] Mayela Welsh MD Nurse Triage 08/10/2025 3:00 PM EDT Office Visit [facility] ADULT DENTAL [address] [place] [address] Barbie Kincaid Advanced periodontitis (Primary Dx); Dental caries from Last 3 Months Immunizations Immunization Administration [...] Description 11/05/2025 3:45 PM EST Office Visit [facility] [address] [place], [place] [phone] Mayela Welsh MD [address] [place], [place] [phone] 11/09/2025 1:30 PM EST Office Visit [facility] ADULT DENTAL [address] [place], [place] [phone] Dk Andre DDS [address] [place] [address] Health Maintenance Due Date Last Done Comments Dental Prophylaxis 1950 Alcohol/Substance Use Screening 1960 RSV Patients and Patients Aged 60 years or older (1 - 1-dose 75+ series) 2023 COVID-19 Vaccine ( season) 2025 08/15/2024, 08/10/2023, 09/10/2022, Additional history exists Influenza Vaccine (#1) 2025 , 07/27/2023, 09/10/2022, Additional history exists Depression Screening 11/14/2025 11/14/2024, 11/14/19 SDOH Screening 11/14/2025 11/14/2024 Dental Oral Exam 02/09/2026 08/10/2025, 05/24/2024 Tobacco Screening 08/10/2026 08/10/2025 Dental X-Ray: Bitewings 08/11/2026 08/10/20, 05/24/2024, 03/29/2024 Diabetes: Hemoglobin A1C 08/14/2026 025, 01/15/2025, 08/17/2023, Additional history exists Dental X-Ray: Full Mouth 05/25/2027 05/24/2024 Lipid Panel 08/14/2030 08/14/2025, 12/30, 01/15/2025, Additional history exists DTaP/Tdap/Td Vaccines (2 - [...] Procedure Name Priority Date/Time Associated Diagnosis Comments HEMOGLOBIN A1C Routine 08/14/2025 1:21 PM EDT Prediabetes COMPREHENSIVE METABOLIC PANEL Routine 08/14/2025 1:21 PM EDT Essential hypertension LIPID PANEL WITH REFLEX TO DIRECT LDL Routine 08/14/2025 1:21 PM EDT Hypercholesterolemia PERIODIC ORAL EVALUATION - ESTABLISHED PATIENT Routine [...] ABUTMENT CROWN Routine 08/10/2025 12:00 AM EDT INTRAORAL - COMPLETE SERIES OF RADIOGRAPHIC IMAGES Routine 05/24/2024 1:30 PM EDT Encounter for dental examination Periodontal disease Bone loss Dental calculus Dental plaque ZZZ HISTORICAL HEPATITIS C AB W/REFL TO HCV RNA, QN, PCR Routine 02/24/2021 1:04 PM EDT HM COLONOSCOPY Routine 12/19/2020 from Last 3 Months or Most Recently Relevant to Health Maintenance Results * (ABNORMAL) Lipid Panel with Reflex to Direct LDL (08/14/2025 1:21 PM EDT) Triglycerides 103 <150 mg/dL [facility] Comment:Desirable Triglyceri de: less than 150 mg/dLBorderline High Triglyceride 150-199 mg/dLHigh Triglyceride: 200-499 mg/dLVery High Triglyceride: greater than or equal to 5OO mg/dL Cholesterol 205(H) <200 mg/dL [facility] Comment:Desirable Cholestero l: less than 200 mg/dLBorderline High Cholesterol: 200-239 mg/dLHigh Cholesterol: greater than 239 mg/dL LDL Cholesterol Calculated 128(H) <100 mg/dL [facility] Comment:Desirable LDL: less than 100 mg/dLNear Optimal/Above Optimal LDL: 110- 129 mg/dLBorderline High LDL: 130-159 mg/dLHigh LDL: 160-189 mg/dLVery High LDL: greater than or equal to 190 mg/dL HDL Cholesterol 57 >40 mg/dL [facility] Comment:Desirable HDL: great er than 40 mg/dL Note: This HDL assay may give artificially low results in patients with liver disease. Blood 08/14/2025 1:21 PM EDT 08/14/2025 4:09 PM EDT Mayela Welsh MD LAB BLOOD ORDERABLES Final Resul t Performing Organization Address [facility] de Phone Number [facility] [address] [place] [phone] * (ABNORMAL) Hemoglobin A1c (08/14/2025 1:21 PM EDT) Hemoglobin A1c 6.1(H) <6.0 % [facility] Comment:Hemoglobin A1C Refer ence Range Adults: 4.8 - 6.0 % Non diabetic: < 6.0 % Goal: < 7.0 %Additional Action Suggested: > 8.0 %Note: Hemoglobin A1c results are invalid for patients with abnormal amounts of HbF. Blood transfusions may impact the HbA1c concentration in the patient sample. Estimated Average Glucose 128 mg/dL [facility] Comment:eAG = Estimated ave rage glucose which is %A1C expressed asaverage glucose, using the formula of the U6H-UglipdjCwdbmfq Glucose study (ADAG), Diabetes Care, Vol.31,#8,Jun. 2007 Blood Venous blood specimen / Unknown 08/14/2025 1:21 PM EDT 08/14/2025 4:09 PM EDT Mayela Welsh MD LAB BLOOD ORDERABLES Final Resul t Performing Organization Address [facility] Co de Phone Number [facility] [address] [place] [phone] * (ABNORMAL) Comprehensive Metabolic Panel (08/14/2025 1:21 PM EDT) Sodium 147(H) 135 - 145 mmol/L [facility] Potassium 4.5 3.3 - 5.1 mmol/L [facility] Chloride 111(H) 96 - 108 mmol/L [facility] Carbon Dioxide 30(H) 22 - 29 mmol/L [facility] Anion Gap 11(L) 12 - 20 [facility] Urea Nitrogen (BUN) 12 9 - 16 mg/dL [facility] Creatinine, Serum 0.73 0.5 - 1.4 mg/dL [facility] Estimated Glomerular Filt Rate >60 [facility] Comment:Chronic Kidney Disea se: Estimated GFR < 60 mL/min/1.49x2Nyordf Kidney Disease: Estimated GFR < 15 mL/min/1.73m2 Glucose 91 60 - 115 mg/dL [facility] Calcium 9.8 8.4 - 10.2 mg/dL [facility] Bilirubin, Total 0.5 0.0 - 1.0 mg/dL [facility] Aspartate Amino Transferase 25 5 - 31 U/L [facility] Alanine Aminotransferase 20 0 - 31 U/L [facility] Total Protein 7.4 6.5 - 8.0 g/dL [facility] Albumin Level 4.6 3.5 - 5.0 g/dL [facility] Alkaline Phosphatase 76 39 - 117 U/L [facility] Blood Venous blood specimen / Unknown 08/14/2025 1:21 PM EDT 08/14/2025 4:09 PM EDT us Mayela Welsh MD LAB BLOOD ORDERABLES Final Resul t [facility] [address] [place] [phone] [phone] * HEPATITIS C AB W/REFL TO HCV RNA, QN, PCR (02/24/2021 1:04 PM EDT) HEPATITIS C ANTIBODY NON-REACT [place] NON-REACT [facility] INDEX 0.01 <1.00 [facility] Comment: HCV antibody was non-reactive. There is no laboratory evidence of HCV infection. In most cases, no further action is required. However, if recent HCV exposure is suspected, a test for HCV RNA (test code 29154) is suggested. For additional information please refer to http://education.Ahaali/faq/MFT41b2 (This link is being provided for informational/ educational purposes only.) 02/24/2021 1:04 PM EDT us Historical Provider HISTORICAL/NON ORDERABLE LABS Final Result [facility] [address] [place] [address], * Colonoscopy (12/19/2020) Colonoscopy Normal Normal us Historical Provider HEALTH MAINTENANCE Final Result from Last 3 Months or Most Recently Relevant to Health Maintenance Insurance [facility] MEDICARE ADVANTAGE HMO DENTAL [facility] Care Teams Data Center Technician Relationship Specialty Start Date End Date Mayela Welsh MD [address] [place], [place] [phone] PCP - General Family Medicine 06/26/21
--- OUTSIDE RECORDS SUMMARY | 2025-10-16 18:31 | XMS_ITS | Encounter Summary ---
Author Organization [employer] Address [address] [facility] 7t [place] [address] Care Team Providers Care Economics Teacher Name Role Phone Mayela Welsh MD Primary Care Provider [phone] Encounter Details Date Type Department Care Team (Late st Contact Info) Description 01/24/2025 Orders Only [facility] [address] [place], [place] [phone] Mayela Welsh MD [address] [place], [place] [phone] Social History Tobacco Use Types Packs/Day Years [...] t he electric, gas, oil or water [employer] threatened to shut off services in your [...] Description 11/05/2025 3:45 PM EST Office Visit [facility] [address] [place] [address] Mayela Welsh MD [address] [place] [address] [phone] 11/09/2025 1:30 PM EST Office Visit [facility] ADULT DENTAL [address] [place] [address] Dk Andre DDS [address] [place], [place] [phone] documented as of this encounter Visit Diagnoses Not on filedocumented in this encounter Additional Health Concerns Assessment Noted Time PHQ-9 Depression Total Score: 8 11/14/19 25 4:22 PM EST documented as of this encounter Care Teams Economics Teacher Relationship Specialty Start Date End Date Mayela Welsh MD [address] [place] [address] [phone] PCP - General Family Medicine 06/26/21 documented as of this encounter
--- OUTSIDE RECORDS SUMMARY | 2025-10-16 18:31 | XMS_ITS | Encounter Summary ---
Author Organization [employer] Address [address] [facility] 7t [place] [address] Care Team Providers Care Chemical Pumper Name Role Phone Mayela Welsh MD Primary Care Provider [phone] Encounter Details Date Type Department Care Team (Late st Contact Info) Description 01/24/2025 Orders Only [facility] MEDICINE [address] [place], [place] [phone] Mayela Welsh MD [address] [place], [place] [phone] Social History Tobacco Use Types Packs/Day Years [...] t he electric, gas, oil or water [employer] threatened to shut off services in your [...] Description 11/05/2025 3:45 PM EST Office Visit [facility] MED[facility] [address] [place], [place] [phone] Mayela Welsh MD [address] [place] [address] [phone] 11/09/2025 1:30 PM EST Office Visit [facility] ADULT DENTAL [address] [place] [address] Dk Andre DDS [address] [place], [place] [phone] documented as of this encounter Visit Diagnoses Not on filedocumented in this encounter Additional Health Concerns Assessment Noted Time PHQ-9 Depression Total Score: 8 11/14/19 25 4:22 PM EST documented as of this encounter Care Teams Chemical Pumper Relationship Specialty Start Date End Date Mayela Welsh MD [address] [place] [address] [phone] PCP - General Family Medicine 06/26/21 documented as of this encounter
--- OUTSIDE RECORDS SUMMARY | 2025-10-16 18:31 | XMS_ITS | Encounter Summary ---
Author Organization [employer] Address [address] [place] [address] 7[place] [address] Care Team Providers Care Cardiovascular Surgeon Name Role Phone Mayela Welsh MD Primary Care Provider [phone] Encounter Details Date Type Department Care Team (Late st Contact Info) Description 10/09/2022 Orders Only [facility] MEDICINE [address] [place] [phone] Mayela Welsh MD [address] [place] [address] [phone] Anxiety and depression (Primary Dx) Social History [...] Description 11/05/2025 3:45 PM EST Office Visit [facility] MEDICINE [address] [place] [phone] Mayela Welsh MD [address] [place] [phone] 11/09/2025 1:30 PM EST Office Visit [facility] ADULT DENTAL [address] [place] [phone] Dk Andre DDS [address] [place] [address] documented as of this encounter Procedures Procedure [...] (11/24/2022 2:44 PM EST) Color Urine Yellow [facility] Appearance Urine Clear [facility] PH 6.5 5.0 - 9.0 [facility] Glucose Urine UA Negative Negative mg/dL [facility] Urine Blood Negative Negative [facility] Specific [place] - Urine 1.015 1.005 - 1.025 [facility] Urine Protein Trace Neg-Trace mg/dL [facility] Urine Ketones Negative Negative mg/dL [facility] Nitrite Urine Negative Negative [facility] Leukocyte Esterase Urine Negative Negative [facility] 11/24/2022 2:44 PM EST 11/24/2022 2:50 PM EST Narrative [facility] - 11/24/2022 3:06 PM EST [id number], Catheterized [facility] External Provider LAB URI NE ORDERABLES Final Result Performing Organization Address [facility]/ZIP Co de Phone Number [facility] [address] [place] [phone] * (ABNORMAL) SARS-CoV-2 RNA, Influenza A/B, and RSV RNA, Ql NAAT (11/24/2022 2:09 PM EST) Influenza A PCR NEGATIVE Negative [facility] Influenza B PCR NEGATIVE Negative [facility] Resp Syncy Virus RNA Qual PCR NEGATIVE Negative [facility] SARS COV2 PCR POSITIVE(A) Negative [facility] SARS/Flu/RSV Note See Note [facility] Comment:All test results mus t [...] use by authorized laboratories.Testing performed on the [employer] GeneXpert utilizingreal-time RT-PCR.All SARS CoV2 and positive influenza A/B results arereported to [facility]. 11/24/2022 2:0 9 PM EST 11/24/2022 2:18 PM EST [facility] Exter nal Provider LAB MICROBIOLOGY - GENERAL ORDERABLES Final Result Performing Organization Address [facility]/ZIP Co de Phone Number [facility] [address] [place] [phone] * TSH W/Reflex to FT4 (11/24/2022 2:09 PM EST) TSH reflex Free T4 0.83 0.32 - 4.0 uIU/mL [facility] 11/24/2022 2:09 PM EST 11/24/2022 2:18 PM EST [facility] External Provider LAB BLO OD ORDERABLES Final Result Performing Organization Address City/[facility] Co de Phone Number [facility] [address] [place] [phone] * Prothrombin Time-INR (11/24/2022 2:09 PM EST) Prothrombin Time 12.8 10.0 - 13.1 SEC [facility] INTERNATIONAL NORM RATIO 1.1 0.9 - 1.1 [facility] Comment:INTERNATIONAL NORMAL IZED RATIO (INR) REFERENCE [...] 2:09 PM EST 11/24/2022 2:18 PM EST [facility] External Provider LAB BLO OD ORDERABLES Final Result Performing Organization Address City/[facility] Co de Phone Number [facility] [address] [place] [phone] * Magnesium (11/24/2022 2:09 PM EST) Magnesium 2.1 1.6 - 2.6 mg/dL [facility] 11/24/2022 2:09 PM EST 11/24/2022 2:18 PM EST [facility] External Provider LAB BLO OD ORDERABLES Final Result Performing Organization Address City/[facility]/ZIP Co de Phone Number [facility] [address] [place] [phone] * Basic Metabolic Panel (11/24/2022 2:09 PM EST) Sodium 142 135 - 145 mmol/L [facility] Potassium 4.5 3.3 - 5.1 mmol/L [facility] Chloride 105 96 - 108 mmol/L [facility] Carbon Dioxide 28 22 - 29 mmol/L [facility] Anion Gap 14 12 - 20 [facility] Urea Nitrogen (BUN) 10 9 - 16 mg/dL [facility] Creatinine, Serum 0.88 0.5 - 1.4 mg/dL [facility] Creatinine Clr Calc Pharmacy 49.1 [facility] Comment:Provided height and weight: 162.56 cm,65.317 kg.eGFR (calculated from the MDRD study equation) and eCrCl(calculated from the Cockcroft-Gault equation) are based ondifferent parameters and may not yield comparable results.If eCrCl result is absurd, please check patient'sheight/weight. Estimated Glomerular Filt Rate >60 [facility] Comment:NOTE: For -Am erican individuals, multiply the result by 1.210.Chronic Kidney Disease: Estimated GFR < 60 mL/min/1.44c3Kppctq Kidney Disease: Estimated GFR < 15 mL/min/1.73m2 Glucose 100 60 - 115 mg/dL [facility] Calcium 9.3 8.4 - 10.2 mg/dL [facility] 11/24/2022 2:09 PM EST 11/24/2022 2:18 PM EST [facility] External Provider LAB BLO OD ORDERABLES Final Result Performing Organization Address City/[facility]/ZIP Co de Phone Number [facility] [address] [place] [phone] * Hepatic Function Panel (11/24/2022 2:09 PM EST) Bilirubin, Total 0.3 0.0 - 1.0 mg/dL [facility] Bilirubin, Direct <0.2 0.0 - 0.5 mg/dL [facility] Aspartate Amino Transferase 16 5 - 31 U/L [facility] Alanine Aminotransferase 8 0 - 31 U/L [facility] Total Protein 6.8 6.5 - 8.0 g/dL [facility] Albumin Level 4.3 3.5 - 5.0 g/dL [facility] Alkaline Phosphatase 71 39 - 117 U/L [facility] 11/24/2022 2:09 PM EST 11/24/2022 2:18 PM EST [facility] External Provider LAB BLO OD ORDERABLES Final Result Performing Organization Address [facility] [address] [place] [phone] * HIGH SENSITIVITY TROPONIN I (11/24/2022 2:09 PM EST) [facility] TROPONIN I HIGH SENSITIVITY 9.9 <3.5 - 17.0 ng/L [facility] Comment:The [place] high sens itivity Troponin-I results should beused in conjunction with other diagnostic information suchas ECG, clinical observations and information, and patientsymptoms to aid in the diagnosis of [place]. 11/24/2022 2:09 PM EST 11/24/2022 2:18 PM EST [facility] External Provider LAB BLO OD ORDERABLES Final Result Performing Organization Address [facility] de Phone Number [facility] [address] [place] [phone] * (ABNORMAL) CBC auto differential (11/24/2022 2:09 PM EST) [facility] White Blood Count 6.9 4.8 - 10.8 X10*3/uL [facility] Red Blood Count 4.45 4.20 - 5.50 X10*6/uL [facility] Hemoglobin 12.4 12.0 - 16.0 g/dl [facility] Hematocrit 38.7 37.0 - 47.0 % [facility] Mean Corpuscular Volume 87.0 80.0 - 98.0 fL [facility] Mean Corpuscular Hemoglobin 27.9 27.0 - 33.0 pg [facility] Mean Corpuscular HGB Conc 32.0 31.0 - 35.0 g/dl [facility] Red Cell Distribution Width 12.2 11.0 - 16.0 % [facility] Platelet Count 226 160 - 400 X10*3/uL [facility] Mean Platelet Volume 10.4 9.4 - 12.3 fL [facility] Neutrophils Percent Auto 75.6(H) 45 - 73 % [facility] Imm Gran Pct Auto 0.3 0.0 - 0.4 % [facility] Lymphocytes Percent Auto 12.7(L) 20 - 40 % [facility] Monocytes Percent Auto 10.7 2 - 11 % [facility] Eosinophils Percent Auto 0.1 0 - 4 % [facility] Basophils Percent Auto 0.6 0 - 2 % [facility] NRBC Pct Auto 0.0 0.0 - 0.2 /100WBC [facility] Neutrophils Absolute Auto 5.2 2.0 - 8.3 x10*3/uL [facility] Imm Gran Abs Auto 0.02 0.00 - 0.03 X10*3/uL [facility] Lymphocytes Absolute Auto 0.9(L) 1.2 - 4.9 X10*3/uL [facility] Monocytes Absolute Auto 0.7 0.1 - 1.2 X10*3/uL [facility] Eosinophils Absolute Auto 0.0 0.0 - 0.4 X10*3/uL [facility] Basophils Absolute Auto 0.0 0.0 - 0.2 X10*3/uL [facility] NRBC Abs Auto 0.000 0.0 - 0.012 X10*3/uL [facility] 11/24/2022 2:09 PM EST 11/24/2022 2:18 PM EST [facility] External Provider LAB BLO OD ORDERABLES Final Result [facility] [address] [place] [phone] documented in this encounter Visit Diagnoses Diagnosis Anxiety and depression- Primary documented in this encounter Care Teams Cardiovascular Surgeon Relationship Specialty Start Date End Date Mayela Welsh MD [address] [place] [address] PCP - General Family Medicine 06/26/21 documented as of this encounter
== END 2025-10-16 14:55 | disposition home or self-care (01) ==
LOC: HO.HCS 14:17
PROVIDERS: PCP Family Medicine; Visit Provider Internal Medicine Cardiovascular Disease
DX: I25.10 Atherosclerotic heart disease of native coronary artery without angina pectoris (principal)
CPT/HCPCS: 99214

== ENCOUNTER → 2025-10-16 14:16 | Outpatient (BNVA) | payer OTHER, SELFPAY | PROVIDERS: PCP Family Medicine; Visit Provider Internal Medicine Cardiovascular Disease | DX: I25.10 Atherosclerotic heart disease of native coronary artery without angina pectoris (principal) | CPT/HCPCS: 99212 ==

== ENCOUNTER 2025-10-24 08:14 | Outpatient (REF) | payer OTHER, SELFPAY ==
--- OUTSIDE RECORDS SUMMARY | 2025-10-24 08:16 | XMS_ITS | Encounter Summary ---
Author Organization [employer] Address [address] [place] [address] [address] [place] [address] Care Team Providers Care Technical Stenographer Name Role Phone Mayela Welsh MD Primary Care Provider [phone] Encounter Details Date Type Department Care Team (Late st Contact Info) Description 07/14/2023 Orders Only [facility] MEDICINE [address] [place] [phone] Mayela Welsh MD [address] [place] [address] [phone] Essential hypertension (Primary Dx); Prediabetes; Hypercholesterolemia Social [...] 3:45 PM EST Office Visit [facility] MEDICINE [address] [place] [phone] Mayela Welsh MD [address] [place] [address] [phone] 11/09/2025 1:30 PM EST Office Visit [facility] ADULT DENTAL [address] [place] [address] [phone] Dk Andre DDS [address] [place], [place] [phone] documented as of this encounter Procedures Procedure Name Priority Date/Time Associated Diagnosis Comments LIPID PANEL WITH REFLEX TO DIRECT LDL Routine 08/17/2023 10:12 AM EDT Hypercholesterolemia HEMOGLOBIN A1C Routine 08/17/2023 10:12 AM EDT Prediabetes COMPREHENSIVE METABOLIC PANEL Routine 08/17/2023 10:12 AM EDT Essential hypertension documented in this encounter Results * Hemoglobin A1c (08/17/2023 10:12 AM EDT) Hemoglobin A1c 5.8 <6.0 % [facility] Comment:Hemoglobin A1C Refer ence Range Adults: 4.8 - 6.0 % Non diabetic: < 6.0 % Goal: < 7.0 %Additional Action Suggested: > 8.0 %Note: Hemoglobin A1c results are invalid for patients with abnormal amounts of HbF. Blood transfusions may impact the HbA1c concentration in the patient sample. Estimated Average Glucose 120 mg/dL [facility] Comment:eAG = Estimated ave rage glucose which is %A1C expressed asaverage glucose, using the formula of the E2H-MripbizKvrwquy Glucose study (ADAG), Diabetes Care, Vol.31,#8,Aug. 2007 Blood Venous blood specimen / Unknown 08/17/2023 10:12 AM EDT 08/17/2023 11:22 AM EDT us Mayela Welsh MD LAB BLOOD ORDERABLES Final Resul t [facility] [address] [place] [phone] [phone] * (ABNORMAL) Lipid Panel with Reflex to Direct LDL (08/17/2023 10:12 AM EDT) Triglycerides 106 <150 mg/dL [facility] Comment:Desirable Triglyceri de: less than 150 mg/dLBorderline High Triglyceride 150-199 mg/dLHigh Triglyceride: 200-499 mg/dLVery High Triglyceride: greater than or equal to 5OO mg/dL Cholesterol 258(H) <200 mg/dL [facility] Comment:Desirable Cholestero l: less than 200 mg/dLBorderline High Cholesterol: 200-239 mg/dLHigh Cholesterol: greater than 239 mg/dL LDL Cholesterol Calculated 178(H) <100 mg/dL [facility] Comment:Desirable LDL: less than 100 mg/dLNear Optimal/Above Optimal LDL: 110- 129 mg/dLBorderline High LDL: 130-159 mg/dLHigh LDL: 160-189 mg/dLVery High LDL: greater than or equal to 190 mg/dL HDL Cholesterol 59 >40 mg/dL [facility] Comment:Desirable HDL: great er than 40 mg/dL Note: This HDL assay may give artificially low results in patients with liver disease. Blood 08/17/2023 10:1 2 AM EDT 08/17/2023 11:22 AM EDT us Mayela Welsh MD LAB BLOOD ORDERABLES Final Resul t [facility] [address] [place] [phone] * (ABNORMAL) Comprehensive Metabolic Panel (08/17/2023 10:12 AM EDT) Sodium 145 135 - 145 mmol/L [facility] Potassium 4.9 3.3 - 5.1 mmol/L [facility] Chloride 110(H) 96 - 108 mmol/L [facility] Carbon Dioxide 28 22 - 29 mmol/L [facility] Anion Gap 12 12 - 20 [facility] Urea Nitrogen (BUN) 7(L) 9 - 16 mg/dL [facility] Creatinine, Serum 0.75 0.5 - 1.4 mg/dL [facility] Estimated Glomerular Filt Rate >60 [facility] Comment:NOTE: For -Am erican individuals, multiply the result by 1.210.Chronic Kidney Disease: Estimated GFR < 60 mL/min/1.72b8Pbonsi Kidney Disease: Estimated GFR < 15 mL/min/1.73m2 Glucose 92 60 - 115 mg/dL [facility] Calcium 9.5 8.4 - 10.2 mg/dL [facility] Bilirubin, Total 0.4 0.0 - 1.0 mg/dL [facility] Aspartate Amino Transferase 21 5 - 31 U/L [facility] Alanine Aminotransferase 14 0 - 31 U/L [facility] Total Protein 7.5 6.5 - 8.0 g/dL [facility] Albumin Level 4.5 3.5 - 5.0 g/dL [facility] Alkaline Phosphatase 80 39 - 117 U/L [facility] Blood Venous blood specimen / Unknown 08/17/2023 10:12 AM EDT 08/17/2023 11:22 AM EDT us Mayela Welsh MD LAB BLOOD ORDERABLES Final Resul t Performing Organization Address City/State/[facility] Co de Phone Number [facility] [address] [place] [phone] documented in this encounter Visit Diagnoses Diagnosis Essential hypertension- Primary Unspecified essential hypertension Prediabetes Other abnormal glucose Hypercholesterolemia Pure hypercholesterolemia documented in this encounter Additional Health Concerns Assessment Noted Time PHQ-9 Depression Total Score: 2 12/29/19 23 1:08 PM EST documented as of this encounter Care Teams Technical Stenographer Relationship Specialty Start Date End Date Mayela Welsh MD [address] [place] [phone] PCP - General Family Medicine 06/26/21 documented as of this encounter
--- OUTSIDE RECORDS SUMMARY | 2025-10-24 08:17 | XMS_ITS | Encounter Summary ---
Author Organization [employer] Address [address] [facility] 7t [place] [address] Care Team Providers Care Director Of Teaching And Learning Name Role Phone Mayela Welsh MD Primary Care Provider [phone] Encounter Details Date Type Department Care Team (Late st Contact Info) Description 01/15/[address] [facility] MEDICINE [address] [place], [place] [phone] Mayela Welsh MD [address] [place], [place] [phone] Social History Tobacco Use Types Packs/Day Years [...] t he electric, gas, oil or water [employer] threatened to shut off services in your [...] Description 11/05/2025 3:45 PM EST Office Visit [facility] MEDICINE [address] [place] [address] Mayela Welsh MD [address] [place] [address] [phone] 11/09/2025 1:30 PM EST Office Visit [facility] ADULT DENTAL [address] [place] [address] Dk Andre DDS [address] [place], [place] [phone] documented as of this encounter Visit Diagnoses Not on filedocumented in this encounter Additional Health Concerns Assessment Noted Time PHQ-9 Depression Total Score: 8 11/14/19 25 4:22 PM EST documented as of this encounter Care Teams Director Of Teaching And Learning Relationship Specialty Start Date End Date Mayela Welsh MD [address] [place] [address] [phone] PCP - General Family Medicine 06/26/21 documented as of this encounter
--- OUTSIDE RECORDS SUMMARY | 2025-10-24 08:17 | XMS_ITS | Encounter Summary ---
Author Organization [employer] Address [address] [facility] 7t [place] [address] Care Team Providers Care Community Reinvestment Act Officer Name Role Phone Mayela Welsh MD Primary Care Provider Encounter Details Date Type Department Care Team (Late st Contact Info) Description 01/24/2025 Orders Only [facility]INE [address] [place], [place] [phone] Mayela Welsh MD [address] [place], [place] [phone] Social History Tobacco Use Types Packs/Day Years [...] t he electric, gas, oil or water [employer] threatened to shut off services in your [...] Description 11/05/2025 3:45 PM EST Office Visit [facility] [address] [place] [address] Mayela Welsh MD [address] [place] [address] [phone] 11/09/2025 1:30 PM EST Office Visit [facility] ADULT DENTAL [address] [place] [address] Dk Andre DDS [address] [place], [place] [phone] documented as of this encounter Visit Diagnoses Not on filedocumented in this encounter Additional Health Concerns Assessment Noted Time PHQ-9 Depression Total Score: 8 11/14/19 25 4:22 PM EST documented as of this encounter Care Teams Community Reinvestment Act Officer Relationship Specialty Start Date End Date Mayela Welsh MD [address] [place] [address] [phone] PCP - General Family Medicine 06/26/21 documented as of this encounter
--- OUTSIDE RECORDS SUMMARY | 2025-10-24 08:17 | XMS_ITS | Encounter Summary ---
Author Organization [employer] Address [address] [place] [address] 7t [place] [address] Care Team Providers Care Production Hardener Name Role Phone Mayela Welsh MD Primary Care Provider [phone] Reason for Referral * Imaging (Routine) - Closed Specialty Diagnoses / Procedures Referred By [place] gorman Referred To Contact Cardiology Diagnoses Claudication (CMS/HCC) PAD (peripheral artery disease) Procedures Vascular US lower extremity arterial duplex bilateral with complete Doppler Mayela Welsh MD [address] [place] [address] Phone: tel: fax: [facility] [address] [place] [phone] Phone: tel: fax: Referral ID Status Reason Start Date Expiration Date V isits Requested Visits Authorized [id number] Closed Perform Procedure 08/15/2025 08/15/2026 1 1 Encounter Details Date Type Department Care Team (Late st Contact Info) Description 08/15/2025 Orders Only [facility] MED[facility]INE [address] [place], [place] [phone] Mayela Welsh MD [address] [place], [place] [phone] Claudication (CMS/HCC) (Primary Dx); PAD (peripheral artery [...] [facility] MED[facility]INE [address] [place] [phone] Mayela Welsh MD [address] [place] [address] 11/09/2025 1:30 PM EST Office Visit [facility] ADULT DENTAL [address] [place] [address] Dk Andre DDS [address] [place] [address] documented as of this encounter Visit Diagnoses Diagnosis Claudication (CMS/HCC)- Primary Unspecified peripheral vascular disease PAD (peripheral artery disease) Unspecified peripheral vascular disease documented in this encounter Additional Health Concerns Assessment Noted Time PHQ-9 Depression Total Score: 8 11/14/19 25 4:22 PM EST documented as of this encounter Care Teams Production Hardener Relationship Specialty Start Date End Date Mayela Welsh MD [address] [place] [phone] PCP - General Family Medicine 06/26/21 documented as of this encounter
--- OUTSIDE RECORDS SUMMARY | 2025-10-24 08:17 | XMS_ITS | Encounter Summary ---
Author Organization [employer] Address [address] [place] [address] [address], [place] [address] Care Team Providers Care Mat Machine Tender Name Role Phone Mayela Welsh MD Primary Care Provider [phone] Encounter Details Date Type Department Care Team (Late st Contact Info) Description 10/09/2022 Orders Only [facility] MEDICINE [address] [place] [phone] Mayela Welsh MD [address] [place] [address] [phone] Anxiety and depression (Primary Dx) Social History [...] 3:45 PM EST Office Visit [facility] [address] [place] [phone] Mayela Welsh MD [address] [place] [phone] 11/09/2025 1:30 PM EST Office Visit [facility] ADULT DENTAL [address] [place] [phone] Dk Andre DDS [address] [place] [address] documented as of this encounter Procedures Procedure [...] (11/24/2022 2:44 PM EST) Color Urine Yellow [facility] Appearance Urine Clear [facility] PH 6.5 5.0 - 9.0 [facility] Glucose Urine UA Negative Negative mg/dL [facility] Urine Blood Negative Negative [facility] Specific [place] - Urine 1.015 1.005 - 1.025 [facility] Urine Protein Trace Neg-Trace mg/dL [facility] Urine Ketones Negative Negative mg/dL [facility] Nitrite Urine Negative Negative [facility] Leukocyte Esterase Urine Negative Negative [facility] 11/24/2022 2:44 PM EST 11/24/2022 2:50 PM EST Narrative [facility] - 11/24/2022 3:06 PM EST [id number], Catheterized [facility] External Provider LAB URI NE ORDERABLES Final Result Performing Organization Address [facility] Co de Phone Number [facility] [address] [place] [phone] * (ABNORMAL) SARS-CoV-2 RNA, Influenza A/B, and RSV RNA, Ql NAAT (11/24/2022 2:09 PM EST) Influenza A PCR NEGATIVE Negative [facility] Influenza B PCR NEGATIVE Negative [facility] Resp Syncy Virus RNA Qual PCR NEGATIVE Negative [facility] SARS COV2 PCR POSITIVE(A) Negative [facility] SARS/Flu/RSV Note See Note [facility] Comment:All test results mus t [...] use by authorized laboratories.Testing performed on the [employer] GeneXpert utilizingreal-time RT-PCR.All SARS CoV2 and positive influenza A/B results arereported to [facility]. 11/24/2022 2:09 PM EST 11/24/2022 2:18 PM EST [facility] Exter nal Provider LAB MICROBIOLOGY - GENERAL ORDERABLES Final Result Performing Organization Address [facility]/ZIP Co de Phone Number [facility] [address] [place] [phone] * TSH W/Reflex to FT4 (11/24/2022 2:09 PM EST) TSH reflex Free T4 0.83 0.32 - 4.0 uIU/mL [facility] 11/24/2022 2:09 PM EST 11/24/2022 2:18 PM EST [facility] External Provider LAB BLO OD ORDERABLES Final Result Performing Organization Address [facility] Co de Phone Number [facility] [address] [place] [address] [phone] * Prothrombin Time-INR (11/24/2022 2:09 PM EST) Prothrombin Time 12.8 10.0 - 13.1 SEC [facility] INTERNATIONAL NORM RATIO 1.1 0.9 - 1.1 [facility] Comment:INTERNATIONAL NORMAL IZED RATIO (INR) REFERENCE [...] 2:09 PM EST 11/24/2022 2:18 PM EST [facility] External Provider LAB BLO OD ORDERABLES Final Result Performing Organization Address City/[facility] Co de Phone Number [facility] [address] [place] [phone] * Magnesium (11/24/2022 2:09 PM EST) Magnesium 2.1 1.6 - 2.6 mg/dL [facility] 11/24/2022 2:09 PM EST 11/24/2022 2:18 PM EST [facility] External Provider LAB BLO OD ORDERABLES Final Result Performing Organization Address [facility]/ZIP Co de Phone Number [facility] [address] [place] [phone] * Basic Metabolic Panel (11/24/2022 2:09 PM EST) Sodium 142 135 - 145 mmol/L [facility] Potassium 4.5 3.3 - 5.1 mmol/L [facility] Chloride 105 96 - 108 mmol/L [facility] Carbon Dioxide 28 22 - 29 mmol/L [facility] Anion Gap 14 12 - 20 [facility] Urea Nitrogen (BUN) 10 9 - 16 mg/dL [facility] Creatinine, Serum 0.88 0.5 - 1.4 mg/dL [facility] Creatinine Clr Calc Pharmacy 49.1 [facility] Comment:Provided height and weight: 162.56 cm,65.317 kg.eGFR (calculated from the MDRD study equation) and eCrCl(calculated from the Cockcroft-Gault equation) are based ondifferent parameters and may not yield comparable results.If eCrCl result is absurd, please check patient'sheight/weight. Estimated Glomerular Filt Rate >60 [facility] Comment:NOTE: For -Am erican individuals, multiply the result by 1.210.Chronic Kidney Disease: Estimated GFR < 60 mL/min/1.94n9Qgivih Kidney Disease: Estimated GFR < 15 mL/min/1.73m2 Glucose 100 60 - 115 mg/dL [facility] Calcium 9.3 8.4 - 10.2 mg/dL [facility] 11/24/2022 2:09 PM EST 11/24/2022 2:18 PM EST [facility] External Provider LAB BLO OD ORDERABLES Final Result Performing Organization Address City/[facility]/ZIP Co de Phone Number [facility] [address] [place] [phone] * Hepatic Function Panel (11/24/2022 2:09 PM EST) Bilirubin, Total 0.3 0.0 - 1.0 mg/dL [facility] Bilirubin, Direct <0.2 0.0 - 0.5 mg/dL [facility] Aspartate Amino Transferase 16 5 - 31 U/L [facility] Alanine Aminotransferase 8 0 - 31 U/L [facility] Total Protein 6.8 6.5 - 8.0 g/dL [facility] Albumin Level 4.3 3.5 - 5.0 g/dL [facility] Alkaline Phosphatase 71 39 - 117 U/L [facility] 11/24/2022 2:09 PM EST 11/24/2022 2:18 PM EST [facility] External Provider LAB BLO OD ORDERABLES Final Result Performing Organization Address [facility] Number [facility] [address] [place] [address] [phone] * HIGH SENSITIVITY TROPONIN I (11/24/2022 2:09 PM EST) [facility] TROPONIN I HIGH SENSITIVITY 9.9 <3.5 - 17.0 ng/L [facility] Comment:The [place] high sens itivity Troponin-I results should beused in conjunction with other diagnostic information suchas ECG, clinical observations and information, and patientsymptoms to aid in the diagnosis of [place]. 11/24/2022 2:09 PM EST 11/24/2022 2:18 PM EST [facility] External Provider LAB BLO OD ORDERABLES Final Result Performing Organization Address [email or web address]] de Phone Number [facility] [address] [place] [address] [phone] * (ABNORMAL) CBC auto differential (11/24/2022 2:09 PM EST) [facility] White Blood Count 6.9 4.8 - 10.8 X10*3/uL [facility] Red Blood Count 4.45 4.20 - 5.50 X10*6/uL [facility] Hemoglobin 12.4 12.0 - 16.0 g/dl [facility] Hematocrit 38.7 37.0 - 47.0 % [facility] Mean Corpuscular Volume 87.0 80.0 - 98.0 fL [facility] Mean Corpuscular Hemoglobin 27.9 27.0 - 33.0 pg [facility] Mean Corpuscular HGB Conc 32.0 31.0 - 35.0 g/dl [facility] Red Cell Distribution Width 12.2 11.0 - 16.0 % [facility] Platelet Count 226 160 - 400 X10*3/uL [facility] Mean Platelet Volume 10.4 9.4 - 12.3 fL [facility] Neutrophils Percent Auto 75.6(H) 45 - 73 % [facility] Imm Gran Pct Auto 0.3 0.0 - 0.4 % [facility] Lymphocytes Percent Auto 12.7(L) 20 - 40 % [facility] Monocytes Percent Auto 10.7 2 - 11 % [facility] Eosinophils Percent Auto 0.1 0 - 4 % [facility] Basophils Percent Auto 0.6 0 - 2 % [facility] NRBC Pct Auto 0.0 0.0 - 0.2 /100WBC [facility] Neutrophils Absolute Auto 5.2 2.0 - 8.3 x10*3/uL [facility] Imm Gran Abs Auto 0.02 0.00 - 0.03 X10*3/uL [facility] Lymphocytes Absolute Auto 0.9(L) 1.2 - 4.9 X10*3/uL [facility] Monocytes Absolute Auto 0.7 0.1 - 1.2 X10*3/uL [facility] Eosinophils Absolute Auto 0.0 0.0 - 0.4 X10*3/uL [facility] Basophils Absolute Auto 0.0 0.0 - 0.2 X10*3/uL [facility] NRBC Abs Auto 0.000 0.0 - 0.012 X10*3/uL [facility] 11/24/2022 2:09 PM EST 11/24/2022 2:18 PM EST [facility] External Provider LAB BLO OD ORDERABLES Final Result [facility] [address] [place] [address] [phone] documented in this encounter Visit Diagnoses Diagnosis Anxiety and depression- Primary documented in this encounter Care Teams Mat Machine Tender Relationship Specialty Start Date End Date Mayela Welsh MD [address] [place] [address] PCP - General Family Medicine 06/26/21 documented as of this encounter
--- OUTSIDE RECORDS SUMMARY | 2025-10-24 08:17 | XMS_ITS | Clinical Summary ---
Author Organization [employer] Address [address] [facility] [address] [place] [address] Care Team Providers Care Hydrant Setter Name Role Phone Mayela Welsh MD Primary Care Provider [phone] Allergies No known active allergies Medications * [...] life style modifications - continue following with [facility] Cardiology Assessment & [...] life style modifications - continue following with [facility] Cardiology Assessment & [...] life style modifications - continue following with [facility] Cardiology Assessment & [...] life style modifications - continue following with [facility] Cardiology PAD (peripheral [...] risk is 25% - she is seeing [facility] Cardiology for chest pain and is scheduled for stress test and echo - continue working on lifestyle modification - continue statin and antihypertensive to optimize Tx risk factor Assessment & Plan (02/26/2024 6:47 AM EDT): - 10 year ASCVD risk is 25% - she is seeing [facility] Cardiology for chest [...] (07/16/2025 5:36 PM EDT): - Seen by [facility] Clinician in Jul 2023 - She is being prescribed lorazepam of Meniere's disease and anxiety Assessment & Plan (05/12/2025 7:51 AM EDT): - Seen by [facility] Clinician in Jul 2023 - She is being prescribed lorazepam of Meniere's disease and anxiety Assessment & Plan (11/20/2024 6:36 PM EST): - Seen by [facility] Clinician in Jul 2023 - [...] (11/19/2023 6:31 PM EST): - Seen by [facility] Clinician in Jul 2023 - [...] PLAN: 1. Follow up with [facility]: Recommended for follow-up: Refused referral outside the health center. Agreed to receive follow-up BE 2. Patient goal is to set-up boundaries and learn to keep healthy relationships 3. Behavioral Recommendations a. Follow-up BE b. Follow-up appt with PCP c. Incorporate coping skills into daily routine Assessment & Plan (08/02/2023 5:24 AM EDT): - Seen by [facility] Clinician today - Pt was initially hesitant to meet [place] clinician; after the session, pt was very grateful to Misty for listening and talking. - pt will receive counseling short-term Family problems 07/27/2023 Assessment & Plan (02/15/2024 4:52 PM EDT): Pt was recommended to discuss with daughter's drug abuse social worker problems to be addressed. Assessment & Plan (12/29/2023 9:25 AM EST): During [facility] Consult [employer] presenting with excessive worry/anxiety, [...] PLAN: 1. Follow up with [facility]: Recommended for follow-up: Refused referral outside [...] daily; prescribed amlodipine 2.5 mg daily by regional education coordinator. She has not started amlodipine yet. Assessment [...] daily; prescribed amlodipine 2.5 mg daily by regional education coordinator. She has not started amlodipine yet. - [...] daily; prescribed amlodipine 2.5 mg daily by regional education coordinator. She has not started amlodipine yet. - [...] daily; prescribed amlodipine 2.5 mg daily by regional education coordinator. She has not started amlodipine yet. - [...] Type Department Care Team Description 09/12/2025 Telephone [facility] MEDICINE [address] [place] [phone] Mayela Welsh MD 08/15/2025 Orders Only [facility] MEDICINE [address] [place] [phone] Mayela Welsh MD Claudication (CMS/HCC) (Primary Dx); PAD (peripheral artery disease) 08/15/2025 Results Follow-Up [address] [address] Mayela Welsh MD Lipid Panel with Reflex to Direct LDL, Comprehensive Metabolic Panel, Hemoglobin A1c 08/13/2025 Telephone [facility] [address] [place] [address] Mayela Welsh MD Nurse Triage 08/10/2025 3:00 PM EDT Office Visit [facility] ADULT DENTAL [address] [place] [address] Barbie Kincaid Advanced periodontitis (Primary Dx); Dental [...] Description 11/05/2025 3:45 PM EST Office Visit [facility] MEDICINE [address] [place], [place] [phone] Mayela Welsh MD [address] [place], [place] [phone] 11/09/2025 1:30 PM EST Office Visit [facility] ADULT DENTAL [address] [place], [place] [phone] Dk Andre DDS [address] [place] [address] Health Maintenance Due Date Last Done Comments [...] 1:21 PM EDT) Triglycerides 103 <150 mg/dL [facility] Comment:Desirable Triglyceri de: less than 150 mg/dLBorderline High Triglyceride 150-199 mg/dLHigh Triglyceride: 200-499 mg/dLVery High Triglyceride: greater than or equal to 5OO mg/dL Cholesterol 205(H) <200 mg/dL [facility] Comment:Desirable Cholestero l: less than 200 mg/dLBorderline High Cholesterol: 200-239 mg/dLHigh Cholesterol: greater than 239 mg/dL LDL Cholesterol Calculated 128(H) <100 mg/dL [facility] Comment:Desirable LDL: less than 100 mg/dLNear Optimal/Above Optimal LDL: 110- 129 mg/dLBorderline High LDL: 130-159 mg/dLHigh LDL: 160-189 mg/dLVery High LDL: greater than or equal to 190 mg/dL HDL Cholesterol 57 >40 mg/dL [facility] Comment:Desirable HDL: great er than 40 mg/dL Note: This HDL assay may give artificially low results in patients with liver disease. Blood 08/14/2025 1:21 PM EDT 08/14/2025 4:09 PM EDT Mayela Welsh MD LAB BLOOD ORDERABLES Final Resul t Performing Organization Address [facility] de Phone Number [facility] [address] [place] [phone] * (ABNORMAL) Hemoglobin A1c (08/14/2025 1:21 PM EDT) Hemoglobin A1c 6.1(H) <6.0 % [facility] Comment:Hemoglobin A1C Refer ence Range Adults: 4.8 - 6.0 % Non diabetic: < 6.0 % Goal: < 7.0 %Additional Action Suggested: > 8.0 %Note: Hemoglobin A1c results are invalid for patients with abnormal amounts of HbF. Blood transfusions may impact the HbA1c concentration in the patient sample. Estimated Average Glucose 128 mg/dL [facility] Comment:eAG = Estimated ave rage glucose which is %A1C expressed asaverage glucose, using the formula of the S9S-[id number] Glucose study (ADAG), Diabetes Care, Vol.31,#8,Jun. 2007 Blood Venous blood specimen / Unknown 08/14/2025 1:21 PM EDT 08/14/2025 4:09 PM EDT Mayela Welsh MD LAB BLOOD ORDERABLES Final Resul t Performing Organization Address [facility] Co de Phone Number [facility] [address] [place] [phone] * (ABNORMAL) Comprehensive Metabolic Panel (08/14/2025 1:21 PM EDT) Sodium 147(H) 135 - 145 mmol/L [facility] Potassium 4.5 3.3 - 5.1 mmol/L [facility] Chloride 111(H) 96 - 108 mmol/L [facility] Carbon Dioxide 30(H) 22 - 29 mmol/L [facility] Anion Gap 11(L) 12 - 20 [facility] Urea Nitrogen (BUN) 12 9 - 16 mg/dL [facility] Creatinine, Serum 0.73 0.5 - 1.4 mg/dL [facility] Estimated Glomerular Filt Rate >60 [facility] Comment:Chronic Kidney Disea se: Estimated GFR < 60 mL/min/1.99a6Mnatyy Kidney Disease: Estimated GFR < 15 mL/min/1.73m2 Glucose 91 60 - 115 mg/dL [facility] Calcium 9.8 8.4 - 10.2 mg/dL [facility] Bilirubin, Total 0.5 0.0 - 1.0 mg/dL [facility] Aspartate Amino Transferase 25 5 - 31 U/L [facility] Alanine Aminotransferase 20 0 - 31 U/L [facility] Total Protein 7.4 6.5 - 8.0 g/dL [facility] Albumin Level 4.6 3.5 - 5.0 g/dL [facility] Alkaline Phosphatase 76 39 - 117 U/L [facility] Blood Venous blood specimen / Unknown 08/14/2025 1:21 PM EDT 08/14/2025 4:09 PM EDT us Mayela Welsh MD LAB BLOOD ORDERABLES Final Resul t [facility] [address] [place] [phone] [phone] * HEPATITIS C AB W/REFL TO HCV RNA, QN, PCR (02/24/2021 1:04 PM EDT) HEPATITIS C ANTIBODY NON-REACT [place] NON-REACT [facility] INDEX 0.01 <1.00 [facility] Comment: HCV antibody was non-reactive. There is no laboratory evidence of HCV infection. In most cases, no further action is required. However, if recent HCV exposure is suspected, a test for HCV RNA (test code 53899) is suggested. For additional information please refer to http://education.[employer]/faq/SRL62e9 (This link is being provided for informational/ educational purposes only.) 02/24/2021 1:04 PM EDT us Historical Provider HISTORICAL/NON ORDERABLE LABS Final Result [facility] [address] [place] [address], * Colonoscopy (12/19/2020) Colonoscopy Normal Normal us Historical Provider HEALTH MAINTENANCE Final Result from Last 3 Months or Most Recently Relevant to Health Maintenance Insurance [facility] MEDICARE ADVANTAGE HMO DENTAL [facility] Care Teams Hydrant Setter Relationship Specialty Start Date End Date Mayela Welsh MD [address] [place], [place] [phone] PCP - General Family Medicine 06/26/21
--- OUTSIDE RECORDS SUMMARY | 2025-10-24 08:17 | XMS_ITS | Clinical Summary ---
Author Organization [facility] Address [address] [place] [address] Care Team Providers Care Trauma Counsellor Name Role Phone Unavailable Primary Care Provider [...] patient's age to complete this topic Insurance [facility] MEDICARE
--- OUTSIDE RECORDS SUMMARY | 2025-10-24 08:17 | XMS_ITS | Encounter Summary ---
Author Organization [employer] Address [address] [facility] 7t [place] [address] Care Team Providers Care Neurology Epilepsy Physician Name Role Phone Mayela Welsh MD Primary Care Provider Reason for Visit * Reason Comments Med Refill Encounter Details Date Type Department Care Team ([facility] st Contact Info) Description 04/30/2024 Refill [facility] MEDICINE [address] [place], [place] [phone] Mayela Welsh MD [address] [place], [place] [phone] Meniere's disease, unspecified laterality Social History Tobacco [...] Visit [facility] MEDICINE [address] [place] [address] Mayela Welsh MD [address] [place] [address] 11/09/2025 1:30 PM EST Office Visit [facility] ADULT DENTAL [address] [place] [address] Dk Andre DDS [address] [place] [address] documented as of this encounter Visit Diagnoses Diagnosis Meniere's disease, unspecified laterality documented in this encounter Additional Health Concerns Assessment Noted Time PHQ-9 Depression Total Score: 3 07/29/20 23 12:33 PM EDT documented as of this encounter Care Teams Neurology Epilepsy Physician Relationship Specialty Start Date End Date Mayela Welsh MD [address] [place] [phone] PCP - General Family Medicine 06/26/21 documented as of this encounter
--- OUTSIDE RECORDS SUMMARY | 2025-10-24 08:17 | XMS_ITS | Encounter Summary ---
Author Organization [employer] Address [address] [facility] [address] [place] [address] Care Team Providers Care Axle Inspector Name Role Phone Mayela Welsh MD Primary Care Provider [phone] Encounter Details Date Type Department Care Team (Late st Contact Info) Description 01/24/2025 Orders Only [facility] MEDICINE [address] [place], [place] [phone] Mayela Welsh MD [address] [place], [place] [phone] Social History Tobacco Use Types Packs/Day Years [...] t he electric, gas, oil or water [employer] threatened to shut off services in your [...] Description 11/05/2025 3:45 PM EST Office Visit [facility] MEDICINE [address] [place] [address] Mayela Welsh MD [address] [place] [address] [phone] 11/09/2025 1:30 PM EST Office Visit [facility] ADULT DENTAL [address] [place] [address] Dk Andre DDS [address] [place], [place] [phone] documented as of this encounter Visit Diagnoses Not on filedocumented in this encounter Additional Health Concerns Assessment Noted Time PHQ-9 Depression Total Score: 8 11/14/19 25 4:22 PM EST documented as of this encounter Care Teams Axle Inspector Relationship Specialty Start Date End Date Mayela Welsh MD [address] [place] [address] [phone] PCP - General Family Medicine 06/26/21 documented as of this encounter
--- OUTSIDE RECORDS SUMMARY | 2025-10-24 08:17 | XMS_ITS | Encounter Summary ---
Author Organization [email or web address] Address [address] [facility] 7t [place] [address] Care Team Providers Care Web Operations Lead Name Role Phone Mayela Welsh MD Primary Care Provider [phone] Encounter Details Date Type Department Care Team (Late st Contact Info) Description 04/11/2024 Orders Only [facility] ADULT DENTAL [address] [place] [address] Eden Noonan DDS [address] [place], [place] [phone] Social History Tobacco Use Types Packs/Day Years [...] Description 11/05/2025 3:45 PM EST Office Visit [facility] MEDICINE [address] [place] [address] Mayela Welsh MD 230 [place] [address] 11/09/2025 1:30 PM EST Office Visit [facility] ADULT DENTAL [address] [place] [address] Dk Andre DDS [address] [place] [address] documented as of this encounter Visit Diagnoses Not on filedocumented in this encounter Additional Health Concerns Assessment Noted Time PHQ-9 Depression Total Score: 3 07/29/20 23 12:33 PM EDT documented as of this encounter Care Teams Web Operations Lead Relationship Specialty Start Date End Date Mayela Welsh MD [address] [place] [address] [phone] PCP - General Family Medicine 06/26/21 documented as of this encounter
--- OUTSIDE RECORDS SUMMARY | 2025-10-24 08:17 | XMS_ITS | Encounter Summary ---
Author Organization [employer] Address [address] [facility] 7t [place] [address] Care Team Providers Care Gasoline Tractor Operator Name Role Phone Mayela Welsh MD Primary Care Provider [phone] Encounter Details Date Type Department Care Team (Late st Contact Info) Description 04/17/2025 Orders Only [facility] MEDICINE [address] [place], [place] [phone] Mayela Welsh MD 230 [place], [place] [phone] Meniere's disease, unspecified laterality Social History Tobacco [...] Office Visit [facility] MEDICINE [address] [place] [address] Mayela Welsh MD [address] [place] [address] 11/09/2025 1:30 PM EST Office Visit [facility] ADULT DENTAL [address] [place] [address] Dk Andre DDS [address] [place] [address] documented as of this encounter Visit Diagnoses Diagnosis Meniere's disease, unspecified laterality documented in this encounter Additional Health Concerns Assessment Noted Time PHQ-9 Depression Total Score: 8 11/14/19 25 4:22 PM EST documented as of this encounter Care Teams Gasoline Tractor Operator Relationship Specialty Start Date End Date Mayela Welsh MD [address] [place] [address] [phone] PCP - General Family Medicine 06/26/21 documented as of this encounter
--- OUTSIDE RECORDS SUMMARY | 2025-10-24 08:17 | XMS_ITS | Encounter Summary ---
Author Organization [employer] Address [address] [facility] 7t [place] [address] Care Team Providers Care Coal Handling Supervisor Name Role Phone Mayela Welsh MD Primary Care Provider [phone] Reason for Visit * Reason Onset Date Comments Med Refill 08/07/2024 Encounter Details Date Type Department Care Team (Late st Contact Info) Description 08/07/2024 Telephone [facility] MEDICINE [address] [place], [place] [phone] Mayela Welsh MD 230 [place], [place] [phone] Med Refill Social History Tobacco Use Types [...] 1 MG tablet To be sent to: [id number] - [place], [place] - [address] [facility] documented in this encounter Plan of Treatment Upcoming Encounters Date Type Department Care Team (Late st Contact Info) Description 11/05/2025 3:45 PM EST Office Visit [facility] MEDICINE [address] [place] [address] Mayela Welsh MD 230 [place] [address] 11/09/2025 1:30 PM EST Office Visit [facility] ADULT DENTAL [address] [place] [address] Dk Andre DDS [address] [place] [address] documented as of this encounter Visit Diagnoses Not on filedocumented in this encounter Additional Health Concerns Assessment Noted Time PHQ-9 Depression Total Score: 3 07/29/20 23 12:33 PM EDT documented as of this encounter Care Teams Coal Handling Supervisor Relationship Specialty Start Date End Date Mayela Welsh MD 230 [place] [address] PCP - General Family Medicine 06/26/21 documented as of this encounter
--- OUTSIDE RECORDS SUMMARY | 2025-10-24 08:17 | XMS_ITS | Encounter Summary ---
Author Organization [employer] Address 75 [facility] 7t [place] [address] Care Team Providers Care Collection Systems Worker Name Role Phone Mayela Welsh MD Primary Care Provider Reason for Visit * Reason Comments Med Refill Encounter Details Date Type Department Care Team ([facility] st Contact Info) Description 08/27/2024 Refill [facility] MEDICINE [address] [place], [place] [phone] Mayela Welsh MD 230 [place], [place] [phone] Social History Tobacco Use Types Packs/Day Years [...] Description 11/05/2025 3:45 PM EST Office Visit [facility] [address] [place] [address] Mayela Welsh MD 230 [place] [address] 11/09/2025 1:30 PM EST Office Visit [facility] ADULT DENTAL [address] [place] [address] Dk Andre DDS 230 [place] [address] documented as of this encounter Visit Diagnoses Not on filedocumented in this encounter Additional Health Concerns Assessment Noted Time PHQ-9 Depression Total Score: 3 07/29/20 23 12:33 PM EDT documented as of this encounter Care Teams Collection Systems Worker Relationship Specialty Start Date End Date Mayela Welsh MD [address] [place] [address] [phone] PCP - General Family Medicine 06/26/21 documented as of this encounter
--- OUTSIDE RECORDS SUMMARY | 2025-10-24 08:17 | XMS_ITS | Encounter Summary ---
Author Organization [employer] Address 75 [facility] 7t [place] [address] Care Team Providers Care Overhead Worker Name Role Phone Mayela Welsh MD Primary Care Provider [phone] Reason for Visit * Reason Onset Date Comments rs no show appt 11/23/2024 Encounter Details Date Type Department Care Team ([facility] st Contact Info) Description 11/23/[address] [facility] ADULT DENTAL 230 [place] [address] Codi, Barbie [address] [place] [address] rs no show appt Social History Tobacco [...] 11/05/2025 3:45 PM EST Office Visit [facility] MEDICINE [address] [place] [address] Mayela Welsh MD 230 [place] [address] 11/09/2025 1:30 PM EST Office Visit [facility] ADULT DENTAL [address] [place] [address] Dk Andre DDS [address] [place] [address] documented as of this encounter Visit Diagnoses Not on filedocumented in this encounter Additional Health Concerns Assessment Noted Time PHQ-9 Depression Total Score: 8 11/14/19 25 4:22 PM EST documented as of this encounter Care Teams Overhead Worker Relationship Specialty Start Date End Date Mayela Welsh MD 230 [place] [address] PCP - General Family Medicine 06/26/21 documented as of this encounter
--- OUTSIDE RECORDS SUMMARY | 2025-10-24 08:17 | XMS_ITS | Encounter Summary ---
Author Organization [employer] Address 75 [facility] 7t [place] [address] Care Team Providers Care Modeling Director Name Role Phone Mayela Welsh MD Primary Care Provider [phone] Reason for Visit * Reason Onset Date Comments medication clarification 03/31/2024 Encounter Details Date Type Department Care Team ([facility] st Contact Info) Description 03/31/2024 Telephone [facility] ADULT DENTAL [address] [place] [address] Dk Andre DDS [address] [place], [place] [phone] medication clarification Social History Tobacco Use Types [...] - 03/31/2024 10:19 AM EDT Maame from [facility] in [place] called to clarify medication use. How many [...] 11/05/2025 3:45 PM EST Office Visit [facility] MEDICINE [address] [place] [address] Mayela Welsh MD 230 [place] [address] 11/09/2025 1:30 PM EST Office Visit [facility] ADULT DENTAL [address] [place] [address] Dk Andre DDS [address] [place] [address] documented as of this encounter Visit Diagnoses Not on filedocumented in this encounter Additional Health Concerns Assessment Noted Time PHQ-9 Depression Total Score: 3 07/29/20 23 12:33 PM EDT documented as of this encounter Care Teams Modeling Director Relationship Specialty Start Date End Date Mayela Welsh MD 230 [place] [address] PCP - General Family Medicine 06/26/21 documented as of this encounter
--- OUTSIDE RECORDS SUMMARY | 2025-10-24 08:17 | XMS_ITS | Clinical Summary ---
Author Organization [facility] Address [address] [address] Phone Care Team Providers Care Transit Operations Supervisor Name Role Phone Brielle Up Primary Care Provider [phone] Allergies No known active allergies Medications LORazepam [...] REPLACEMENT MEDICARE REPLACEMENT MEDICARE REPLACEMENT MEDICARE REPLACEMENT [facility] [place] [address] Care Teams Transit Operations Supervisor Relationship Specialty Start Date End Date Brielle Up DO [address] [address] PCP - General Internal Medicine 02/28/19 Additional Source Comments The information contained in this document represents components of the legal health record. It is not the complete legal health record.[facility]
--- OUTSIDE RECORDS SUMMARY | 2025-10-24 08:17 | XMS_ITS | Encounter Summary ---
Author Organization [employer] Address [address] [place] [address] 7 [place] [address] Care Team Providers Care Lookback Coordinator Name Role Phone Mayela Welsh MD Primary Care Provider [phone] Encounter Details Date Type Department Care Team (Late st Contact Info) Description 11/03/2022 Abstract [facility] MEDICINE [address] [place] [address] Mayela Welsh MD [address] [place] [address] [phone] Social History Tobacco Use Types Packs/Day Years [...] Description 11/05/2025 3:45 PM EST Office Visit [facility] MEDICINE [address] [place] [address] Mayela Welsh MD [address] [place] [address] [phone] 11/09/2025 1:30 PM EST Office Visit [facility] ADULT DENTAL 230 [place], [place] [phone] Dk Andre DDS 230 [place], [place] [phone] documented as of this encounter Visit Diagnoses Not on filedocumented in this encounter Care Teams Lookback Coordinator Relationship Specialty Start Date End Date Mayela Welsh MD 230 [place], [place] [phone] PCP - General Family Medicine 06/26/21 documented as of this encounter
--- OUTSIDE RECORDS SUMMARY | 2025-10-24 08:17 | XMS_ITS | Encounter Summary ---
Author Organization [employer] Address 75 [facility] 7t [place] [address] Care Team Providers Care Operations Support Professionals Name Role Phone Mayela Welsh MD Primary Care Provider [phone] Reason for Visit * Reason Comments Med Refill Encounter Details Date Type Department Care Team ([facility] st Contact Info) Description 09/04/2024 Refill [facility] MEDICINE 230 [place], [place] [phone] Mayela Welsh MD 230 [place], [place] [phone] Social History Tobacco Use Types Packs/Day Years [...] Description 11/05/2025 3:45 PM EST Office Visit [facility] MEDICINE [address] [place] [address] Mayela Welsh MD 230 [place] [address] 11/09/2025 1:30 PM EST Office Visit [facility] ADULT DENTAL [address] [place] [address] Dk Andre DDS [address] [place] [address] documented as of this encounter Visit Diagnoses Not on filedocumented in this encounter Additional Health Concerns Assessment Noted Time PHQ-9 Depression Total Score: 3 07/29/20 23 12:33 PM EDT documented as of this encounter Care Teams Operations Support Professionals Relationship Specialty Start Date End Date Mayela Welsh MD [address] [place] [address] [phone] PCP - General Family Medicine 06/26/21 documented as of this encounter
--- OUTSIDE RECORDS SUMMARY | 2025-10-24 08:17 | XMS_ITS | Encounter Summary ---
Author Organization [employer] Address 75 [facility] 7t [place] [address] Care Team Providers Care Hollow Handle Bench Worker Name Role Phone Mayela Welsh MD Primary Care Provider [phone] Encounter Details Date Type Department Care Team (Late st Contact Info) Description 02/05/2025 Orders Only [facility] MEDICINE [address] [place], [place] [phone] Aline Mo NP 230 [place] [address] Acute pain of left shoulder (Primary Dx) [...] Visit [facility] MEDICINE [address] [place] [address] Mayela Welsh MD 230 [place] [address] 11/09/2025 1:30 PM EST Office Visit [facility] ADULT DENTAL [address] [place] [address] Dk Andre DDS [address] [place] [address] documented as of this encounter Procedures Procedure Name Priority Date/Time Associated Diagnosis Comments XR SHOULDER 2+ VIEWS LEFT Routine 02/05/2025 3:08 PM EDT Acute pain of left shoulder documented in this encounter Results * XR Shoulder 2+ Views Left (02/05/2025 3:08 PM EDT) Anatomical Region Laterality Modality Upper Extremities, Shoulder Left Radi ographic Imaging 02/05/2025 3:08 PM EDT Narrative 02/06/2025 12:01 PM EDT [employer] [address] [place] [phone] XRay Report Signed Patient: Apple Recio MR#: [id number] : [id number] Acct:[id number] Age/Sex: 74 / F ADM Date: 02/05/25 Loc: HO.XRAY Attending Dr: Mayela Welsh MD Ordering Physician: Aline Mo Date of Service: 02/05/25 Procedure(s): XR shoulder LT min 2V Accession Number(s): [id number] cc: Evelyn Mo Nao MD EXAMINATION: XR [...] MD 02/06/2025 11:57 AM EDT Dictated By: Jeol Leiva MD Signed By: <Electronically signed by Joel Leiva MD in OV> 02/06/25 1157 DD/ 1508 TD/TT: 02/05/25 1515 [employer]: Procedure Note Donotuseinterpreter, Image - 02/06/[address] [address] XRay Report Signed Patient: Florinda Recio#: [id number] : [id number]:[id number] Age/Sex: 74 / FADM Date: 02/05/25 Loc: HO.XRAY Attending Dr: Mayela Welsh MD Ordering Physician: Aline Mo Date of Service: 02/05/25 Procedure(s): XR shoulder LT min 2V Accession Number(s): [id number] cc: Evelyn Mo Nao MD EXAMINATION: XR [...] 02/06/25 1157 DD/ 1508 TD/TT: 02/05/25 1515 [employer]: [facility] Porfirio ADMINISTRATIVE PROCESSOR IMG XR PROCEDURES Final Result documented in this encounter Visit Diagnoses Diagnosis Acute pain of left shoulder- Primary documented in this encounter Additional Health Concerns Assessment Noted Time PHQ-9 Depression Total Score: 8 11/14/19 25 4:22 PM EST documented as of this encounter Care Teams Hollow Handle Bench Worker Relationship Specialty Start Date End Date Mayela Welsh MD [address] [place] [address] PCP - General Family Medicine 06/26/21 documented as of this encounter
--- OUTSIDE RECORDS SUMMARY | 2025-10-24 08:17 | XMS_ITS | Encounter Summary ---
Author Organization [employer] Address 75 [facility] 7t [place] [address] Care Team Providers Care Education Professional Name Role Phone Mayela Welsh MD Primary Care Provider [phone] Reason for Visit * Reason Onset Date Comments no show error 08/25/2024 Encounter Details Date Type Department Care Team (Late st Contact Info) Description 08/25/2024 Telephone [facility] ADULT DENTAL [address] [place] [address] Kinsey Moffett no show error Social History [...] Description 11/05/2025 3:45 PM EST Office Visit [facility] MEDICINE [address] [place] [address] Mayela Welsh MD 230 [place] [address] 11/09/2025 1:30 PM EST Office Visit [facility] ADULT DENTAL [address] [place] [address] Dk Andre DDS [address] [place] [address] documented as of this encounter Visit Diagnoses Not on filedocumented in this encounter Additional Health Concerns Assessment Noted Time PHQ-9 Depression Total Score: 3 07/29/20 23 12:33 PM EDT documented as of this encounter Care Teams Education Professional Relationship Specialty Start Date End Date Mayela Welsh MD [address] [place] [address] PCP - General Family Medicine 06/26/21 documented as of this encounter
--- OUTSIDE RECORDS SUMMARY | 2025-10-24 08:17 | XMS_ITS | Encounter Summary ---
Author Organization [facility] Address [address] [place] [address] Care Team Providers Care Fruit Culler Name Role Phone Teresa Onofre DO Primary Care Provider Encounter Details Date Type Department Care Team (Late st Contact Info) Description 09/19/2020 Orders Only [facility] Department of Internal Medicine [address] [place] [address] Teresa Onofre DO [address] [place] [address] Social History Tobacco Use Types Packs/Day Years [...] on filedocumented in this encounter Care Teams Fruit Culler Relationship Specialty Start Date End Date Teresa Onofre DO [address] [place] [address] PCP - General Internal Medicine 10/26/18 02/26/21 documented as of this encounter
--- OUTSIDE RECORDS SUMMARY | 2025-10-24 08:17 | XMS_ITS | Encounter Summary ---
Author Organization [employer] Address [address] [place] [address] 7 [place] [address] Care Team Providers Care Dental Hygiene Administrative Assistant Name Role Phone Mayela Welsh MD Primary Care Provider [phone] Reason for Visit * Reason Onset Date Comments triage 11/12/2022 Encounter Details Date Type Department Care Team ([facility] st Contact Info) Description 11/12/2022 Telephone [facility] MEDICINE [address] [place] [address] [phone] Mayela Welsh MD [address] [place], [place] [phone] triage Social History Tobacco Use Types Packs/Day [...] PM EST Call to Pt x2 with [facility] Director Biostatistics ID [id number]. Pt didn't answer left message. * Telephone Encounter - Jefffermín Sierra - 11/12/2022 2:10 PM EST Symptoms: Body Aches, Foot or Ankle Pain - Not From Injury Outcome: Schedule an urgent appointment (within 1 hour) or talk to a nurse or provider soon Reason: Severe pain now The caller accepted this outcome speaks serbian documented in this encounter Plan of Treatment Upcoming Encounters Date Type Department Care Team (Late st Contact Info) Description 11/05/2025 3:45 PM EST Office Visit [facility] MEDICINE [address] [place] [address] Mayela Welsh MD [address] [place] [address] 11/09/2025 1:30 PM EST Office Visit [facility] ADULT DENTAL [address] [place] [address] Dk Andre DDS [address] [place] [address] documented as of this encounter Visit Diagnoses Not on filedocumented in this encounter Care Teams Dental Hygiene Administrative Assistant Relationship Specialty Start Date End Date Mayela Welsh MD [address] [place] [address] PCP - General Family Medicine 06/26/21 documented as of this encounter
--- OUTSIDE RECORDS SUMMARY | 2025-10-24 08:17 | XMS_ITS | Encounter Summary ---
Author Organization [employer] Address [address] [place] [address] 7t [place] [address] Care Team Providers Care Tools And Parts Attendant Name Role Phone Mayela Welsh MD Primary Care Provider Reason for Visit * Reason Comments Med Change Request Encounter Details Date Type Department Care Team ([facility] st Contact Info) Description 04/18/2025 Refill [facility] MEDICINE [address] [place], [place] [phone] Mayela Welsh MD [address] [place], [place] [phone] Social History Tobacco Use Types Packs/Day Years [...] 3:45 PM EST Office Visit [facility] MEDICINE [address] [place] [address] Mayela Welsh MD [address] [place] [address] 11/09/2025 1:30 PM EST Office Visit [facility] ADULT DENTAL [address] [place] [address] Dk Andre DDS [address] [place] [address] documented as of this encounter Visit Diagnoses Not on filedocumented in this encounter Additional Health Concerns Assessment Noted Time PHQ-9 Depression Total Score: 8 11/14/19 25 4:22 PM EST documented as of this encounter Care Teams Tools And Parts Attendant Relationship Specialty Start Date End Date Mayela Welsh MD [address] [place] [address] PCP - General Family Medicine 06/26/21 documented as of this encounter
--- OUTSIDE RECORDS SUMMARY | 2025-10-24 08:17 | XMS_ITS | Encounter Summary ---
Author Organization [employer] Address [address] [place] [address] 7t [place] [address] Care Team Providers Care Photoengraving Apprentice Name Role Phone Mayela Welsh MD Primary Care Provider [phone] Reason for Visit * Reason Comments Med Refill Encounter Details Date Type Department Care Team ([facility] st Contact Info) Description 03/03/2025 Refill [facility] MEDICINE [address] [place], [place] [phone] Mayela Welsh MD [address] [place], [place] [phone] Social History Tobacco Use Types Packs/Day Years [...] 3:45 PM EST Office Visit [facility] MEDICINE [address] [place] [address] Mayela Welsh MD [address] [place] [address] 11/09/2025 1:30 PM EST Office Visit [facility] ADULT DENTAL [address] [place] [address] Dk Andre DDS [address] [place] [address] documented as of this encounter Visit Diagnoses Not on filedocumented in this encounter Additional Health Concerns Assessment Noted Time PHQ-9 Depression Total Score: 8 11/14/19 25 4:22 PM EST documented as of this encounter Care Teams Photoengraving Apprentice Relationship Specialty Start Date End Date Mayela Welsh MD [address] [place] [address] PCP - General Family Medicine 06/26/21 documented as of this encounter
== END 2025-10-24 08:15 | disposition home or self-care (01) ==
LOC: HO.US 08:14
PROVIDERS: PCP Family Medicine; Visit Provider Family Medicine
DX: I73.9 Peripheral vascular disease, unspecified (principal)
CPT/HCPCS: 93925

== ENCOUNTER → 2025-10-24 08:17 | Outpatient (BNV) | payer OTHER, SELFPAY | PROVIDERS: PCP Family Medicine; Visit Provider Radiology Diagnostic Radiology | DX: I70.202 Unspecified atherosclerosis of native arteries of extremities, left leg (principal); M61.461 Other calcification of muscle, right lower leg | CPT/HCPCS: 93925 ==